=== PATIENT | male | born 1975 | race Caucasian/White ===

== ENCOUNTER → 2016-05-12 | Outpatient (CLI) | payer OTHER ==
--- NOTE | 2016-05-12 11:44 | XR ---
EXAMINATION TYPE: XR chest 2V DATE OF EXAM ORDERED: 05/12/2016 11:25 AM HISTORY: J18.9 Pneumonia. REFERENCE: None. FINDINGS: The lungs are clear. Pleural spaces are clear. Heart size is normal. IMPRESSION: NORMAL CHEST.
== END | disposition home or self-care (01) ==
LOC: RADXRMAIN 11:14
PROVIDERS: ATTEND Family Medicine
DX: J18.9 Pneumonia, unspecified organism (principal)
CPT/HCPCS: 71020

== ENCOUNTER → 2019-09-12 | Outpatient (CLI) | payer OTHER | LOC: LABWHC1 14:54 | PROVIDERS: ATTEND Family Medicine | DX: R51 Headache (principal); R53.83 Other fatigue | CPT/HCPCS: U0003; C9803 ==

== ENCOUNTER 2021-06-23 22:40 | Emergency (ER) | payer OTHER ==
[2021-06-23 22:49] VITALS: RESP 20
[2021-06-23] MEDS ORDERED: SODIUM CHLORIDE 0.9% 1,000 ML IV STA (22:57)
--- NOTE | 2021-06-23 23:02 | ED ---
Dizziness HPI - General Chief Complaint: Dizziness Stated Complaint: Dizziness Time Seen by Provider: 06/23/21 22:44 Source: patient, EMS Mode of arrival: EMS Limitations: no limitations - History of Present Illness Initial Comments: This patient's 46-year-old man who states that he started to feel dizzy and off balance approximately 1-2 hours ago while he was watching television. The patient thought he would lie down and when things did not get any better he phoned EMS. Patient denies any trauma or exertion prior to onset. He states he just watching television. No infectious symptoms earlier today. No fever or chills. No chest pain, dyspnea, diaphoresis. No vomiting or diarrhea. MD Complaint: dizziness Onset/Timin -: hour(s) Timing: sudden onset Description: sense of movement, off-balance History of Same: No History of Trauma: No Severity: moderate Improves With: remaining still Worsens With: movement Associated Symptoms: denies other symptoms - Related Data Previous Rx's Medication Instructions Recorded FLUoxetine HCL [PROzac] 40 mg PO DAILY #7 dose 02/07/15 clonazePAM [KlonoPIN] 0.5 mg PO BID@0800,1300 #14 tab 02/07/15 clonazePAM [KlonoPIN] 2 mg PO HS #7 dose 02/07/15 hydrOXYzine pamoate [Vistaril] 50 mg PO HS #7 dose 02/07/15 Allergies Allergy/AdvReac Type Severity Reaction Status Date / Time bupropion HCl Allergy Unknown Verified 02/02/15 23:10 [From Wellbutrin] Review of Systems ROS Statement: Those systems with pertinent positive or pertinent negative responses have been documented in the HPI. ROS Other: All systems not noted in ROS Statement are negative. Constitutional: Denies: fever, chills, weakness Respiratory: Denies: cough, dyspnea Cardiovascular: Denies: chest pain, palpitations, edema, syncope Gastrointestinal: Reports: abdominal pain. Denies: nausea, vomiting, diarrhea, melena, hematochezia Genitourinary: Denies: dysuria, hematuria Musculoskeletal: Denies: back pain Skin: Denies: rash Neurological: Reports: vertigo. Denies: headache, weakness, numbness, confusion Past Medical History Past Medical History: No Reported History History of Any Multi-Drug Resistant Organisms: None Reported Additional Past Surgical History / Comment(s): FINGER AMPUTATION LEFT INDEX FINGER IN 1999, HILARIO PLACED AND REMOVED FROM LEFT LEG IN 2002 hardware removal from left ORIF lower extremity, distal tip of the finger slightly amputated after injury Past Anesthesia/Blood Transfusion Reactions: No Reported Reaction Past Psychological History: Anxiety, Depression Past Alcohol Use History: Occasional Past Drug Use History: None Reported - Past Family History Father Family Medical History: No Reported History Mother Family Medical History: No Reported History Brother(s) Family Medical History: No Reported History (Depression and anxiety) General Exam Limitations: no limitations General appearance: alert, in no apparent distress Head exam: Present: atraumatic, normocephalic Eye exam: Present: normal appearance. Absent: scleral icterus, conjunctival injection ENT exam: Present: mucous membranes dry Neck exam: Present: normal inspection Respiratory exam: Present: normal lung sounds bilaterally. Absent: respiratory distress, wheezes, rales, rhonchi, stridor Cardiovascular Exam: Present: normal rhythm, tachycardia, normal heart sounds. Absent: systolic murmur, diastolic murmur, rubs, gallop GI/Abdominal exam: Present: soft. Absent: distended, tenderness, guarding, rebound, mass Extremities exam: Present: normal inspection, normal capillary refill. Absent: pedal edema, calf tenderness Back exam: Present: normal inspection. Absent: CVA tenderness (R), CVA tenderness (L) Neurological exam: Present: alert Skin exam: Present: warm, dry, intact, normal color. 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 ] Respiratory 20 Rate Blood Pressure 130/89 O2 Sat by Pulse 96 Oximetry EKG Findings - EKG Results: EKG: interpreted by TOI, sinus rhythm, normal axis EKG shows: tachycardia (Rate 116 bpm) - Blocks, Lavinia, Hypertrophy, ST Abn: QRS axis and voltage: low voltage (<0.5 MV total QRS and <1.0 MV in each precordial lead) Medical Decision Making - Lab Data Result diagrams: 06/23/21 23:06 06/23/21 23:06 Lab Results 06/23/21 06/23/21 06/23/21 Range/Units 23:06 23:06 23:06 WBC 10.3 (3.8-10.6) k/uL RBC 5.09 (4.30-5.90) m/uL Hgb 15.7 (13.0-17.5) gm/dL Hct 46.0 (39.0-53.0) % MCV 90.3 (80.0-100.0) fL MCH 30.8 (25.0-35.0) pg MCHC 34.1 (31.0-37.0) g/dL RDW 12.5 (11.5-15.5) % Plt Count 243 (150-450) k/uL MPV 7.6 Neutrophils % 81 % Lymphocytes % 13 % Monocytes % 4 % Eosinophils % 1 % Basophils % 0 % Neutrophils # 8.3 H (1.3-7.7) k/uL Lymphocytes # 1.3 (1.0-4.8) k/uL Monocytes # 0.5 (0-1.0) k/uL Eosinophils # 0.1 (0-0.7) k/uL Basophils # 0.0 (0-0.2) k/uL PT 9.9 (9.0-12.0) sec INR 0.9 (<1.2) APTT 23.3 (22.0-30.0) sec D-Dimer <0.17 (<0.60) mg/L FEU Sodium 137 (137-145) mmol/L Potassium 4.3 (3.5-5.1) mmol/L Chloride 103 (98-107) mmol/L Carbon Dioxide 24 (22-30) mmol/L Anion Gap 10 mmol/L BUN 18 (9-20) mg/dL Creatinine 1.19 (0.66-1.25) mg/dL Est GFR (CKD-EPI)AfAm 84 (>60 ml/min/1.73 sqM) Est GFR (CKD-EPI)NonAf 72 (>60 ml/min/1.73 sqM) Glucose 153 H (74-99) mg/dL Calcium 9.1 (8.4-10.2) mg/dL Magnesium 2.2 (1.6-2.3) mg/dL Total Bilirubin 0.5 (0.2-1.3) mg/dL AST 24 (17-59) U/L ALT 28 (4-49) U/L Alkaline Phosphatase 83 (38-126) U/L Troponin I (0.000-0.034) ng/mL Total Protein 7.3 (6.3-8.2) g/dL Albumin 4.4 (3.5-5.0) g/dL TSH 3.340 (0.465-4.680) mIU/L 06/23/21 Range/Units 23:06 WBC (3.8-10.6) k/uL RBC (4.30-5.90) m/uL Hgb (13.0-17.5) gm/dL Hct (39.0-53.0) % MCV (80.0-100.0) fL MCH (25.0-35.0) pg MCHC (31.0-37.0) g/dL RDW (11.5-15.5) % Plt Count (150-450) k/uL MPV Neutrophils % % Lymphocytes % % Monocytes % % Eosinophils % % Basophils % % Neutrophils # (1.3-7.7) k/uL Lymphocytes # (1.0-4.8) k/uL Monocytes # (0-1.0) k/uL Eosinophils # (0-0.7) k/uL Basophils # (0-0.2) k/uL PT (9.0-12.0) sec INR (<1.2) APTT (22.0-30.0) sec D-Dimer (<0.60) mg/L FEU Sodium (137-145) mmol/L Potassium (3.5-5.1) mmol/L Chloride (98-107) mmol/L Carbon Dioxide (22-30) mmol/L Anion Gap mmol/L BUN (9-20) mg/dL Creatinine (0.66-1.25) mg/dL Est GFR (CKD-EPI)AfAm (>60 ml/min/1.73 sqM) Est GFR (CKD-EPI)NonAf (>60 ml/min/1.73 sqM) Glucose (74-99) mg/dL Calcium (8.4-10.2) mg/dL Magnesium (1.6-2.3) mg/dL Total Bilirubin (0.2-1.3) mg/dL AST (17-59) U/L ALT (4-49) U/L Alkaline Phosphatase (38-126) U/L Troponin I <0.012 (0.000-0.034) ng/mL Total Protein (6.3-8.2) g/dL Albumin (3.5-5.0) g/dL TSH (0.465-4.680) mIU/L Disposition Clinical Impression: Dizziness Disposition: HOME SELF-CARE Condition: Good Instructions (If sedation given, give patient instructions): Dizziness (ED) Is patient prescribed a controlled substance at d/c from ED?: No Referrals: Jefry Castro DO [Primary Care Provider] - 1-2 days
--- NOTE | 2021-06-23 23:48 | XR ---
EXAMINATION TYPE: XR chest 2V DATE OF EXAM: 06/23/2021 COMPARISON: 05/12/2016 HISTORY: Dysrhythmia TECHNIQUE: 2 views FINDINGS: Heart and mediastinum are normal. Lungs are clear. Diaphragm is normal. Bony thorax appears normal. There are chest leads. IMPRESSION: Normal chest. No change.
[2021-06-23] MEDS ORDERED: HYDROcodone/APAP 5-325MG 1 EACH TAB PO STA (23:56)
[2021-06-24] LABS: Basophils % (A) 0 %; Eosinophils # (A) 0.1 k/uL (0-0.7); Eosinophils % (A) 1 %; HGB 15.7 gm/dL (13.0-17.5); Lymphocytes # (A) 1.3 k/uL (1.0-4.8); Lymphocytes % (A) 13 %; MCH 30.8 pg (25.0-35.0); MCHC 34.1 g/dL (31.0-37.0); MCV 90.3 fL (80.0-100.0); Mean Platelet Volume 7.6; Monocytes # (A) 0.5 k/uL (0-1.0); Monocytes % (A) 4 %; Neutrophils # (A) 8.3 k/uL (1.3-7.7); Neutrophils % (A) 81 %; Platelet Count 243 k/uL (150-450); RBC 5.09 m/uL (4.30-5.90); RDW 12.5 % (11.5-15.5); WBC 10.3 k/uL (3.8-10.6)
[2021-06-24 00:03] LABS: Albumin 4.4 g/dL (3.5-5.0); Calcium 9.1 mg/dL (8.4-10.2); Magnesium 2.2 mg/dL (1.6-2.3); Potassium 4.3 mmol/L (3.5-5.1); Total Bilirubin 0.5 mg/dL (0.2-1.3); Total Protein 7.3 g/dL (6.3-8.2)
[2021-06-24 00:07] LABS: INR 0.9 (<1.2); Partial Thromboplastin Time 23.3 sec (22.0-30.0); Prothrombin Time 9.9 sec (9.0-12.0)
[2021-06-24 02:26] VITALS: BP 130/89; PULSE 109; TEMP 98.6
== END 2021-06-24 02:43 | disposition home or self-care (01) ==
LOC: EC 22:40
DX: R42 Dizziness and giddiness (principal); F32.A Depression, unspecified; F41.9 Anxiety disorder, unspecified; Z79.899 Other long term (current) drug therapy
CPT/HCPCS: 36415; 71046; 80053; 83735; 84443; 84484; 85025; 85379; 85610; 85730; 93005; 96360; 99284

== ENCOUNTER → 2021-12-14 | Outpatient (CLI) | payer OTHER ==
--- NOTE | 2021-12-15 01:29 | MR ---
EXAMINATION TYPE: MR knee LT wo con DATE OF EXAM: 12/14/2021 COMPARISON: None HISTORY: Left knee pain Multiplanar multiecho imaging of the left knee performed with no contrast. There is mild knee joint effusion. The anterior and posterior cruciate ligaments are intact. Patella is intact. Patellar tendon is intact. The collateral ligaments are intact. The medial and lateral menisci have fairly normal signal pattern. No evidence of a tear. No evidence of a fracture. No evidence of bone edema. The knee joint spaces are fairly normal. IMPRESSION: No evidence of ligamentous or meniscal tear. Small knee joint effusion.
== END | disposition home or self-care (01) ==
LOC: RADMRIMAIN 09:40
PROVIDERS: ATTEND Family Medicine
DX: M25.562 Pain in left knee (principal)

== ENCOUNTER 2022-01-14 22:53 | Emergency (ER) | payer OTHER ==
[2022-01-14 23:16] VITALS: TEMP 97
[2022-01-15] MEDS ORDERED: HYDROmorphone 1 MG/ML 1 ML SYRINGE IM STA (01:39)
[2022-01-15] MEDS ORDERED: KETOROLAC 15 MG/ML 1 ML VIAL IM STA (01:39)
[2022-01-15] MEDS ORDERED: ORPHENADRINE 30 MG/ML 2 ML VIAL IM STA (01:39)
--- NOTE | 2022-01-15 01:40 | ED ---
Extremity Problem HPI - General Chief complaint: Extremity Problem,Nontraumatic Stated complaint: Restless Legs Time Seen by Provider: 01/15/22 01:29 Source: patient Mode of arrival: EMS Limitations: no limitations - History of Present Illness Initial comments: This is a pleasant 39-year-old male who arrived by ambulance for chronic left leg pain and restless leg syndrome. Patient states for the last 6 months he has had increasing nerve pain to his left leg. Patient has had several workups to include an EMG, he's been evaluated by his family physician as well as orthopedics. Patient also been evaluated by neurology. Patient currently taking Neurontin for pain control. She is getting a throbbing and shooting type pain in his left leg as well as increased problems with restless leg syndrome. No acute injury. No fever, no pain in the feet. Most of the patient's pain is around the left knee area where he had previous surgery. Patient has a tentative diagnosis of reflux sympathetic dystrophy. Surgery was 20 years ago. No headache, no fever or chills, no changes in vision or hearing, no sore throat or difficulty with speech, no neck pain, no chest pain or shortness of breath, no abdominal pain, no nausea or vomiting, no changes in urination or bowel movements, no numbness or tingling,, no skin rashes or lesions. Past medical, surgical, social, and family history reviewed. - Related Data Previous Rx's Medication Instructions Recorded FLUoxetine HCL [PROzac] 40 mg PO DAILY #7 dose 02/07/15 clonazePAM [KlonoPIN] 0.5 mg PO BID@0800,1300 #14 tab 02/07/15 clonazePAM [KlonoPIN] 2 mg PO HS #7 dose 02/07/15 hydrOXYzine pamoate [Vistaril] 50 mg PO HS #7 dose 02/07/15 Allergies Allergy/AdvReac Type Severity Reaction Status Date / Time bupropion HCl Allergy Unknown Verified 02/02/15 23:10 [From Wellbutrin] Review of Systems ROS Statement: Those systems with pertinent positive or pertinent negative responses have been documented in the HPI. ROS Other: All systems not noted in ROS Statement are negative. Past Medical History Past Medical History: Dementia, Hyperlipidemia Additional Past Medical History / Comment(s): restless leg syndrome. RSD. History of Any Multi-Drug Resistant Organisms: None Reported Additional Past Surgical History / Comment(s): FINGER AMPUTATION LEFT INDEX FINGER IN 1999, HILARIO PLACED AND REMOVED FROM LEFT LEG IN 2002 hardware removal from left ORIF lower extremity, distal tip of the finger slightly amputated after injury Past Anesthesia/Blood Transfusion Reactions: No Reported Reaction Past Psychological History: Anxiety, Depression Past Alcohol Use History: Occasional Past Drug Use History: None Reported - Past Family History Father Family Medical History: No Reported History Mother Family Medical History: No Reported History Brother(s) Family Medical History: No Reported History (Depression and anxiety) General Exam - General Exam Comments Initial Comments: Patient does not appear to be ill or toxic. Limitations: no limitations General appearance: in distress (Mild secondary to leg pain) Head exam: Present: atraumatic, normocephalic, normal inspection Eye exam: Present: normal appearance, PERRL, EOMI. Absent: scleral icterus, conjunctival injection, periorbital swelling ENT exam: Present: normal exam, normal oropharynx, mucous membranes moist, normal external ear exam. Absent: mucous membranes dry Neck exam: Present: normal inspection, full ROM. Absent: tenderness, meningismus, lymphadenopathy Respiratory exam: Present: normal lung sounds bilaterally. Absent: respiratory distress, wheezes, rales, rhonchi, stridor Cardiovascular Exam: Present: regular rate, normal rhythm, normal heart sounds. Absent: systolic murmur, diastolic murmur, rubs, gallop, clicks GI/Abdominal exam: Present: soft, normal bowel sounds. Absent: distended, tenderness, guarding, rebound, rigid Extremities exam: Present: normal inspection, full ROM, normal capillary refill, other (Postsurgical scarring noted to the left leg. No erythema. No evidence of infectious process. Pulses are intact. Distal sensation intact. Range of motion full in all major joints. Full muscle strength all major muscle groups. No effusion). Absent: tenderness, pedal edema, joint swelling, calf tenderness Back exam: Present: normal inspection, full ROM. Absent: tenderness Neurological exam: Present: alert, oriented X3, CN II-XII intact Psychiatric exam: Present: normal affect, normal mood Skin exam: Present: warm, dry, intact, normal color. Absent: rash, cyanosis, diaphoretic, erythema, urticaria, vesicles, petechiae, pallor, mottled, abrasion Course Vital Signs 01/14/22 01/15/22 23:12 01:37 Temperature 97 F L Pulse Rate 110 H 101 H Respiratory 20 16 Rate Blood Pressure 129/79 125/81 O2 Sat by Pulse 97 97 Oximetry Medical Decision Making - Medical Decision Making Patient presented with chronic pain related to restless leg syndrome and possible RSD and chronic nerve pain involving his left leg. Patient currently on Neurontin through his regular physician. There was no evidence of infectious process or vascular insult. It agreed to treat her with one dose of hydromorphone, Norflex, and ketorolac. Told the patient to call his regular physician 8 AM tomorrow morning without fail to discuss further medication management. Patient was told to return to the ER for any signs or symptoms worsen. Told to return immediately if any other problems arise. All questions answered. Treatment plan discussed. Patient in agreement Every effort has been made to ensure accuracy of this dictation. However, due to the limitations of electronic medical records and dictation devices, errors in charting still occur. The case was discussed in detail with ED attending physician. Presentation, findings, treatment plan discussed in detail. Perfusionist Dr. Allna Disposition Clinical Impression: Chronic leg pain Disposition: HOME SELF-CARE Condition: Stable Instructions (If sedation given, give patient instructions): Chronic Pain (ED) Additional Instructions: Follow-up with your regular physician as directed. Return to the ER immediately if any symptoms worsen, new symptoms arise, or any other problems develop. Call your regular physician tomorrow morning for further pain management options. Is patient prescribed a controlled substance at d/c from ED?: No Referrals: Jefry Castro DO [Primary Care Provider] - 1-2 days Time of Disposition: 02:20
[2022-01-15 01:41] VITALS: BP 125/81; PULSE 101; RESP 16
== END 2022-01-15 03:13 | disposition home or self-care (01) ==
LOC: EC 22:53
DX: G89.29 Other chronic pain (principal); F32.A Depression, unspecified; F41.9 Anxiety disorder, unspecified; Z88.8 Allergy status to other drugs, medicaments and biological substances
CPT/HCPCS: 99284; 96372 ×3; J2360; J1170; J1885

== ENCOUNTER 2022-02-23 12:17 | Emergency (ER) | payer OTHER ==
--- NOTE | 2022-02-23 12:30 | ED ---
General Adult HPI - General Source: patient, RN notes reviewed Mode of arrival: ambulatory Limitations: no limitations <Carlitos Dias - Last Filed: 02/23/22 12:29> - General Source: patient, RN notes reviewed Mode of arrival: ambulatory Limitations: no limitations <Maegan Mckoy - Last Filed: 02/24/22 00:29> - General Stated complaint: leg pain Time Seen by Provider: 02/23/22 12:29 - History of Present Illness Initial comments: 39-year-old male presents emergency Department chief complaint leg pain. Patient presented EMS for this pain. Patient states that he is having such intense pain in his anxiety was bothering him he was short of breath. Patient states that has subsided some. He states that his PCP put him on Percocet for his leg problems. Patient states that he was involved in a accident 20 years ago in which she has a hilario in his left leg. Patient denies any back pain denies any bowel bladder incontinence or retention. (Carlitos Dias) 47-year-old male presents to the emergency Department via EMS with complaints of left lower extremity pain. Patient reports history of injury more than 20 years ago which required surgery with hardware placement, which has since been remov ed. States he has been on Neurontin in the past for this pain. He is also prescribed Percocet though has not had much improvement with oral medicines. Describes pain as deep, constant, and an aching/throbbing that extends from his foot and radiates to his knee. Patient states he was at this facility approximately a month ago for the same complaint. Received IM medications with improvement. Patient denies any new trauma or injury. No loss of sensation or weakness in the affected extremity. Denies rash, headache, dizziness, chest pain, shortness of breath, abdominal pain, nausea, vomiting, diarrhea, dysuria, hematuria, or incontinence. (Maegan Mckoy) - Related Data Previous Rx's Medication Instructions Recorded FLUoxetine HCL [PROzac] 40 mg PO DAILY #7 dose 02/07/15 clonazePAM [KlonoPIN] 0.5 mg PO BID@0800,1300 #14 tab 02/07/15 clonazePAM [KlonoPIN] 2 mg PO HS #7 dose 02/07/15 hydrOXYzine pamoate [Vistaril] 50 mg PO HS #7 dose 02/07/15 Allergies Allergy/AdvReac Type Severity Reaction Status Date / Time bupropion HCl Allergy Unknown Verified 02/02/15 23:10 [From Wellbutrin] Review of Systems ROS Other: All systems not noted in ROS Statement are negative. <Carlitos Dias - Last Filed: 02/23/22 12:29> ROS Other: All systems not noted in ROS Statement are negative. <Maegan Mckoy - Last Filed: 02/24/22 00:29> ROS Statement: Those systems with pertinent positive or pertinent negative responses have been documented in the HPI. Past Medical History Past Medical History: Dementia, Hyperlipidemia Additional Past Medical History / Comment(s): restless leg syndrome. RSD. History of Any Multi-Drug Resistant Organisms: None Reported Additional Past Surgical History / Comment(s): FINGER AMPUTATION LEFT INDEX FINGER IN 1999, HILARIO PLACED AND REMOVED FROM LEFT LEG IN 2002 hardware removal from left ORIF lower extremity, distal tip of the finger slightly amputated after injury Past Anesthesia/Blood Transfusion Reactions: No Reported Reaction Past Psychological History: Anxiety, Depression Past Alcohol Use History: Occasional Past Drug Use History: None Reported - Past Family History Father Family Medical History: No Reported History Mother Family Medical History: No Reported History Brother(s) Family Medical History: No Reported History (Depression and anxiety) <Carlitos Dias - Last Filed: 02/23/22 12:29> General Exam Limitations: no limitations General appearance: alert, in no apparent distress, other (Well-developed, well- nourished male in no acute distress, though does appear uncomfortable as he is restless in the bed.) ENT exam: Present: normal exam, mucous membranes moist Respiratory exam: Present: normal lung sounds bilaterally. Absent: respiratory distress, wheezes, rales, rhonchi, stridor Cardiovascular Exam: Present: normal rhythm, tachycardia, normal heart sounds. Absent: systolic murmur, diastolic murmur, rubs, gallop, clicks GI/Abdominal exam: Present: soft, normal bowel sounds. Absent: distended, tenderness, guarding, rebound, rigid Left Hip exam: Present: normal inspection, full ROM. Absent: tenderness, swelling Upper Leg exam: Present: normal inspection, full ROM. Absent: tenderness, swelling Knee exam: Present: normal inspection, full ROM. Absent: tenderness, swelling Lower Leg exam: Present: normal inspection, full ROM. Absent: tenderness, swelling Ankle exam: Present: normal inspection, full ROM Foot/Toe exam: Present: normal inspection, full ROM. Absent: tenderness, swelling Neurovascular tendon exam: Present: no vascular compromise. Absent: pulse deficit, abnormal cap refill, motor deficit, sensory deficit Back exam: Absent: CVA tenderness (R), CVA tenderness (L) Neurological exam: Present: alert, oriented X3 Psychiatric exam: Present: anxious Skin exam: Present: warm, dry, intact, normal color. Absent: rash <Maegan Mckoy - Last Filed: 02/24/22 00:29> Course <Maegan Mckoy - Last Filed: 02/24/22 00:29> Vital Signs 02/23/22 02/23/22 02/23/22 12:44 16:06 16:31 Temperature 97.8 F 98.7 F Pulse Rate 110 H 111 H 96 Respiratory 20 20 Rate Blood Pressure 133/95 163/105 125/92 O2 Sat by Pulse 98 95 Oximetry 02/23/22 17:29 Temperature 98.3 F Pulse Rate 94 Respiratory 18 Rate Blood Pressure 123/92 O2 Sat by Pulse Oximetry - Reevaluation(s) Reevaluation #1: 02/23/22 17:00 Upon reassessment, patient reports improvement in discomfort. Verbalizes readiness for discharge home. Instructed to follow up with PCP for recheck. Work note provided. (Maegan Mckoy) Medical Decision Making <Maegan Mckoy - Last Filed: 02/24/22 00:29> - Medical Decision Making 47-year-old male with a past medical history of restless leg syndrome and chronic pain related to left leg injury presents to the emergency department via EMS for treatment of chronic pain. States he took his Percocet at home with no improvement. Upon exam, patient is well-appearing and in no acute distress, though he is restless. Physical exam findings are unremarkable otherwise. No swelling, erythema, edema, deformity, or neurovascular compromise in the left lower extremity. Patient was given Toradol, Dilaudid, and Norflex with improvement. He will be discharged home to follow up with his PCP for a recheck and discuss pain medication regimen. Provided with a note for work. Return parameters discussed in detail. Patient verbalizes understanding and agrees with this plan. Attending: Corby Was pt. sent in by a medical professional or institution? @ -No Did you speak to anyone other than the patient for history? @ -No Did you review nursing and triage notes? @ -Yes, agree Were old charts reviewed? @ -No Differential Diagnosis? @ -Exacerbation of restless leg syndrome, exacerbation of chronic pain, lumbar radiculopathy, DVT, this is not meant to be an exhaustive list EKG interpreted by me (3pts min.)? @ -Not applicable X-rays interpreted by me (1pt min.)? @ -Not applicable CT interpreted by me (1pt min.)? @ -Not applicable U/S interpreted by me (1pt. min.)? @ -Not applicable What testing was considered but not performed? (CT, X-rays, U/S, labs)? Why? @ -Considered imaging such as x-rayed, however there was no acute injury or trauma. Considered venous Doppler study, however patient is not having any swelling in the affected leg What meds were considered but not given? Why? @ -None Did you discuss the management of the patient with other professionals? @ -None Did you reconcile home meds? @ -No Was smoking cessation discussed for >3mins.? @ -No Was critical care preformed (if so, how long)? @ -No Were there social determinants of health that impacted care today? How? (Homelessness, low income, unemployed, alcoholism, drug addiction, transportation, low edu. Level, literacy, decrease access to med. care, halfway, rehab)? @ -No Was there de-escalation of care discussed even if they declined? (Discuss DNR or withdrawal of care, Hospice)? @ -No What co-morbidities impacted this encounter? (DM, HTN, Smoking, COPD, CAD, Cancer, CVA, Hep., AIDS, mental health diagnosis, sleep apnea, morbid obesity)? @ -Chronic pain, restless leg syndrome Was patient admitted / discharged? @ -Discharged Undiagnosed new problem with uncertain prognosis? @ -None Drug Therapy requiring intensive monitoring for toxicity (Heparin, Nitro, Insulin, Cardizem)? @ -None Were any procedures done? @ -None Diagnosis/symptom? @ -Exacerbation of chronic pain Acute, or Chronic, or Acute on Chronic? @ -Acute on chronic Uncomplicated (without systemic symptoms) or Complicated (systemic symptoms)? @ -Uncomplicated Side effects of treatment? @ -None Exacerbation, Progression, or Severe Exacerbation] @ -Exacerbation Poses a threat to life or bodily function? @ -No (Maegan Mckoy) Disposition <Carlitos Dias - Last Filed: 02/23/22 12:29> Is patient prescribed a controlled substance at d/c from ED?: No Time of Disposition: 17:03 <Maegan Mckoy - Last Filed: 02/24/22 00:29> Clinical Impression: Chronic pain of left lower extremity Disposition: HOME SELF-CARE Condition: Stable Instructions (If sedation given, give patient instructions): Chronic Pain (ED) Additional Instructions: Continue taking your home medications as prescribed. Follow-up with your PCP to discuss your pain medication regimen. Mobility is an important component of pain management. Make sure that you up walking frequently. Return to the emergency department with any new, worsening, or concerning symptoms. Referrals: Jefry Castro DO [Primary Care Provider] - 1-2 days
[2022-02-23] MEDS ORDERED: ORPHENADRINE 30 MG/ML 2 ML VIAL IM STA (16:13)
[2022-02-23] MEDS ORDERED: KETOROLAC 15 MG/ML 1 ML VIAL IM STA (16:13)
[2022-02-23] MEDS ORDERED: HYDROmorphone 1 MG/ML 1 ML SYRINGE IM STA (16:13)
[2022-02-23 17:31] VITALS: BP 123/92; PULSE 94; RESP 18; TEMP 98.3
== END 2022-02-23 17:29 | disposition home or self-care (01) ==
LOC: EC 12:17
DX: M79.662 Pain in left lower leg (principal); F41.9 Anxiety disorder, unspecified; F32.A Depression, unspecified; Z88.8 Allergy status to other drugs, medicaments and biological substances
CPT/HCPCS: 99284; 96372 ×3; J2360; J1170; J1885

== ENCOUNTER 2022-02-25 05:36 | Emergency (ER) | payer OTHER ==
[2022-02-25] MEDS ORDERED: KETOROLAC 15 MG/ML 1 ML VIAL IVP STA (05:48)
[2022-02-25] MEDS ORDERED: methocarbamoL 750 MG TAB PO STA (05:48)
[2022-02-25 05:50] VITALS: BP 123/81; PULSE 96; RESP 16; TEMP 97.4
[2022-02-25 06:15] LABS: Basophils % (A) 0 %; Eosinophils # (A) 0.1 k/uL (0-0.7); Eosinophils % (A) 1 %; HCT 43.9 % (39.0-53.0); HGB 15.9 gm/dL (13.0-17.5); Lymphocytes # (A) 0.8 k/uL (1.0-4.8); Lymphocytes % (A) 7 %; MCH 31.8 pg (25.0-35.0); MCHC 36.3 g/dL (31.0-37.0); MCV 87.5 fL (80.0-100.0); Mean Platelet Volume 7.8; Monocytes # (A) 0.5 k/uL (0-1.0); Monocytes % (A) 5 %; Neutrophils # (A) 9.1 k/uL (1.3-7.7); Neutrophils % (A) 87 %; Platelet Count 272 k/uL (150-450); RBC 5.02 m/uL (4.30-5.90); RDW 12.6 % (11.5-15.5); WBC 10.6 k/uL (3.8-10.6)
[2022-02-25 06:24] LABS: ALT 29 U/L (4-49); AST 36 U/L (17-59); African American GFR (CKD) >90 (>60 ml/min/1.73 sqM); Albumin 4.9 g/dL (3.5-5.0); Alkaline Phosphatase 60 U/L (38-126); Anion Gap 10 mmol/L; Blood Urea Nitrogen 35 mg/dL (9-20); Calcium 9.2 mg/dL (8.4-10.2); Carbon Dioxide 24 mmol/L (22-30); Chloride 108 mmol/L (98-107); Glucose 145 mg/dL (74-99); Magnesium 2.2 mg/dL (1.6-2.3); Non-African American GFR(CKD) >90 (>60 ml/min/1.73 sqM); Sodium 142 mmol/L (137-145); Total Bilirubin 0.8 mg/dL (0.2-1.3); Total Protein 8.1 g/dL (6.3-8.2)
--- NOTE | 2022-02-25 06:48 | ED ---
General Adult HPI - General Chief complaint: Anxiety Stated complaint: Altered Mental Time Seen by Provider: 02/25/22 05:48 Source: patient, EMS Mode of arrival: EMS - History of Present Illness Initial comments: This is a 47-year-old male with a significant past medical history including previous anxiety, depression, diabetes and chronic leg pain presents emergency department via EMS after he had a reported episode of unable to speak. Per EMS, the patient was able to answer all questions appropriately with nodding and pointing as well as writing. The patient denied of any deficits noted nor any weakness or tingling. On evaluation, the patient was able to speak and verbalizes complaints. The patient stated he felt that he had lower leg pain and cramping which caused him to have an anxiety attack and cause him to not be able to speak. The patient denied any other acute pain or complaints at this time. The patient stated he has not taken any of his medications as prescribed for last several days. The patient had been prescribed Percocet as well as multiple other pain medications. The patient was resting in bed comfortably without any further acute pain or complaints. - Related Data Previous Rx's Medication Instructions Recorded FLUoxetine HCL [PROzac] 40 mg PO DAILY #7 dose 02/07/15 clonazePAM [KlonoPIN] 0.5 mg PO BID@0800,1300 #14 tab 02/07/15 clonazePAM [KlonoPIN] 2 mg PO HS #7 dose 02/07/15 hydrOXYzine pamoate [Vistaril] 50 mg PO HS #7 dose 02/07/15 Allergies Allergy/AdvReac Type Severity Reaction Status Date / Time bupropion HCl Allergy Unknown Verified 02/02/15 23:10 [From Wellbutrin] Review of Systems ROS Statement: Those systems with pertinent positive or pertinent negative responses have been documented in the HPI. ROS Other: All systems not noted in ROS Statement are negative. Past Medical History Past Medical History: Dementia, Hyperlipidemia Additional Past Medical History / Comment(s): restless leg syndrome. RSD. History of Any Multi-Drug Resistant Organisms: None Reported Additional Past Surgical History / Comment(s): FINGER AMPUTATION LEFT INDEX FINGER IN 1999, HILARIO PLACED AND REMOVED FROM LEFT LEG IN 2002 hardware removal fr om left ORIF lower extremity, distal tip of the finger slightly amputated after injury Past Anesthesia/Blood Transfusion Reactions: No Reported Reaction Past Psychological History: Anxiety, Depression Past Alcohol Use History: Occasional Past Drug Use History: None Reported - Past Family History Father Family Medical History: No Reported History Mother Family Medical History: No Reported History Brother(s) Family Medical History: No Reported History (Depression and anxiety) General Exam Limitations: no limitations General appearance: alert, in no apparent distress Head exam: Present: atraumatic, normocephalic, normal inspection Eye exam: Present: normal appearance Pupils: Present: normal accommodation ENT exam: Present: normal exam, normal oropharynx, mucous membranes moist Neck exam: Present: normal inspection, full ROM Respiratory exam: Present: normal lung sounds bilaterally Cardiovascular Exam: Present: regular rate, normal rhythm, normal heart sounds GI/Abdominal exam: Present: soft, normal bowel sounds Extremities exam: Present: normal inspection, full ROM, normal capillary refill Back exam: Present: normal inspection, full ROM Neurological exam: Present: alert, oriented X3, CN II-XII intact Psychiatric exam: Present: normal affect, normal mood Skin exam: Present: warm, dry Course Vital Signs 02/25/22 05:45 Temperature 97.4 F L Pulse Rate 96 Respiratory 16 Rate Blood Pressure 123/81 O2 Sat by Pulse 96 Oximetry Medical Decision Making - Medical Decision Making Was pt. sent in by a medical professional or institution (, PA, ATTORNEY LAWYER, urgent care, hospital, or shelter...) When possible be specific @ -No Did you speak to anyone other than the patient for history (EMS, parent, family, police, friend...)? What history was obtained from this source @ -Yes, EMS Did you review nursing and triage notes (agree or disagree)? Why? @ -I reviewed and agree with nursing and triage notes Were old charts reviewed (outside hosp., previous admission, EMS record, old EKG, old radiological studies, urgent care reports/EKG's, shelter records)? Report findings @ -No old charts were reviewed Differential Diagnosis (chest pain, altered mental status, abdominal pain women, abdominal pain men, vaginal bleeding, weakness, fever, dyspnea, syncope, headache, dizziness, GI bleed, back pain, seizure, CVA, palpatations, mental health)? @ -Acute CVA, acute anxiety attack EKG interpreted by me (3pts min.). @ -None X-rays interpreted by me (1pt min.). @ -None done CT interpreted by me (1pt min.). @ -None done U/S interpreted by me (1pt. min.). @ -None done What testing was considered but not performed or refused? (CT, X-rays, U/S, labs)? Why? @ -CT of the head and neck was considered however the patient was able to verbalize his complaints and denied of any acute neurologic deficits noted. The patient likely had anxiety as a cause of his symptoms and did not require any further intervention at this time. What meds were considered but not given or refused? Why? @ -None Did you discuss the management of the patient with other professionals (professionals i.e. Dr., PA, ATTORNEY LAWYER, lab, RT, psych nurse, sexual assault social worker, marketing senior recruiter, teacher, dog license officer supervisor, case managers)? Give summary @ -No Was smoking cessation discussed for >3mins.? @ -No Was critical care preformed (if so, how long)? @ -No Were there social determinants of health that impacted care today? How? (Homelessness, low income, unemployed, alcoholism, drug addiction, transportation, low edu. Level, literacy, decrease access to med. care, skilled nursing, rehab)? @ -No Was there de-escalation of care discussed even if they declined (Discuss DNR or withdrawal of care, Hospice)? DNR status @ -No What co-morbidities impacted this encounter? (DM, HTN, Smoking, COPD, CAD, Cancer, CVA, ARF, Chemo, Hep., AIDS, mental health diagnosis, sleep apnea, morbid obesity)? @ -Hypertension, diabetes, anxiety, depression, chronic pain Was patient admitted / discharged? Hospital course, mention meds given and route, prescriptions, significant lab abnormalities, going to OR and other pertinent info. @ -The patient was seen and evaluated emergency department. On arrival, the patient was able to answer all questions appropriately by pointing and nodding however after only 30 seconds, the patient started to verbalize all of his complaints and stated that he had lower leg pain cramping that caused him to have anxiety attack. The patient did have bilateral lidocaine patches on his legs and stated that he has had pain for a long time. The patient denied of any acute neuro deficits and did not have any signs of a CVA at this time. The patient was likely having is nonverbal episode as an attempt to try and received anxiety medications. The patient was able to speak clearly and answer all questions appropriately on reevaluation and laboratory workup was negative. The patient was advised to use his medications as prescribed for his chronic pain and to follow-up with his primary care physician. The patient was discharged home in stable condition. Undiagnosed new problem with uncertain prognosis? @ -No Drug Therapy requiring intensive monitoring for toxicity (Heparin, Nitro, Insulin, Cardizem)? @ -No Were any procedures done? @ -No Diagnosis/symptom? @ -Transient aphasia secondary to anxiety and drug seeking behavior, resolved Acute, or Chronic, or Acute on Chronic? @ -Acute Uncomplicated (without systemic symptoms) or Complicated (systemic symptoms)? @ -Uncomplicated Side effects of treatment? @ -No Exacerbation, Progression, or Severe Exacerbation? @ -No Poses a threat to life or bodily function? How? (Chest pain, [place], CA, pneumonia, PE, COPD, DKA, ARF, appy, cholecystitis, CVA, Diverticulitis, Homicidal, Suicidal, threat to staff... and all critical care pts) @ -No - Lab Data Result diagrams: 02/25/22 06:00 02/25/22 06:00 Lab Results 02/25/22 02/25/22 Range/Units 06:00 06:00 WBC 10.6 (3.8-10.6) k/uL RBC 5.02 (4.30-5.90) m/uL Hgb 15.9 (13.0-17.5) gm/dL Hct 43.9 (39.0-53.0) % MCV 87.5 (80.0-100.0) fL MCH 31.8 (25.0-35.0) pg MCHC 36.3 (31.0-37.0) g/dL RDW 12.6 (11.5-15.5) % Plt Count 272 (150-450) k/uL MPV 7.8 Neutrophils % 87 % Lymphocytes % 7 % Monocytes % 5 % Eosinophils % 1 % Basophils % 0 % Neutrophils # 9.1 H (1.3-7.7) k/uL Lymphocytes # 0.8 L (1.0-4.8) k/uL Monocytes # 0.5 (0-1.0) k/uL Eosinophils # 0.1 (0-0.7) k/uL Basophils # 0.0 (0-0.2) k/uL Sodium 142 (137-145) mmol/L Potassium 4.0 (3.5-5.1) mmol/L Chloride 108 H (98-107) mmol/L Carbon Dioxide 24 (22-30) mmol/L Anion Gap 10 mmol/L BUN 35 H (9-20) mg/dL Creatinine 0.94 (0.66-1.25) mg/dL Est GFR (CKD-EPI)AfAm >90 (>60 ml/min/1.73 sqM) Est GFR (CKD-EPI)NonAf >90 (>60 ml/min/1.73 sqM) Glucose 145 H (74-99) mg/dL Calcium 9.2 (8.4-10.2) mg/dL Magnesium 2.2 (1.6-2.3) mg/dL Total Bilirubin 0.8 (0.2-1.3) mg/dL AST 36 (17-59) U/L ALT 29 (4-49) U/L Alkaline Phosphatase 60 (38-126) U/L Total Protein 8.1 (6.3-8.2) g/dL Albumin 4.9 (3.5-5.0) g/dL Disposition Clinical Impression: Anxiety reaction, Chronic leg pain Disposition: HOME SELF-CARE Condition: Stable Instructions (If sedation given, give patient instructions): Generalized Anxiety Disorder (ED), Leg Pain (ED) Is patient prescribed a controlled substance at d/c from ED?: No Referrals: Jefry Castro DO [Primary Care Provider] - 1-2 days Time of Disposition: 06:30
== END 2022-02-25 07:17 | disposition home or self-care (01) ==
LOC: EC 05:36
DX: F41.1 Generalized anxiety disorder (principal); G89.4 Chronic pain syndrome; M79.605 Pain in left leg; F41.9 Anxiety disorder, unspecified; F32.A Depression, unspecified; Z88.8 Allergy status to other drugs, medicaments and biological substances
CPT/HCPCS: 36415; 80053; 83735; 85025; 99285; 96374; J1885

== ENCOUNTER → 2022-03-06 | Outpatient (CLI) | payer OTHER ==
--- NOTE | 2022-03-06 14:16 | NM ---
EXAMINATION TYPE: NM bone/joint limited DATE OF EXAM: 03/06/2022 COMPARISON: X-ray from 1122, MRI 12/14/2021 HISTORY: Pain TECHNIQUE: After the intravenous administration of 20.6 mCi Tc 99m MDP. Images acquired 3.25 hours post injection. Multiple views of the bilateral lower extremity are submitted. FINDINGS: Faint abnormal asymmetric uptake proximal left tibia compatible with x-ray and concordant with prior probable trauma or surgery. Correlate with history. Additional faint abnormal uptake seen in the dis grover fibula and tibia could be on the basis of prior trauma correlate clinically or with x-ray. IMPRESSION: 1. Faint uptake seen which is asymmetric within the proximal tibia, distal tibia and distal fibula co uld be on the basis of prior trauma or surgery. Findings involving the proximal tibia are concordant with the x-ray of 05/27/2021.
== END | disposition home or self-care (01) ==
LOC: RADNMMAIN 10:00
PROVIDERS: ATTEND Family Medicine
DX: M25.562 Pain in left knee (principal); R55 Syncope and collapse
CPT/HCPCS: 78300; A9503

== ENCOUNTER 2022-05-18 02:35 | Observation (INO) | payer OTHER ==
[2022-05-18] MEDS ORDERED: SODIUM CHLORIDE 0.9% 1,000 ML IV ONE (02:57)
--- NOTE | 2022-05-18 02:58 | ED ---
Altered Mental Status HPI - General Chief Complaint: Altered Mental Status Stated Complaint: Altered Mental Time Seen by Provider: 05/18/22 02:40 Source: patient, EMS Mode of arrival: EMS Limitations: altered mental status - History of Present Illness Initial Comments: 47-year-old male with past medical history of restless leg, chronic left knee pain presents emergency Department with altered mental status. Family is at bedside and provide the history. States the patient takes Dilaudid 2 mg twice daily. The patient got confused and thought he was able to take 2 tablets of his pain medication and therefore he did take 4 mg in the morning and 4 mg last night. They felt the patient was not acting himself and was more sleepy and confused last night and therefore called EMS. Patient does complain of some shortness of breath. No chest pain. Denies taking any excess of his medications. Reports that he has chronic pain in his left knee from a previous injury and is supposed to have surgery on the joint in the next month. He denies any falls. No headache or visual changes. No neck or back pain. No fevers. Denies abdominal pain. No lateralizing symptoms. No other alleviating, precipitating or modifying factors - Related Data Home Medications Medication Instructions Recorded Confirmed Lurasidone HCl [Latuda] 120 mg PO DAILY 05/18/22 05/18/22 Venlafaxine HCl [Effexor XR] 75 mg PO DAILY 05/18/22 05/18/22 Venlafaxine HCl [Effexor XR] 150 mg PO DAILY 05/18/22 05/18/22 lisinopriL [Zestril] 10 mg PO DAILY PRN 05/18/22 05/18/22 metFORMIN HCL ER [Glucophage XR] 500 mg PO HS 05/18/22 05/18/22 rOPINIRole HCL [Requip] 0.5 mg PO BID PRN 05/18/22 05/18/22 Previous Rx's Medication Instructions Recorded Acetaminophen Tab [Tylenol] 650 mg PO Q6HR PRN tab 05/20/22 HYDROmorphone [Dilaudid] 2 mg PO DAILY PRN #0 05/20/22 Allergies Allergy/AdvReac Type Severity Reaction Status Date / Time bupropion HCl Allergy Unknown Verified 05/23/22 00:51 [From Wellbutrin] Review of Systems ROS Statement: Those systems with pertinent positive or pertinent negative responses have been documented in the HPI. ROS Other: All systems not noted in ROS Statement are negative. Past Medical History Past Medical History: Dementia, Hyperlipidemia Additional Past Medical History / Comment(s): restless leg syndrome. RSD. History of Any Multi-Drug Resistant Organisms: None Reported Additional Past Surgical History / Comment(s): FINGER AMPUTATION LEFT INDEX FINGER IN 1999, HILARIO PLACED AND REMOVED FROM LEFT LEG IN 2002 hardware removal from left ORIF lower extremity, distal tip of the finger slightly amputated after injury Past Anesthesia/Blood Transfusion Reactions: No Reported Reaction Past Psychological History: Anxiety, Depression Past Alcohol Use History: Occasional Past Drug Use History: None Reported - Past Family History Father Family Medical History: No Reported History Mother Family Medical History: No Reported History Brother(s) Family Medical History: No Reported History (Depression and anxiety) General Exam Limitations: altered mental status General appearance: alert, in no apparent distress Head exam: Present: atraumatic, normocephalic, normal inspection Eye exam: Present: normal appearance, PERRL, EOMI. Absent: scleral icterus, conjunctival injection, periorbital swelling ENT exam: Present: normal exam, mucous membranes moist Neck exam: Present: normal inspection. Absent: tenderness, meningismus, lymphadenopathy Respiratory exam: Present: normal lung sounds bilaterally. Absent: respiratory distress, wheezes, rales, rhonchi, stridor Cardiovascular Exam: Present: normal rhythm, tachycardia, normal heart sounds. Absent: systolic murmur, diastolic murmur, rubs, gallop, clicks GI/Abdominal exam: Present: soft, normal bowel sounds. Absent: distended, tenderness, guarding, rebound, rigid Extremities exam: Present: normal inspection, full ROM, normal capillary refill. Absent: tenderness, pedal edema, joint swelling, calf tenderness Back exam: Present: normal inspection Neurological exam: Present: alert, CN II-XII intact Psychiatric exam: Present: normal mood, flat affect Skin exam: Present: warm, dry, intact, normal color. Absent: rash Course Vital Signs 05/18/22 05/18/22 05/18/22 02:38 02:44 02:50 Temperature Pulse Rate 135 H 134 H 135 H Pulse Rate [ Right] Respiratory 16 14 16 Rate Blood Pressure 166/101 157/96 Blood Pressure [Right Arm] O2 Sat by Pulse 97 97 98 Oximetry 05/18/22 05/18/22 05/18/22 02:55 03:00 03:15 Temperature 98 F Pulse Rate 135 H 133 H Pulse Rate [ Right] Respiratory 14 13 Rate Blood Pressure 157/96 150/97 Blood Pressure [Right Arm] O2 Sat by Pulse 97 98 Oximetry 05/18/22 05/18/22 05/18/22 03:30 04:00 04:15 Temperature Pulse Rate 120 H 118 H 111 H Pulse Rate [ Right] Respiratory 14 13 Rate Blood Pressure 144/93 163/96 135/79 Blood Pressure [Right Arm] O2 Sat by Pulse 100 99 Oximetry 05/18/22 05/18/22 05/18/22 05:00 06:00 07:19 Temperature 98.5 F Pulse Rate 125 H 120 H 105 H Pulse Rate [ Right] Respiratory 16 17 Rate Blood Pressure 145/96 138/92 143/91 Blood Pressure [Right Arm] O2 Sat by Pulse 97 96 95 Oximetry 05/18/22 05/18/22 05/18/22 08:30 08:34 14:15 Temperature 97.8 F 98.6 F Pulse Rate 106 H 107 H Pulse Rate [ 106 H Right] Respiratory 16 Rate Blood Pressure 125/77 126/86 Blood Pressure 136/83 [Right Arm] O2 Sat by Pulse 99 97 98 Oximetry Medical Decision Making - Medical Decision Making Was pt. sent in by a medical professional or institution (RINKU Serrano, UNIX SYSTEM ADMINISTRATOR, urgent care, hospital, or skilled nursing...) When possible be specific @ -No Did you speak to anyone other than the patient for history (EMS, parent, family, police, friend...)? What history was obtained from this source @ - and Mother Did you review nursing and triage notes (agree or disagree)? Why? @ -I reviewed and agree with nursing and triage notes Were old charts reviewed (outside hosp., previous admission, EMS record, old EKG, old radiological studies, urgent care reports/EKG's, skilled nursing records)? Report findings @ - old charts were reviewed Differential Diagnosis (chest pain, altered mental status, abdominal pain women, abdominal pain men, vaginal bleeding, weakness, fever, dyspnea, syncope, headache, dizziness, GI bleed, back pain, seizure, CVA, palpatations, mental health, musculoskeletal)? @ -opiate overdose, cva, sah, sdh, sepsis EKG interpreted by me (3pts min.). @ -As above X-rays interpreted by me (1pt min.). @ -yes CT interpreted by me (1pt min.). @ -None done U/S interpreted by me (1pt. min.). @ -None done What testing was considered but not performed or refused? (CT, X-rays, U/S, labs)? Why? @ -None What meds were considered but not given or refused? Why? @ -None Did you discuss the management of the patient with other professionals (professionals i.e. , PA, UNIX SYSTEM ADMINISTRATOR, lab, RT, psych nurse, social service technician, admiralty lawyer, teacher, animal park code enforcement officer, case managers)? Give summary @ -Admitting physician Was smoking cessation discussed for >3mins.? @ -no Was critical care preformed (if so, how long)? @ -no Were there social determinants of health that impacted care today? How? (Alison elessness, low income, unemployed, alcoholism, drug addiction, transportation, low edu. Level, literacy, decrease access to med. care, [place] [facility], rehab)? @ -No Was there de-escalation of care discussed even if they declined (Discuss DNR or withdrawal of care, Hospice)? DNR status @ -No What co-morbidities impacted this encounter? (DM, HTN, Smoking, COPD, CAD, Cancer, CVA, ARF, Chemo, Hep., AIDS, mental health diagnosis, sleep apnea, morbid obesity)? @ -chronic leg pain Was patient admitted / discharged? Hospital course, mention meds given and route, prescriptions, significant lab abnormalities, going to OR and other pertinent info. @ -Upon arrival patient is placed into room 5. Thorough history and physical exam is performed. Patient is able to provide a history however is sedated. Laboratory studies are conducted and reviewed. Results are discussed the p atient. He is requesting pain medications for his left leg. Instructed him that due to his misuse of his previous medications I like to hold off on any more narcotics at this time. Family states that he is returning to his baseline however it is not there yet at this point. I did recommend admission for further observation which the patient was agreeable. I spoke with Elisa from unit she was agreeable to admit the patient Undiagnosed new problem with uncertain prognosis? @ -yes Drug Therapy requiring intensive monitoring for toxicity (Heparin, Nitro, Insulin, Cardizem)? @ -No Were any procedures done? @ -No Diagnosis/symptom? @ -acute accidental opiate overdose, chronic left leg pain Uncomplicated (without systemic symptoms) or Complicated (systemic symptoms)? @ -complicated Side effects of treatment? @ -no Exacerbation, Progression, or Severe Exacerbation? @ -no Poses a threat to life or bodily function? How? (Chest pain, [place], [place], pneumonia, PE, COPD, DKA, ARF, appy, cholecystitis, CVA, Diverticulitis, Homicidal, Suicidal, threat to staff... and all critical care pts) @ -yes - Lab Data Result diagrams: 05/18/22 03:03 05/19/22 05:57 Lab Results 05/18/22 05/18/22 05/18/22 Range/Units 02:51 03:03 03:03 WBC 7.6 (3.8-10.6) k/uL RBC 4.90 (4.30-5.90) m/uL Hgb 15.3 (13.0-17.5) gm/dL Hct 42.6 (39.0-53.0) % MCV 87.0 (80.0-100.0) fL MCH 31.2 (25.0-35.0) pg MCHC 35.9 (31.0-37.0) g/dL RDW 13.3 (11.5-15.5) % Plt Count 253 (150-450) k/uL MPV 7.9 Neutrophils % 82 % Lymphocytes % 11 % Monocytes % 4 % Eosinophils % 1 % Basophils % 1 % Neutrophils # 6.2 (1.3-7.7) k/uL Lymphocytes # 0.8 L (1.0-4.8) k/uL Monocytes # 0.3 (0-1.0) k/uL Eosinophils # 0.1 (0-0.7) k/uL Basophils # 0.0 (0-0.2) k/uL Hyperchromasia Slight PT 9.6 (9.0-12.0) sec INR 0.9 (<1.2) APTT 22.5 (22.0-30.0) sec Sodium (137-145) mmol/L Potassium (3.5-5.1) mmol/L Chloride (98-107) mmol/L Carbon Dioxide (22-30) mmol/L Anion Gap mmol/L BUN (9-20) mg/dL Creatinine (0.66-1.25) mg/dL Est GFR (CKD-EPI)AfAm (>60 ml/min/1.73 sqM) Est GFR (CKD-EPI)NonAf (>60 ml/min/1.73 sqM) Glucose (74-99) mg/dL POC Glucose (mg/dL) 250 H (70-110) mg/dL POC Glu [employer] Erector ID Liset Cotter Calcium (8.4-10.2) mg/dL Total Bilirubin (0.2-1.3) mg/dL AST (17-59) U/L ALT (4-49) U/L Alkaline Phosphatase (38-126) U/L Troponin I (0.000-0.034) ng/mL Total Protein (6.3-8.2) g/dL Albumin (3.5-5.0) g/dL Serum Alcohol mg/dL 05/18/22 05/18/22 Range/Units 03:03 03:03 WBC (3.8-10.6) k/uL RBC (4.30-5.90) m/uL Hgb (13.0-17.5) gm/dL Hct (39.0-53.0) % MCV (80.0-100.0) fL MCH (25.0-35.0) pg MCHC (31.0-37.0) g/dL RDW (11.5-15.5) % Plt Count (150-450) k/uL MPV Neutrophils % % Lymphocytes % % Monocytes % % Eosinophils % % Basophils % % Neutrophils # (1.3-7.7) k/uL Lymphocytes # (1.0-4.8) k/uL Monocytes # (0-1.0) k/uL Eosinophils # (0-0.7) k/uL Basophils # (0-0.2) k/uL Hyperchromasia PT (9.0-12.0) sec INR (<1.2) APTT (22.0-30.0) sec Sodium 141 (137-145) mmol/L Potassium 4.2 (3.5-5.1) mmol/L Chloride 105 (98-107) mmol/L Carbon Dioxide 25 (22-30) mmol/L Anion Gap 11 mmol/L BUN 28 H (9-20) mg/dL Creatinine 1.01 (0.66-1.25) mg/dL Est GFR (CKD-EPI)AfAm >90 (>60 ml/min/1.73 sqM) Est GFR (CKD-EPI)NonAf 88 (>60 ml/min/1.73 sqM) Glucose 224 H (74-99) mg/dL POC Glucose (mg/dL) (70-110) mg/dL POC Glu [employer] Erector ID Calcium 9.1 (8.4-10.2) mg/dL Total Bilirubin 0.5 (0.2-1.3) mg/dL AST 21 (17-59) U/L ALT 28 (4-49) U/L Alkaline Phosphatase 83 (38-126) U/L Troponin I <0.012 (0.000-0.034) ng/mL Total Protein 7.3 (6.3-8.2) g/dL Albumin 4.5 (3.5-5.0) g/dL Serum Alcohol <10 mg/dL - EKG Data EKG Comments: EKG demonstrates sinus tachycardia with a rate of 130. [place] interval 124. QRS 81. QTC of 410. No acute ST segment elevations or depressions Disposition Clinical Impression: Acute encephalopathy, Medication overdose Disposition: ADMITTED IP TO THIS HOSP Condition: Stable Is patient prescribed a controlled substance at d/c from ED?: No Time of Disposition: 06:12 Decision to Admit Reason: Admit from EC Decision Date: 05/18/22 Decision Time: 06:12
[2022-05-18 02:59] LABS: Glucose,Whole Blood 250 mg/dL (70-110)
[2022-05-18 03:42] LABS: Basophils % (A) 1 %; Eosinophils # (A) 0.1 k/uL (0-0.7); Eosinophils % (A) 1 %; HCT 42.6 % (39.0-53.0); HGB 15.3 gm/dL (13.0-17.5); Hyperchromasia Slight; Lymphocytes # (A) 0.8 k/uL (1.0-4.8); Lymphocytes % (A) 11 %; MCH 31.2 pg (25.0-35.0); MCHC 35.9 g/dL (31.0-37.0); Mean Platelet Volume 7.9; Monocytes # (A) 0.3 k/uL (0-1.0); Monocytes % (A) 4 %; Neutrophils # (A) 6.2 k/uL (1.3-7.7); Neutrophils % (A) 82 %; Platelet Count 253 k/uL (150-450); RDW 13.3 % (11.5-15.5); WBC 7.6 k/uL (3.8-10.6)
[2022-05-18 03:53] LABS: ALT 28 U/L (4-49); AST 21 U/L (17-59); African American GFR (CKD) >90 (>60 ml/min/1.73 sqM); Albumin 4.5 g/dL (3.5-5.0); Alcohol <10 mg/dL; Alkaline Phosphatase 83 U/L (38-126); Anion Gap 11 mmol/L; Blood Urea Nitrogen 28 mg/dL (9-20); Calcium 9.1 mg/dL (8.4-10.2); Carbon Dioxide 25 mmol/L (22-30); Chloride 105 mmol/L (98-107); Glucose 224 mg/dL (74-99); Non-African American GFR(CKD) 88 (>60 ml/min/1.73 sqM); Potassium 4.2 mmol/L (3.5-5.1); Sodium 141 mmol/L (137-145); Total Bilirubin 0.5 mg/dL (0.2-1.3); Total Protein 7.3 g/dL (6.3-8.2)
[2022-05-18 04:40] LABS: INR 0.9 (<1.2); Partial Thromboplastin Time 22.5 sec (22.0-30.0); Prothrombin Time 9.6 sec (9.0-12.0)
[2022-05-18] MEDS ORDERED: NALOXONE 0.4 MG/ML 1 ML VIAL IV PRN (06:12)
--- NOTE | 2022-05-18 06:23 | XR ---
EXAMINATION TYPE: XR chest 2V DATE OF EXAM: 05/18/2022 COMPARISON: Chest x-ray Jun 23 2021 HISTORY: Altered mental status and weakness. TECHNIQUE: Frontal and lateral views of the chest are obtained. FINDINGS: There is no focal air space opacity, pleural effusion, or pneumothorax seen. The cardiac silhouette size is within normal limits. The osseous structures are intact. Overlying EKG leads red emonstrated. IMPRESSION: No acute cardiopulmonary process. No significant change from prior.
[2022-05-18] MEDS: KETOROLAC 15 MG/ML 1 ML VIAL IVP PRN ×3 (06:42→23:37)
[2022-05-18] MEDS: ACETAMINOPHEN TAB 325 MG TAB PO PRN ×2 (06:43→20:23)
[2022-05-18] MEDS: SODIUM CHLORIDE 0.9% 1,000 ML IV SCH ×3 (07:44→21:23)
[2022-05-18 07:58] LABS: Appearance,Urine Cloudy (Clear); Bilirubin,Urine Negative (Negative); Blood,Urine Negative (Negative); Color,Urine Yellow; Glucose,Urine (UA) 2+ (Negative); Ketones,Urine Negative (Negative); Leukocyte Esterase,Urine Negative (Negative); Mucus,Urine Many /hpf; Nitrite,Urine Negative (Negative); PH, Urine 5.5 (5.0-8.0); Protein,Urine Trace (Negative); RBC,Urine 2 /hpf (0-5); Squamous Epithelial Cell,Urine 5 /hpf (0-4); WBC,Urine 5 /hpf (0-5)
[2022-05-18 07:59] LABS: Amphetamine Screen,Urine Not Detected (NotDetected); Barbiturate Screen,Urine Not Detected (NotDetected); Benzodiazepines Screen,Urine Not Detected (NotDetected); Cocaine Screen,Urine Not Detected (NotDetected); Methadone Screen, Urine Not Detected (NotDetected); Opiate Screen,Urine Detected (NotDetected); Oxycodone Screen, Urine Not Detected (NotDetected); Phencyclidine Screen,Urine Not Detected (NotDetected); Tricyclic Antidepressant,Urine Not Detected (NotDetected); Urn Cannabinoid Scrn Not Detected (NotDetected)
[2022-05-18] MEDS ORDERED: lisinopriL 10 MG TAB PO PRN (14:43)
[2022-05-18] MEDS ORDERED: DEXTROSE 50% SYRINGE 50 ML IVP PRN ×2 (14:44)
[2022-05-18] MEDS: HEPARIN SODIUM,PORCINE/PF 5,000 UNIT/0.5 ML SYRINGE SQ SCH ×2 (16:19→23:37)
[2022-05-18 16:59] LABS: Glucose,Whole Blood 123 mg/dL (70-110)
[2022-05-18] MEDS: INSULIN ASPART (NovoLOG) 100 UNIT/ML VIAL SQ SCH ×2 (17:00→21:22)
[2022-05-18] MEDS ORDERED: HYDROcodone/APAP 5-325MG 1 EACH TAB PO PRN (17:21)
[2022-05-18] MEDS: LURASIDONE 40 MG TAB PO SCH (20:23)
[2022-05-18 21:21] LABS: Glucose,Whole Blood 147 mg/dL (70-110)
--- NOTE | 2022-05-18 23:09 | P.HPIM ---
History of Present Illness H&P Date: 05/18/22 Chief Complaint: Altered mental status Patient is a 47-year-old male with a known history of chronic left lower extremity pain, history of left knee injury s/p surgery with metal screw and hilario placement and removal about 15 years ago, chronic pain syndrome, anxiety/depression was brought to the hospital due to altered mental status. Patient's mother is at bedside. Patient has been taking Dilaudid and dose was increased. Patient is supposed to take 2 mg tablets twice daily but he did 2 tablets twice daily last night and this morning. Patient was not acting himself and was more sleepy and confused and EMS was called. Patient states that he was having pain last night and became panic, took extra dose of Dilaudid. He was also having shortness of breath when EMS arrived. Currently denies any chest pain or shortness of breath. Denies any falls. No head injury. No fever no chills. No cough or sputum production. No nausea vomiting abdominal pain or diarrhea. Chest x-ray showed no acute cardiopulmonary process. No significant change from prior EKG showed sinus tachycardia Laboratory showed WBC 7.6 hemoglobin 15.3 and platelets 253 Sodium 141 potassium 4.1 chloride 105 bicarb is 25 BUN 28 and creatinine 1.01 and blood sugar is 224 Liver glyceride elevated troponin x1 negative urinalysis is negative for infection UDS is positive for opiates Serum alcohol level is less than 10 Review of Systems Constitutional: Patient denies any fever or chills . no Generalized weakness. Abdomen: Patient denied any nausea or vomiting or abd. pain Cardiovascular: Patient denies any chest pain or short of breath no palpitations. Respiratory: patient denied any cough . no sputum production. No shortness of breath Neurologic: Patient denied any numbness or tingling headache. Musculoskeletal: Patient denies any complaints of joint swelling or deformity. Complains of left knee chronic pain. Skin: Negative Psychiatric: Negative Endocrine: No heat or cold intolerance. No recent weight gain. Genitourinary: No dysuria or hematuria. All other 14 point ROS negative except the above Past Medical History Past Medical History: Dementia, Hyperlipidemia Additional Past Medical History / Comment(s): restless leg syndrome. RSD. History of Any Multi-Drug Resistant Organisms: None Reported Additional Past Surgical History / Comment(s): FINGER AMPUTATION LEFT INDEX FINGER IN 1999, HILARIO PLACED AND REMOVED FROM LEFT LEG IN 2002 hardware removal from left ORIF lower extremity, distal tip of the finger slightly amputated after injury Past Anesthesia/Blood Transfusion Reactions: No Reported Reaction Past Psychological History: Anxiety, Depression Past Alcohol Use History: Occasional Past Drug Use History: None Reported - Past Family History Father Family Medical History: No Reported History Mother Family Medical History: No Reported History Brother(s) Family Medical History: No Reported History (Depression and anxiety) Medications and Allergies Home Medications Medication Instructions Recorded Confirmed Type HYDROmorphone [Dilaudid] 2 - 4 mg PO DAILY PRN 05/18/22 05/18/22 History Lurasidone HCl [Latuda] 120 mg PO DAILY 05/18/22 05/18/22 History Venlafaxine HCl [Effexor XR] 75 mg PO DAILY 05/18/22 05/18/22 History Venlafaxine HCl [Effexor XR] 150 mg PO DAILY 05/18/22 05/18/22 History lisinopriL [Zestril] 10 mg PO DAILY PRN 05/18/22 05/18/22 History metFORMIN HCL ER [Glucophage XR] 500 mg PO HS 05/18/22 05/18/22 History rOPINIRole HCL [Requip] 0.5 mg PO BID PRN 05/18/22 05/18/22 History Allergies Allergy/AdvReac Type Severity Reaction Status Date / Time bupropion HCl Allergy Unknown Verified 05/18/22 11:38 [From Wellbutrin] Physical Exam Vitals: Vital Signs Temp Pulse Resp BP Pulse Ox 05/18/22 14:15 98.6 F 107 H 126/86 98 05/18/22 08:34 106 H 125/77 97 05/18/22 07:19 98.5 F 105 H 143/91 95 05/18/22 06:00 120 H 17 138/92 96 05/18/22 05:00 125 H 16 145/96 97 05/18/22 04:15 111 H 13 135/79 99 05/18/22 04:00 118 H 14 163/96 100 05/18/22 03:30 120 H 144/93 05/18/22 03:15 133 H 13 150/97 98 05/18/22 03:00 135 H 14 157/96 97 05/18/22 02:55 98 F 05/18/22 02:50 135 H 16 157/96 98 05/18/22 02:44 134 H 14 97 05/18/22 02:38 135 H 16 166/101 97 Intake and Output 05/17/22 05/18/22 05/18/22 22:59 06:59 14:59 Other: Weight 82.554 kg PHYSICAL EXAMINATION: Patient is lying in the bed comfortably, no acute distress, awake alert and oriented.. Lethargic and drowsy. HEENT: Normocephalic. Neck is supple. Pupils reactive. Nostrils clear. Oral cavity is moist. Neck reveals no JVD, carotid bruits, or thyromegaly. CHEST EXAMINATION: Trachea is central. Symmetrical expansion. Lung porter clear to auscultation and percussion. CARDIAC: Normal S1, S2 with no gallops. No murmurs ABDOMEN: Soft. Bowel sounds present. Nontender. No organomegaly. No abdominal bruits. Extremities: reveal no edema. No clubbing or cyanosis Neurologically awake, alert, oriented x3 with well-coordinated movements. No focal deficits noted Skin: No rash or skin lesions. Psychiatric: Coperative. Nonsuicidal, Musculoskeletal: No joint swelling or deformity. Normal range of motion. Results CBC & Chem 7: 05/18/22 03:03 05/18/22 03:03 Labs: Abnormal Lab Results - Last 24 Hours (Table) 05/18/22 05/18/22 05/18/22 Range/Units 02:51 03:03 03:03 Lymphocytes # 0.8 L (1.0-4.8) k/uL BUN 28 H (9-20) mg/dL Glucose 224 H (74-99) mg/dL POC Glucose (mg/dL) 250 H (70-110) mg/dL Urine Protein (Negative) Urine Glucose (UA) (Negative) Ur Squamous Epith Cells (0-4) /hpf Urine Mucus (None) /hpf Urine Opiates Screen (NotDetected) 05/18/22 Range/Units 07:38 Lymphocytes # (1.0-4.8) k/uL BUN (9-20) mg/dL Glucose (74-99) mg/dL POC Glucose (mg/dL) (70-110) mg/dL Urine Protein Trace H (Negative) Urine Glucose (UA) 2+ H (Negative) Ur Squamous Epith Cells 5 H (0-4) /hpf Urine Mucus Many H (None) /hpf Urine Opiates Screen Detected H (NotDetected) Thrombosis Risk Factor Assmnt - DVT/VTE Prophylaxis DVT/VTE Prophylaxis: Pharmacologic Prophylaxis ordered Assessment and Plan Assessment: Altered mental status possible toxic encephalopathy due to excessive intake of Dilaudid 2 mg tablets. Chronic left knee pain with history of injury/metal plate,hilario removal about 15 years ago Chronic pain and is on follow-up with neurology as an outpatient. Supposed to get pain pump as per his mother at bedside. Restless leg syndrome Hyperlipidemia Anxiety/depression DVT prophylaxis heparin subcu Plan: Patient will be continued on IV hydration with normal saline. Dilaudid is on hold. Continue with Tylenol and Toradol as needed for pain. Continue with home medications. Mentation is much improved and almost back to baseline. Anticipate discharge in the next 24 hours. Discussed with the patient and his mother at bedside in detail. Time with Patient: Greater than 30
[2022-05-19 06:14] LABS: Glucose,Whole Blood 144 mg/dL (70-110)
[2022-05-19] MEDS: INSULIN ASPART (NovoLOG) 100 UNIT/ML VIAL SQ SCH ×4 (06:20→21:41)
[2022-05-19] MEDS: KETOROLAC 15 MG/ML 1 ML VIAL IVP PRN (08:05)
[2022-05-19] MEDS ORDERED: LURASIDONE 40 MG TAB PO SCH (09:00)
[2022-05-19] MEDS: SODIUM CHLORIDE 0.9% 1,000 ML IV SCH ×3 (09:40→21:42)
[2022-05-19] MEDS: VENLAFAXINE HCL ER 75 MG CAP PO SCH (09:41)
[2022-05-19] MEDS: HEPARIN SODIUM,PORCINE/PF 5,000 UNIT/0.5 ML SYRINGE SQ SCH ×3 (09:41→23:53)
[2022-05-19] MEDS: VENLAFAXINE HCL ER 150 MG CAP PO SCH (09:41)
[2022-05-19 10:51] LABS: African American GFR (CKD) 116.6 (60.0-200.0); Anion Gap 10.3 mmol/L (10.00-18.00); BUN/Creat Ratio 26.33 Ratio (12.00-20.00); Blood Urea Nitrogen 23.7 mg/dL (9.0-27.0); Calcium 9.4 mg/dL (8.7-10.3); Carbon Dioxide 25.7 mmol/L (20.0-27.5); Non-African American GFR(CKD) 100.6 (60.0-200.0); Potassium 4.3 mmol/L (3.5-5.5)
[2022-05-19 11:57] LABS: Glucose,Whole Blood 126 mg/dL (70-110)
[2022-05-19 17:38] LABS: Glucose,Whole Blood 155 mg/dL (70-110)
[2022-05-19 20:36] LABS: Glucose,Whole Blood 172 mg/dL (70-110)
[2022-05-19] MEDS: LURASIDONE 40 MG TAB PO SCH (21:42)
--- NOTE | 2022-05-20 02:26 | PN ---
PROGRESS NOTE DATE OF SERVICE: 05/19/2022 SUBJECTIVE: This is a 47-year-old gentleman admitted with change in mental status, apparently was taking medications in an appropriate manner. He was taking more of Dilaudid than intended. No chest pain. No palpitations. Continues to be confused. OBJECTIVE: VITAL SIGNS: Pulse 103, blood pressure 143/95, respirations 18. CHEST: Clear to auscultation. CARDIOVASCULAR: S1, S2. ABDOMEN: Soft. NERVOUS SYSTEM: No focal deficits. EXTREMITIES: Left leg pain present. LABORATORY DATA: Reviewed. ASSESSMENT: 1. Change in mental status secondary to acute metabolic encephalopathy. 2. Medications, Dilaudid. 3. Left knee pain and left leg pain. 4. Restless legs syndrome. 5. Hyperlipidemia. 6. Multiple medical issues. RECOMMENDATIONS AND DISCUSSION: 1. Recommend to continue current medications. Continue symptomatic treatment. wafer polishing lead worker to evaluate the home situation. Otherwise, we will repeat labs. Increase ambulation. Guarded prognosis because of multiple complex medical issues. Further recommendations to follow. MMODL / IJN: [id number] /
[2022-05-20 03:04] LABS: Glucose,Whole Blood 145 mg/dL (70-110)
[2022-05-20] MEDS: INSULIN ASPART (NovoLOG) 100 UNIT/ML VIAL SQ SCH (06:24)
[2022-05-20 06:25] LABS: Glucose,Whole Blood 134 mg/dL (70-110)
[2022-05-20 08:00] VITALS: BP 127/82; PULSE 85; RESP 16; TEMP 98.8
[2022-05-20] MEDS: VENLAFAXINE HCL ER 75 MG CAP PO SCH (08:37)
[2022-05-20] MEDS: VENLAFAXINE HCL ER 150 MG CAP PO SCH (08:37)
[2022-05-20] MEDS: HEPARIN SODIUM,PORCINE/PF 5,000 UNIT/0.5 ML SYRINGE SQ SCH (08:37)
[2022-05-20] MEDS: SODIUM CHLORIDE 0.9% 1,000 ML IV SCH ×2 (11:08→12:27)
[2022-05-20 12:17] LABS: Glucose,Whole Blood 86 mg/dL (70-110)
--- NOTE | 2022-05-22 06:59 | P.DS ---
Providers Date of admission: 05/18/22 06:12 Expected date of discharge: 05/20/22 Attending physician: Jena Toure Primary care physician: Jefry Castro [facility] Course: Final diagnosis Change on mental status secondary to acute metabolic encephalopathy, medication effect Left knee pain and left leg pain History of restless leg syndrome Hyperlipidemia History of dementia Anxiety/depression Discharge disposition Patient is being discharged in a stable condition with guarded prognosis to home. Patient will follow-up with Dr. Castro in the outpatient setting upon discharge. Patient is to follow-up with pain management as scheduled. Total time taken is greater than 35 minutes. Hospital course This is a 47-year-old male who was recently admitted with acute mental status changes most likely medication induced from not taking oral Dilaudid properly. Patient had been taking more than prescribed unintentionally if he was misreading the directions. Mentation improved patient would like to go home. Patient encouraged follow-up with primary care provider this week. Currently no reports of chest pain, shortness of breath, or palpitations. Patient is afebrile. No reports of nausea or vomiting and patient is tolerating diet. Patient will be discharged home today. Guarded prognosis Physical exam: Gen: This is a 47-year-old male who is awake, alert and oriented 3, well- developed, well-nourished HEENT: Head is atraumatic, normocephalic. Pupils equal, round. Sclerae is anicteric. NECK: Supple. No JVD. No lymphadenopathy. No thyromegaly. LUNGS: Clear to auscultation. No wheezes or rhonchi. No intercostal r etractions. HEART: Regular rate and rhythm. No murmur. ABDOMEN: Soft. Bowel sounds are present. No masses. No tenderness. EXTREMITIES: No pedal edema. No calf tenderness. Restless legs on exam geoffrey ecially the right NEUROLOGICAL: Patient is awake, alert and oriented x3. Cranial nerves 2 through 12 are grossly intact. Please refer to medication reconciliation sheet for a list of medications. The impression and plan of care has been dictated by Opal Chi, Nurse Practitioner as directed. Dr. Mesfin MD I have performed a history and examination and MDM of this patient, discussed the same with the dictator, and agree with the dictator's assessment and plan as written ,documented as a scribe. Based on total visit time, I have performed more than 50% of the visit. Patient Condition at Discharge: Stable Plan - Discharge Summary Discharge Rx Participant: No New Discharge Prescriptions: New Acetaminophen Tab [Tylenol] 650 mg PO Q6HR PRN tab PRN Reason: Mild Pain Or Fever > 100.5 Continue lisinopriL [Zestril] 10 mg PO DAILY PRN PRN Reason: HIGH BLOOD PRESSURE Venlafaxine HCl [Effexor XR] 75 mg PO DAILY metFORMIN HCL ER [Glucophage XR] 500 mg PO HS Venlafaxine HCl [Effexor XR] 150 mg PO DAILY Lurasidone HCl [Latuda] 120 mg PO DAILY rOPINIRole HCL [Requip] 0.5 mg PO BID PRN PRN Reason: RESTLESS LEGS Changed HYDROmorphone [Dilaudid] 2 mg PO DAILY PRN #0 PRN Reason: Pain Discharge Medication List Lurasidone HCl [Latuda] 120 mg PO DAILY 05/18/22 [History] Venlafaxine HCl [Effexor XR] 75 mg PO DAILY 05/18/22 [History] Venlafaxine HCl [Effexor XR] 150 mg PO DAILY 05/18/22 [History] lisinopriL [Zestril] 10 mg PO DAILY PRN 05/18/22 [History] metFORMIN HCL ER [Glucophage XR] 500 mg PO HS 05/18/22 [History] rOPINIRole HCL [Requip] 0.5 mg PO BID PRN 05/18/22 [History] Acetaminophen Tab [Tylenol] 650 mg PO Q6HR PRN tab 05/20/22 [Rx] HYDROmorphone [Dilaudid] 2 mg PO DAILY PRN #0 05/20/22 [Rx] Follow up Appointment(s)/Referral(s): Jefry Castro DO [Primary Care Provider] - 1-2 days Activity/Diet/Wound Care/Special Instructions: Activity Limited until follow-up Follow-up with primary care provider on discharge Follow-up with pain management outpatient Continue taking medications as prescribed and is having to have Dilaudid only take half a tab daily as needed Discharge Disposition: HOME SELF-CARE
== END 2022-05-20 13:51 | disposition home or self-care (01) ==
LOC: EC 02:35 → 6NMEDSUR 06:12
PROVIDERS: ADMIT Hospitalist; ATTEND Hospitalist
DX: G92.8 Other toxic encephalopathy (principal); M25.562 Pain in left knee; M79.605 Pain in left leg; G25.81 Restless legs syndrome; E78.5 Hyperlipidemia, unspecified; G90.50 Complex regional pain syndrome I, unspecified; Z89.022 Acquired absence of left finger(s); F03.90 Unspecified dementia, unspecified severity, without behavioral disturbance, psychotic disturbance, mood disturbance, and anxiety; F41.9 Anxiety disorder, unspecified; F32.A Depression, unspecified; Z81.8 Family history of other mental and behavioral disorders; Z79.899 Other long term (current) drug therapy; Z91.09 Other allergy status, other than to drugs and biological substances
CPT/HCPCS: 96376 ×2; 96361 ×3; 96372 ×3; 96374; 99285; 36415; 94760; 93005; 80053; 80048; 84484; 85025; 85610; 85730; 81001; 80306; 83036; 71046; G0378 ×3; G0480; J1885 ×2; J1644 ×3; 80320

== ENCOUNTER → 2022-05-22 | Outpatient (CLI) | payer OTHER | END | disposition home or self-care (01) | LOC: LABWHC1 12:56 | PROVIDERS: ATTEND Physical Medicine & Rehabilitation Pain Medicine | DX: Z01.818 Encounter for other preprocedural examination (principal) | CPT/HCPCS: 93005 ==

== ENCOUNTER 2022-05-23 00:42 | Emergency (ER) | payer OTHER ==
[2022-05-23 00:51] VITALS: TEMP 97.6
--- NOTE | 2022-05-23 01:21 | ED ---
General Adult HPI - General Chief complaint: Anxiety Stated complaint: PANIC ATTACK Time Seen by Provider: 05/23/22 00:49 Source: patient, EMS Mode of arrival: EMS - History of Present Illness Initial comments: Dictation was produced using [email or web address] dictation software. please excuse any grammatical, word or spelling errors. Chief Complaint: 47-year-old male presents to the emergency department after anxiety reaction History of Present Illness: Patient's 39-year-old male has past medical history of alleged dementia restless leg syndrome and anxiety. Patient was weaned recently from his anxiety medications, Klonopin. States any sort of anxious keep short of breath. He did have some leftover Klonopin that he took which alleviated his symptoms. Patient punched a window with his right hand. States that there was some bleeding from an abrasion on some of his knuckles. Patient states he feels better now. Denies any shortness of breath bedside. The ROS documented in this emergency department record has been reviewed and confirmed by me. Those systems with pertinent positive or negative responses have been documented in the HPI. All other systems are other negative and/or noncontributory. PHYSICAL EXAM: General Impression: Alert and oriented x3, not in acute distress HEENT: Normocephalic atraumatic, extra-ocular movements intact, pupils equal and reactive to light bilaterally, mucous membranes moist. Cardiovascular: Heart regular rate and rhythm Chest: Able to complete full sentences, no retractions, no tachypnea Musculoskeletal: Pulses present and equal in all extremities, no peripheral edema Motor: no focal deficits noted Neurological: CN II-XII grossly intact, no focal motor or sensory deficits noted Skin: Intact with no visualized rashes Psych: Normal affect and mood Right hand: Slight swelling to the MCPs joints and PIPs. There does appear to be very superficial abrasions and some of the PIP joints. No lacerations. ED course: 47-year-old male presents emergency department for anxiety reaction and right hand injury. Vital Signs upon arrival are within acceptable limits. Nursing notes and chart review was performed Was pt. sent in by a medical professional or institution (, RINKU, RECEIVING MANAGER, urgent care, hospital, or [facility]...) When possible be specific @ -No Did you speak to anyone other than the patient for history (EMS, parent, family, police, friend...)? What history was obtained from this source @ -No Did you review nursing and triage notes (agree or disagree)? Why? @ -I reviewed and agree with nursing and triage notes Were old charts reviewed (outside hosp., previous admission, EMS record, old EKG, old radiological studies, urgent care reports/EKG's, [facility] records)? Report findings @ -No old charts were reviewed Differential Diagnosis (chest pain, altered mental status, abdominal pain women, abdominal pain men, vaginal bleeding, musculoskeletal, weakness, fever, dyspnea, syncope, headache, dizziness, GI bleed, back pain, seizure, CVA, palpatations, mental health)? @ -Differential Mental Health: Depression, anxiety, bipolar, psychosis, schizophrenia, borderline personality, situational depression, adjustment disorder, behavioral disorder, brain tumor, malingering, substance abuse, encephalopathy, medication reaction, dementia, hypothyroidism, degenerative neurologic disorder, lupus.... This is not meant to be all-inclusive list EKG interpreted by me (3pts min.). @ -None done X-rays interpreted by me (1pt min.). @ -Right Hand X-ray shows no occult fractures CT interpreted by me (1pt min.). @ -None done U/S interpreted by me (1pt. min.). @ -None done What testing was considered but not performed or refused? (CT, X-rays, U/S, labs)? Why? @ -None What meds were considered but not given or refused? Why? @ -None Did you discuss the management of the patient with other professionals (professionals i.e. , PA, RECEIVING MANAGER, lab, RT, psych nurse, community mental health social worker, shake packer, teacher, police officer, case coordinator)? Give summary @ -No Was smoking cessation discussed for >3mins.? @ -No Was critical care preformed (if so, how long)? @ -No Were there social determinants of health that impacted care today? How? (Homelessness, low income, unemployed, alcoholism, drug addiction, transportation, low edu. Level, literacy, decrease access to med. care, usp, rehab)? @ -No Was there de-escalation of care discussed even if they declined (Discuss DNR or withdrawal of care, Hospice)? DNR status @ -No What co-morbidities impacted this encounter? (DM, HTN, Smoking, COPD, CAD, Cancer, CVA, ARF, Chemo, Hep., AIDS, mental health diagnosis, sleep apnea, morbid obesity)? @ -None Was patient admitted / discharged? Hospital course, mention meds given and route, prescriptions, significant lab abnormalities, going to OR and other pertinent info. @ -47-year-old male presents to emergency room with anxiety reaction and right hand contusion. X-rays unremarkable for occult fractures. Patient took Klonopin prior to arrival. States that his anxiety is resolved. Patient discharged. Undiagnosed new problem with uncertain prognosis? @ -No Drug Therapy requiring intensive monitoring for toxicity (Heparin, Nitro, Insulin, Cardizem)? @ -No Were any procedures done? @ -No Diagnosis/symptom? Acute, or Chronic, or Acute on Chronic? Uncomplicated (without systemic symptoms) or Complicated (systemic symptoms)? @ -1. Anxiety reaction, 2. Hand contusion Side effects of treatment? @ -No Exacerbation, Progression, or Severe Exacerbation? @ -No Poses a threat to life or bodily function? How? (Chest pain, [place], [place], pneumonia, PE, COPD, DKA, ARF, appy, cholecystitis, CVA, Diverticulitis, Homicidal, Suicidal, threat to staff... and all critical care pts) @ -No - Related Data Home Medications Medication Instructions Recorded Confirmed Lurasidone HCl [Latuda] 120 mg PO DAILY 05/18/22 05/18/22 Venlafaxine HCl [Effexor XR] 75 mg PO DAILY 05/18/22 05/18/22 Venlafaxine HCl [Effexor XR] 150 mg PO DAILY 05/18/22 05/18/22 lisinopriL [Zestril] 10 mg PO DAILY PRN 05/18/22 05/18/22 metFORMIN HCL ER [Glucophage XR] 500 mg PO HS 05/18/22 05/18/22 rOPINIRole HCL [Requip] 0.5 mg PO BID PRN 05/18/22 05/18/22 Previous Rx's Medication Instructions Recorded Acetaminophen Tab [Tylenol] 650 mg PO Q6HR PRN tab 05/20/22 HYDROmorphone [Dilaudid] 2 mg PO DAILY PRN #0 05/20/22 Allergies Allergy/AdvReac Type Severity Reaction Status Date / Time bupropion HCl Allergy Unknown Verified 05/23/22 00:51 [From Wellbutrin] Review of Systems ROS Statement: Those systems with pertinent positive or pertinent negative responses have been documented in the HPI. ROS Other: All systems not noted in ROS Statement are negative. Past Medical History Past Medical History: Dementia, Hyperlipidemia Additional Past Medical History / Comment(s): restless leg syndrome. RSD. History of Any Multi-Drug Resistant Organisms: None Reported Additional Past Surgical History / Comment(s): FINGER AMPUTATION LEFT INDEX FINGER IN 1999, HILARIO PLACED AND REMOVED FROM LEFT LEG IN 2002 hardware removal from left ORIF lower extremity, distal tip of the finger slightly amputated after injury Past Anesthesia/Blood Transfusion Reactions: No Reported Reaction Past Psychological History: Anxiety, Depression Smoking Status: Former smoker Past Alcohol Use History: Occasional Past Drug Use History: None Reported - Past Family History Father Family Medical History: No Reported History Mother Family Medical History: No Reported History Brother(s) Family Medical History: No Reported History (Depression and anxiety) Course Vital Signs 05/23/22 05/23/22 05/23/22 00:46 02:33 04:00 Temperature 97.6 F 97.6 F Pulse Rate 120 H 80 101 H Respiratory 18 14 18 Rate Blood Pressure 111/82 94/69 118/84 O2 Sat by Pulse 96 95 97 Oximetry Disposition Clinical Impression: Acute anxiety Disposition: HOME SELF-CARE Condition: Good Instructions (If sedation given, give patient instructions): Generalized Anxiety Disorder (ED) Is patient prescribed a controlled substance at d/c from ED?: No Referrals: None,Stated [REFERRING] - 1-2 days Time of Disposition: 03:00
[2022-05-23 04:02] VITALS: BP 118/84; PULSE 101; RESP 18
--- NOTE | 2022-05-23 04:33 | XR ---
EXAM: XR Right Hand Complete, 3 or More Views CLINICAL HISTORY: ITS.REASON XR Reason: pain after punching something TECHNIQUE: Frontal, lateral and oblique views of the right hand. COMPARISON: No relevant prior studies available. IMPRESSION: Adjacent to the distal phalanx of the fourth finger is a 2 mm linear radiopaque object which may be a bone fragment or foreign body. Remaining bones appear to be intact.
== END 2022-05-23 04:02 | disposition home or self-care (01) ==
LOC: EC 00:42
DX: S60.511A Abrasion of right hand, initial encounter (principal); F41.9 Anxiety disorder, unspecified; F03.90 Unspecified dementia, unspecified severity, without behavioral disturbance, psychotic disturbance, mood disturbance, and anxiety; F32.A Depression, unspecified; Z87.891 Personal history of nicotine dependence; Z79.899 Other long term (current) drug therapy; Z88.8 Allergy status to other drugs, medicaments and biological substances; W22.8XXA Striking against or struck by other objects, initial encounter
CPT/HCPCS: 99284

== ENCOUNTER 2022-06-12 22:49 | Emergency (ER) | payer OTHER ==
--- NOTE | 2022-06-12 23:45 | ED ---
General Adult HPI - General Chief complaint: Extremity Problem,Nontraumatic Stated complaint: Left Leg Pain Time Seen by Provider: 06/12/22 23:03 Source: patient Mode of arrival: ambulatory Limitations: no limitations - History of Present Illness Initial comments: Patient is a 47-year-old male presenting to the emergency room via EMS for panic attack secondary to an increase in chronic left leg pain. He reports that recently his medications have been adjusted by his primary care provider and neurologist will changes to his Klonopin and oral Dilaudid which she has been on. He states that he is no longer on any oral Dilaudid but continues to take Klonopin 2 mg at bedtime. Upon exam patient has no evidence of anxiety and reports that his panic attack has seemed to have resolved. He was not given any medication by EMS to help treat his pain or anxiety and is unsure why his symptoms have improved. He denies any new trauma, new pain, changes in range of motion, changes in neuropathy, hallucinations, delusions, suicidal ideation or homicidal ideation. In addition to his anxiety, depression, chronic extremity pain he past medical history significant for complex regional pain syndrome of the left extremity, altered mental status due to metabolic encephalopathy, and restless leg syndrome. - Related Data Home Medications Medication Instructions Recorded Confirmed Lurasidone HCl [Latuda] 120 mg PO DAILY 05/18/22 05/18/22 Venlafaxine HCl [Effexor XR] 75 mg PO DAILY 05/18/22 05/18/22 Venlafaxine HCl [Effexor XR] 150 mg PO DAILY 05/18/22 05/18/22 lisinopriL [Zestril] 10 mg PO DAILY PRN 05/18/22 05/18/22 metFORMIN HCL ER [Glucophage XR] 500 mg PO HS 05/18/22 05/18/22 rOPINIRole HCL [Requip] 0.5 mg PO BID PRN 05/18/22 05/18/22 Previous Rx's Medication Instructions Recorded Acetaminophen Tab [Tylenol] 650 mg PO Q6HR PRN tab 05/20/22 HYDROmorphone [Dilaudid] 2 mg PO DAILY PRN #0 05/20/22 Allergies Allergy/AdvReac Type Severity Reaction Status Date / Time bupropion HCl Allergy Unknown Verified 06/12/22 23:05 [From Wellbutrin] Review of Systems ROS Statement: Those systems with pertinent positive or pertinent negative responses have been documented in the HPI. ROS Other: All systems not noted in ROS Statement are negative. Past Medical History Past Medical History: Hyperlipidemia Additional Past Medical History / Comment(s): restless leg syndrome. Complex regional pain syndrome to left lower extremity History of Any Multi-Drug Resistant Organisms: None Reported Additional Past Surgical History / Comment(s): FINGER AMPUTATION LEFT INDEX FINGER IN 1999, HILARIO PLACED AND REMOVED FROM LEFT LEG IN 2002 hardware removal from left ORIF lower extremity, distal tip of the finger slightly amputated after injury Past Anesthesia/Blood Transfusion Reactions: No Reported Reaction Past Psychological History: Anxiety, Depression Smoking Status: Never smoker Past Alcohol Use History: Occasional Past Drug Use History: None Reported - Past Family History Father Family Medical History: No Reported History Mother Family Medical History: No Reported History Brother(s) Family Medical History: No Reported History (Depression and anxiety) General Exam - General Exam Comments Initial Comments: GENERAL: No acute distress, well developed, well nourished. HEENT: Normocephalic, atraumatic. Pupils equal, round, reactive to light. Moist mucous membranes. LUNGS: No respiratory distress or use of accessory muscles. HEART: Regular rate. ABDOMEN: Non-distended. BACK: Normal inspection. EXTREMITIES: No edema. No tenderness. Increased right lower extremity movement. Decreased left knee range of motion. No evidence of effusion. NEUROLOGIC: Alert & oriented x 3. Slow verbal responses. CN II-XII grossly intact. PSYCHIATRIC: Flat affect and behavior. DERMATOLOGIC: Skin intact, without rashes or lesions noted. Limitations: no limitations Course Vital Signs 06/12/22 22:55 Temperature 97.1 F L Pulse Rate 112 H Respiratory 20 Rate Blood Pressure 121/82 O2 Sat by Pulse 97 Oximetry Medical Decision Making - Medical Decision Making Was pt. sent in by a medical professional or institution (, PA, FIT MODEL, urgent care, hospital, or penitentiary...) When possible be specific @ -No Did you speak to anyone other than the patient for history (EMS, parent, family, police, friend...)? What history was obtained from this source @ -No Did you review nursing and triage notes (agree or disagree)? Why? @ -I reviewed and agree with nursing and triage notes Were old charts reviewed (outside hosp., previous admission, EMS record, old EKG, old radiological studies, urgent care reports/EKG's, penitentiary records)? Report findings @ -Yes, I reviewed history and physical from most recent hospitalization 05/18/2022. Differential Diagnosis (chest pain, altered mental status, abdominal pain women, abdominal pain men, vaginal bleeding, weakness, fever, dyspnea, syncope, headache, dizziness, GI bleed, back pain, seizure, CVA, palpatations, mental health, musculoskeletal)? @ -Differential Musculoskeletal Muscular strain, contusion, ligament sprain, fracture, arthritis, septic arthritis, bursitis, cellulitis, muscle spasm, nerve compression, DVT, arterial occlusion, herpes zoster, electrolyte abnormality, tumor.... This is not meant to be in all inclusive list EKG interpreted by me (3pts min.). @ -None done X-rays interpreted by me (1pt min.). @ -None done CT interpreted by me (1pt min.). @ -None done U/S interpreted by me (1pt. min.). @ -None done What testing was considered but not performed or refused? (CT, X-rays, U/S, labs)? Why? @ -None What meds were considered but not given or refused? Why? @ -None Did you discuss the management of the patient with other professionals (professionals i.e. , PA, FIT MODEL, lab, RT, psych nurse, high school social studies teacher, electronic engineering technician, teacher, air defense artillery officer, family service caseworker)? Give summary @ -No Was smoking cessation discussed for >3mins.? @ -No Was critical care preformed (if so, how long)? @ -No Were there social determinants of health that impacted care today? How? (Ho melessness, low income, unemployed, alcoholism, drug addiction, transportation, low edu. Level, literacy, decrease access to med. care, group home, rehab)? @ -No Was there de-escalation of care discussed even if they declined (Discuss DNR or withdrawal of care, Hospice)? DNR status @ -No What co-morbidities impacted this encounter? (DM, HTN, Smoking, COPD, CAD, Cancer, CVA, ARF, Chemo, Hep., AIDS, mental health diagnosis, sleep apnea, morbid obesity)? @ -Anxiety, depression, complex regional pain syndrome and chronic left lower extremity pain. Was patient admitted / discharged? Hospital course, mention meds given and route, prescriptions, significant lab abnormalities, going to OR and other pertinent info. @ -47-year-old male presenting to the emergency room with reports of a panic attack secondary to left leg pain. Panic attack resolved upon examina tion. Left leg pain unchanged from chronic pain levels. Established with an following with primary care and pain management. No indication for diagnostic imaging or laboratory studies. No indication for medication administration as patient has chronic pain which is at baseline high level and being followed by pain management/neurology. At baseline neurological status and no evidence of anxiety. No indication for psychiatric evaluation. Encouraged follow-up with primary care provider, neurologist and pain clinic for further titration of pain medications along with anxiety medications. Questions and concerns answered. Return parameters to the emergency room discussed. Will discharge home in stable condition with follow-up with his primary care provider regarding chronic left lower extremity pain and chronic anxiety. Undiagnosed new problem with uncertain prognosis? @ -No Drug Therapy requiring intensive monitoring for toxicity (Heparin, Nitro, Insulin, Cardizem)? @ -No Were any procedures done? @ -No Diagnosis/symptom? @ -Left lower extremity pain Acute, or Chronic, or Acute on Chronic? @ -Chronic Uncomplicated (without systemic symptoms) or Complicated (systemic symptoms)? @ -Uncomplicated Side effects of treatment? @ -No Exacerbation, Progression, or Severe Exacerbation? @ -No Poses a threat to life or bodily function? How? (Chest pain, [place], [place], pneumonia, PE, COPD, DKA, ARF, appy, cholecystitis, CVA, Diverticulitis, Homicidal, Suicidal, threat to staff... and all critical care pts) @ -No Diagnosis/symptom? @ -Anxiety with panic attacks Acute, or Chronic, or Acute on Chronic? @ -Chronic Uncomplicated (without systemic symptoms) or Complicated (systemic symptoms)? @ -Uncomplicated Side effects of treatment? @ -none Exacerbation, Progression, or Severe Exacerbation] @ -no Poses a threat to life or bodily function? @ -no Case discussed with Dr. Rosado. Disposition Clinical Impression: Generalized anxiety disorder with panic attacks, Chronic pain of left lower extremity Disposition: HOME SELF-CARE Condition: Stable Instructions (If sedation given, give patient instructions): Chronic Pain (ED), Anxiety (ED) Additional Instructions: Please continue to take your anxiety medication as prescribed. It is recommend that you follow-up with your primary care provider and or neurologist/pain management provider for titration of pain medications. Please return to the Emergency Department if symptoms worsen or any other concerns. Is patient prescribed a controlled substance at d/c from ED?: No Referrals: Jefry Castro DO [Primary Care Provider] - 1-2 days Time of Disposition: 23:45
[2022-06-13 00:25] VITALS: BP 127/83; PULSE 88; RESP 18; TEMP 98.7
== END 2022-06-13 00:26 | disposition home or self-care (01) ==
LOC: EC 22:49
DX: F41.0 Panic disorder [episodic paroxysmal anxiety] (principal); G89.29 Other chronic pain; M79.662 Pain in left lower leg; F41.9 Anxiety disorder, unspecified; F32.A Depression, unspecified; Z88.8 Allergy status to other drugs, medicaments and biological substances; Z79.899 Other long term (current) drug therapy
CPT/HCPCS: 99284

== ENCOUNTER 2022-07-08 00:08 | Emergency (ER) | payer OTHER ==
[2022-07-08 00:27] VITALS: RESP 18; TEMP 97.6
[2022-07-08] MEDS ORDERED: KETOROLAC 15 MG/ML 1 ML VIAL IM STA (00:59)
[2022-07-08] MEDS ORDERED: LORazepam 2 MG/ML INJ IM STA (00:59)
--- NOTE | 2022-07-08 01:00 | ED ---
General Adult HPI - General Chief complaint: Anxiety Stated complaint: Anxiety, Left Leg Pain Time Seen by Provider: 07/08/22 00:39 Source: patient, RN notes reviewed, old records reviewed Mode of arrival: ambulatory Limitations: no limitations - History of Present Illness Initial comments: 47-year-old male presenting with anxiety. Patient also complains of left leg pain which is chronic and has been present for the past 20 years. She denies any new injury. Denies fever. Patient states he has been dealing with anxiety and panic attacks for some time. He is on Klonopin. No suicidal or homicidal ideation. - Related Data Home Medications Medication Instructions Recorded Confirmed Lurasidone HCl [Latuda] 120 mg PO DAILY 05/18/22 05/18/22 Venlafaxine HCl [Effexor XR] 75 mg PO DAILY 05/18/22 05/18/22 Venlafaxine HCl [Effexor XR] 150 mg PO DAILY 05/18/22 05/18/22 lisinopriL [Zestril] 10 mg PO DAILY PRN 05/18/22 05/18/22 metFORMIN HCL ER [Glucophage XR] 500 mg PO HS 05/18/22 05/18/22 rOPINIRole HCL [Requip] 0.5 mg PO BID PRN 05/18/22 05/18/22 Previous Rx's Medication Instructions Recorded Acetaminophen Tab [Tylenol] 650 mg PO Q6HR PRN tab 05/20/22 HYDROmorphone [Dilaudid] 2 mg PO DAILY PRN #0 05/20/22 Allergies Allergy/AdvReac Type Severity Reaction Status Date / Time bupropion HCl Allergy Unknown Verified 07/08/22 00:23 [From Wellbutrin] Review of Systems ROS Statement: Those systems with pertinent positive or pertinent negative responses have been documented in the HPI. ROS Other: All systems not noted in ROS Statement are negative. Past Medical History Past Medical History: Hyperlipidemia Additional Past Medical History / Comment(s): restless leg syndrome. Complex regional pain syndrome to left lower extremity History of Any Multi-Drug Resistant Organisms: None Reported Additional Past Surgical History / Comment(s): FINGER AMPUTATION LEFT INDEX FINGER IN 1999, HILARIO PLACED AND REMOVED FROM LEFT LEG IN 2002 hardware removal from left ORIF lower extremity, distal tip of the finger slightly amputated after injury Past Anesthesia/Blood Transfusion Reactions: No Reported Reaction Past Psychological History: Anxiety, Depression Smoking Status: Never smoker Past Alcohol Use History: Occasional Past Drug Use History: None Reported - Past Family History Father Family Medical History: No Reported History Mother Family Medical History: No Reported History Brother(s) Family Medical History: No Reported History (Depression and anxiety) General Exam Limitations: no limitations General appearance: alert, in no apparent distress Head exam: Present: atraumatic, normocephalic Eye exam: Present: normal appearance, PERRL ENT exam: Present: normal exam Neck exam: Present: normal inspection. Absent: tenderness, meningismus Respiratory exam: Present: normal lung sounds bilaterally. Absent: respiratory distress, wheezes Cardiovascular Exam: Present: regular rate, normal rhythm, other (Rate 85-90) Extremities exam: Present: normal inspection, normal capillary refill. Absent: pedal edema Neurological exam: Present: alert, oriented X3. Absent: motor sensory deficit Psychiatric exam: Present: flat affect. Absent: homicidal ideation, suicidal ideation Skin exam: Present: warm, dry, intact Course Vital Signs 07/08/22 00:23 Temperature 97.6 F Pulse Rate 123 H Respiratory 18 Rate Blood Pressure 124/86 O2 Sat by Pulse 96 Oximetry Medical Decision Making - Medical Decision Making Was pt. sent in by a medical professional or institution (, PA, GRIEVANCE AND APPEALS COORDINATOR, urgent care, hospital, or correction...) When possible be specific @ -No Did you speak to anyone other than the patient for history (EMS, parent, family, police, friend...)? What history was obtained from this source @ Patient's family member who is at bedside Did you review nursing and triage notes (agree or disagree)? Why? @ -I reviewed and agree with nursing and triage notes Were old charts reviewed (outside hosp., previous admission, EMS record, old EKG, old radiological studies, urgent care reports/EKG's, correction records)? Report findings @ -No old charts were reviewed Differential Diagnosis (chest pain, altered mental status, abdominal pain women, abdominal pain men, vaginal bleeding, weakness, fever, dyspnea, syncope, headache, dizziness, GI bleed, back pain, seizure, CVA, palpatations, mental health, musculoskeletal)? @ Differential Mental Health Depression, anxiety, bipolar, psychosis, schizophrenia, borderline personality, situational depression, adjustment disorder, behavioral disorder, brain tumor, malingering, substance abuse, encephalopathy, medication reaction, dementia, hypothyroidism, degenerative neurologic disorder, lupus.... This is not meant to be all-inclusive list EKG interpreted by me (3pts min.). @ -As above X-rays interpreted by me (1pt min.). @ -None done CT interpreted by me (1pt min.). @ -None done U/S interpreted by me (1pt. min.). @ -None done What testing was considered but not performed or refused? (CT, X-rays, U/S, labs)? Why? @ -None What meds were considered but not given or refused? Why? @ -None Did you discuss the management of the patient with other professionals (tammy hernadez i.e. , PA, GRIEVANCE AND APPEALS COORDINATOR, lab, RT, psych nurse, older adult social work specialist, certified diabetes educator, teacher, morals squad police officer, caser)? Give summary @ -No Was smoking cessation discussed for >3mins.? @ -No Was critical care preformed (if so, how long)? @ -No Were there social determinants of health that impacted care today? How? (Homelessness, low income, unemployed, alcoholism, drug addiction, transportation, low edu. Level, literacy, decrease access to med. care, snf, rehab)? @ -No Was there de-escalation of care discussed even if they declined (Discuss DNR or withdrawal of care, Hospice)? DNR status @ -No What co-morbidities impacted this encounter? (DM, HTN, Smoking, COPD, CAD, Cancer, CVA, ARF, Chemo, Hep., AIDS, mental health diagnosis, sleep apnea, morbid obesity)? @ Schizoaffective disorder, anxiety, chronic pain Was patient admitted / discharged? Hospital course, mention meds given and route, prescriptions, significant lab abnormalities, going to OR and other pertinent info. @ Patient with anxiety and chronic pain. Patient denies any suicidal or homicidal ideation. Denies any change in his chronic pain. He is given Toradol and Ativan in the emergency department. He states he has good outpatient follow-up. Stable for discharge. Undiagnosed new problem with uncertain prognosis? @ -No Drug Therapy requiring intensive monitoring for toxicity (Heparin, Nitro, Insulin, Cardizem)? @ -No Were any procedures done? @ -No Diagnosis/symptom? @ Anxiety Acute, or Chronic, or Acute on Chronic? @ Chronic Uncomplicated (without systemic symptoms) or Complicated (systemic symptoms)? @ Complicated Side effects of treatment? @ -No Exacerbation, Progression, or Severe Exacerbation? @ -No Poses a threat to life or bodily function? How? (Chest pain, [place], [place], pneumonia, PE, COPD, DKA, ARF, appy, cholecystitis, CVA, Diverticulitis, Homicidal, Suicidal, threat to staff... and all critical care pts) @ -No Disposition Clinical Impression: Chronic pain of left lower extremity, Generalized anxiety disorder with panic attacks Disposition: HOME SELF-CARE Condition: Fair Instructions (If sedation given, give patient instructions): Generalized Anxiety Disorder (ED) Is patient prescribed a controlled substance at d/c from ED?: No Referrals: Jefry Castro DO [Primary Care Provider] - 1-2 days Time of Disposition: 01:30
[2022-07-08 02:37] VITALS: BP 107/81; PULSE 85
== END 2022-07-08 02:37 | disposition home or self-care (01) ==
LOC: EC 00:08
DX: F41.0 Panic disorder [episodic paroxysmal anxiety] (principal); G89.29 Other chronic pain; M79.605 Pain in left leg; E78.5 Hyperlipidemia, unspecified; F32.A Depression, unspecified; Z79.899 Other long term (current) drug therapy; Z88.8 Allergy status to other drugs, medicaments and biological substances
CPT/HCPCS: 99283; 96372 ×2; J2060; J1885

== ENCOUNTER 2022-07-08 20:45 | Emergency (ER) | payer OTHER ==
[2022-07-08 20:49] VITALS: TEMP 98.8
[2022-07-08] MEDS ORDERED: KETOROLAC 15 MG/ML 1 ML VIAL IVP STA (21:08)
--- NOTE | 2022-07-08 21:12 | ED ---
General Adult HPI - General Chief complaint: Altered Mental Status Stated complaint: ALTERED MENTAL Time Seen by Provider: 07/08/22 20:59 Source: patient, EMS, RN notes reviewed, old records reviewed Mode of arrival: EMS Limitations: no limitations - History of Present Illness Initial comments: 47-year-old male presents for reevaluation of left leg pain and panic attack. The triage note does indicate that there was altered mental status and possible overdose. The patient is alert and oriented at the time my evaluation although he is slow to respond. He denies suicidal ideation or suicide attempt. He complains of continued left leg pain. No new injury. No fever. No vomiting. - Related Data Home Medications Medication Instructions Recorded Confirmed Lurasidone HCl [Latuda] 120 mg PO DAILY 05/18/22 05/18/22 Venlafaxine HCl [Effexor XR] 75 mg PO DAILY 05/18/22 05/18/22 Venlafaxine HCl [Effexor XR] 150 mg PO DAILY 05/18/22 05/18/22 lisinopriL [Zestril] 10 mg PO DAILY PRN 05/18/22 05/18/22 metFORMIN HCL ER [Glucophage XR] 500 mg PO HS 05/18/22 05/18/22 rOPINIRole HCL [Requip] 0.5 mg PO BID PRN 05/18/22 05/18/22 Previous Rx's Medication Instructions Recorded Acetaminophen Tab [Tylenol] 650 mg PO Q6HR PRN tab 05/20/22 HYDROmorphone [Dilaudid] 2 mg PO DAILY PRN #0 05/20/22 Allergies Allergy/AdvReac Type Severity Reaction Status Date / Time bupropion HCl Allergy Unknown Verified 07/08/22 20:50 [From Wellbutrin] Review of Systems ROS Statement: Those systems with pertinent positive or pertinent negative responses have been documented in the HPI. ROS Other: All systems not noted in ROS Statement are negative. Past Medical History Past Medical History: Hyperlipidemia Additional Past Medical History / Comment(s): restless leg syndrome. Complex regional pain syndrome to left lower extremity History of Any Multi-Drug Resistant Organisms: None Reported Additional Past Surgical History / Comment(s): FINGER AMPUTATION LEFT INDEX FINGER IN 1999, HILARIO PLACED AND REMOVED FROM LEFT LEG IN 2002 hardware removal from left ORIF lower extremity, distal tip of the finger slightly amputated after injury Past Anesthesia/Blood Transfusion Reactions: No Reported Reaction Past Psychological History: Anxiety, Depression Smoking Status: Never smoker Past Alcohol Use History: Occasional Past Drug Use History: None Reported - Past Family History Father Family Medical History: No Reported History Mother Family Medical History: No Reported History Brother(s) Family Medical History: No Reported History (Depression and anxiety) General Exam General appearance: alert, in no apparent distress Head exam: Present: atraumatic, normocephalic Eye exam: Present: normal appearance, PERRL ENT exam: Present: normal exam Neck exam: Present: normal inspection. Absent: tenderness, meningismus Respiratory exam: Present: normal lung sounds bilaterally. Absent: respiratory distress, wheezes Cardiovascular Exam: Present: regular rate, normal rhythm GI/Abdominal exam: Present: soft. Absent: distended, tenderness, guarding, rebound Extremities exam: Present: normal inspection, full ROM, normal capillary refill. Absent: pedal edema, calf tenderness Neurological exam: Present: alert, oriented X3, CN II-XII intact. Absent: motor sensory deficit Psychiatric exam: Present: flat affect. Absent: homicidal ideation, suicidal ideation Skin exam: Present: warm, dry, intact. Absent: cyanosis, diaphoretic Course Vital Signs 07/08/22 07/08/22 20:46 23:33 Temperature 98.8 F Pulse Rate 101 H 91 Respiratory 18 16 Rate Blood Pressure 120/80 117/88 O2 Sat by Pulse 98 98 Oximetry Medical Decision Making - Medical Decision Making Was pt. sent in by a medical professional or institution (, PA, HIGHWAY LANDSCAPE ARCHITECT, urgent care, hospital, or [facility]...) When possible be specific @ -No Did you speak to anyone other than the patient for history (EMS, parent, family, police, friend...)? What history was obtained from this source @ -Patient's mother Did you review nursing and triage notes (agree or disagree)? Why? @ -I reviewed and agree with nursing and triage notes Were old charts reviewed (outside hosp., previous admission, EMS record, old EKG, old radiological studies, urgent care reports/EKG's, [facility] records)? Report findings @ -No old charts were reviewed Differential Diagnosis (chest pain, altered mental status, abdominal pain women, abdominal pain men, vaginal bleeding, weakness, fever, dyspnea, syncope, headache, dizziness, GI bleed, back pain, seizure, CVA, palpatations, mental health, musculoskeletal)? @ Differential Mental Health Depression, anxiety, bipolar, psychosis, schizophrenia, borderline personality, situational depression, adjustment disorder, behavioral disorder, brain tumor, malingering, substance abuse, encephalopathy, medication reaction, dementia, hypothyroidism, degenerative neurologic disorder, lupus.... This is not meant to be all-inclusive list EKG interpreted by me (3pts min.). @ Sinus rhythm ventricular rate 95, MD interval 161, QRS duration 85, QTC [address] segment elevation X-rays interpreted by me (1pt min.). @ -None done CT interpreted by me (1pt min.). @ -None done U/S interpreted by me (1pt. min.). @ -None done What testing was considered but not performed or refused? (CT, X-rays, U/S, labs)? Why? @ -None What meds were considered but not given or refused? Why? @ -None Did you discuss the management of the patient with other professionals (professionals i.e. , PA, HIGHWAY LANDSCAPE ARCHITECT, lab, RT, psych nurse, manager social media, brake specialist, teacher, principal gifts officer, case work aide)? Give summary @ -No Was smoking cessation discussed for >3mins.? @ -No Was critical care preformed (if so, how long)? @ -No Were there social determinants of health that impacted care today? How? (Homelessness, low income, unemployed, alcoholism, drug addiction, transportation, low edu. Level, literacy, decrease access to med. care, longterm, rehab)? @ -No Was there de-escalation of care discussed even if they declined (Discuss DNR or withdrawal of care, Hospice)? DNR status @ -No What co-morbidities impacted this encounter? (DM, HTN, Smoking, COPD, CAD, Cancer, CVA, ARF, Chemo, Hep., AIDS, mental health diagnosis, sleep apnea, morbid obesity)? @ -None Was patient admitted / discharged? Hospital course, mention meds given and route, prescriptions, significant lab abnormalities, going to OR and other pertinent info. @ 47-year-old male presenting for evaluation of left leg pain and altered mental status. The patient's mother and patient were able to give a more detailed history upon arrival and states that the patient had taken Flexeril, propranolol and was less responsive than normal. He is alert and at his baseline at the time of reevaluation this is confirmed by his mother. They are currently undergoing outpatient evaluation regarding the chronic leg pain which is been present for many years. They're scheduled to have a peripheral nerve stimulator implanted. The exact date of this is pending. Patient's pain is controlled with Toradol in the emergency department. He is alert and oriented he has normal laboratory testing he is not suicidal or homicidal. Undiagnosed new problem with uncertain prognosis? @ -No Drug Therapy requiring intensive monitoring for toxicity (Heparin, Nitro, Insulin, Cardizem)? @ -No Were any procedures done? @ -No Diagnosis/symptom? @ Chronic leg pain, medication overdose Acute, or Chronic, or Acute on Chronic? @ -default Uncomplicated (without systemic symptoms) or Complicated (systemic symptoms)? @ Complicated Side effects of treatment? @ -No Exacerbation, Progression, or Severe Exacerbation? @ -No Poses a threat to life or bodily function? How? (Chest pain, [place], [place], pneumonia, PE, COPD, DKA, ARF, appy, cholecystitis, CVA, Diverticulitis, Homicidal, Suicidal, threat to staff... and all critical care pts) @ -No - Lab Data Result diagrams: 07/08/22 20:56 07/08/22 20:56 Lab Results 07/08/22 07/08/22 Range/Units 20:56 20:56 WBC 7.8 (3.8-10.6) k/uL RBC 5.15 (4.30-5.90) m/uL Hgb 15.5 (13.0-17.5) gm/dL Hct 44.7 (39.0-53.0) % MCV 86.7 (80.0-100.0) fL MCH 30.1 (25.0-35.0) pg MCHC 34.8 (31.0-37.0) g/dL RDW 13.2 (11.5-15.5) % Plt Count 257 (150-450) k/uL MPV 7.6 Neutrophils % 78 % Lymphocytes % 14 % Monocytes % 5 % Eosinophils % 1 % Basophils % 0 % Neutrophils # 6.1 (1.3-7.7) k/uL Lymphocytes # 1.1 (1.0-4.8) k/uL Monocytes # 0.4 (0-1.0) k/uL Eosinophils # 0.1 (0-0.7) k/uL Basophils # 0.0 (0-0.2) k/uL Hyperchromasia Slight Sodium 137 (137-145) mmol/L Potassium 4.0 (3.5-5.1) mmol/L Chloride 102 (98-107) mmol/L Carbon Dioxide 22 (22-30) mmol/L Anion Gap 13 mmol/L BUN 28 H (9-20) mg/dL Creatinine 0.97 (0.66-1.25) mg/dL Est GFR (CKD-EPI)AfAm >90 (>60 ml/min/1.73 sqM) Est GFR (CKD-EPI)NonAf >90 (>60 ml/min/1.73 sqM) Glucose 168 H (74-99) mg/dL Calcium 9.3 (8.4-10.2) mg/dL Magnesium 2.3 (1.6-2.3) mg/dL Total Bilirubin 0.6 (0.2-1.3) mg/dL AST 25 (17-59) U/L ALT 22 (4-49) U/L Alkaline Phosphatase 66 (38-126) U/L Total Protein 7.2 (6.3-8.2) g/dL Albumin 4.6 (3.5-5.0) g/dL Salicylates <1.0 mg/dL Acetaminophen <10.0 ug/mL Serum Alcohol <10 mg/dL Disposition Clinical Impression: Medication overdose, Chronic pain of left lower extremity Disposition: HOME SELF-CARE Condition: Fair Instructions (If sedation given, give patient instructions): Chronic Pain (ED) Is patient prescribed a controlled substance at d/c from ED?: No Referrals: Jefry Castro DO [Primary Care Provider] - 1-2 days Time of Disposition: 23:46
[2022-07-08 21:19] LABS: Basophils % (A) 0 %; Eosinophils # (A) 0.1 k/uL (0-0.7); Eosinophils % (A) 1 %; HCT 44.7 % (39.0-53.0); HGB 15.5 gm/dL (13.0-17.5); Hyperchromasia Slight; Lymphocytes # (A) 1.1 k/uL (1.0-4.8); Lymphocytes % (A) 14 %; MCH 30.1 pg (25.0-35.0); MCHC 34.8 g/dL (31.0-37.0); MCV 86.7 fL (80.0-100.0); Mean Platelet Volume 7.6; Monocytes # (A) 0.4 k/uL (0-1.0); Monocytes % (A) 5 %; Neutrophils # (A) 6.1 k/uL (1.3-7.7); Neutrophils % (A) 78 %; Platelet Count 257 k/uL (150-450); RBC 5.15 m/uL (4.30-5.90); RDW 13.2 % (11.5-15.5); WBC 7.8 k/uL (3.8-10.6)
[2022-07-08 21:42] LABS: ALT 22 U/L (4-49); AST 25 U/L (17-59); Acetaminophen <10.0 ug/mL; African American GFR (CKD) >90 (>60 ml/min/1.73 sqM); Albumin 4.6 g/dL (3.5-5.0); Alcohol <10 mg/dL; Alkaline Phosphatase 66 U/L (38-126); Anion Gap 13 mmol/L; Blood Urea Nitrogen 28 mg/dL (9-20); Calcium 9.3 mg/dL (8.4-10.2); Carbon Dioxide 22 mmol/L (22-30); Chloride 102 mmol/L (98-107); Glucose 168 mg/dL (74-99); Magnesium 2.3 mg/dL (1.6-2.3); Non-African American GFR(CKD) >90 (>60 ml/min/1.73 sqM); Salicylate <1.0 mg/dL; Sodium 137 mmol/L (137-145); Total Bilirubin 0.6 mg/dL (0.2-1.3); Total Protein 7.2 g/dL (6.3-8.2)
[2022-07-08 23:33] VITALS: BP 117/88; PULSE 91; RESP 16
== END 2022-07-09 00:02 | disposition home or self-care (01) ==
LOC: EC 20:45
DX: T65.91XA Toxic effect of unspecified substance, accidental (unintentional), initial encounter (principal); G89.29 Other chronic pain; M79.605 Pain in left leg; F41.9 Anxiety disorder, unspecified; F32.A Depression, unspecified; Z79.899 Other long term (current) drug therapy
CPT/HCPCS: 36415; 93005; 80053; 83735; 85025; 80143; 80179; 99285; 96374; G0480; J1885; 80320

== ENCOUNTER 2022-08-15 01:40 | Emergency (ER) | payer OTHER ==
[2022-08-15 01:52] VITALS: TEMP 98
[2022-08-15] MEDS ORDERED: LORazepam 2 MG/ML INJ IM STA (02:28)
[2022-08-15] MEDS ORDERED: Acetaminophen-Codeine 300-30mg TAB PO STA (02:28)
--- NOTE | 2022-08-15 02:36 | ED ---
Recheck HPI - General Chief Complaint: Extremity Problem,Nontraumatic Stated Complaint: Leg Pain Time Seen by Provider: 08/15/22 01:42 Source: EMS, RN notes reviewed, old records reviewed Mode of arrival: EMS Limitations: no limitations - History of Present Illness Initial Comments: This is a 39-year-old male to the emergency department for evaluation. Patient is unclear why he is in the ER today. The patient himself was unable to ambulate, he is having severe anxiety and leg pain left lower extremity pain which is chronic in nature. Patient has pain from prior fracture and surgery. No new trauma, unsure what is causing his anxiety is not homicidal or suicidal. MD Complaint: other (Left leg pain and anxiety) -: hour(s) Returns Today for: persistent/worsening pain related to initial visit Symptoms Since Prior Visit: worsening pain Context: planned re-check Associated Symptoms: none Treatments Prior to Arrival: other (Severe anxiety) - Related Data Home Medications Medication Instructions Recorded Confirmed Lurasidone HCl [Latuda] 120 mg PO DAILY 05/18/22 05/18/22 Venlafaxine HCl [Effexor XR] 75 mg PO DAILY 05/18/22 05/18/22 Venlafaxine HCl [Effexor XR] 150 mg PO DAILY 05/18/22 05/18/22 lisinopriL [Zestril] 10 mg PO DAILY PRN 05/18/22 05/18/22 metFORMIN HCL ER [Glucophage XR] 500 mg PO HS 05/18/22 05/18/22 rOPINIRole HCL [Requip] 0.5 mg PO BID PRN 05/18/22 05/18/22 Previous Rx's Medication Instructions Recorded Acetaminophen Tab [Tylenol] 650 mg PO Q6HR PRN tab 05/20/22 HYDROmorphone [Dilaudid] 2 mg PO DAILY PRN #0 05/20/22 Allergies Allergy/AdvReac Type Severity Reaction Status Date / Time bupropion HCl Allergy Unknown Verified 07/08/22 20:50 [From Wellbutrin] Review of Systems ROS Statement: Those systems with pertinent positive or pertinent negative responses have been documented in the HPI. ROS Other: All systems not noted in ROS Statement are negative. Past Medical History Past Medical History: Hyperlipidemia Additional Past Medical History / Comment(s): restless leg syndrome. Complex regional pain syndrome to left lower extremity History of Any Multi-Drug Resistant Organisms: None Reported Additional Past Surgical History / Comment(s): FINGER AMPUTATION LEFT INDEX FINGER IN 1999, HILARIO PLACED AND REMOVED FROM LEFT LEG IN 2002 hardware removal from left ORIF lower extremity, distal tip of the finger slightly amputated after injury Past Anesthesia/Blood Transfusion Reactions: No Reported Reaction Past Psychological History: Anxiety, Depression Smoking Status: Never smoker Past Alcohol Use History: Occasional Past Drug Use History: None Reported - Past Family History Father Family Medical History: No Reported History Mother Family Medical History: No Reported History Brother(s) Family Medical History: No Reported History (Depression and anxiety) General Exam Limitations: no limitations General appearance: alert, in no apparent distress Head exam: Present: atraumatic, normocephalic, normal inspection Eye exam: Present: normal appearance, PERRL, EOMI. Absent: scleral icterus, conjunctival injection, periorbital swelling ENT exam: Present: normal exam, mucous membranes moist Neck exam: Present: normal inspection. Absent: tenderness, meningismus, lymphadenopathy Respiratory exam: Present: normal lung sounds bilaterally. Absent: respiratory distress, wheezes, rales, rhonchi, stridor Cardiovascular Exam: Present: regular rate, normal rhythm, normal heart sounds. Absent: systolic murmur, diastolic murmur, rubs, gallop, clicks GI/Abdominal exam: Present: soft, normal bowel sounds. Absent: distended, tenderness, guarding, rebound, rigid Extremities exam: Present: normal inspection, full ROM, normal capillary refill. Absent: tenderness, pedal edema, joint swelling, calf tenderness Back exam: Present: normal inspection Neurological exam: Present: alert, oriented X3, CN II-XII intact Psychiatric exam: Present: normal affect, normal mood Skin exam: Present: warm, dry, intact, normal color. Absent: rash Course Vital Signs 08/15/22 08/15/22 01:46 04:28 Temperature 98.0 F Pulse Rate 104 H 98 Respiratory 20 18 Rate Blood Pressure 130/85 111/78 O2 Sat by Pulse 96 99 Oximetry - Reevaluation(s) Reevaluation #1: 08/15/22 02:35 Recent medical record is reviewed Reevaluation #2: Patient symptoms are improved Reevaluation #3: Patient informed results and questions answered Reevaluation #4: 08/15/22 02:36 Was pt. sent in by a medical professional or institution? @ -no Did you speak to anyone other than the patient for history? @ -no Did you review nursing and triage notes? @ -agree Were old charts reviewed? @ -yes Differential Diagnosis? @ -prior EKG interpreted by me (3pts min.)? @ -no X-rays interpreted by me (1pt min.)? @ -no CT interpreted by me (1pt min.)? @ -no U/S interpreted by me (1pt. min.)? @ -no What testing was considered but not performed? (CT, X-rays, U/S, labs)? Why? @ -no What meds were considered but not given? Why? @ -no Did you discuss the management of the patient with other professionals? @ -no Did you reconcile home meds? @ -no Was smoking cessation discussed for >3mins.? @ -no Was critical care preformed (if so, how long)? @ -no Were there social determinants of health that impacted care today? How? (Homelessness, low income, unemployed, alcoholism, drug addiction, transportation, low edu. Level, literacy, decrease access to med. care, prison, rehab)? @ -no Was there de-escalation of care discussed even if they declined? (Discuss DNR or withdrawal of care, Hospice)? @ -no What co-morbidities impacted this encounter? (DM, HTN, Smoking, COPD, CAD, Cancer, CVA, Hep., AIDS, mental health diagnosis, sleep apnea, morbid obesity)? @ -none Was patient admitted / discharged? @ -47 male to the emergency department for evaluation of pain chronic pain chronic leg pain with severe anxiety here in the ER symptoms are improved and okay for discharge home Discharge Undiagnosed new problem with uncertain prognosis? @ -no Drug Therapy requiring intensive monitoring for toxicity (Heparin, Nitro, Insulin, Cardizem)? @ -no Were any procedures done? @ -no Diagnosis/symptom? @ -Leg pain Acute, or Chronic, or Acute on Chronic? @ -acute Uncomplicated (without systemic symptoms) or Complicated (systemic symptoms)? @ -complicated Side effects of treatment? @ -no Exacerbation, Progression, or Severe Exacerbation] @ -no Poses a threat to life or bodily function? @ -yes Medical Decision Making - Medical Decision Making 47 male to the emergency department for evaluation of pain chronic pain chronic leg pain with severe anxiety here in the ER symptoms are improved and okay for discharge home Disposition Clinical Impression: Leg pain Disposition: HOME SELF-CARE Condition: Good Instructions (If sedation given, give patient instructions): Leg Pain (ED) Is patient prescribed a controlled substance at d/c from ED?: No Referrals: Jefry Castro DO [Primary Care Provider] - 1-2 days Time of Disposition: 04:15
[2022-08-15 04:29] VITALS: BP 111/78; PULSE 98; RESP 18
== END 2022-08-15 04:29 | disposition home or self-care (01) ==
LOC: EC 01:40
DX: M79.605 Pain in left leg (principal); F41.9 Anxiety disorder, unspecified; E78.5 Hyperlipidemia, unspecified; Z88.8 Allergy status to other drugs, medicaments and biological substances; Z79.899 Other long term (current) drug therapy
CPT/HCPCS: 99284; 96372; J2060

== ENCOUNTER 2022-09-10 21:07 | Emergency (ER) | payer OTHER ==
[2022-09-10 21:14] VITALS: BP 138/95; PULSE 127; RESP 20; TEMP 97.7
[2022-09-10] MEDS ORDERED: HYDROmorphone 1 MG/ML 1 ML SYRINGE IM STA (21:55)
[2022-09-10] MEDS ORDERED: IBUPROFEN 600 MG STARTER PACK 4 TAB BTL PO STA (21:55)
[2022-09-10] MEDS ORDERED: IBUPROFEN 600 MG TAB PO STA (21:55)
[2022-09-10] MEDS ORDERED: LORazepam 1 MG TAB PO STA (21:55)
--- NOTE | 2022-09-10 22:03 | ED ---
Extremity Problem HPI - General Chief complaint: Extremity Problem,Nontraumatic Stated complaint: Left Leg Pain, Shortness of Breath Time Seen by Provider: 09/10/22 21:24 Source: patient, EMS, RN notes reviewed, old records reviewed, Caregiver Mode of arrival: EMS Limitations: no limitations - History of Present Illness Initial comments: This 47-year-old male to the emergency. He presents today for evaluation regards to leg pain. Patient does suffer from like pain this chronic issue for this patient also pain does cause some deficits of anxiety does feel pretty anxious currently he is not homicidal or suicidal currently. Patient states his neuropathy pain in the leg started from surgery had a slight years ago and is just been unresolved. At times he feels well but when the pain gets bad as it is now makes him very anxious and restless. No new traumas no other new complaints patient is no headache chest pain shortness of breath or abdominal pain. Patient takes nothing on a daily basis for pain control. Patient does service from complex pain syndrome and restless leg disease MD Complaint: extremity pain, joint pain -: year(s) Location: left, lower extremity History of Same: Yes -: Yes myalgia, Yes arthralgia Radiation: proximal, distal Severity scale (1-10): 7 Quality: stabbing, sharp Consistency: intermittent Improves with: nothing Worsens with: nothing Associated Symptoms: denies other symptoms - Related Data Home Medications Medication Instructions Recorded Confirmed Lurasidone HCl [Latuda] 120 mg PO DAILY 05/18/22 05/18/22 Venlafaxine HCl [Effexor XR] 75 mg PO DAILY 05/18/22 05/18/22 Venlafaxine HCl [Effexor XR] 150 mg PO DAILY 05/18/22 05/18/22 lisinopriL [Zestril] 10 mg PO DAILY PRN 05/18/22 05/18/22 metFORMIN HCL ER [Glucophage XR] 500 mg PO HS 05/18/22 05/18/22 rOPINIRole HCL [Requip] 0.5 mg PO BID PRN 05/18/22 05/18/22 Previous Rx's Medication Instructions Recorded Acetaminophen Tab [Tylenol] 650 mg PO Q6HR PRN tab 05/20/22 HYDROmorphone [Dilaudid] 2 mg PO DAILY PRN #0 05/20/22 Allergies Allergy/AdvReac Type Severity Reaction Status Date / Time bupropion HCl Allergy Unknown Verified 09/10/22 21:14 [From Wellbutrin] Review of Systems ROS Statement: Those systems with pertinent positive or pertinent negative responses have been documented in the HPI. ROS Other: All systems not noted in ROS Statement are negative. Past Medical History Past Medical History: Hyperlipidemia Additional Past Medical History / Comment(s): restless leg syndrome. Complex regional pain syndrome to left lower extremity History of Any Multi-Drug Resistant Organisms: None Reported Additional Past Surgical History / Comment(s): FINGER AMPUTATION LEFT INDEX FINGER IN 1999, HILARIO PLACED AND REMOVED FROM LEFT LEG IN 2002 hardware removal from left ORIF lower extremity, distal tip of the finger slightly amputated after injury Past Anesthesia/Blood Transfusion Reactions: No Reported Reaction Past Psychological History: Anxiety, Depression Smoking Status: Never smoker Past Alcohol Use History: Occasional Past Drug Use History: Marijuana - Past Family History Father Family Medical History: No Reported History Mother Family Medical History: No Reported History Brother(s) Family Medical History: No Reported History (Depression and anxiety) General Exam Limitations: no limitations General appearance: alert, in no apparent distress Head exam: Present: atraumatic, normocephalic, normal inspection Eye exam: Present: normal appearance, PERRL, EOMI. Absent: scleral icterus, conjunctival injection, periorbital swelling ENT exam: Present: normal exam, mucous membranes moist Neck exam: Present: normal inspection. Absent: tenderness, meningismus, lymphadenopathy Respiratory exam: Present: normal lung sounds bilaterally. Absent: respiratory distress, wheezes, rales, rhonchi, stridor Cardiovascular Exam: Present: normal rhythm, tachycardia, normal heart sounds. Absent: systolic murmur, diastolic murmur, rubs, gallop, clicks GI/Abdominal exam: Present: soft, normal bowel sounds. Absent: distended, tenderness, guarding, rebound, rigid Extremities exam: Present: normal inspection, full ROM, normal capillary refill. Absent: tenderness, pedal edema, joint swelling, calf tenderness Back exam: Present: normal inspection Neurological exam: Present: alert, oriented X3, CN II-XII intact Psychiatric exam: Present: normal affect, normal mood Skin exam: Present: warm, dry, intact, normal color. Absent: rash Course Vital Signs 09/10/22 21:09 Temperature 97.7 F Pulse Rate 127 H Respiratory 20 Rate Blood Pressure 138/95 O2 Sat by Pulse 95 Oximetry - Reevaluation(s) Reevaluation #1: 09/10/22 22:01 Medical record is reviewed Reevaluation #2: 09/10/22 22:01 Patient symptoms improved, resolved Patient is a homicidal or suicidal Reevaluation #3: 09/10/22 22:01 Patient informed of results and questions have been answered Reevaluation #4: 09/10/22 22:06 Was pt. sent in by a medical professional or institution (, RINKU, [employer]PERVISOR, urgent care, hospital, or longterm...) When possible be specific @ -no Did you speak to anyone other than the patient for history (EMS, parent, family, police, friend...)? What history was obtained from this source @ -no Did you review nursing and triage notes (agree or disagree)? Why? @ -agree Were old charts reviewed (outside hosp., previous admission, EMS record, old EKG, old radiological studies, urgent care reports/EKG's, longterm records)? Report findings @ -yes patient does have old charts is recent ER visits of similar complaint most recent admission months ago, history of psychiatric illness Differential Diagnosis (chest pain, altered mental status, abdominal pain women, abdominal pain men, vaginal bleeding, weakness, fever, dyspnea, syncope, headache, dizziness, GI bleed, back pain, seizure, CVA, palpatations, mental health, musculoskeletal)? @ -prior EKG interpreted by me (3pts min.). @ -no X-rays interpreted by me (1pt min.). @ -no CT interpreted by me (1pt min.). @ -no U/S interpreted by me (1pt. min.). @ -no What testing was considered but not performed or refused? (CT, X-rays, U/S, labs)? Why? @ -no What meds were considered but not given or refused? Why? @ -none Did you discuss the management of the patient with other professionals (professionals i.e. RINKU Serrano, [employer]PER[employer]OR, lab, RT, psych nurse, social work therapist, agriculture inspector, teacher, learning and development officer, returned case inspector)? Give summary @ -no Was smoking cessation discussed for >3mins.? @ -no Was critical care preformed (if so, how long)? @ -no Were there social determinants of health that impacted care today? How? (Homelessness, low income, unemployed, alcoholism, drug addiction, transportation, low edu. Level, literacy, decrease access to med. care, snf, rehab)? @ -no Was there de-escalation of care discussed even if they declined (Discuss DNR or withdrawal of care, Hospice)? DNR status @ -no What co-morbidities impacted this encounter? (DM, HTN, Smoking, COPD, CAD, Cancer, CVA, ARF, Chemo, Hep., AIDS, mental health diagnosis, sleep apnea, morbid obesity)? @ -none Was patient admitted / discharged? Hospital course, mention meds given and route, prescriptions, significant lab abnormalities, going to OR and other pertinent info. @ - Was pt. sent in by a medical professional or institution (, RINKU, [employer] SUPERVISOR, urgent care, hospital, or longterm...) When possible be specific @ -no Did you speak to anyone other than the patient for history (EMS, parent, family, police, friend...)? What history was obtained from this source @ -no Did you review nursing and triage notes (agree or disagree)? Why? @ -agree Were old charts reviewed (outside hosp., previous admission, EMS record, old EKG, old radiological studies, urgent care reports/EKG's, longterm records)? Report findings @ -yes Differential Diagnosis (chest pain, altered mental status, abdominal pain women, abdominal pain men, vaginal bleeding, weakness, fever, dyspnea, syncope, headache, dizziness, GI bleed, back pain, seizure, CVA, palpatations, mental health, musculoskeletal)? @ -prior EKG interpreted by me (3pts min.). @ -yes X-rays interpreted by me (1pt min.). @ -yes CT interpreted by me (1pt min.). @ -no U/S interpreted by me (1pt. min.). @ -no What testing was considered but not performed or refused? (CT, X-rays, U/S, labs)? Why? @ -no What meds were considered but not given or refused? Why? @ -none Did you discuss the management of the patient with other professionals (professionals i.e. , PA, [employer] SUPERVISOR, lab, RT, psych nurse, social work therapist, agriculture inspector, teacher, learning and development officer, returned case inspector)? Give summary @ -no Was smoking cessation discussed for >3mins.? @ -no Was critical care preformed (if so, how long)? @ -no Were there social determinants of health that impacted care today? How? (Homelessness, low income, unemployed, alcoholism, drug addiction, transportation, low edu. Level, literacy, decrease access to med. care, snf, rehab)? @ -no Was there de-escalation of care discussed even if they declined (Discuss DNR or withdrawal of care, Hospice)? DNR status @ -no What co-morbidities impacted this encounter? (DM, HTN, Smoking, COPD, CAD, Cancer, CVA, ARF, Chemo, Hep., AIDS, mental health diagnosis, sleep apnea, morbid obesity)? @ -none Was patient admitted / discharged? Hospital course, mention meds given and route, prescriptions, significant lab abnormalities, going to OR and other pertinent info. @ - 47 male to the emergency department for evaluation. Patient resents today for evaluation regards to light pain chronically pain acute on chronic leg pain which is improved here in the ER he had severe anxiety without homicidal or suicidal thoughts. Patient feels improved currently, able to ambulate can be discharged home Discharge Undiagnosed new problem with uncertain prognosis? @ -no Drug Therapy requiring intensive monitoring for toxicity (Heparin, Nitro, Insulin, Cardizem)? @ -no Were any procedures done? @ -no Diagnosis/symptom? @ -Left leg Pain, Anxiety Acute, or Chronic, or Acute on Chronic? @ -Acute Uncomplicated (without systemic symptoms) or Complicated (systemic symptoms)? @ -complicated Side effects of treatment? @ -none Exacerbation, Progression, or Severe Exacerbation? @ -exacerbation Poses a threat to life or bodily function? How? (Chest pain, [place], [place], pneumonia, PE, COPD, DKA, ARF, appy, cholecystitis, CVA, Diverticulitis, Homicidal, Suicidal, threat to staff... and all critical care pts) @ -yes Discharge Undiagnosed new problem with uncertain prognosis? @ -no Drug Therapy requiring intensive monitoring for toxicity (Heparin, Nitro, Insulin, Cardizem)? @ -no Were any procedures done? @ -no Diagnosis/symptom? @ -Left flank pain chronic, restless leg, anxiety Acute, or Chronic, or Acute on Chronic? @ -Acute Uncomplicated (without systemic symptoms) or Complicated (systemic symptoms)? @ -complicated Side effects of treatment? @ -none Exacerbation, Progression, or Severe Exacerbation? @ -exacerbation Poses a threat to life or bodily function? How? (Chest pain, USA, DE, pneumonia, PE, COPD, DKA, ARF, appy, cholecystitis, CVA, Diverticulitis, Homicidal, Suicidal, threat to staff... and all critical care pts) @ -yes Medical Decision Making - Medical Decision Making 47 male to the emergency department for evaluation. Patient resents today for evaluation regards to light pain chronically pain acute on chronic leg pain which is improved here in the ER he had severe anxiety without homicidal or suicidal thoughts. Patient feels improved currently, able to ambulate can be discharged home Disposition Clinical Impression: Leg pain, Schizoid personality, Anxiety, Left leg pain, Complex regional pain syndrome, Restless leg syndrome Disposition: HOME SELF-CARE Condition: Good Instructions (If sedation given, give patient instructions): Anxiety (ED), Leg Pain (ED) Is patient prescribed a controlled substance at d/c from ED?: No Referrals: Jefry Castro DO [Primary Care Provider] - 1-2 days Time of Disposition: 22:10
== END 2022-09-10 22:25 | disposition home or self-care (01) ==
LOC: EC 21:07
DX: G25.81 Restless legs syndrome (principal); M79.605 Pain in left leg; F41.9 Anxiety disorder, unspecified; G90.50 Complex regional pain syndrome I, unspecified; F60.1 Schizoid personality disorder; F32.A Depression, unspecified; Z88.8 Allergy status to other drugs, medicaments and biological substances; Z79.899 Other long term (current) drug therapy
CPT/HCPCS: 99284; 96372; J1170

== ENCOUNTER 2022-09-21 00:36 | Emergency (ER) | payer OTHER ==
[2022-09-21 01:07] VITALS: RESP 18; TEMP 98.8
[2022-09-21] MEDS ORDERED: LORazepam 1 MG TAB PO STA (01:28)
[2022-09-21] MEDS ORDERED: IBUPROFEN 400 MG TAB PO STA (01:28)
[2022-09-21] MEDS ORDERED: HYDROcodone/APAP 5-325MG 1 EACH TAB PO STA (01:28)
[2022-09-21 02:14] LABS: Appearance,Urine Clear (Clear); Bilirubin,Urine Negative (Negative); Blood,Urine Negative (Negative); Color,Urine Light Yellow; Glucose,Urine (UA) Negative (Negative); Ketones,Urine Negative (Negative); Leukocyte Esterase,Urine Negative (Negative); Nitrite,Urine Negative (Negative); PH, Urine 5.5 (5.0-8.0); Protein,Urine Negative (Negative); Specific Gravity,Urine 1.016 (1.001-1.035); Urobilinogen,Urine <2.0 mg/dL (<2.0)
--- NOTE | 2022-09-21 03:06 | ED ---
General Adult HPI - General Chief complaint: Extremity Problem,Nontraumatic Stated complaint: Panic attack, SOB Time Seen by Provider: 09/21/22 01:16 Source: patient, family, RN notes reviewed, old records reviewed Mode of arrival: ambulatory Limitations: no limitations - History of Present Illness Initial comments: Patient is a 47-year-old male who presents emergency Department complaining of a possible panic attack as well as chronic right lower extremity pain with restless leg. Symptoms are all chronic. Presents with significant other. No new symptoms. Denies any red flag symptoms including low back pain, saddle anesthesia, urinary or bowel incontinence or retention. His no other acute complaints at this time. Is requesting Dilaudid as well as anxiety medications. No new injuries. Symptoms started suddenly this evening. - Related Data Home Medications Medication Instructions Recorded Confirmed Lurasidone HCl [Latuda] 120 mg PO DAILY 05/18/22 05/18/22 Venlafaxine HCl [Effexor XR] 75 mg PO DAILY 05/18/22 05/18/22 Venlafaxine HCl [Effexor XR] 150 mg PO DAILY 05/18/22 05/18/22 lisinopriL [Zestril] 10 mg PO DAILY PRN 05/18/22 05/18/22 metFORMIN HCL ER [Glucophage XR] 500 mg PO HS 05/18/22 05/18/22 rOPINIRole HCL [Requip] 0.5 mg PO BID PRN 05/18/22 05/18/22 Previous Rx's Medication Instructions Recorded Acetaminophen Tab [Tylenol] 650 mg PO Q6HR PRN tab 05/20/22 HYDROmorphone [Dilaudid] 2 mg PO DAILY PRN #0 05/20/22 Allergies Allergy/AdvReac Type Severity Reaction Status Date / Time bupropion HCl Allergy Unknown Verified 09/10/22 21:14 [From Wellbutrin] Review of Systems ROS Statement: Those systems with pertinent positive or pertinent negative responses have been documented in the HPI. Review of Systems: CONST: Denies fever EYES: Denies blurry vision ENT: Denies nasal congestion C/V: Denies Chest pain RESP: Denies shortness of breath GI: Denies abdominal pain : Denies dysuria SKIN: Denies rash. MSK: Endorses atraumatic chronic leg pain NEURO: Denies headache ROS Other: All systems not noted in ROS Statement are negative. Past Medical History Past Medical History: Hyperlipidemia Additional Past Medical History / Comment(s): restless leg syndrome. Complex regional pain syndrome to left lower extremity History of Any Multi-Drug Resistant Organisms: None Reported Additional Past Surgical History / Comment(s): FINGER AMPUTATION LEFT INDEX FINGER IN 1999, HILARIO PLACED AND REMOVED FROM LEFT LEG IN 2002 hardware removal from left ORIF lower extremity, distal tip of the finger slightly amputated after injury Past Anesthesia/Blood Transfusion Reactions: No Reported Reaction Past Psychological History: Anxiety, Depression Smoking Status: Never smoker Past Alcohol Use History: Occasional Past Drug Use History: Marijuana - Past Family History Father Family Medical History: No Reported History Mother Family Medical History: No Reported History Brother(s) Family Medical History: No Reported History (Depression and anxiety) General Exam - General Exam Comments Initial Comments: General: Appears in no acute distress. HEAD: Normal with no signs of head trauma. EYES: PERRLA, EOMI, conjunctiva normal, no discharge. ENT: Hearing grossly intact, normal oropharynx. RESPIRATORY: Clear breath sounds bilaterally. No wheezes, rales, or rhonchi. C/V: Regular rate and rhythm. S1 and S2 auscultated, no edema, peripheral pulses 2+ and intact throughout ABD: Abd is soft, nontender, nondistended EXT: Normal range of motion, no obvious deformity SKIN: No rashes or lesions observed on exposed skin. NEURO: Alert and oriented x 4. Cranial nerves II-XII intact. No focal sensory or strength deficits. Limitations: no limitations Course Vital Signs 09/21/22 09/21/22 01:00 01:30 Temperature 98.8 F Pulse Rate 115 H 96 Respiratory 18 18 Rate Blood Pressure 142/82 115/81 O2 Sat by Pulse 97 98 Oximetry Medical Decision Making - Medical Decision Making Was pt. sent in by a medical professional or institution (, PA, PLUGMAN, urgent care, hospital, or intermediate...) When possible be specific @ -No Did you speak to anyone other than the patient for history (EMS, parent, family, police, friend...)? What history was obtained from this source @ -Patient's family members at bedside and provides most of the patient's past medical history. Did you review nursing and triage notes (agree or disagree)? Why? @ -I reviewed and agree with nursing and triage notes Were old charts reviewed (outside hosp., previous admission, EMS record, old EKG, old radiological studies, urgent care reports/EKG's, intermediate records)? Report findings @ -No old charts were reviewed Differential Diagnosis (chest pain, altered mental status, abdominal pain women, abdominal pain men, vaginal bleeding, weakness, fever, dyspnea, syncope, headache, dizziness, GI bleed, back pain, seizure, CVA, palpatations, mental health, musculoskeletal)? @ -Chronic pain, restless leg, anxiety, panic attack. This list is not all inclusive. EKG interpreted by me (3pts min.). @ -None done X-rays interpreted by me (1pt min.). @ -None done CT interpreted by me (1pt min.). @ -None done U/S interpreted by me (1pt. min.). @ -None done What testing was considered but not performed or refused? (CT, X-rays, U/S, labs)? Why? @ -None What meds were considered but not given or refused? Why? @ -None Did you discuss the management of the patient with other professionals (professionals i.e. , PA, PLUGMAN, lab, RT, psych nurse, social services analyst, table worker, teacher, railroad police officer, piano case maker)? Give summary @ -No Was smoking cessation discussed for >3mins.? @ -No Was critical care preformed (if so, how long)? @ -No Were there social determinants of health that impacted care today? How? (Homelessness, low income, unemployed, alcoholism, drug addiction, transportation, low edu. Level, literacy, decrease access to med. care, skilled nursing, rehab)? @ -No Was there de-escalation of care discussed even if they declined (Discuss DNR or withdrawal of care, Hospice)? DNR status @ -No What co-morbidities impacted this encounter? (DM, HTN, Smoking, COPD, CAD, Cancer, CVA, ARF, Chemo, Hep., AIDS, mental health diagnosis, sleep apnea, morbid obesity)? @ -None Was patient admitted / discharged? Hospital course, mention meds given and route, prescriptions, significant lab abnormalities, going to OR and other pertinent info. @ -Based on the patient's presentation and physical exam, we will administer anxiolytic as well as an oral pain medication. I discussed with emesis is chronic. He will not receive IV Dilaudid and he expressed understanding. I do not believe that imaging or labs are required at this time. She feels like he can't keep. The bladder scan him and he has approximately 450-500 mL of urine in his bladder. Has no history of retention. I did offer a Merino catheter which he declined. He will monitor his symptoms. He was straight catheterized and a urine which is clean. On reevaluation, patient is feeling improved. Vital signs are within acceptable limits. He will be discharged home at this time with instructions up with PCP for medication adjustments as needed. He has no red flag symptoms concerning for cauda equina syndrome. He was in agreement with this plan. . I instructed the patient to follow up with their PCP in the next 1-3 days. I explained that the patient should return to the emergency department if they experience any worsening symptoms. Strict return precautions were discussed with the patient. The patient expressed understanding of these instructions. I answered all questions that the patient had. The patient was discharged home in good condition with their prescriptions and follow up information. Undiagnosed new problem with uncertain prognosis? @ -No Drug Therapy requiring intensive monitoring for toxicity (Heparin, Nitro, Insulin, Cardizem)? @ -No Were any procedures done? @ -No Diagnosis/symptom? @ -Chronic pain, anxiety Acute, or Chronic, or Acute on Chronic? @ -Acute on chronic Uncomplicated (without systemic symptoms) or Complicated (systemic symptoms)? @ -Uncomplicated Side effects of treatment? @ -No Exacerbation, Progression, or Severe Exacerbation? @ -No Poses a threat to life or bodily function? How? (Chest pain, [place], [place], pneumonia, PE, COPD, DKA, ARF, appy, cholecystitis, CVA, Diverticulitis, Homicidal, Suicidal, threat to staff... and all critical care pts) @ -No - Lab Data Lab Results 09/21/22 Range/Units 02:05 Urine Color Light Yellow Urine Appearance Clear (Clear) Urine pH 5.5 (5.0-8.0) Ur Specific [place] 1.016 (1.001-1.035) Urine Protein Negative (Negative) Urine Glucose (UA) Negative (Negative) Urine Ketones Negative (Negative) Urine Blood Negative (Negative) Urine Nitrite Negative (Negative) Urine Bilirubin Negative (Negative) Urine Urobilinogen <2.0 (<2.0) mg/dL Ur Leukocyte Esterase Negative (Negative) Disposition Clinical Impression: Anxiety, Chronic pain Disposition: HOME SELF-CARE Condition: Good Instructions (If sedation given, give patient instructions): Anxiety (ED) Is patient prescribed a controlled substance at d/c from ED?: No Referrals: Jefry Castro DO [Primary Care Provider] - 1-2 days Wilberto Colon MD [STAFF PHYSICIAN] - 1-2 days Time of Disposition: 02:59
[2022-09-21 03:21] VITALS: BP 100/63; PULSE 85
== END 2022-09-21 03:20 | disposition home or self-care (01) ==
LOC: EC 00:36
DX: G89.29 Other chronic pain (principal); F41.9 Anxiety disorder, unspecified; E78.5 Hyperlipidemia, unspecified; F32.A Depression, unspecified; F12.90 Cannabis use, unspecified, uncomplicated; Z79.899 Other long term (current) drug therapy; Z88.8 Allergy status to other drugs, medicaments and biological substances
CPT/HCPCS: 51798; 81003; 99284

== ENCOUNTER 2022-09-26 23:29 | Emergency (ER) | payer OTHER ==
[2022-09-26 23:47] VITALS: TEMP 98
[2022-09-27] MEDS ORDERED: MORPHINE SULFATE 4 MG/ML SYRINGE IM STA (00:50)
[2022-09-27] MEDS ORDERED: KETOROLAC 15 MG/ML 1 ML VIAL IM STA (00:51)
--- NOTE | 2022-09-27 00:52 | ED ---
General Adult HPI - General Chief complaint: Extremity Injury, Lower Stated complaint: left leg pain Time Seen by Provider: 09/27/22 00:04 Source: patient Mode of arrival: ambulatory Limitations: no limitations - History of Present Illness Initial comments: This patient is 47-year-old man who states she has been having chronic pains to his left lower leg or years since his leg was broken at work. The patient does take home medications but states that they were not helping today. He denies any new symptoms. No change in motor sensory function. No bladder or bowel symptoms. -: year(s) Location: left, lower extremity Radiation: non-radiation Severity scale (1-10): 10 Quality: aching Consistency: constant Improves with: none Worsens with: none Associated Symptoms: denies other symptoms Treatments Prior to Arrival: other (Home medications) - Related Data Home Medications Medication Instructions Recorded Confirmed Lurasidone HCl [Latuda] 120 mg PO DAILY 05/18/22 05/18/22 Venlafaxine HCl [Effexor XR] 75 mg PO DAILY 05/18/22 05/18/22 Venlafaxine HCl [Effexor XR] 150 mg PO DAILY 05/18/22 05/18/22 lisinopriL [Zestril] 10 mg PO DAILY PRN 05/18/22 05/18/22 metFORMIN HCL ER [Glucophage XR] 500 mg PO HS 05/18/22 05/18/22 rOPINIRole HCL [Requip] 0.5 mg PO BID PRN 05/18/22 05/18/22 Previous Rx's Medication Instructions Recorded Acetaminophen Tab [Tylenol] 650 mg PO Q6HR PRN tab 05/20/22 HYDROmorphone [Dilaudid] 2 mg PO DAILY PRN #0 05/20/22 Allergies Allergy/AdvReac Type Severity Reaction Status Date / Time bupropion HCl Allergy Unknown Verified 10/12/22 21:32 [From Wellbutrin] Review of Systems ROS Statement: Those systems with pertinent positive or pertinent negative responses have been documented in the HPI. ROS Other: All systems not noted in ROS Statement are negative. Constitutional: Denies: fever, chills, weakness Respiratory: Denies: dyspnea Cardiovascular: Denies: chest pain, palpitations, edema Gastrointestinal: Denies: diarrhea, constipation Genitourinary: Denies: testicular pain Musculoskeletal: Denies: back pain Skin: Denies: lesions Neurological: Denies: weakness, numbness, paresthesias Past Medical History Past Medical History: Hyperlipidemia Additional Past Medical History / Comment(s): restless leg syndrome. Complex regional pain syndrome to left lower extremity History of Any Multi-Drug Resistant Organisms: None Reported Additional Past Surgical History / Comment(s): FINGER AMPUTATION LEFT INDEX FINGER IN 1999, HILARIO PLACED AND REMOVED FROM LEFT LEG IN 2002 hardware removal from left ORIF lower extremity, distal tip of the finger slightly amputated after injury Past Anesthesia/Blood Transfusion Reactions: No Reported Reaction Past Psychological History: Anxiety, Depression Smoking Status: Never smoker Past Alcohol Use History: Occasional Past Drug Use History: Marijuana - Past Family History Father Family Medical History: No Reported History Mother Family Medical History: No Reported History Brother(s) Family Medical History: No Reported History (Depression and anxiety) General Exam Limitations: no limitations General appearance: alert, in no apparent distress Head exam: Present: atraumatic, normocephalic Eye exam: Present: normal appearance. Absent: scleral icterus, conjunctival injection Neck exam: Present: normal inspection Cardiovascular Exam: Present: other (There is normal capillary refill and strong cells pedis pulse on the left) GI/Abdominal exam: Absent: pulsatile mass Extremities exam: Present: normal inspection, full ROM, normal capillary refill. Absent: pedal edema, calf tenderness Back exam: Present: normal inspection. Absent: vertebral tenderness Neurological exam: Present: alert. Absent: motor sensory deficit Skin exam: Present: warm, dry, intact, normal color. Absent: rash Course Vital Signs 09/26/22 09/27/22 23:41 01:01 Temperature 98.0 F Pulse Rate 110 H 111 H Respiratory 20 16 Rate Blood Pressure 141/97 111/86 O2 Sat by Pulse 95 96 Oximetry Medical Decision Making - Medical Decision Making Was pt. sent in by a medical professional or institution (, PA, SHEET TURNER, urgent care, hospital, or retirement...) When possible be specific @ -[No] Did you speak to anyone other than the patient for history (EMS, parent, family, police, friend...)? What history was obtained from this source @ -[No] Did you review nursing and triage notes (agree or disagree)? Why? @ -[I reviewed and agree with nursing and triage notes] Were old charts reviewed (outside hosp., previous admission, EMS record, old EKG, old radiological studies, urgent care reports/EKG's, retirement records)? Report findings @ -[No old charts were reviewed] Differential Diagnosis (chest pain, altered mental status, abdominal pain women, abdominal pain men, vaginal bleeding, weakness, fever, dyspnea, syncope, headache, dizziness, GI bleed, back pain, seizure, CVA, palpatations, mental health, musculoskeletal)? @ -[Differential Musculoskeletal Muscular strain, contusion, ligament sprain, fracture, arthritis, septic arthritis, bursitis, cellulitis, muscle spasm, nerve compression, DVT, arterial occlusion, herpes zoster, electrolyte abnormality, tumor.... This is not meant to be in all inclusive list EKG interpreted by me (3pts min.). @ -[ X-rays interpreted by me (1pt min.). @ -[None done] CT interpreted by me (1pt min.). @ -[None done] U/S interpreted by me (1pt. min.). @ -[None done] What testing was considered but not performed or refused? (CT, X-rays, U/S, labs)? Why? @ -[None] What meds were considered but not given or refused? Why? @ -[None] Did you discuss the management of the patient with other professionals (professionals i.e. , PA, SHEET TURNER, lab, RT, psych nurse, social contact worker, logging supervisor, teacher, court security officer, strategic accounts manager)? Give summary @ -[No] Was smoking cessation discussed for >3mins.? @ -[No] Was critical care preformed (if so, how long)? @ -[No] Were there social determinants of health that impacted care today? How? (Homelessness, low income, unemployed, alcoholism, drug addiction, transportation, low edu. Level, literacy, decrease access to med. care, long term, rehab)? @ -[No] Was there de-escalation of care discussed even if they declined (Discuss DNR or withdrawal of care, Hospice)? DNR status @ -[No] What co-morbidities impacted this encounter? (DM, HTN, Smoking, COPD, CAD, Cancer, CVA, ARF, Chemo, Hep., AIDS, mental health diagnosis, sleep apnea, morbid obesity)? @ -[None] Was patient admitted / discharged? Hospital course, mention meds given and route, prescriptions, significant lab abnormalities, going to OR and other pertinent info. @ -[The patient is given analgesia and was starting to have some improvement in symptoms discharged home to follow with his physician as needed. Undiagnosed new problem with uncertain prognosis? @ -[No] Drug Therapy requiring intensive monitoring for toxicity (Heparin, Nitro, Insulin, Cardizem)? @ -[No] Were any procedures done? @ -[No] Diagnosis/symptom? @ -[Acute exacerbation of chronic leg pain Acute, or Chronic, or Acute on Chronic? @ -[Acute on chronic Uncomplicated (without systemic symptoms) or Complicated (systemic symptoms)? @ -[Uncomplicated Side effects of treatment? @ -[No] Exacerbation, Progression, or Severe Exacerbation? @ -[No] Poses a threat to life or bodily function? How? (Chest pain, [place], [place], pneumonia, PE, COPD, DKA, ARF, appy, cholecystitis, CVA, Diverticulitis, Homicidal, Suicidal, threat to staff... and all critical care pts) @ -[No] Disposition Clinical Impression: Chronic pain, Left leg pain Disposition: HOME SELF-CARE Condition: Good Instructions (If sedation given, give patient instructions): Leg Pain (ED) Is patient prescribed a controlled substance at d/c from ED?: No Referrals: Jefry Castro DO [Primary Care Provider] - 1-2 days
[2022-09-27 01:01] VITALS: BP 111/86; PULSE 111; RESP 16
== END 2022-09-27 01:33 | disposition home or self-care (01) ==
LOC: EC 23:29
DX: G89.29 Other chronic pain (principal); M79.662 Pain in left lower leg; F32.A Depression, unspecified; F41.9 Anxiety disorder, unspecified; F12.90 Cannabis use, unspecified, uncomplicated; Z79.899 Other long term (current) drug therapy; Z88.8 Allergy status to other drugs, medicaments and biological substances
CPT/HCPCS: 99283; 96372 ×2; J2270; J1885

== ENCOUNTER 2022-10-12 21:25 | Emergency (ER) | payer OTHER ==
[2022-10-12 21:32] VITALS: TEMP 97.2
[2022-10-12] MEDS ORDERED: MORPHINE SULFATE 4 MG/ML SYRINGE IM STA ×2 (21:45→23:06)
[2022-10-12] MEDS ORDERED: KETOROLAC 15 MG/ML 1 ML VIAL IM STA (21:46)
[2022-10-13] MEDS ORDERED: HYDROmorphone 0.5 MG/0.5 ML SYRINGE IM STA (00:23)
--- NOTE | 2022-10-13 00:24 | ED ---
General Adult HPI - General Chief complaint: Anxiety Stated complaint: Anxiety Time Seen by Provider: 10/12/22 21:26 Source: patient, EMS Mode of arrival: EMS Limitations: no limitations - History of Present Illness Initial comments: This patient is a 47-year-old man who presents with complaint that she has chronic left leg pain since a workplace injury years ago. He states that the home medications were not helping tonight. He states that this one is very bad sets off underlying anxiety. The patient states this is similar to previous episodes. Denies any new symptoms. There is no chest pain. He does feel some shortness of breath when the anxiety is very bad. -: hour(s) Consistency: constant Improves with: none Worsens with: none Associated Symptoms: denies other symptoms Treatments Prior to Arrival: none - Related Data Home Medications Medication Instructions Recorded Confirmed Lurasidone HCl [Latuda] 120 mg PO DAILY 05/18/22 05/18/22 Venlafaxine HCl [Effexor XR] 75 mg PO DAILY 05/18/22 05/18/22 Venlafaxine HCl [Effexor XR] 150 mg PO DAILY 05/18/22 05/18/22 lisinopriL [Zestril] 10 mg PO DAILY PRN 05/18/22 05/18/22 metFORMIN HCL ER [Glucophage XR] 500 mg PO HS 05/18/22 05/18/22 rOPINIRole HCL [Requip] 0.5 mg PO BID PRN 05/18/22 05/18/22 Previous Rx's Medication Instructions Recorded Acetaminophen Tab [Tylenol] 650 mg PO Q6HR PRN tab 05/20/22 HYDROmorphone [Dilaudid] 2 mg PO DAILY PRN #0 05/20/22 Allergies Allergy/AdvReac Type Severity Reaction Status Date / Time bupropion HCl Allergy Unknown Verified 10/12/22 21:32 [From Wellbutrin] Review of Systems ROS Statement: Those systems with pertinent positive or pertinent negative responses have been documented in the HPI. ROS Other: All systems not noted in ROS Statement are negative. Constitutional: Denies: fever, chills, weakness Respiratory: Denies: cough, dyspnea Cardiovascular: Denies: chest pain, edema, syncope Gastrointestinal: Denies: abdominal pain, vomiting, diarrhea Genitourinary: Denies: dysuria Musculoskeletal: Reports: other (Restless leg) Skin: Denies: rash Neurological: Denies: headache, weakness, numbness Psychiatric: Reports: anxiety Past Medical History Past Medical History: Hyperlipidemia Additional Past Medical History / Comment(s): restless leg syndrome. Complex regional pain syndrome to left lower extremity History of Any Multi-Drug Resistant Organisms: None Reported Additional Past Surgical History / Comment(s): FINGER AMPUTATION LEFT INDEX FINGER IN 1999, HILARIO PLACED AND REMOVED FROM LEFT LEG IN 2002 hardware removal from left ORIF lower extremity, distal tip of the finger slightly amputated after injury Past Anesthesia/Blood Transfusion Reactions: No Reported Reaction Past Psychological History: Anxiety, Depression Smoking Status: Never smoker Past Alcohol Use History: Occasional Past Drug Use History: None Reported - Past Family History Father Family Medical History: No Reported History Mother Family Medical History: No Reported History Brother(s) Family Medical History: No Reported History (Depression and anxiety) General Exam Limitations: no limitations General appearance: alert, in no apparent distress, anxious Head exam: Present: atraumatic, normocephalic Eye exam: Present: normal appearance. Absent: scleral icterus, conjunctival injection Neck exam: Present: normal inspection Respiratory exam: Present: normal lung sounds bilaterally. Absent: respiratory distress, wheezes, rales, rhonchi, stridor Cardiovascular Exam: Present: regular rate, normal rhythm, normal heart sounds GI/Abdominal exam: Present: soft. Absent: distended, tenderness, guarding, rebound, rigid Extremities exam: Present: normal inspection, normal capillary refill. Absent: pedal edema, calf tenderness Back exam: Present: normal inspection. Absent: vertebral tenderness Neurological exam: Present: alert Skin exam: Present: warm, dry, intact, normal color. Absent: rash Course Vital Signs 10/12/22 10/12/22 10/13/22 21:27 22:23 00:31 Temperature 97.2 F L Pulse Rate 89 93 84 Respiratory 18 20 16 Rate Blood Pressure 132/89 135/91 134/92 O2 Sat by Pulse 99 97 99 Oximetry Medical Decision Making - Medical Decision Making Was pt. sent in by a medical professional or institution (, PA, SENIOR BIOSTATISTICIAN, urgent care, hospital, or skilled nursing...) When possible be specific @ -[No] Did you speak to anyone other than the patient for history (EMS, parent, family, police, friend...)? What history was obtained from this source @ -[No] Did you review nursing and triage notes (agree or disagree)? Why? @ -[I reviewed and agree with nursing and triage notes] Were old charts reviewed (outside hosp., previous admission, EMS record, old EKG, old radiological studies, urgent care reports/EKG's, skilled nursing records)? Report findings @ -[No old charts were reviewed] Differential Diagnosis (chest pain, altered mental status, abdominal pain women, abdominal pain men, vaginal bleeding, weakness, fever, dyspnea, syncope, headache, dizziness, GI bleed, back pain, seizure, CVA, palpatations, mental health, musculoskeletal)? @ -[Differential Mental Health Depression, anxiety, bipolar, psychosis, schizophrenia, borderline personality, situational depression, adjustment disorder, behavioral disorder, brain tumor, malingering, substance abuse, encephalopathy, medication reaction, dementia, hypothyroidism, degenerative neurologic disorder, lupus.... This is not meant to be all-inclusive list EKG interpreted by me (3pts min.). @ -[ X-rays interpreted by me (1pt min.). @ -[None done] CT interpreted by me (1pt min.). @ -[None done] U/S interpreted by me (1pt. min.). @ -[None done] What testing was considered but not performed or refused? (CT, X-rays, U/S, labs)? Why? @ -[None] What meds were considered but not given or refused? Why? @ -[None] Did you discuss the management of the patient with other professionals (professionals i.e. , PA, SENIOR BIOSTATISTICIAN, lab, RT, psych nurse, pediatric social worker, user experience designer, teacher, chief accounting officer, corrections caseworker)? Give summary @ -[No] Was smoking cessation discussed for >3mins.? @ -[No] Was critical care preformed (if so, how long)? @ -[No] Were there social determinants of health that impacted care today? How? (Homelessness, low income, unemployed, alcoholism, drug addiction, transportation, low edu. Level, literacy, decrease access to med. care, fdc, rehab)? @ -[No] Was there de-escalation of care discussed even if they declined (Discuss DNR or withdrawal of care, Hospice)? DNR status @ -[No] What co-morbidities impacted this encounter? (DM, HTN, Smoking, COPD, CAD, Cancer, CVA, ARF, Chemo, Hep., AIDS, mental health diagnosis, sleep apnea, morbid obesity)? @ -[None] Was patient admitted / discharged? Hospital course, mention meds given and route, prescriptions, significant lab abnormalities, going to OR and other pertinent info. @ -[The patient is given symptomatic treatment for the chronic leg pain exacerbation and for the anxiety. On reevaluation he is feeling better and would like to go. We discussed the appropriate follow-up and return parameters. Undiagnosed new problem with uncertain prognosis? @ -[No] Drug Therapy requiring intensive monitoring for toxicity (Heparin, Nitro, Insulin, Cardizem)? @ -[No] Were any procedures done? @ -[No] Diagnosis/symptom? @ -[Acute anxiety Acute on chronic left leg pain Acute, or Chronic, or Acute on Chronic? @ -[Acute on chronic Uncomplicated (without systemic symptoms) or Complicated (systemic symptoms)? @ -[default] Side effects of treatment? @ -[No] Exacerbation, Progression, or Severe Exacerbation? @ -[No] Poses a threat to life or bodily function? How? (Chest pain, [place], [place], pneumonia, PE, COPD, DKA, ARF, appy, cholecystitis, CVA, Diverticulitis, Homicidal, Suicidal, threat to staff... and all critical care pts) @ -[No] Disposition Clinical Impression: Left leg pain Disposition: HOME SELF-CARE Condition: Good Instructions (If sedation given, give patient instructions): Leg Pain (ED) Is patient prescribed a controlled substance at d/c from ED?: No Referrals: Jefry Castro DO [Primary Care Provider] - 1-2 days
[2022-10-13 00:32] VITALS: BP 134/92; PULSE 84; RESP 16
== END 2022-10-13 00:34 | disposition home or self-care (01) ==
LOC: EC 21:25
DX: M79.605 Pain in left leg (principal); F41.9 Anxiety disorder, unspecified; F32.A Depression, unspecified; Z79.899 Other long term (current) drug therapy; Z88.8 Allergy status to other drugs, medicaments and biological substances
CPT/HCPCS: 99284; 96372 ×3; J2270; J1885

== ENCOUNTER → 2022-11-28 | Outpatient (CLI) | payer OTHER ==
--- NOTE | 2022-11-29 06:53 | CA ---
Transthoracic Echo Report Name: Juan R Núñez Age: 47 Gender: M : 1975 Exam Date: 11/28/2022 15:12 Exam Location: [facility] Ht (in): 69 Wt (lb): 210 Ordering Physician: Jefry Castro DO Attending/Referring Phys: Value Advisor Fauzia Alva RDCS Procedure CPT: Indications: R00.0 tachycardia Cardiac Hx: Technical Quality: Fair Contrast 1: Total Dose (mL): Contrast 2: Total Dose (mL): MEASUREMENTS (Male / Female) Normal Values 2D ECHO LV Diastolic Diameter PLAX 4.1 cm 4.2 - 5.9 / 3.9 - 5.3 cm LV Systolic Diameter PLAX 3.0 cm IVS Diastolic Thickness 1.2 cm 0.6 - 1.0 / 0.6 - 0.9 cm LVPW Diastolic Thickness 1.2 cm 0.6 - 1.0 / 0.6 - 0.9 cm LV Relative Wall Thickness 0.6 RV Internal Dim ED PLAX 3.9 cm LA Volume 23.7 cm??? 18 - 58 / 22 - 52 cm??? LA Volume Index 10.9 cm???/m??? 16 - 28 cm???/m??? M-MODE Aortic Root Diameter MM 2.9 cm LA Systolic Diameter MM 3.9 cm LA Ao Ratio MM 1.3 AV Cusp Separation MM 2.1 cm DOPPLER AV Peak Velocity 107.7 cm/s AV Peak Gradient 4.6 mmHg AV Mean Velocity 72.7 cm/s AV Mean Gradient 2.5 mmHg AV Velocity Time Integral 20.5 cm LVOT Peak Velocity 80.2 cm/s LVOT Peak Gradient 2.6 mmHg LVOT Velocity Time Integral 10.9 cm MV Area PHT 3.3 cm??? Mitral E Point Velocity 56.8 cm/s Mitral A Point Velocity 75.2 cm/s Mitral E to A Ratio 0.8 MV Deceleration Time 231.4 ms MV E' Velocity 5.4 cm/s Mitral E to MV E' Ratio 10.4 TR Peak Velocity 156.0 cm/s TR Peak Gradient 9.7 mmHg Right Ventricular Systolic Press 14.7 mmHg FINDINGS Left Ventricle Mildly increased left ventricular wall thickness. Left ventricular cavity size normal. Normal left ventricular systolic function with no obvious regional wall motion abnormalities. Left ventricular ejection fraction is estimated at 55-60 %. Right Ventricle Moderate right ventricular dilatation. Right ventricular systolic pressure within normal limits. Right Atrium Normal right atrial size. Left Atrium Normal left atrial size. Mitral Valve Structurally normal mitral valve. Trace to mild mitral regurgitation. Aortic Valve Trileaflet aortic valve. No aortic valve stenosis or regurgitation. Tricuspid Valve Structurally normal tricuspid valve. Mild tricuspid regurgitation. Pulmonic Valve Structurally normal pulmonic valve. Trace pulmonic regurgitation. Pericardium No pericardial effusion. Aorta Normal size aortic root and proximal ascending aorta. CONCLUSIONS Normal LV systolic function Right ventricular enlargement Previewed by: Dr. Ross Cochran MD (Electronically Signed) Final Date: 29 November 2022 06:52
== END | disposition home or self-care (01) ==
LOC: RADECHMAIN 14:53
PROVIDERS: ATTEND Family Medicine
DX: I51.7 Cardiomegaly (principal); R00.0 Tachycardia, unspecified
CPT/HCPCS: 93306

== ENCOUNTER 2023-02-17 18:09 | Emergency (ER) | payer OTHER ==
[2023-02-17 18:54] VITALS: TEMP 99.3
--- NOTE | 2023-02-17 18:55 | ED ---
General Adult HPI - General Source: patient, RN notes reviewed Mode of arrival: ambulatory Limitations: no limitations <Krystal León - Last Filed: 02/17/23 18:54> - General Source: patient, family, RN notes reviewed Mode of arrival: ambulatory Limitations: no limitations <Georgia Pedroza - Last Filed: 02/17/23 22:37> - General Chief complaint: Extremity Injury, Lower Stated complaint: L Leg Pain Time Seen by Provider: 02/17/23 18:54 - History of Present Illness Initial comments: 48-year-old male presents the emergency department with a chief complaint of chronic left flank pain. Patient reports initial injury was years ago. (Krystal León) Patient is a 48-year-old male presented ER with chief complaint of chronic leg pain. Patient states he had a serious injury about 20 years ago and has been dealing with pain since. Patient states it comes and flares and is currently having a flare. Patient states is extremely painful to walk but he is still able to. Patient reports that his PCP believes he is developing RDS. Patient states he was just like pain control currently as his pain as an 8 out of 10. He has been taking [id number] Tylenol arthritis with slight relief at home. Patient does follow-up with neurology who plan on inserting a pain pump in the near future. Patient denies any paresthesias or limited range of motion. (Georgia Pedroza) - Related Data Home Medications Medication Instructions Recorded Confirmed Lurasidone HCl [Latuda] 120 mg PO DAILY 05/18/22 05/18/22 Venlafaxine HCl [Effexor XR] 75 mg PO DAILY 05/18/22 05/18/22 Venlafaxine HCl [Effexor XR] 150 mg PO DAILY 05/18/22 05/18/22 lisinopriL [Zestril] 10 mg PO DAILY PRN 05/18/22 05/18/22 metFORMIN HCL ER [Glucophage XR] 500 mg PO HS 05/18/22 05/18/22 rOPINIRole HCL [Requip] 0.5 mg PO BID PRN 05/18/22 05/18/22 Previous Rx's Medication Instructions Recorded Acetaminophen Tab [Tylenol] 650 mg PO Q6HR PRN tab 05/20/22 HYDROmorphone [Dilaudid] 2 mg PO DAILY PRN #0 05/20/22 Allergies Allergy/AdvReac Type Severity Reaction Status Date / Time bupropion HCl Allergy Unknown Verified 02/17/23 18:49 [From Wellbutrin] Review of Systems ROS Other: All systems not noted in ROS Statement are negative. <Krystal León - Last Filed: 02/17/23 18:54> ROS Other: All systems not noted in ROS Statement are negative. <Georgia Pedroza - Last Filed: 02/17/23 22:37> ROS Statement: Those systems with pertinent positive or pertinent negative responses have been documented in the HPI. Past Medical History Past Medical History: Hyperlipidemia Additional Past Medical History / Comment(s): restless leg syndrome. Complex regional pain syndrome to left lower extremity History of Any Multi-Drug Resistant Organisms: None Reported Additional Past Surgical History / Comment(s): FINGER AMPUTATION LEFT INDEX FINGER IN 1999, HILARIO PLACED AND REMOVED FROM LEFT LEG IN 2002 hardware removal from left ORIF lower extremity, distal tip of the finger slightly amputated after injury Past Anesthesia/Blood Transfusion Reactions: No Reported Reaction Past Psychological History: Anxiety, Depression Smoking Status: Never smoker Past Alcohol Use History: Occasional Past Drug Use History: None Reported - Past Family History Father Family Medical History: No Reported History Mother Family Medical History: No Reported History Brother(s) Family Medical History: No Reported History (Depression and anxiety) <Krystal León - Last Filed: 02/17/23 18:54> General Exam Limitations: no limitations <Krystal León - Last Filed: 02/17/23 18:54> General appearance: alert, in no apparent distress Respiratory exam: Present: normal lung sounds bilaterally. Absent: respiratory distress, wheezes, rales, rhonchi, stridor Cardiovascular Exam: Present: regular rate, normal rhythm, normal heart sounds. Absent: systolic murmur, diastolic murmur, rubs, gallop, clicks Extremities exam: Present: other (Healed surgical scars noted on left proximal tibia. Patient is full range of motion. Sensation intact. 2+ left DP pulse) Neurological exam: Present: alert, oriented X3, CN II-XII intact Psychiatric exam: Present: normal affect, normal mood Skin exam: Present: warm, dry, intact, normal color. Absent: rash <Georgia Pedroza - Last Filed: 02/17/23 22:37> - General Exam Comments Initial Comments: Visual Physical Exam Vital signs reviewed General: Well-appearing, nontoxic, no acute distress. Head: Normocephalic, atraumatic Eyes: PERRLA, EOMI ENT: Airway patent Chest: Nonlabored breathing Skin: No visual rash, normal skin tone Neuro: Alert and oriented 3 Musculoskeletal: No gross abnormalities (Krystal León) Course Vital Signs 02/17/23 02/17/23 18:45 22:07 Temperature 99.3 F Pulse Rate 125 H 95 Respiratory 18 17 Rate Blood Pressure 101/64 124/83 O2 Sat by Pulse 97 96 Oximetry Medical Decision Making <Krystal León - Last Filed: 02/17/23 18:54> - Radiology Data Radiology results: report reviewed, image reviewed <Georgia Pedroza - Last Filed: 02/17/23 22:37> - Medical Decision Making I performed the quick note portion of this exam, verbal signature Krystal León PA-C (Krystal León) Was pt. sent in by a medical professional or institution (RINKU Serrano, JEWEL HOLE FINISH OPENER, urgent care, hospital, or detention...) When possible be specific @ -No Did you speak to anyone other than the patient for history (EMS, parent, family, police, friend...)? What history was obtained from this source @ -Family providing some HPI Did you review nursing and triage notes (agree or disagree)? Why? @ -I reviewed and agree with nursing and triage notes Were old charts reviewed (outside hosp., previous admission, EMS record, old EKG, old radiological studies, urgent care reports/EKG's, detention records)? Report findings @ -No old charts were reviewed Differential Diagnosis (chest pain, altered mental status, abdominal pain women, abdominal pain men, vaginal bleeding, weakness, fever, dyspnea, syncope, headache, dizziness, GI bleed, back pain, seizure, CVA, palpatations, mental health, musculoskeletal)? @ -Differential Musculoskeletal: Muscular strain, contusion, ligament sprain, fracture, arthritis, septic arthritis, bursitis, cellulitis, muscle spasm, nerve compression, DVT, arterial occlusion, herpes zoster, electrolyte abnormality, tumor.... This is not meant to be in all inclusive list EKG interpreted by me (3pts min.). @ -None X-rays interpreted by me (1pt min.). @ -Left knee and ankle x-ray are negative for acute fractures or dislocations. There is mild osteoporosis of the knee. There is evidence of prior tibial hilario placement with removal. CT interpreted by me (1pt min.). @ -None done U/S interpreted by me (1pt. min.). @ -None done What testing was considered but not performed or refused? (CT, X-rays, U/S, labs)? Why? @ -None What meds were considered but not given or refused? Why? @ -None Did you discuss the management of the patient with other professionals (professionals i.e. , PA, JEWEL HOLE FINISH OPENER, lab, RT, psych nurse, social security assessor, bone char kiln operator, teacher, contract officer, case mgr)? Give summary @ -No Was smoking cessation discussed for >3mins.? @ -No Was critical care preformed (if so, how long)? @ -No Were there social determinants of health that impacted care today? How? (Homelessness, low income, unemployed, alcoholism, drug addiction, transportation, low edu. Level, literacy, decrease access to med. care, snf, rehab)? @ -No Was there de-escalation of care discussed even if they declined (Discuss DNR or withdrawal of care, Hospice)? DNR status @ -No What co-morbidities impacted this encounter? (DM, HTN, Smoking, COPD, CAD, Cancer, CVA, ARF, Chemo, Hep., AIDS, mental health diagnosis, sleep apnea, morbid obesity)? @ -None Was patient admitted / discharged? Hospital course, mention meds given and route, prescriptions, significant lab abnormalities, going to OR and other pertinent info. @ -Discharge. Patient's 48-year-old male presented ER with chief complaint of chronic leg pain. On examination, patient's vital signs are stable. X-rays were negative for any acute fractures or dislocations. Patient received 1 mg IM Dilaudid for pain control in the ER. Upon reevaluation patient reported his pain was better and was ready to go home. Instructed patient to follow-up with neurology and PCP as scheduled. I advised patient to continue taking Tylenol arthritis for pain control. Return parameters were discussed. Patient will be discharged in stable condition with follow-up to PCP. Patient expressed understanding and agreement with care plan. Undiagnosed new problem with uncertain prognosis? @ -No Drug Therapy requiring intensive monitoring for toxicity (Heparin, Nitro, Insulin, Cardizem)? @ -No Were any procedures done? @ -No Diagnosis/symptom? @ -Leg pain Acute, or Chronic, or Acute on Chronic? @ -Chronic Uncomplicated (without systemic symptoms) or Complicated (systemic symptoms)? @ -Uncomplicated Side effects of treatment? @ -No Exacerbation, Progression, or Severe Exacerbation? @ -No Poses a threat to life or bodily function? How? (Chest pain, [place], [place], pneumonia, PE, COPD, DKA, ARF, appy, cholecystitis, CVA, Diverticulitis, Homicidal, Suicidal, threat to staff... and all critical care pts) @ -No (Georgia Pedroza) Disposition <Krystal León - Last Filed: 02/17/23 18:54> Is patient prescribed a controlled substance at d/c from ED?: No Time of Disposition: 22:19 <Georgia Pedroza - Last Filed: 02/17/23 22:37> Clinical Impression: Leg pain Disposition: HOME SELF-CARE Condition: Stable Additional Instructions: Please follow-up with neurology and PCP. Please return to the ER for any new or worsening symptoms. Referrals: Jefry Castro DO [Primary Care Provider] - 1-2 days
--- NOTE | 2023-02-17 20:16 | XR ---
EXAMINATION TYPE: XR ankle complete LT DATE OF EXAM: 02/17/2023 7:43 PM CLINICAL INDICATION:Male, 48 years old with history of leg pain; [facility] COMPARISON: None TECHNIQUE: XR ankle complete LT; ankle is imaged in frontal, lateral and oblique projections. FINDINGS: There is no evidence of acute osseous pathology. The joint spaces are well-preserved without evidenc e of subluxation or dislocation. Kager's fat pad is intact. There is remote fractures of the tibia an d fibula which appear completely fused. Post removal changes of fixation hardware noted. No radiopaqu e foreign bodies are identified. IMPRESSION: 1. No evidence of acute fracture. 2. Remote distal tibia and fibula fractures with good osseous fusion.
--- NOTE | 2023-02-17 20:17 | XR ---
EXAMINATION TYPE: XR knee complete LT DATE OF EXAM: 02/17/2023 7:43 PM CLINICAL INDICATION:Male, 48 years old with history of leg pain; [facility] COMPARISON: None. TECHNIQUE: XR knee complete LT; examined in Frontal, lateral and oblique projections. FINDINGS: No dislocation or significant soft tissue swelling. No joint effusion appreciated Prior s urgical removal of intramedullary [place] in the tibia. There is no evidence of acute fracture. Minimal o steophyte formation of patella and tibial plateau. IMPRESSION: 1. No acute osseous pathology. 2. Prior intramedullary [place] placement with subsequent removal. 3. Mild osteoporosis changes of the knee.
[2023-02-17] MEDS ORDERED: HYDROmorphone 1 MG/ML 1 ML SYRINGE IM STA (21:37)
[2023-02-17 22:31] VITALS: BP 124/83; PULSE 95; RESP 17
== END 2023-02-17 22:27 | disposition home or self-care (01) ==
LOC: EC 18:09
DX: M79.605 Pain in left leg (principal); F41.9 Anxiety disorder, unspecified; F32.A Depression, unspecified; Z88.8 Allergy status to other drugs, medicaments and biological substances; Z79.899 Other long term (current) drug therapy
CPT/HCPCS: 73562; 73610; 99283; 96372; J1170

== ENCOUNTER 2023-03-26 02:58 | Emergency (ER) | payer OTHER ==
[2023-03-26 03:26] VITALS: PULSE 88; RESP 16; TEMP 97.6
--- NOTE | 2023-03-26 03:30 | ED ---
Extremity Problem HPI - General Chief complaint: Extremity Problem,Nontraumatic Stated complaint: Leg Pain Time Seen by Provider: 03/26/23 03:05 Source: patient, EMS Mode of arrival: EMS Limitations: no limitations - History of Present Illness Initial comments: 48-year-old male with past medical history of complex regional pain syndrome who presents to the emergency department reporting left knee pain. Patient has been seen in the emergency department several times for the same complaint. He has had advanced imaging studies of the left knee to include an MRI without any findings. He follows with Dr. Vance. He reports he is supposed to be getting a pain pump. He reports that he is not taking any pain medications because he is also on daily benzodiazepines. Patient states that his pain was so significant tonight that he felt he needed to come into the emergency department for pain control - Related Data Home Medications Medication Instructions Recorded Confirmed Lurasidone HCl [Latuda] 120 mg PO DAILY 05/18/22 05/18/22 Venlafaxine HCl [Effexor XR] 75 mg PO DAILY 05/18/22 05/18/22 Venlafaxine HCl [Effexor XR] 150 mg PO DAILY 05/18/22 05/18/22 lisinopriL [Zestril] 10 mg PO DAILY PRN 05/18/22 05/18/22 metFORMIN HCL ER [Glucophage XR] 500 mg PO HS 05/18/22 05/18/22 rOPINIRole HCL [Requip] 0.5 mg PO BID PRN 05/18/22 05/18/22 Previous Rx's Medication Instructions Recorded Acetaminophen Tab [Tylenol] 650 mg PO Q6HR PRN tab 05/20/22 HYDROmorphone [Dilaudid] 2 mg PO DAILY PRN #0 05/20/22 Allergies Allergy/AdvReac Type Severity Reaction Status Date / Time bupropion HCl Allergy Unknown Verified 03/31/23 08:21 [From Wellbutrin] Review of Systems ROS Statement: Those systems with pertinent positive or pertinent negative responses have been documented in the HPI. ROS Other: All systems not noted in ROS Statement are negative. Past Medical History Past Medical History: Hyperlipidemia Additional Past Medical History / Comment(s): restless leg syndrome. Complex regional pain syndrome to left lower extremity History of Any Multi-Drug Resistant Organisms: None Reported Additional Past Surgical History / Comment(s): FINGER AMPUTATION LEFT INDEX FINGER IN 1999, HILARIO PLACED AND REMOVED FROM LEFT LEG IN 2002 hardware removal from left ORIF lower extremity, distal tip of the finger slightly amputated after injury Past Anesthesia/Blood Transfusion Reactions: No Reported Reaction Past Psychological History: Anxiety, Depression Smoking Status: Never smoker Past Alcohol Use History: Occasional Past Drug Use History: None Reported - Past Family History Father Family Medical History: No Reported History Mother Family Medical History: No Reported History Brother(s) Family Medical History: No Reported History (Depression and anxiety) General Exam Limitations: no limitations General appearance: alert, in no apparent distress Head exam: Present: atraumatic, normocephalic, normal inspection Eye exam: Present: normal appearance, PERRL, EOMI. Absent: scleral icterus, conjunctival injection, periorbital swelling ENT exam: Present: normal exam, mucous membranes moist Neck exam: Present: normal inspection. Absent: tenderness, meningismus, lymphadenopathy Respiratory exam: Present: normal lung sounds bilaterally. Absent: respiratory distress, wheezes, rales, rhonchi, stridor Cardiovascular Exam: Present: regular rate, normal rhythm, normal heart sounds. Absent: systolic murmur, diastolic murmur, rubs, gallop, clicks GI/Abdominal exam: Present: soft, normal bowel sounds. Absent: distended, tenderness, guarding, rebound, rigid Extremities exam: Present: normal inspection, full ROM, normal capillary refill. Absent: tenderness, pedal edema, joint swelling, calf tenderness Back exam: Present: normal inspection Neurological exam: Present: alert, oriented X3, CN II-XII intact Psychiatric exam: Present: normal affect, normal mood Skin exam: Present: warm, dry, intact, normal color. Absent: rash Course Vital Signs 03/26/23 03/26/23 02:59 04:06 Temperature 97.6 F Pulse Rate 88 88 Respiratory 16 16 Rate Blood Pressure 122/82 111/79 O2 Sat by Pulse 96 96 Oximetry Medical Decision Making - Medical Decision Making Was pt. sent in by a medical professional or institution (, PA, BUSINESS EXCELLENCE LEADER, urgent care, hospital, or usp...) When possible be specific @ -No Did you speak to anyone other than the patient for history (EMS, parent, family, police, friend...)? What history was obtained from this source @ -EMS Did you review nursing and triage notes (agree or disagree)? Why? @ -I reviewed and agree with nursing and triage notes Were old charts reviewed (outside hosp., previous admission, EMS record, old EKG, old radiological studies, urgent care reports/EKG's, usp records)? Report findings @ -No old charts were reviewed Differential Diagnosis (chest pain, altered mental status, abdominal pain women, abdominal pain men, vaginal bleeding, weakness, fever, dyspnea, syncope, headache, dizziness, GI bleed, back pain, seizure, CVA, palpatations, mental health, musculoskeletal)? @ -Differential Musculoskeletal Muscular strain, contusion, ligament sprain, fracture, arthritis, septic arthritis, bursitis, cellulitis, muscle spasm, nerve compression, DVT, arterial occlusion, herpes zoster, electrolyte abnormality, tumor.... This is not meant to be in all inclusive list EKG interpreted by me (3pts min.). @ -Not done X-rays interpreted by me (1pt min.). @ -None done CT interpreted by me (1pt min.). @ -None done U/S interpreted by me (1pt. min.). @ -None done What testing was considered but not performed or refused? (CT, X-rays, U/S, labs)? Why? @ -None What meds were considered but not given or refused? Why? @ -None Did you discuss the management of the patient with other professionals (professionals i.e. , PA, BUSINESS EXCELLENCE LEADER, lab, RT, psych nurse, social service coordinator, green building engineer, teacher, banking officer, telephonic case manager)? Give summary @ -No Was smoking cessation discussed for >3mins.? @ -No Was critical care preformed (if so, how long)? @ -No Were there social determinants of health that impacted care today? How? (Homelessness, low income, unemployed, alcoholism, drug addiction, transportation, low edu. Level, literacy, decrease access to med. care, shelter, rehab)? @ -No Was there de-escalation of care discussed even if they declined (Discuss DNR or withdrawal of care, Hospice)? DNR status @ -No What co-morbidities impacted this encounter? (DM, HTN, Smoking, COPD, CAD, Cancer, CVA, ARF, Chemo, Hep., AIDS, mental health diagnosis, sleep apnea, m orbid obesity)? @ -Complex regional pain syndrome Was patient admitted / discharged? Hospital course, mention meds given and route, prescriptions, significant lab abnormalities, going to OR and other pertinent info. @ -Discharged. Upon arrival patient placed into room 15. Thorough history and physical exam was performed. Patient well-known to the emergency department for this same complaint. Patient was given a dose of pain medications. Instructed that he needs to follow-up with his neurologist for further pain management Undiagnosed new problem with uncertain prognosis? @ -No Drug Therapy requiring intensive monitoring for toxicity (Heparin, Nitro, Insulin, Cardizem)? @ -No Were any procedures done? @ -No Diagnosis/symptom? @ -Acute exacerbation of chronic left knee pain, complex regional pain syndrome Acute, or Chronic, or Acute on Chronic? @ -Acute on chronic Uncomplicated (without systemic symptoms) or Complicated (systemic symptoms)? @ -Complicated Side effects of treatment? @ -No Exacerbation, Progression, or Severe Exacerbation? @ -Yes Poses a threat to life or bodily function? How? (Chest pain, [place], [place], pneumonia, PE, COPD, DKA, ARF, appy, cholecystitis, CVA, Diverticulitis, Homicidal, Suicidal, threat to staff... and all critical care pts) @ -No Disposition Clinical Impression: Left leg pain Disposition: HOME SELF-CARE Condition: Stable Instructions (If sedation given, give patient instructions): Leg Pain (ED) Additional Instructions: Please follow-up with your neurologist in regards to your pain stimulator. Return for any new or worsening symptoms Is patient prescribed a controlled substance at d/c from ED?: No Referrals: Jefry Castro DO [Primary Care Provider] - 1-2 days Renée Franco MD [Medical Doctor] - 1-2 days Time of Disposition: 03:30
[2023-03-26] MEDS: HYDROmorphone 1 MG/ML 1 ML SYRINGE IM STA (03:59)
[2023-03-26 04:21] VITALS: BP 111/79
== END 2023-03-26 04:12 | disposition home or self-care (01) ==
LOC: EC 02:58
DX: M79.605 Pain in left leg (principal); E78.5 Hyperlipidemia, unspecified; F41.9 Anxiety disorder, unspecified; F32.A Depression, unspecified; Z79.899 Other long term (current) drug therapy; Z88.8 Allergy status to other drugs, medicaments and biological substances
CPT/HCPCS: 99284; 96372; J1170

== ENCOUNTER 2023-03-26 20:32 | Emergency (ER) | payer OTHER ==
[2023-03-26 21:08] VITALS: BP 107/55; PULSE 104; RESP 18; TEMP 98.5
--- NOTE | 2023-03-26 22:29 | ED ---
Extremity Problem HPI - General Chief complaint: Extremity Problem,Nontraumatic Stated complaint: pain left knee Time Seen by Provider: 03/26/23 22:07 Source: patient Mode of arrival: ambulatory Limitations: no limitations - History of Present Illness Initial comments: 48-year-old male presenting with chief complaint of left knee pain. Patient has history of chronic left knee pain from a previous injury. Patient has no new injury or trauma. States that this feels consistent with his regular flareups of this chronic pain. States that he is currently trying to get in with a neurologist for pain management. No numbness tingling or weakness. - Related Data Home Medications Medication Instructions Recorded Confirmed Lurasidone HCl [Latuda] 120 mg PO DAILY 05/18/22 05/18/22 Venlafaxine HCl [Effexor XR] 75 mg PO DAILY 05/18/22 05/18/22 Venlafaxine HCl [Effexor XR] 150 mg PO DAILY 05/18/22 05/18/22 lisinopriL [Zestril] 10 mg PO DAILY PRN 05/18/22 05/18/22 metFORMIN HCL ER [Glucophage XR] 500 mg PO HS 05/18/22 05/18/22 rOPINIRole HCL [Requip] 0.5 mg PO BID PRN 05/18/22 05/18/22 Previous Rx's Medication Instructions Recorded Acetaminophen Tab [Tylenol] 650 mg PO Q6HR PRN tab 05/20/22 HYDROmorphone [Dilaudid] 2 mg PO DAILY PRN #0 05/20/22 Allergies Allergy/AdvReac Type Severity Reaction Status Date / Time bupropion HCl Allergy Unknown Verified 03/26/23 21:00 [From Wellbutrin] Review of Systems ROS Statement: Those systems with pertinent positive or pertinent negative responses have been documented in the HPI. ROS Other: All systems not noted in ROS Statement are negative. Past Medical History Past Medical History: Hyperlipidemia Additional Past Medical History / Comment(s): restless leg syndrome. Complex regional pain syndrome to left lower extremity History of Any Multi-Drug Resistant Organisms: None Reported Additional Past Surgical History / Comment(s): FINGER AMPUTATION LEFT INDEX FINGER IN 1999, HILARIO PLACED AND REMOVED FROM LEFT LEG IN 2002 hardware removal from left ORIF lower extremity, distal tip of the finger slightly amputated after injury Past Anesthesia/Blood Transfusion Reactions: No Reported Reaction Past Psychological History: Anxiety, Depression Smoking Status: Never smoker Past Alcohol Use History: Occasional Past Drug Use History: None Reported - Past Family History Father Family Medical History: No Reported History Mother Family Medical History: No Reported History Brother(s) Family Medical History: No Reported History (Depression and anxiety) General Exam Limitations: no limitations General appearance: alert, in no apparent distress Head exam: Present: atraumatic, normocephalic Eye exam: Present: normal appearance, EOMI Neck exam: Present: normal inspection Respiratory exam: Absent: respiratory distress Left Knee exam: Present: normal inspection. Absent: swelling, erythema Lower Leg exam: Present: normal inspection. Absent: swelling Neurovascular tendon exam: Present: no vascular compromise Neurological exam: Present: alert, oriented X3 Psychiatric exam: Present: normal affect, normal mood Skin exam: Present: warm, dry Course Vital Signs 03/26/23 20:58 Temperature 98.5 F Pulse Rate 104 H Respiratory 18 Rate Blood Pressure 107/55 O2 Sat by Pulse 97 Oximetry Medical Decision Making - Medical Decision Making Was pt. sent in by a medical professional or institution (, PA, DOUBLE END TENON OPERATOR, urgent care, hospital, or senior care...) When possible be specific @ -No Did you speak to anyone other than the patient for history (EMS, parent, family, police, friend...)? What history was obtained from this source @ -No Did you review nursing and triage notes (agree or disagree)? Why? @ -I reviewed and agree with nursing and triage notes Were old charts reviewed (outside hosp., previous admission, EMS record, old EKG, old radiological studies, urgent care reports/EKG's, senior care records)? Report findings @ -Previous visits are reviewed, patient has been here for the same complaint on multiple occasions Differential Diagnosis (chest pain, altered mental status, abdominal pain women, abdominal pain men, vaginal bleeding, weakness, fever, dyspnea, syncope, headache, dizziness, GI bleed, back pain, seizure, CVA, palpatations, mental health, musculoskeletal)? @ -Differential Musculoskeletal Muscular strain, contusion, ligament sprain, fracture, arthritis, septic arthritis, bursitis, cellulitis, muscle spasm, nerve compression, DVT, arterial occlusion, herpes zoster, electrolyte abnormality, tumor.... This is not meant to be in all inclusive list EKG interpreted by me (3pts min.). @ -As above X-rays interpreted by me (1pt min.). @ -None done CT interpreted by me (1pt min.). @ -None done U/S interpreted by me (1pt. min.). @ -None done What testing was considered but not performed or refused? (CT, X-rays, U/S, labs)? Why? @ -None What meds were considered but not given or refused? Why? @ -None Did you discuss the management of the patient with other professionals (pro fessionals i.e. , PA, DOUBLE END TENON OPERATOR, lab, RT, psych nurse, high school social science teacher, mechanical pencils assembler, teacher, first aid officer, shelter case manager)? Give summary @ -No Was smoking cessation discussed for >3mins.? @ -No Was critical care preformed (if so, how long)? @ -No Were there social determinants of health that impacted care today? How? (Homelessness, low income, unemployed, alcoholism, drug addiction, transportation, low edu. Level, literacy, decrease access to med. care, intermediate, rehab)? @ -No Was there de-escalation of care discussed even if they declined (Discuss DNR or withdrawal of care, Hospice)? DNR status @ -No What co-morbidities impacted this encounter? (DM, HTN, Smoking, COPD, CAD, Cancer, CVA, ARF, Chemo, Hep., AIDS, mental health diagnosis, sleep apnea, morbid obesity)? @ -None Was patient admitted / discharged? Hospital course, mention meds given and route, prescriptions, significant lab abnormalities, going to OR and other pertinent info. @ -48-year-old male presenting with chief complaint of chronic left knee pain. No new injury or trauma. He is neurovascularly intact on physical exam. He is treated with Toradol and discharged home. Follow-up with PCP and neurologist. Follow-up with PCP. Report back to ER with any new or worsening symptoms. Discussed return parameters and answered all questions. Patient conveyed verbal understanding and agreed to the plan. I discussed this case in detail with my attending Dr. nascimento Undiagnosed new problem with uncertain prognosis? @ -No Drug Therapy requiring intensive monitoring for toxicity (Heparin, Nitro, Insulin, Cardizem)? @ -No Were any procedures done? @ -No Diagnosis/symptom? @ -Chronic knee pain Acute, or Chronic, or Acute on Chronic? @ -Acute on chronic Uncomplicated (without systemic symptoms) or Complicated (systemic symptoms)? @ -Uncomplicated Side effects of treatment? @ -No Exacerbation, Progression, or Severe Exacerbation? @ -No Poses a threat to life or bodily function? How? (Chest pain, [place], [place], pneumonia, PE, COPD, DKA, ARF, appy, cholecystitis, CVA, Diverticulitis, Homicidal, Suicidal, threat to staff... and all critical care pts) @ -No Disposition Clinical Impression: Chronic knee pain Disposition: HOME SELF-CARE Condition: Good Instructions (If sedation given, give patient instructions): Pain Management (ED), Chronic Pain (ED) Additional Instructions: Follow-up with PCP. Report back to ER with any new or worsening symptoms. Is patient prescribed a controlled substance at d/c from ED?: No Referrals: Jefry Castro DO [Primary Care Provider] - 1-2 days Time of Disposition: 22:28
[2023-03-26] MEDS: KETOROLAC 15 MG/ML 1 ML VIAL IM STA (22:37)
== END 2023-03-26 22:45 | disposition home or self-care (01) ==
LOC: EC 20:32
DX: G89.29 Other chronic pain (principal); M25.562 Pain in left knee; E78.5 Hyperlipidemia, unspecified; F41.9 Anxiety disorder, unspecified; F32.A Depression, unspecified; Z79.899 Other long term (current) drug therapy; Z88.8 Allergy status to other drugs, medicaments and biological substances
CPT/HCPCS: 99283; 96372; J1885

== ENCOUNTER 2023-03-31 08:15 | Emergency (ER) | payer OTHER ==
--- NOTE | 2023-03-31 08:39 | ED ---
General Adult HPI - General Chief complaint: Extremity Problem,Nontraumatic Stated complaint: L Knee Pain Time Seen by Provider: 03/31/23 08:17 Source: patient, EMS, RN notes reviewed Mode of arrival: EMS Limitations: no limitations - History of Present Illness Initial comments: Patient is a pleasant 48-year-old male presenting to the emergency department with concern for left knee pain. Patient has chronic knee pain. Patient states he has nerve damage from an injury 20 years ago. Patient does see branch service specialist and a pain specialist for this. No new injury. No swelling. No other area of concern. - Related Data Home Medications Medication Instructions Recorded Confirmed Lurasidone HCl [Latuda] 120 mg PO DAILY 05/18/22 05/18/22 Venlafaxine HCl [Effexor XR] 75 mg PO DAILY 05/18/22 05/18/22 Venlafaxine HCl [Effexor XR] 150 mg PO DAILY 05/18/22 05/18/22 lisinopriL [Zestril] 10 mg PO DAILY PRN 05/18/22 05/18/22 metFORMIN HCL ER [Glucophage XR] 500 mg PO HS 05/18/22 05/18/22 rOPINIRole HCL [Requip] 0.5 mg PO BID PRN 05/18/22 05/18/22 Previous Rx's Medication Instructions Recorded Acetaminophen Tab [Tylenol] 650 mg PO Q6HR PRN tab 05/20/22 HYDROmorphone [Dilaudid] 2 mg PO DAILY PRN #0 05/20/22 Allergies Allergy/AdvReac Type Severity Reaction Status Date / Time bupropion HCl Allergy Unknown Verified 03/31/23 08:21 [From Wellbutrin] Review of Systems ROS Statement: Those systems with pertinent positive or pertinent negative responses have been documented in the HPI. ROS Other: All systems not noted in ROS Statement are negative. Constitutional: Denies: fever Eyes: Denies: eye pain ENT: Denies: ear pain Respiratory: Denies: cough Cardiovascular: Denies: chest pain Neurological: Denies: weakness Past Medical History Past Medical History: Hyperlipidemia Additional Past Medical History / Comment(s): restless leg syndrome. Complex regional pain syndrome to left lower extremity History of Any Multi-Drug Resistant Organisms: None Reported Additional Past Surgical History / Comment(s): FINGER AMPUTATION LEFT INDEX FINGER IN 1999, HILARIO PLACED AND REMOVED FROM LEFT LEG IN 2002 hardware removal from left ORIF lower extremity, distal tip of the finger slightly amputated after injury Past Anesthesia/Blood Transfusion Reactions: No Reported Reaction Past Psychological History: Anxiety, Depression Smoking Status: Never smoker Past Alcohol Use History: Occasional Past Drug Use History: None Reported - Past Family History Father Family Medical History: No Reported History Mother Family Medical History: No Reported History Brother(s) Family Medical History: No Reported History (Depression and anxiety) General Exam Limitations: no limitations General appearance: alert, in no apparent distress Head exam: Present: normocephalic Eye exam: Present: normal appearance ENT exam: Present: normal oropharynx Neck exam: Present: normal inspection Respiratory exam: Present: normal lung sounds bilaterally Cardiovascular Exam: Present: regular rate, normal rhythm Expanded Peripheral pulses: 2+: Posterior Tibialis (L), Dorsalis Pedis (L) GI/Abdominal exam: Present: soft. Absent: tenderness Extremities exam: Present: tenderness (Mild tenderness left hip anterior knee) Neurological exam: Present: alert. Absent: motor sensory deficit Psychiatric exam: Present: flat affect Skin exam: Present: normal color Course Vital Signs 03/31/23 08:18 Temperature 98.1 F Pulse Rate 119 H Respiratory 18 Rate Blood Pressure 131/88 O2 Sat by Pulse 97 Oximetry Medical Decision Making - Medical Decision Making Was pt. sent in by a medical professional or institution (Dr. PA, THERMAL SURFACING MACHINE OPERATOR, urgent care, hospital, or penitentiary...) When possible be specific @ -No Did you speak to anyone other than the patient for history (EMS, parent, family, police, friend...)? What history was obtained from this source @ -No Did you review nursing and triage notes (agree or disagree)? Why? @ -I reviewed and agree with nursing and triage notes Were old charts reviewed (outside hosp., previous admission, EMS record, old EKG, old radiological studies, urgent care reports/EKG's, penitentiary records)? Report findings @ -Previous x-rays reviewed Differential Diagnosis (chest pain, altered mental status, abdominal pain women, abdominal pain men, vaginal bleeding, weakness, fever, dyspnea, syncope, headache, dizziness, GI bleed, back pain, seizure, CVA, palpatations, mental health, musculoskeletal)? @ -Differential Musculoskeletal Muscular strain, contusion, ligament sprain, fracture, arthritis, septic arthritis, bursitis, cellulitis, muscle spasm, nerve compression, DVT, arterial occlusion, herpes zoster, electrolyte abnormality, tumor.... This is not meant to be in all inclusive list EKG interpreted by me (3pts min.). @ -As above X-rays interpreted by me (1pt min.). @ -None done CT interpreted by me (1pt min.). @ -None done U/S interpreted by me (1pt. min.). @ -None done What testing was considered but not performed or refused? (CT, X-rays, U/S, labs)? Why? @ -Consider x-rays however this is a chronic problem patient has had previous x-rays What meds were considered but not given or refused? Why? @ -None Did you discuss the management of the patient with other professionals (professionals i.e. , PA, THERMAL SURFACING MACHINE OPERATOR, lab, RT, psych nurse, certified social workers in health care, slope hoist operator, teacher, geographic area intelligence officer, catalytic case operator)? Give summary @ -No Was smoking cessation discussed for >3mins.? @ -No Was critical care preformed (if so, how long)? @ -No Were there social determinants of health that impacted care today? How? (Homelessness, low income, unemployed, alcoholism, drug addiction, transportation, low edu. Level, literacy, decrease access to med. care, custodial, rehab)? @ -No Was there de-escalation of care discussed even if they declined (Discuss DNR or withdrawal of care, Hospice)? DNR status @ -No What co-morbidities impacted this encounter? (DM, HTN, Smoking, COPD, CAD, Cancer, CVA, ARF, Chemo, Hep., AIDS, mental health diagnosis, sleep apnea, morbid obesity)? @ -None Was patient admitted / discharged? Hospital course, mention meds given and route, prescriptions, significant lab abnormalities, going to OR and other pertinent info. @ -Patient presents with chronic pain. Patient will receive pain medication and discharged to follow-up Undiagnosed new problem with uncertain prognosis? @ -No Drug Therapy requiring intensive monitoring for toxicity (Heparin, Nitro, Insulin, Cardizem)? @ -No Were any procedures done? @ -No Diagnosis/symptom? @ -Knee pain Acute, or Chronic, or Acute on Chronic? @ -Acute on chronic Uncomplicated (without systemic symptoms) or Complicated (systemic symptoms)? @ -Default Side effects of treatment? @ -No Exacerbation, Progression, or Severe Exacerbation? @ -No Poses a threat to life or bodily function? How? (Chest pain, [place], [place], pneumonia, PE, COPD, DKA, ARF, appy, cholecystitis, CVA, Diverticulitis, Homicidal, Suicidal, threat to staff... and all critical care pts) @ -No Disposition Clinical Impression: Chronic knee pain Disposition: HOME SELF-CARE Condition: Stable Instructions (If sedation given, give patient instructions): Chronic Pain (ED) Additional Instructions: Please follow-up with your bone doctor and pain doctor in the next 1 or 2 days for recheck. Also follow-up with primary care physician. Return for swelling, weakness, worsening or change in symptoms or other concerns. Is patient prescribed a controlled substance at d/c from ED?: No Referrals: Jefry Castro DO [Primary Care Provider] - 1-2 days Time of Disposition: 08:38
[2023-03-31 08:46] VITALS: RESP 18; TEMP 98.1
[2023-03-31 09:23] VITALS: BP 112/84; PULSE 98
[2023-03-31] MEDS: KETOROLAC 15 MG/ML 1 ML VIAL IVP STA (09:23)
== END 2023-03-31 09:45 | disposition home or self-care (01) ==
LOC: EC 08:15
DX: G89.29 Other chronic pain (principal); M25.562 Pain in left knee; E78.5 Hyperlipidemia, unspecified; F41.9 Anxiety disorder, unspecified; F32.A Depression, unspecified; Z79.899 Other long term (current) drug therapy; Z88.8 Allergy status to other drugs, medicaments and biological substances
CPT/HCPCS: 99284; 96374; J1885

== ENCOUNTER 2023-04-07 04:38 | Emergency (ER) | payer OTHER ==
--- NOTE | 2023-04-07 04:49 | ED ---
Lower Extremity Injury HPI - General Chief Complaint: Extremity Injury, Lower Stated Complaint: leg pain Time Seen by Provider: 04/07/23 04:40 Source: patient, RN notes reviewed, old records reviewed Mode of arrival: EMS Limitations: no limitations - History of Present Illness Initial Comments: This is a 48-year-old male to the ER for evaluation. Patient presents today for evaluation regards to severe leg pain MD Complaint: leg injury -: month(s) Place: home Severity: severe Severity scale (1-10): 10 Worsens With: nothing Context: fall Other Symptoms: loss of consciousness Associated Symptoms: swelling, numbness, tingling, unable to bear weight Treatments Prior to Arrival: other (0) - Related Data Home Medications Medication Instructions Recorded Confirmed Lurasidone HCl [Latuda] 120 mg PO DAILY 05/18/22 05/18/22 Venlafaxine HCl [Effexor XR] 75 mg PO DAILY 05/18/22 05/18/22 Venlafaxine HCl [Effexor XR] 150 mg PO DAILY 05/18/22 05/18/22 lisinopriL [Zestril] 10 mg PO DAILY PRN 05/18/22 05/18/22 metFORMIN HCL ER [Glucophage XR] 500 mg PO HS 05/18/22 05/18/22 rOPINIRole HCL [Requip] 0.5 mg PO BID PRN 05/18/22 05/18/22 Previous Rx's Medication Instructions Recorded Acetaminophen Tab [Tylenol] 650 mg PO Q6HR PRN tab 05/20/22 HYDROmorphone [Dilaudid] 2 mg PO DAILY PRN #0 05/20/22 Allergies Allergy/AdvReac Type Severity Reaction Status Date / Time bupropion HCl Allergy Unknown Verified 04/08/23 02:57 [From Wellbutrin] Review of Systems ROS Statement: Those systems with pertinent positive or pertinent negative responses have been documented in the HPI. ROS Other: All systems not noted in ROS Statement are negative. Past Medical History Past Medical History: Hyperlipidemia Additional Past Medical History / Comment(s): restless leg syndrome. Complex regional pain syndrome to left lower extremity History of Any Multi-Drug Resistant Organisms: None Reported Additional Past Surgical History / Comment(s): FINGER AMPUTATION LEFT INDEX FINGER IN 1999, HILARIO PLACED AND REMOVED FROM LEFT LEG IN 2002 hardware removal from left ORIF lower extremity, distal tip of the finger slightly amputated after injury Past Anesthesia/Blood Transfusion Reactions: No Reported Reaction Past Psychological History: Anxiety, Depression Smoking Status: Never smoker Past Alcohol Use History: Occasional Past Drug Use History: None Reported - Past Family History Father Family Medical History: No Reported History Mother Family Medical History: No Reported History Brother(s) Family Medical History: No Reported History (Depression and anxiety) General Exam Limitations: no limitations General appearance: alert, in no apparent distress Head exam: Present: atraumatic, normocephalic, normal inspection Eye exam: Present: normal appearance, PERRL, EOMI. Absent: scleral icterus, conjunctival injection, periorbital swelling ENT exam: Present: normal exam, mucous membranes moist Neck exam: Present: normal inspection. Absent: tenderness, meningismus, lymphadenopathy Respiratory exam: Present: normal lung sounds bilaterally. Absent: respiratory distress, wheezes, rales, rhonchi, stridor Cardiovascular Exam: Present: regular rate, normal rhythm, normal heart sounds. Absent: systolic murmur, diastolic murmur, rubs, gallop, clicks GI/Abdominal exam: Present: soft, normal bowel sounds. Absent: distended, ten derness, guarding, rebound, rigid Extremities exam: Present: normal inspection, full ROM, normal capillary refill. Absent: tenderness, pedal edema, joint swelling, calf tenderness Back exam: Present: normal inspection Neurological exam: Present: alert, oriented X3, CN II-XII intact Psychiatric exam: Present: normal affect, normal mood Skin exam: Present: warm, dry, intact, normal color. Absent: rash Course Vital Signs 04/07/23 04/07/23 04/07/23 04:41 04:48 06:13 Temperature 97.6 F 97.6 F Pulse Rate 87 87 89 Respiratory 18 18 16 Rate Blood Pressure 113/79 113/79 116/81 O2 Sat by Pulse 98 98 96 Oximetry - Reevaluation(s) Reevaluation #1: 04/07/23 04:49 Medical records reviewed Reevaluation #2: Patient symptoms are improved Reevaluation #3: Informed of results and questions answered Reevaluation #4: Was pt. sent in by a medical professional or institution (, PA, DORMITORY KEEPER, urgent care, hospital, or residential...) When possible be specific @ -no Did you speak to anyone other than the patient for history (EMS, parent, family, police, friend...)? What history was obtained from this source @ -no Did you review nursing and triage notes (agree or disagree)? Why? @ -agree Are old charts reviewed (outside hosp., previous admission, EMS record, old EKG, old radiological studies, urgent care reports/EKG's, residential records)? Report findings @ -yes Differential Diagnosis (chest pain, altered mental status, abdominal pain women, abdominal pain men, vaginal bleeding, weakness, fever, dyspnea, syncope, headache, dizziness, GI bleed, back pain, seizure, CVA, palpatations, mental health, musculoskeletal)? @ -prior EKG interpreted by me (3pts min.). @ -no X-rays interpreted by me (1pt min.). @ -no CT interpreted by me (1pt min.). @ -no U/S interpreted by me (1pt. min.). @ -no What testing was considered but not performed or refused? (CT, X-rays, U/S, l abs)? Why? @ -none What meds were considered but not given or refused? Why? @ -none Did you discuss the management of the patient with other professionals (professionals i.e. , PA, DORMITORY KEEPER, lab, RT, psych nurse, social service assistant, cashier assistant, teacher, front desk officer, casework specialist)? Give summary @ -no Was smoking cessation discussed for >3mins.? @ -no Was critical care preformed (if so, how long)? @ -no Were there social determinants of health that impacted care today? How? (Homelessness, low income, unemployed, alcoholism, drug addiction, transportation, low edu. Level, literacy, decrease access to med. care, intermediate, rehab)? @ -none Was there de-escalation of care discussed even if they declined (Discuss DNR or withdrawal of care, Hospice)? DNR status @ -no What co-morbidities impacted this encounter? (DM, HTN, Smoking, COPD, CAD, Cancer, CVA, ARF, Chemo, Hep., AIDS, mental health diagnosis, sleep apnea, morbid obesity)? @ -none Was patient admitted / discharged? Hospital course, mention meds given and route, prescriptions, significant lab abnormalities, going to OR and other pertinent info. @ - 48 male to ER for evaluation of severe chronic leg pain and knee pain, pain is well-controlled currently and can be discharged home Discharge Undiagnosed new problem with uncertain prognosis? @ -no Drug Therapy requiring intensive monitoring for toxicity (Heparin, Nitro, Insulin, Cardizem)? @ -no Were any procedures done? @ -no Diagnosis/symptom? @ -Leg pain chronic pain Acute, or Chronic, or Acute on Chronic? @ -Acute Uncomplicated (without systemic symptoms) or Complicated (systemic symptoms)? @ -Complicated Side effects of treatment? @ -no Exacerbation, Progression, or Severe Exacerbation? @ -exacerbation Poses a threat to life or bodily function? How? (Chest pain, [place], [place], pneumonia, PE, COPD, DKA, ARF, appy, cholecystitis, CVA, Diverticulitis, Homicidal, Suicidal, threat to staff... and all critical care pts) @ -no Medical Decision Making - Medical Decision Making 48 male to ER for evaluation of severe chronic leg pain and knee pain, pain is well-controlled currently and can be discharged home Disposition Clinical Impression: Left leg pain, Chronic knee pain Disposition: HOME SELF-CARE Condition: Good Instructions (If sedation given, give patient instructions): Knee Pain (ED) Is patient prescribed a controlled substance at d/c from ED?: No Referrals: Jefry Castro DO [Primary Care Provider] - 1-2 days Time of Disposition: 06:00
[2023-04-07 04:51] VITALS: TEMP 97.6
[2023-04-07] MEDS: IBUPROFEN 800 MG TAB PO STA (05:21)
[2023-04-07] MEDS: HYDROmorphone 1 MG/ML 1 ML SYRINGE IM STA (05:22)
[2023-04-07 06:19] VITALS: BP 116/81; PULSE 89; RESP 16
== END 2023-04-07 06:14 | disposition home or self-care (01) ==
LOC: EC 04:38
DX: G89.29 Other chronic pain (principal); M79.605 Pain in left leg; E78.5 Hyperlipidemia, unspecified; F41.9 Anxiety disorder, unspecified; F32.A Depression, unspecified; Z79.899 Other long term (current) drug therapy; Z88.8 Allergy status to other drugs, medicaments and biological substances
CPT/HCPCS: 96372; 99284; J1170

== ENCOUNTER 2023-04-08 02:45 | Emergency (ER) | payer OTHER ==
[2023-04-08 02:58] VITALS: BP 112/75; PULSE 90; RESP 18; TEMP 98.5
--- NOTE | 2023-04-08 03:29 | ED ---
Extremity Problem HPI - General Chief complaint: Extremity Problem,Nontraumatic Stated complaint: Left Knee Pain Time Seen by Provider: 04/08/23 02:59 Source: patient Mode of arrival: ambulatory Limitations: no limitations - History of Present Illness Initial comments: 48-year-old male presenting with chief complaint of left knee pain. Patient has history of chronic left knee pain. No new injury or trauma. No redness, swelling, deformity, warmth, fever, chills, numbness, tingling, weakness. No chest pain or difficulty breathing. - Related Data Home Medications Medication Instructions Recorded Confirmed Lurasidone HCl [Latuda] 120 mg PO DAILY 05/18/22 05/18/22 Venlafaxine HCl [Effexor XR] 75 mg PO DAILY 05/18/22 05/18/22 Venlafaxine HCl [Effexor XR] 150 mg PO DAILY 05/18/22 05/18/22 lisinopriL [Zestril] 10 mg PO DAILY PRN 05/18/22 05/18/22 metFORMIN HCL ER [Glucophage XR] 500 mg PO HS 05/18/22 05/18/22 rOPINIRole HCL [Requip] 0.5 mg PO BID PRN 05/18/22 05/18/22 Previous Rx's Medication Instructions Recorded Acetaminophen Tab [Tylenol] 650 mg PO Q6HR PRN tab 05/20/22 HYDROmorphone [Dilaudid] 2 mg PO DAILY PRN #0 05/20/22 Allergies Allergy/AdvReac Type Severity Reaction Status Date / Time bupropion HCl Allergy Unknown Verified 04/08/23 02:57 [From Wellbutrin] Review of Systems ROS Statement: Those systems with pertinent positive or pertinent negative responses have been documented in the HPI. ROS Other: All systems not noted in ROS Statement are negative. Past Medical History Past Medical History: Hyperlipidemia Additional Past Medical History / Comment(s): restless leg syndrome. Complex regional pain syndrome to left lower extremity History of Any Multi-Drug Resistant Organisms: None Reported Additional Past Surgical History / Comment(s): FINGER AMPUTATION LEFT INDEX FINGER IN 1999, HILARIO PLACED AND REMOVED FROM LEFT LEG IN 2002 hardware removal from left ORIF lower extremity, distal tip of the finger slightly amputated after injury Past Anesthesia/Blood Transfusion Reactions: No Reported Reaction Past Psychological History: Anxiety, Depression Smoking Status: Never smoker Past Alcohol Use History: Occasional Past Drug Use History: None Reported - Past Family History Father Family Medical History: No Reported History Mother Family Medical History: No Reported History Brother(s) Family Medical History: No Reported History (Depression and anxiety) General Exam Limitations: no limitations General appearance: alert, in no apparent distress Head exam: Present: atraumatic, normocephalic Eye exam: Present: normal appearance Neck exam: Present: normal inspection Respiratory exam: Absent: respiratory distress Cardiovascular Exam: Present: regular rate Left Knee exam: Present: normal inspection, full ROM, tenderness. Absent: swelling Neurovascular tendon exam: Present: no vascular compromise Neurological exam: Present: alert, oriented X3 Psychiatric exam: Present: normal affect, normal mood Skin exam: Present: warm, dry Course Vital Signs 04/08/23 02:53 Temperature 98.5 F Pulse Rate 90 Respiratory 18 Rate Blood Pressure 112/75 O2 Sat by Pulse 97 Oximetry Medical Decision Making - Medical Decision Making Was pt. sent in by a medical professional or institution (, PA, REFRACTORY MIXER, urgent care, hospital, or residential...) When possible be specific @ -No Did you speak to anyone other than the patient for history (EMS, parent, family, police, friend...)? What history was obtained from this source @ -No Did you review nursing and triage notes (agree or disagree)? Why? @ -I reviewed and agree with nursing and triage notes Were old charts reviewed (outside hosp., previous admission, EMS record, old EKG, old radiological studies, urgent care reports/EKG's, residential records)? Report findings @ -No old charts were reviewed Differential Diagnosis (chest pain, altered mental status, abdominal pain women, abdominal pain men, vaginal bleeding, weakness, fever, dyspnea, syncope, headache, dizziness, GI bleed, back pain, seizure, CVA, palpatations, mental health, musculoskeletal)? @ -Not applicable EKG interpreted by me (3pts min.). @ -As above X-rays interpreted by me (1pt min.). @ -None done CT interpreted by me (1pt min.). @ -None done U/S interpreted by me (1pt. min.). @ -None done What testing was considered but not performed or refused? (CT, X-rays, U/S, labs)? Why? @ -None What meds were considered but not given or refused? Why? @ -None Did you discuss the management of the patient with other professionals (professionals i.e. , PA, REFRACTORY MIXER, lab, RT, psych nurse, psychiatric social worker supervisor, boat officer, teacher, railway patrol officer, case resolution specialist)? Give summary @ -No Was smoking cessation discussed for >3mins.? @ -No Was critical care preformed (if so, how long)? @ -No Were there social determinants of health that impacted care today? How? (Homelessness, low income, unemployed, alcoholism, drug addiction, transportation, low edu. Level, literacy, decrease access to med. care, [facility], rehab)? @ -No Was there de-escalation of care discussed even if they declined (Discuss DNR or withdrawal of care, Hospice)? DNR status @ -No What co-morbidities impacted this encounter? (DM, HTN, Smoking, COPD, CAD, Cancer, CVA, ARF, Chemo, Hep., AIDS, mental health diagnosis, sleep apnea, morbid obesity)? @ -None Was patient admitted / discharged? Hospital course, mention meds given and route, prescriptions, significant lab abnormalities, going to OR and other pertinent info. @ -48-year-old male present with chief complaint of left knee pain. Patient has history of chronic left knee pain with no new injuries. He is neurovascularly intact. Provided with pain medication. Instructed to follow-up with his neurologist. Discharged home. Follow-up with PCP. Report back to ER with any new or worsening symptoms. Discussed return parameters and answered all questions. Patient conveyed verbal understanding and agreed to the plan. I discussed this case in detail with my attending Dr. Rosado Undiagnosed new problem with uncertain prognosis? @ -No Drug Therapy requiring intensive monitoring for toxicity (Heparin, Nitro, Insulin, Cardizem)? @ -No Were any procedures done? @ -No Diagnosis/symptom? @ -Chronic knee pain Acute, or Chronic, or Acute on Chronic? @ -Acute on chronic Uncomplicated (without systemic symptoms) or Complicated (systemic symptoms)? @ -Uncomplicated Side effects of treatment? @ -No Exacerbation, Progression, or Severe Exacerbation? @ -No Poses a threat to life or bodily function? How? (Chest pain, [place], [place], pneumonia, PE, COPD, DKA, ARF, appy, cholecystitis, CVA, Diverticulitis, Homicidal, Suicidal, threat to staff... and all critical care pts) @ -No Disposition Clinical Impression: Chronic knee pain Disposition: HOME SELF-CARE Condition: Good Additional Instructions: Follow-up with PCP. Report back to ER with any new or worsening symptoms. Is patient prescribed a controlled substance at d/c from ED?: No Referrals: Jefry Castro DO [Primary Care Provider] - 1-2 days Time of Disposition: 03:29
[2023-04-08] MEDS: KETOROLAC 15 MG/ML 1 ML VIAL IM STA (03:47)
== END 2023-04-08 03:48 | disposition home or self-care (01) ==
LOC: EC 02:45
DX: G89.29 Other chronic pain (principal); M25.562 Pain in left knee; E78.5 Hyperlipidemia, unspecified; F32.A Depression, unspecified; F41.9 Anxiety disorder, unspecified; Z79.899 Other long term (current) drug therapy; Z88.8 Allergy status to other drugs, medicaments and biological substances
CPT/HCPCS: 99283; 96372; J1885

== ENCOUNTER 2023-04-14 22:02 | Emergency (ER) | payer OTHER ==
[2023-04-14 22:27] VITALS: TEMP 98.3
--- NOTE | 2023-04-14 23:28 | ED ---
General Adult HPI - General Chief complaint: Anxiety Stated complaint: leg pain anxiety Time Seen by Provider: 04/14/23 23:18 Source: patient Mode of arrival: ambulatory Limitations: no limitations - History of Present Illness Initial comments: 48-year-old male presenting with chief complaint of pain and anxiety. Patient has history of chronic left leg pain. He has had no new injury or trauma. He states that this pain is consistent with his regular chronic pain flareups. He states that the pain is causing him to have anxiety. States that he was having some difficulty breathing due to this anxiety. No chest pain. No nausea or vomiting, no fever - Related Data Home Medications Medication Instructions Recorded Confirmed Lurasidone HCl [Latuda] 120 mg PO DAILY 05/18/22 05/18/22 Venlafaxine HCl [Effexor XR] 75 mg PO DAILY 05/18/22 05/18/22 Venlafaxine HCl [Effexor XR] 150 mg PO DAILY 05/18/22 05/18/22 lisinopriL [Zestril] 10 mg PO DAILY PRN 05/18/22 05/18/22 metFORMIN HCL ER [Glucophage XR] 500 mg PO HS 05/18/22 05/18/22 rOPINIRole HCL [Requip] 0.5 mg PO BID PRN 05/18/22 05/18/22 Previous Rx's Medication Instructions Recorded Acetaminophen Tab [Tylenol] 650 mg PO Q6HR PRN tab 05/20/22 HYDROmorphone [Dilaudid] 2 mg PO DAILY PRN #0 05/20/22 Allergies Allergy/AdvReac Type Severity Reaction Status Date / Time bupropion HCl Allergy Unknown Verified 04/14/23 22:22 [From Wellbutrin] Review of Systems ROS Statement: Those systems with pertinent positive or pertinent negative responses have been documented in the HPI. ROS Other: All systems not noted in ROS Statement are negative. Past Medical History Past Medical History: Hyperlipidemia Additional Past Medical History / Comment(s): restless leg syndrome. Complex regional pain syndrome to left lower extremity History of Any Multi-Drug Resistant Organisms: None Reported Additional Past Surgical History / Comment(s): FINGER AMPUTATION LEFT INDEX FINGER IN 1999, HILARIO PLACED AND REMOVED FROM LEFT LEG IN 2002 hardware removal from left ORIF lower extremity, distal tip of the finger slightly amputated after injury Past Anesthesia/Blood Transfusion Reactions: No Reported Reaction Past Psychological History: Anxiety, Depression Smoking Status: Never smoker Past Alcohol Use History: Occasional Past Drug Use History: None Reported - Past Family History Father Family Medical History: No Reported History Mother Family Medical History: No Reported History Brother(s) Family Medical History: No Reported History (Depression and anxiety) General Exam Limitations: no limitations General appearance: alert, in no apparent distress Head exam: Present: atraumatic, normocephalic Eye exam: Present: normal appearance Neck exam: Present: normal inspection Respiratory exam: Absent: respiratory distress Cardiovascular Exam: Present: tachycardia Left Knee exam: Present: normal inspection. Absent: swelling Lower Leg exam: Present: normal inspection. Absent: swelling Neurological exam: Present: alert, oriented X3 Psychiatric exam: Present: normal affect, normal mood Skin exam: Present: normal color Course Vital Signs 04/14/23 04/14/23 22:17 23:54 Temperature 98.3 F Pulse Rate 112 H 105 H Respiratory 16 18 Rate Blood Pressure 98/68 111/74 O2 Sat by Pulse 96 97 Oximetry Medical Decision Making - Medical Decision Making Was pt. sent in by a medical professional or institution (, PA, A[employer]P MECHANIC, urgent care, hospital, or long-term...) When possible be specific @ -No Did you speak to anyone other than the patient for history (EMS, parent, family, police, friend...)? What history was obtained from this source @ -No Did you review nursing and triage notes (agree or disagree)? Why? @ -I reviewed and agree with nursing and triage notes Were old charts reviewed (outside hosp., previous admission, EMS record, old EKG, old radiological studies, urgent care reports/EKG's, long-term records)? Report findings @ -No old charts were reviewed Differential Diagnosis (chest pain, altered mental status, abdominal pain women, abdominal pain men, vaginal bleeding, weakness, fever, dyspnea, syncope, headache, dizziness, GI bleed, back pain, seizure, CVA, palpatations, mental health, musculoskeletal)? @ -Differential Musculoskeletal Muscular strain, contusion, ligament sprain, fracture, arthritis, septic arthritis, bursitis, cellulitis, muscle spasm, nerve compression, DVT, arterial occlusion, herpes zoster, electrolyte abnormality, tumor.... This is not meant to be in all inclusive list EKG interpreted by me (3pts min.). @ -As above X-rays interpreted by me (1pt min.). @ -None done CT interpreted by me (1pt min.). @ -None done U/S interpreted by me (1pt. min.). @ -None done What testing was considered but not performed or refused? (CT, X-rays, U/S, labs)? Why? @ -None What meds were considered but not given or refused? Why? @ -None Did you discuss the management of the patient with other professionals (professionals i.e. Dr., PA, A&P MECHANIC, lab, RT, psych nurse, social media marketing specialist, software solutions architect, teacher, facilities officer, transplant case manager)? Give summary @ -No Was smoking cessation discussed for >3mins.? @ -No Was critical care preformed (if so, how long)? @ -No Were there social determinants of health that impacted care today? How? (Homelessness, low income, unemployed, alcoholism, drug addiction, transportation, low edu. Level, literacy, decrease access to med. care, assisted, rehab)? @ -No Was there de-escalation of care discussed even if they declined (Discuss DNR or withdrawal of care, Hospice)? DNR status @ -No What co-morbidities impacted this encounter? (DM, HTN, Smoking, COPD, CAD, Cancer, CVA, ARF, Chemo, Hep., AIDS, mental health diagnosis, sleep apnea, morbid obesity)? @ -None Was patient admitted / discharged? Hospital course, mention meds given and rout e, prescriptions, significant lab abnormalities, going to OR and other pertinent info. @ -48-year-old male presenting with chief complaint of leg pain. Patient has had chronic left leg pain which is causing anxiety. On evaluation patient is showing no signs of distress. Heart rate is noted to be slightly tachycardic, likely due to the pain and anxiety. Patient notes that this pain does not feel different than his usual chronic pain flareups. Patient is treated with Toradol and hydroxyzine. Discharged home. Follow-up with PCP. Report back to ER with any new or worsening symptoms. I discussed this case in detail with my attending Dr. Fierro Undiagnosed new problem with uncertain prognosis? @ -No Drug Therapy requiring intensive monitoring for toxicity (Heparin, Nitro, Insulin, Cardizem)? @ -No Were any procedures done? @ -No Diagnosis/symptom? @ -Chronic leg pain Acute, or Chronic, or Acute on Chronic? @ -Acute on chronic Uncomplicated (without systemic symptoms) or Complicated (systemic symptoms)? @ -Uncomplicated Side effects of treatment? @ -No Exacerbation, Progression, or Severe Exacerbation? @ -No Poses a threat to life or bodily function? How? (Chest pain, [place], [place], pneumonia, PE, COPD, DKA, ARF, appy, cholecystitis, CVA, Diverticulitis, Homicidal, Suicidal, threat to staff... and all critical care pts) @ -No Disposition Clinical Impression: Chronic leg pain, Anxiety Disposition: HOME SELF-CARE Condition: Good Instructions (If sedation given, give patient instructions): Chronic Pain (ED), Generalized Anxiety Disorder (ED) Additional Instructions: Follow-up with PCP. Report back to ER with any new or worsening symptoms. Is patient prescribed a controlled substance at d/c from ED?: No Referrals: Jefry Castro DO [Primary Care Provider] - 1-2 days Time of Disposition: 23:28
[2023-04-14] MEDS: KETOROLAC 15 MG/ML 1 ML VIAL IM STA (23:56)
[2023-04-14] MEDS: hydrOXYzine HCL 25 MG TAB PO STA (23:59)
[2023-04-15 00:34] VITALS: BP 111/74; PULSE 105; RESP 18
== END 2023-04-15 00:18 | disposition home or self-care (01) ==
LOC: EC 22:02
DX: G89.29 Other chronic pain (principal); M79.605 Pain in left leg; F41.9 Anxiety disorder, unspecified; F32.A Depression, unspecified; Z79.899 Other long term (current) drug therapy; Z88.8 Allergy status to other drugs, medicaments and biological substances
CPT/HCPCS: 99283; 96372; J1885

== ENCOUNTER 2023-06-11 21:03 | Emergency (ER) | payer OTHER ==
[2023-06-11 21:22] VITALS: PULSE 102; RESP 18; TEMP 97.7
--- NOTE | 2023-06-11 22:00 | ED ---
Extremity Problem HPI - General Source: EMS, RN notes reviewed Mode of arrival: EMS Limitations: no limitations <Ladan Ricketts - Last Filed: 06/11/23 21:58> <Clayton Cardenas - Last Filed: 06/12/23 00:34> - General Chief complaint: Extremity Problem,Nontraumatic Stated complaint: Leg pain Time Seen by Provider: 06/11/23 21:45 - History of Present Illness Initial comments: Quick [id number] male with history of chronic left leg pain due to previous injury presenting with worsening pain along the left knee today. Denies trauma or injury but states today the pain has been worsening and took muscle relaxers with little relief. He is requesting pain medication today. (Ladan Ricketts) 48-year-old male with history of chronic leg pain presenting with chief complaint of flareup of his chronic left leg pain. Pain is along the medial border of the left knee. He denies any new injury or trauma. No discoloration or swelling. No weakness. Took [id number] occasion and muscle laxer at home with little relief. It is that he is scheduled for implant for his chronic pain. (Clayton Cardenas) - Related Data Home Medications Medication Instructions Recorded Confirmed Lurasidone HCl [Latuda] 120 mg PO DAILY 05/18/22 05/18/22 Venlafaxine HCl [Effexor XR] 75 mg PO DAILY 05/18/22 05/18/22 Venlafaxine HCl [Effexor XR] 150 mg PO DAILY 05/18/22 05/18/22 lisinopriL [Zestril] 10 mg PO DAILY PRN 05/18/22 05/18/22 metFORMIN HCL ER [Glucophage XR] 500 mg PO HS 05/18/22 05/18/22 rOPINIRole HCL [Requip] 0.5 mg PO BID PRN 05/18/22 05/18/22 Previous Rx's Medication Instructions Recorded Acetaminophen Tab [Tylenol] 650 mg PO Q6HR PRN tab 05/20/22 HYDROmorphone [Dilaudid] 2 mg PO DAILY PRN #0 05/20/22 Allergies Allergy/AdvReac Type Severity Reaction Status Date / Time bupropion HCl Allergy Unknown Verified 06/11/23 21:14 [From Wellbutrin] Review of Systems ROS Other: All systems not noted in ROS Statement are negative. <Ladan Ricketts - Last Filed: 06/11/23 21:58> ROS Other: All systems not noted in ROS Statement are negative. <RonaldSarojclarence - Last Filed: 06/12/23 00:34> ROS Statement: Those systems with pertinent positive or pertinent negative responses have been documented in the HPI. Past Medical History Past Medical History: Hyperlipidemia Additional Past Medical History / Comment(s): restless leg syndrome. Complex regional pain syndrome to left lower extremity History of Any Multi-Drug Resistant Organisms: None Reported Additional Past Surgical History / Comment(s): FINGER AMPUTATION LEFT INDEX FINGER IN 1999, HILARIO PLACED AND REMOVED FROM LEFT LEG IN 2002 hardware removal from left ORIF lower extremity, distal tip of the finger slightly amputated after injury Past Anesthesia/Blood Transfusion Reactions: No Reported Reaction Past Psychological History: Anxiety, Depression Smoking Status: Never smoker Past Alcohol Use History: Occasional Past Drug Use History: None Reported - Past Family History Father Family Medical History: No Reported History Mother Family Medical History: No Reported History Brother(s) Family Medical History: No Reported History (Depression and anxiety) <Ladan Ricketts - Last Filed: 06/11/23 21:58> General Exam Limitations: no limitations <Ladan Ricketts - Last Filed: 06/11/23 21:58> Limitations: no limitations General appearance: alert, in no apparent distress Head exam: Present: atraumatic, normocephalic Eye exam: Present: normal appearance, EOMI Neck exam: Present: normal inspection. Absent: meningismus Respiratory exam: Absent: respiratory distress Left Knee exam: Present: normal inspection. Absent: tenderness, swelling, ecchymosis, deformity, erythema Lower Leg exam: Present: normal inspection Ankle exam: Present: normal inspection Neurovascular tendon exam: Present: no vascular compromise Neurological exam: Present: alert, oriented X3 Psychiatric exam: Present: normal affect, normal mood Skin exam: Present: warm, dry <Clayton Cardenas - Last Filed: 06/12/23 00:34> - General Exam Comments Initial Comments: Visual Physical Exam Vital signs reviewed General: Well-appearing, nontoxic, no acute distress. Head: Normocephalic, atraumatic Eyes: PERRLA, EOMI ENT: Airway patent Chest: Nonlabored breathing Skin: No visual rash, normal skin tone Neuro: Alert and oriented 3 Musculoskeletal: No gross abnormalities (JamarcusNgaLadan) Course Vital Signs 06/11/23 21:13 Temperature 97.7 F Pulse Rate 102 H Respiratory 18 Rate O2 Sat by Pulse 97 Oximetry Medical Decision Making <JamarcusLadan - Last Filed: 06/11/23 21:58> <CardenasClayton mendez - Last Filed: 06/12/23 00:34> - Medical Decision Making I completed the quick note portion of this chart signed Ladan Ricketts PA-C (Ladan Ricketts) Was pt. sent in by a medical professional or institution (, PA, BECK TENDER, urgent care, hospital, or halfway...) When possible be specific @ -No Did you speak to anyone other than the patient for history (EMS, parent, family, police, friend...)? What history was obtained from this source @ -No Did you review nursing and triage notes (agree or disagree)? Why? @ -I reviewed and agree with nursing and triage notes Were old charts reviewed (outside hosp., previous admission, EMS record, old EKG, old radiological studies, urgent care reports/EKG's, halfway records)? Report findings @ -No old charts were reviewed Differential Diagnosis (chest pain, altered mental status, abdominal pain women, abdominal pain men, vaginal bleeding, weakness, fever, dyspnea, syncope, headache, dizziness, GI bleed, back pain, seizure, CVA, palpatations, mental health, musculoskeletal)? @ -Differential Musculoskeletal Muscular strain, contusion, ligament sprain, fracture, arthritis, septic arthritis, bursitis, cellulitis, muscle spasm, nerve compression, DVT, arterial occlusion, herpes zoster, electrolyte abnormality, tumor.... This is not meant to be in all inclusive list EKG interpreted by me (3pts min.). @ -As above X-rays interpreted by me (1pt min.). @ -None done CT interpreted by me (1pt min.). @ -None done U/S interpreted by me (1pt. min.). @ -None done What testing was considered but not performed or refused? (CT, X-rays, U/S, labs)? Why? @ -None What meds were considered but not given or refused? Why? @ -None Did you discuss the management of the patient with other professionals (professionals i.e. DrJunior, PA, BECK TENDER, lab, RT, psych nurse, social work manager, automotive parts counterperson, teacher, correction officer supervisor, bilingual patient support caseworker)? Give summary @ -No Was smoking cessation discussed for >3mins.? @ -No Was critical care preformed (if so, how long)? @ -No Were there social determinants of health that impacted care today? How? (Homelessness, low income, unemployed, alcoholism, drug addiction, transportation, low edu. Level, literacy, decrease access to med. care, fpc, rehab)? @ -No Was there de-escalation of care discussed even if they declined (Discuss DNR or withdrawal of care, Hospice)? DNR status @ -No What co-morbidities impacted this encounter? (DM, HTN, Smoking, COPD, CAD, Cancer, CVA, ARF, Chemo, Hep., AIDS, mental health diagnosis, sleep apnea, morbid obesity)? @ -None Was patient admitted / discharged? Hospital course, mention meds given and route, prescriptions, significant lab abnormalities, going to OR and other pertinent info. @ -48-year-old male presenting with chief complaint of flareup for his chronic left-sided knee pain. No new injury or trauma. The patient is neurovascularly intact. He is given pain medication. Instructed to follow-up with his PCP. Follow-up with PCP. Report back to ER with any new or worsening symptoms. Discussed return parameters and answered all questions. Patient conveyed verbal understanding and agreed to the plan. I discussed this case in detail with my attending Dr. Stevens Undiagnosed new problem with uncertain prognosis? @ -No Drug Therapy requiring intensive monitoring for toxicity (Heparin, Nitro, Insulin, Cardizem)? @ -No Were any procedures done? @ -No Diagnosis/symptom? @ -Chronic leg pain Acute, or Chronic, or Acute on Chronic? @ -Acute on chronic Uncomplicated (without systemic symptoms) or Complicated (systemic symptoms)? @ -Uncomplicated Side effects of treatment? @ -No Exacerbation, Progression, or Severe Exacerbation? @ -No Poses a threat to life or bodily function? How? (Chest pain, [place], [place], pneumonia, PE, COPD, DKA, ARF, appy, cholecystitis, CVA, Diverticulitis, Homicidal, Suicidal, threat to staff... and all critical care pts) @ -Unlikely (Clayton Cardenas) Disposition <Ladan Ricketts - Last Filed: 06/11/23 21:58> Is patient prescribed a controlled substance at d/c from ED?: No Time of Disposition: 22:31 <Clayton Cardenas - Last Filed: 06/12/23 00:34> Clinical Impression: Left leg pain Disposition: HOME SELF-CARE Condition: Good Instructions (If sedation given, give patient instructions): Chronic Pain (ED) Additional Instructions: Follow-up with your PCP. Report back to ER with any new or worsening symptoms. Referrals: Jefry Castro DO [Primary Care Provider] - 1-2 days
[2023-06-11] MEDS: KETOROLAC 15 MG/ML 1 ML VIAL IM STA (22:46)
[2023-06-11] MEDS: HYDROmorphone 0.5 MG/0.5 ML SYRINGE IM STA (22:48)
== END 2023-06-11 22:51 | disposition home or self-care (01) ==
LOC: EC 21:03
DX: G89.29 Other chronic pain (principal); M79.605 Pain in left leg; Z88.8 Allergy status to other drugs, medicaments and biological substances
CPT/HCPCS: 99284; 96372 ×2; J1885; J1170

== ENCOUNTER 2023-06-15 05:16 | Emergency (ER) | payer OTHER ==
[2023-06-15 05:39] VITALS: BP 130/84; PULSE 104; RESP 18; TEMP 98.8
--- NOTE | 2023-06-15 05:52 | ED ---
Extremity Problem HPI - General Chief complaint: Extremity Problem,Nontraumatic Stated complaint: Knee pain Time Seen by Provider: 06/15/23 05:52 Source: patient, EMS Mode of arrival: EMS Limitations: no limitations - History of Present Illness Initial comments: 48-year-old male with past medical history of chronic regional pain syndrome who presents emergency department with left knee pain. Patient has been seen in the emergency department several times for the same complaint. He follows with a picture painter. He states to me that he is supposed to have a pain pump placed. He denies any new injuries. States that he was due for medications at home however instead of taking them he called an ambulance. He denies any numbness or tingling. No other alleviating, precipitating or modifying factors - Related Data Home Medications Medication Instructions Recorded Confirmed Lurasidone HCl [Latuda] 120 mg PO DAILY 05/18/22 05/18/22 Venlafaxine HCl [Effexor XR] 75 mg PO DAILY 05/18/22 05/18/22 Venlafaxine HCl [Effexor XR] 150 mg PO DAILY 05/18/22 05/18/22 lisinopriL [Zestril] 10 mg PO DAILY PRN 05/18/22 05/18/22 metFORMIN HCL ER [Glucophage XR] 500 mg PO HS 05/18/22 05/18/22 rOPINIRole HCL [Requip] 0.5 mg PO BID PRN 05/18/22 05/18/22 Previous Rx's Medication Instructions Recorded Acetaminophen Tab [Tylenol] 650 mg PO Q6HR PRN tab 05/20/22 HYDROmorphone [Dilaudid] 2 mg PO DAILY PRN #0 05/20/22 Allergies Allergy/AdvReac Type Severity Reaction Status Date / Time bupropion HCl Allergy Unknown Verified 06/20/23 21:48 [From Wellbutrin] Review of Systems ROS Statement: Those systems with pertinent positive or pertinent negative responses have been documented in the HPI. ROS Other: All systems not noted in ROS Statement are negative. Past Medical History Past Medical History: Hyperlipidemia Additional Past Medical History / Comment(s): restless leg syndrome. Complex regional pain syndrome to left lower extremity History of Any Multi-Drug Resistant Organisms: None Reported Additional Past Surgical History / Comment(s): FINGER AMPUTATION LEFT INDEX FINGER IN 1999, HILARIO PLACED AND REMOVED FROM LEFT LEG IN 2002 hardware removal from left ORIF lower extremity, distal tip of the finger slightly amputated after injury Past Anesthesia/Blood Transfusion Reactions: No Reported Reaction Past Psychological History: Anxiety, Depression Smoking Status: Never smoker Past Alcohol Use History: Occasional Past Drug Use History: None Reported - Past Family History Father Family Medical History: No Reported History Mother Family Medical History: No Reported History Brother(s) Family Medical History: No Reported History (Depression and anxiety) General Exam Limitations: no limitations General appearance: alert, in no apparent distress Head exam: Present: atraumatic, normocephalic, normal inspection Eye exam: Present: normal appearance, PERRL, EOMI. Absent: scleral icterus, conjunctival injection, periorbital swelling ENT exam: Present: normal exam, mucous membranes moist Neck exam: Present: normal inspection. Absent: tenderness, meningismus, lymphadenopathy Respiratory exam: Present: normal lung sounds bilaterally. Absent: respiratory distress, wheezes, rales, rhonchi, stridor Cardiovascular Exam: Present: regular rate, normal rhythm, normal heart sounds. Absent: systolic murmur, diastolic murmur, rubs, gallop, clicks GI/Abdominal exam: Present: soft, normal bowel sounds. Absent: distended, tenderness, guarding, rebound, rigid Extremities exam: Present: normal inspection, full ROM, normal capillary refill. Absent: tenderness, pedal edema, joint swelling, calf tenderness Back exam: Present: normal inspection Neurological exam: Present: alert, oriented X3, CN II-XII intact Psychiatric exam: Present: normal mood, flat affect Skin exam: Present: warm, dry, intact, normal color. Absent: rash Course Vital Signs 06/15/23 05:17 Temperature 98.8 F Pulse Rate 104 H Respiratory 18 Rate Blood Pressure 130/84 O2 Sat by Pulse 98 Oximetry Medical Decision Making - Medical Decision Making Was pt. sent in by a medical professional or institution (, PA, STONEMASON SUPERVISOR, urgent care, hospital, or prison...) When possible be specific @ -No Did you speak to anyone other than the patient for history (EMS, parent, family, police, friend...)? What history was obtained from this source @ -EMS Did you review nursing and triage notes (agree or disagree)? Why? @ -I reviewed and agree with nursing and triage notes Were old charts reviewed (outside hosp., previous admission, EMS record, old EKG, old radiological studies, urgent care reports/EKG's, prison records)? Report findings @ -No old charts were reviewed Differential Diagnosis (chest pain, altered mental status, abdominal pain women, abdominal pain men, vaginal bleeding, weakness, fever, dyspnea, syncope, headache, dizziness, GI bleed, back pain, seizure, CVA, palpatations, mental health, musculoskeletal)? @ -Differential Musculoskeletal Muscular strain, contusion, ligament sprain, fracture, arthritis, septic arthritis, bursitis, cellulitis, muscle spasm, nerve compression, DVT, arterial occlusion, herpes zoster, electrolyte abnormality, tumor.... This is not meant to be in all inclusive list EKG interpreted by me (3pts min.). @ -Not done X-rays interpreted by me (1pt min.). @ -None done CT interpreted by me (1pt min.). @ -None done U/S interpreted by me (1pt. min.). @ -None done What testing was considered but not performed or refused? (CT, X-rays, U/S, labs)? Why? @ -None What meds were considered but not given or refused? Why? @ -None Did you discuss the management of the patient with other professionals (professionals i.e. , PA, STONEMASON SUPERVISOR, lab, RT, psych nurse, social studies teacher, jig operator, teacher, professional security officer, porter sample case)? Give summary @ -No Was smoking cessation discussed for >3mins.? @ -No Was critical care preformed (if so, how long)? @ -No Were there social determinants of health that impacted care today? How? (Homelessness, low income, unemployed, alcoholism, drug addiction, transportation, low edu. Level, literacy, decrease access to med. care, care home, rehab)? @ -No Was there de-escalation of care discussed even if they declined (Discuss DNR or withdrawal of care, Hospice)? DNR status @ -No What co-morbidities impacted this encounter? (DM, HTN, Smoking, COPD, CAD, Cancer, CVA, ARF, Chemo, Hep., AIDS, mental health diagnosis, sleep apnea, morbid obesity)? @ -Chronic regional pain syndrome Was patient admitted / discharged? Hospital course, mention meds given and route, prescriptions, significant lab abnormalities, going to OR and other pertinent info. @ -On arrival patient was seen and evaluated in the waiting room. Thorough history and physical exam was performed. Patient presents for his chronic pain. No new imaging is performed as the patient has not had any new injuries. He is offered Toradol for pain control. Instructed that he needs to follow-up with his neurologist for further management of his pain and return for any new or worsening symptoms. Primary care and neurologist may offer further workup for the patient's symptoms Undiagnosed new problem with uncertain prognosis? @ -No Drug Therapy requiring intensive monitoring for toxicity (Heparin, Nitro, Insulin, Cardizem)? @ -No Were any procedures done? @ -No Diagnosis/symptom? @ -Chronic left knee pain Acute, or Chronic, or Acute on Chronic? @ -Chronic Uncomplicated (without systemic symptoms) or Complicated (systemic symptoms)? @ -Uncomplicated Side effects of treatment? @ -No Exacerbation, Progression, or Severe Exacerbation? @ -No Poses a threat to life or bodily function? How? (Chest pain, [place], [place], pneumonia, PE, COPD, DKA, ARF, appy, cholecystitis, CVA, Diverticulitis, Homicidal, Suicidal, threat to staff... and all critical care pts) @ -No Disposition Clinical Impression: Left leg pain Disposition: HOME SELF-CARE Condition: Stable Instructions (If sedation given, give patient instructions): Leg Pain (ED) Additional Instructions: Please see your doctor for your chronic leg pain Is patient prescribed a controlled substance at d/c from ED?: No Referrals: Jefry Castro DO [Primary Care Provider] - 1-2 days Time of Disposition: 05:52
[2023-06-15] MEDS: KETOROLAC 15 MG/ML 1 ML VIAL IM STA (05:58)
== END 2023-06-15 06:02 | disposition home or self-care (01) ==
LOC: EC 05:16
DX: G89.29 Other chronic pain (principal); M25.562 Pain in left knee; Z88.8 Allergy status to other drugs, medicaments and biological substances
CPT/HCPCS: 99283; 96372; J1885

== ENCOUNTER 2023-06-16 04:22 | Emergency (ER) | payer OTHER ==
--- NOTE | 2023-06-16 04:53 | ED ---
Lower Extremity Injury HPI - General Chief Complaint: Extremity Injury, Lower Stated Complaint: Left knee pain, DC 06/14 Time Seen by Provider: 06/16/23 04:52 Source: patient, RN notes reviewed Mode of arrival: wheelchair Limitations: no limitations - History of Present Illness Initial Comments: 48-year-old male presented to the ER with chief complaint of left knee pain. He states he is following up with a neurologist who is planning on placing a pain pump. He states his doctor is out of town and on vacation and is unable to follow-up with him. He denies any new injuries or traumas. He states this is chronic in nature from an injury 20 years ago. Denies any other complaints. - Related Data Home Medications Medication Instructions Recorded Confirmed Lurasidone HCl [Latuda] 120 mg PO DAILY 05/18/22 05/18/22 Venlafaxine HCl [Effexor XR] 75 mg PO DAILY 05/18/22 05/18/22 Venlafaxine HCl [Effexor XR] 150 mg PO DAILY 05/18/22 05/18/22 lisinopriL [Zestril] 10 mg PO DAILY PRN 05/18/22 05/18/22 metFORMIN HCL ER [Glucophage XR] 500 mg PO HS 05/18/22 05/18/22 rOPINIRole HCL [Requip] 0.5 mg PO BID PRN 05/18/22 05/18/22 Previous Rx's Medication Instructions Recorded Acetaminophen Tab [Tylenol] 650 mg PO Q6HR PRN tab 05/20/22 HYDROmorphone [Dilaudid] 2 mg PO DAILY PRN #0 05/20/22 Allergies Allergy/AdvReac Type Severity Reaction Status Date / Time bupropion HCl Allergy Unknown Verified 06/16/23 04:42 [From Wellbutrin] Review of Systems ROS Statement: Those systems with pertinent positive or pertinent negative responses have been documented in the HPI. ROS Other: All systems not noted in ROS Statement are negative. Past Medical History Past Medical History: Hyperlipidemia Additional Past Medical History / Comment(s): restless leg syndrome. Complex regional pain syndrome to left lower extremity History of Any Multi-Drug Resistant Organisms: None Reported Additional Past Surgical History / Comment(s): FINGER AMPUTATION LEFT INDEX FINGER IN 1999, HILARIO PLACED AND REMOVED FROM LEFT LEG IN 2002 hardware removal from left ORIF lower extremity, distal tip of the finger slightly amputated after injury Past Anesthesia/Blood Transfusion Reactions: No Reported Reaction Past Psychological History: Anxiety, Depression Smoking Status: Never smoker Past Alcohol Use History: Occasional Past Drug Use History: None Reported - Past Family History Father Family Medical History: No Reported History Mother Family Medical History: No Reported History Brother(s) Family Medical History: No Reported History (Depression and anxiety) General Exam Limitations: no limitations General appearance: alert, in no apparent distress Respiratory exam: Present: normal lung sounds bilaterally. Absent: respiratory distress, wheezes, rales, rhonchi, stridor Cardiovascular Exam: Present: regular rate, normal rhythm, normal heart sounds. Absent: systolic murmur, diastolic murmur, rubs, gallop, clicks Extremities exam: Present: normal inspection, full ROM, normal capillary refill. Absent: tenderness, pedal edema, joint swelling, calf tenderness Skin exam: Present: warm, dry, intact, normal color. Absent: rash Course Vital Signs 06/16/23 04:42 Temperature 98.3 F Pulse Rate 113 H Respiratory 16 Rate Blood Pressure 134/93 O2 Sat by Pulse 96 Oximetry Medical Decision Making - Medical Decision Making Was pt. sent in by a medical professional or institution (, PA, KIDNEY TRIMMER, urgent care, hospital, or half-way...) When possible be specific @ -No Did you speak to anyone other than the patient for history (EMS, parent, family, police, friend...)? What history was obtained from this source @ -Mother Did you review nursing and triage notes (agree or disagree)? Why? @ -I reviewed and agree with nursing and triage notes Were old charts reviewed (outside hosp., previous admission, EMS record, old EKG, old radiological studies, urgent care reports/EKG's, half-way records)? Report findings @ -Yes, ER visit from 06-14-2023. Patient seen for similar complaint. Differential Diagnosis (chest pain, altered mental status, abdominal pain women, abdominal pain men, vaginal bleeding, weakness, fever, dyspnea, syncope, headache, dizziness, GI bleed, back pain, seizure, CVA, palpatations, mental health, musculoskeletal)? @ -Differential Musculoskeletal Muscular strain, contusion, ligament sprain, fracture, arthritis, septic arthritis, bursitis, cellulitis, muscle spasm, nerve compression, DVT, arterial occlusion, herpes zoster, electrolyte abnormality, tumor.... This is not meant to be in all inclusive list EKG interpreted by me (3pts min.). @ -None X-rays interpreted by me (1pt min.). @ -None done CT interpreted by me (1pt min.). @ -None done U/S interpreted by me (1pt. min.). @ -None done What testing was considered but not performed or refused? (CT, X-rays, U/S, labs)? Why? @ -None What meds were considered but not given or refused? Why? @ -None Did you discuss the management of the patient with other professionals (professionals i.e. DrJunior, PA, KIDNEY TRIMMER, lab, RT, psych nurse, director social welfare, digital product manager, teacher, operations officer afloat, correctional case records supervisor)? Give summary @ -No Was smoking cessation discussed for >3mins.? @ -No Was critical care preformed (if so, how long)? @ -No Were there social determinants of health that impacted care today? How? (Homelessness, low income, unemployed, alcoholism, drug addiction, transportation, low edu. Level, literacy, decrease access to med. care, senior living, rehab)? @ -No Was there de-escalation of care discussed even if they declined (Discuss DNR or withdrawal of care, Hospice)? DNR status @ -No What co-morbidities impacted this encounter? (DM, HTN, Smoking, COPD, CAD, Cancer, CVA, ARF, Chemo, Hep., AIDS, mental health diagnosis, sleep apnea, morbid obesity)? @ -None Was patient admitted / discharged? Hospital course, mention meds given and route, prescriptions, significant lab abnormalities, going to OR and other pertinent info. @ -Discharged. 48-year-old male presenting to the ER with chief complaint of chronic left knee pain. History and physical exam completed. Vitals stable. Patient in no signs acute distress and nontoxic-appearing bilateral upper and lower extremities neurovascular intact. Symptomatic control achieved in the ER. Return parameters discussed. Advise follow-up with PCP and orthopedic/neurologist. Patient verbally expressed understanding and agreement with care plan. Case discussed with ED attending, Dr. Allan. Undiagnosed new problem with uncertain prognosis? @ -No Drug Therapy requiring intensive monitoring for toxicity (Heparin, Nitro, Insulin, Cardizem)? @ -No Were any procedures done? @ -No Diagnosis/symptom? @ -Knee pain Acute, or Chronic, or Acute on Chronic? @ -Chronic Uncomplicated (without systemic symptoms) or Complicated (systemic symptoms)? @ -Uncomplicated Side effects of treatment? @ -No Exacerbation, Progression, or Severe Exacerbation? @ -No Poses a threat to life or bodily function? How? (Chest pain, [place], [place], pneumonia, PE, COPD, DKA, ARF, appy, cholecystitis, CVA, Diverticulitis, Homicidal, Suicidal, threat to staff... and all critical care pts) @ -No Disposition Clinical Impression: Left knee pain Disposition: HOME SELF-CARE Condition: Stable Instructions (If sedation given, give patient instructions): Knee Pain (ED) Additional Instructions: Follow-up with orthopedics. Is patient prescribed a controlled substance at d/c from ED?: No Referrals: Jefry Castro DO [Primary Care Provider] - 1-2 days Time of Disposition: 04:52
[2023-06-16] MEDS: HYDROcodone/APAP 5-325MG 1 EACH TAB PO STA (05:04)
[2023-06-16] MEDS: KETOROLAC 15 MG/ML 1 ML VIAL IM STA (05:05)
[2023-06-16 05:06] VITALS: BP 134/93; PULSE 113; RESP 16; TEMP 98.3
== END 2023-06-16 05:36 | disposition home or self-care (01) ==
LOC: EC 04:22
DX: M25.562 Pain in left knee (principal); Z88.8 Allergy status to other drugs, medicaments and biological substances
CPT/HCPCS: 99284; 96372; J1885

== ENCOUNTER 2023-06-17 01:47 | Emergency (ER) | payer OTHER ==
--- NOTE | 2023-06-17 02:15 | ED ---
Anxiety HPI - General Chief Complaint: Anxiety Stated Complaint: Anxiety Time Seen by Provider: 06/17/23 02:12 Source: patient, family, RN notes reviewed Mode of arrival: EMS Limitations: no limitations - History of Present Illness Initial Comments: 48-year-old male presented to the ER via EMS with a chief complaint of panic attack. Patient has a long history of chronic left knee pain s/p injury. He is scheduled to have a pain pump placed by a neurologist. He states this evening the pain increased to the point he had an anxiety attack, which is common for him. He did take 2 cyclobenzaprine's without relief. Also took Klonopin fro anxiety around 8 PM. Denies any fevers, cough, congestion, chest pain, shortness of breath, abdominal pain or peripheral edema. - Related Data Home Medications: Home Medications Medication Instructions Recorded Confirmed Lurasidone HCl [Latuda] 120 mg PO DAILY 05/18/22 05/18/22 Venlafaxine HCl [Effexor XR] 75 mg PO DAILY 05/18/22 05/18/22 Venlafaxine HCl [Effexor XR] 150 mg PO DAILY 05/18/22 05/18/22 lisinopriL [Zestril] 10 mg PO DAILY PRN 05/18/22 05/18/22 metFORMIN HCL ER [Glucophage XR] 500 mg PO HS 05/18/22 05/18/22 rOPINIRole HCL [Requip] 0.5 mg PO BID PRN 05/18/22 05/18/22 Previous Rx's Medication Instructions Recorded Acetaminophen Tab [Tylenol] 650 mg PO Q6HR PRN tab 05/20/22 HYDROmorphone [Dilaudid] 2 mg PO DAILY PRN #0 05/20/22 Allergies/Adverse Reactions: Allergies Allergy/AdvReac Type Severity Reaction Status Date / Time bupropion HCl Allergy Unknown Verified 06/17/23 01:56 [From Wellbutrin] Review of Systems ROS Statement: Those systems with pertinent positive or pertinent negative responses have been documented in the HPI. ROS Other: All systems not noted in ROS Statement are negative. Past Medical History Past Medical History: Hyperlipidemia Additional Past Medical History / Comment(s): restless leg syndrome. Complex regional pain syndrome to left lower extremity History of Any Multi-Drug Resistant Organisms: None Reported Additional Past Surgical History / Comment(s): FINGER AMPUTATION LEFT INDEX FINGER IN 1999, HILARIO PLACED AND REMOVED FROM LEFT LEG IN 2002 hardware removal from left ORIF lower extremity, distal tip of the finger slightly amputated after injury Past Anesthesia/Blood Transfusion Reactions: No Reported Reaction Past Psychological History: Anxiety, Depression Smoking Status: Never smoker Past Alcohol Use History: Occasional Past Drug Use History: None Reported - Past Family History Father Family Medical History: No Reported History Mother Family Medical History: No Reported History Brother(s) Family Medical History: No Reported History (Depression and anxiety) General Exam General appearance: alert, in no apparent distress Respiratory exam: Present: normal lung sounds bilaterally. Absent: respiratory distress, wheezes, rales, rhonchi, stridor Cardiovascular Exam: Present: regular rate, normal rhythm, normal heart sounds. Absent: systolic murmur, diastolic murmur, rubs, gallop, clicks Extremities exam: Present: normal inspection, full ROM, normal capillary refill. Absent: tenderness, pedal edema, joint swelling, calf tenderness Skin exam: Present: warm, dry, intact, normal color. Absent: rash Course Vital Signs 06/17/23 01:50 Temperature 97.5 F L Pulse Rate 106 H Respiratory 18 Rate Blood Pressure 127/83 O2 Sat by Pulse 97 Oximetry Medical Decision Making - Medical Decision Making Was pt. sent in by a medical professional or institution (RINKU Serrano, SWEATBAND PERFORATOR, urgent care, hospital, or halfway...) When possible be specific @ -No Did you speak to anyone other than the patient for history (EMS, parent, family, police, friend...)? What history was obtained from this source @ -No Did you review nursing and triage notes (agree or disagree)? Why? @ -I reviewed and agree with nursing and triage notes Were old charts reviewed (outside hosp., previous admission, EMS record, old EKG, old radiological studies, urgent care reports/EKG's, halfway records)? Report findings @ -Yes I reviewed old chart from 06-16-2023. Patient seen here for chronic left knee pain. Differential Diagnosis (chest pain, altered mental status, abdominal pain women, abdominal pain men, vaginal bleeding, weakness, fever, dyspnea, syncope, headache, dizziness, GI bleed, back pain, seizure, CVA, palpatations, mental he alth, musculoskeletal)? @ -[Differential Musculoskeletal Muscular strain, contusion, ligament sprain, fracture, arthritis, septic arthritis, bursitis, cellulitis, muscle spasm, nerve compression, DVT, arterial occlusion, herpes zoster, electrolyte abnormality, tumor.... This is not meant to be in all inclusive list EKG interpreted by me (3pts min.). @ -None X-rays interpreted by me (1pt min.). @ -None done CT interpreted by me (1pt min.). @ -None done U/S interpreted by me (1pt. min.). @ -None done What testing was considered but not performed or refused? (CT, X-rays, U/S, labs)? Why? @ -None What meds were considered but not given or refused? Why? @ -None Did you discuss the management of the patient with other professionals (professionals i.e. , PA, SWEATBAND PERFORATOR, lab, RT, psych nurse, social media analyst, blast furnace supervisor, teacher, industrial relations officer, upper caser)? Give summary @ -No Was smoking cessation discussed for >3mins.? @ -No Was critical care preformed (if so, how long)? @ -No Were there social determinants of health that impacted care today? How? (Homelessness, low income, unemployed, alcoholism, drug addiction, transportation, low edu. Level, literacy, decrease access to med. care, longterm, rehab)? @ -No Was there de-escalation of care discussed even if they declined (Discuss DNR or withdrawal of care, Hospice)? DNR status @ -No What co-morbidities impacted this encounter? (DM, HTN, Smoking, COPD, CAD, Cancer, CVA, ARF, Chemo, Hep., AIDS, mental health diagnosis, sleep apnea, morbid obesity)? @ -None Was patient admitted / discharged? Hospital course, mention meds given and r oute, prescriptions, significant lab abnormalities, going to OR and other pertinent info. @ -[Discharge. 48-year-old male presented to the ER with chief complaint of anxiety. History and physical exam completed. Vitals stable. Patient tachycardic which is believed to be due from anxiety and pain. Patient no signs of acute distress and nontoxic-appearing. No acute neurological findings on ex am. Bilateral upper and lower extremities neurovascular intact. Symptomatic treatment in ER. Upon reevaluation, patient resting comfortably in exam room. Patient in no signs of acute distress. Advise follow-up with neurologist as scheduled. Return parameters discussed. Patient discharged in stable condition with follow-up to neurologist/PCP. Patient and mother verbally expressed understanding and agreement with care plan. Case discussed with ED attending, Dr. Stevens. Undiagnosed new problem with uncertain prognosis? @ -No Drug Therapy requiring intensive monitoring for toxicity (Heparin, Nitro, Insulin, Cardizem)? @ -No Were any procedures done? @ -No Diagnosis/symptom? @ -Anxiety/left knee pain Acute, or Chronic, or Acute on Chronic? @ -Chronic Uncomplicated (without systemic symptoms) or Complicated (systemic symptoms)? @ -Uncomplicated Side effects of treatment? @ -No Exacerbation, Progression, or Severe Exacerbation? @ -No Poses a threat to life or bodily function? How? (Chest pain, [place], [place], pneumonia, PE, COPD, DKA, ARF, appy, cholecystitis, CVA, Diverticulitis, Homicidal, Suicidal, threat to staff... and all critical care pts) @ -No Disposition Clinical Impression: Acute anxiety, Left knee pain Disposition: HOME SELF-CARE Condition: Stable Instructions (If sedation given, give patient instructions): Generalized Anxiety Disorder (ED) Additional Instructions: Follow-up with neurologist as scheduled. Is patient prescribed a controlled substance at d/c from ED?: No Referrals: Jefry Castro DO [Primary Care Provider] - 1-2 days Time of Disposition: 03:35
[2023-06-17 02:19] VITALS: RESP 18
[2023-06-17] MEDS: KETOROLAC 15 MG/ML 1 ML VIAL IM STA (03:19)
[2023-06-17] MEDS: hydrOXYzine HCL 25 MG TAB PO STA (03:20)
[2023-06-17] MEDS: HYDROcodone/APAP 5-325MG 1 EACH TAB PO STA (03:21)
[2023-06-17 04:18] VITALS: BP 126/80; PULSE 92; TEMP 98
== END 2023-06-17 04:04 | disposition home or self-care (01) ==
LOC: EC 01:47
DX: F41.9 Anxiety disorder, unspecified (principal); G89.29 Other chronic pain; M25.562 Pain in left knee; Z88.8 Allergy status to other drugs, medicaments and biological substances
CPT/HCPCS: 99284; 96372; J1885

== ENCOUNTER 2023-06-19 21:14 | Emergency (ER) | payer OTHER ==
--- NOTE | 2023-06-19 22:15 | ED ---
Extremity Problem HPI - General Chief complaint: Extremity Problem,Nontraumatic Stated complaint: Leg Pain Time Seen by Provider: 06/19/23 21:30 Source: patient, RN notes reviewed Mode of arrival: wheelchair Limitations: no limitations - History of Present Illness Initial comments: 48-year-old male with history of chronic left knee pain presenting with flareup of left leg pain. Mother is present upon examination and explains he has an upcoming procedure to manage left leg pain. He has been seen in the ER many times for pain control. - Related Data Home Medications Medication Instructions Recorded Confirmed Lurasidone HCl [Latuda] 120 mg PO DAILY 05/18/22 05/18/22 Venlafaxine HCl [Effexor XR] 75 mg PO DAILY 05/18/22 05/18/22 Venlafaxine HCl [Effexor XR] 150 mg PO DAILY 05/18/22 05/18/22 lisinopriL [Zestril] 10 mg PO DAILY PRN 05/18/22 05/18/22 metFORMIN HCL ER [Glucophage XR] 500 mg PO HS 05/18/22 05/18/22 rOPINIRole HCL [Requip] 0.5 mg PO BID PRN 05/18/22 05/18/22 Previous Rx's Medication Instructions Recorded Acetaminophen Tab [Tylenol] 650 mg PO Q6HR PRN tab 05/20/22 HYDROmorphone [Dilaudid] 2 mg PO DAILY PRN #0 05/20/22 Allergies Allergy/AdvReac Type Severity Reaction Status Date / Time bupropion HCl Allergy Unknown Verified 06/19/23 21:22 [From Wellbutrin] Review of Systems ROS Statement: Those systems with pertinent positive or pertinent negative responses have been documented in the HPI. ROS Other: All systems not noted in ROS Statement are negative. Past Medical History Past Medical History: Hyperlipidemia Additional Past Medical History / Comment(s): restless leg syndrome. Complex regional pain syndrome to left lower extremity History of Any Multi-Drug Resistant Organisms: None Reported Additional Past Surgical History / Comment(s): FINGER AMPUTATION LEFT INDEX FINGER IN 1999, HILARIO PLACED AND REMOVED FROM LEFT LEG IN 2002 hardware removal from left ORIF lower extremity, distal tip of the finger slightly amputated after injury Past Anesthesia/Blood Transfusion Reactions: No Reported Reaction Past Psychological History: Anxiety, Depression Smoking Status: Never smoker Past Alcohol Use History: Occasional Past Drug Use History: None Reported - Past Family History Father Family Medical History: No Reported History Mother Family Medical History: No Reported History Brother(s) Family Medical History: No Reported History (Depression and anxiety) General Exam Limitations: no limitations General appearance: alert, in no apparent distress Head exam: Present: atraumatic, normocephalic, normal inspection Respiratory exam: Present: normal lung sounds bilaterally. Absent: respiratory distress, wheezes, rales, rhonchi, stridor Cardiovascular Exam: Present: regular rate, normal rhythm, normal heart sounds. Absent: systolic murmur, diastolic murmur, rubs, gallop, clicks Extremities exam: Present: normal inspection, full ROM, normal capillary refill. Absent: tenderness, pedal edema, joint swelling, calf tenderness Left Upper Leg exam: Present: normal inspection, full ROM. Absent: tenderness, swelling Knee exam: Present: normal inspection, full ROM. Absent: tenderness, swelling Lower Leg exam: Present: normal inspection, full ROM. Absent: tenderness, swelling Ankle exam: Present: normal inspection, full ROM. Absent: tenderness, swelling Foot/Toe exam: Present: normal inspection, full ROM. Absent: tenderness, swelling Neurovascular tendon exam: Present: no vascular compromise (Full sensation, dorsalis pedis pulses present, and cap refill less than 2 seconds) Neurological exam: Present: alert, oriented X3 Psychiatric exam: Present: normal affect, normal mood Skin exam: Present: warm, dry, intact, normal color. Absent: rash Course Vital Signs 06/19/23 21:19 Temperature 97.9 F Pulse Rate 112 H Respiratory 20 Rate Blood Pressure 110/80 O2 Sat by Pulse 97 Oximetry Medical Decision Making - Medical Decision Making Was pt. sent in by a medical professional or institution (, PA, TAILERCPA, urgent care, hospital, or detention...) When possible be specific @ -No Did you speak to anyone other than the patient for history (EMS, parent, family, police, friend...)? What history was obtained from this source @ -Patient's mother supplemented history Did you review nursing and triage notes (agree or disagree)? Why? @ -I reviewed and agree with nursing and triage notes Were old charts reviewed (outside hosp., previous admission, EMS record, old EKG, old radiological studies, urgent care reports/EKG's, detention records)? Report findings @ -No old charts were reviewed Differential Diagnosis (chest pain, altered mental status, abdominal pain women, abdominal pain men, vaginal bleeding, weakness, fever, dyspnea, syncope, headache, dizziness, GI bleed, back pain, seizure, CVA, palpatations, mental health, musculoskeletal)? @ -Differential Musculoskeletal Muscular strain, contusion, ligament sprain, fracture, arthritis, septic arthritis, bursitis, cellulitis, muscle spasm, nerve compression, DVT, arterial occlusion, herpes zoster, electrolyte abnormality, tumor.... This is not meant to be in all inclusive list EKG interpreted by me (3pts min.). @ -None X-rays interpreted by me (1pt min.). @ -None done CT interpreted by me (1pt min.). @ -None done U/S interpreted by me (1pt. min.). @ -None done What testing was considered but not performed or refused? (CT, X-rays, U/S, labs)? Why? @ -Testing not indicated at this time as patient is having acute flareup of chronic pain What meds were considered but not given or refused? Why? @ -None Did you discuss the management of the patient with other professionals (professionals i.e. , PA, TAILERCPA, lab, RT, psych nurse, social work associate, air route traffic controller, teacher, contact officer, continuous pillowcase cutter)? Give summary @ -No Was smoking cessation discussed for >3mins.? @ -No Was critical care preformed (if so, how long)? @ -No Were there social determinants of health that impacted care today? How? (Homelessness, low income, unemployed, alcoholism, drug addiction, transportation, low edu. Level, literacy, decrease access to med. care, custodial, rehab)? @ -No Was there de-escalation of care discussed even if they declined (Discuss DNR or withdrawal of care, Hospice)? DNR status @ -No What co-morbidities impacted this encounter? (DM, HTN, Smoking, COPD, CAD, Cancer, CVA, ARF, Chemo, Hep., AIDS, mental health diagnosis, sleep apnea, morbid obesity)? @ -None Was patient admitted / discharged? Hospital course, mention meds given and route, prescriptions, significant lab abnormalities, going to OR and other pertinent info. @ -Patient was discharged. Patient was seen and evaluated for acute flareup of chronic left leg pain. Patient is neurovascularly intact. No red flag sympto ms. Patient is given IM Dilaudid and IM Toradol for pain control. Upon reexamination, patient states he is feeling very anxious, and was given p.o. Ativan. Strict return/alarm symptoms discussed with patient. Encouraged to follow-up with PCP. Patient discharged in stable condition. Case discussed with Dr. Henry Undiagnosed new problem with uncertain prognosis? @ -No Drug Therapy requiring intensive monitoring for toxicity (Heparin, Nitro, Insulin, Cardizem)? @ -No Were any procedures done? @ -No Diagnosis/symptom? @ -Acute flareup of chronic left leg pain Acute, or Chronic, or Acute on Chronic? @ -Acute on chronic Uncomplicated (without systemic symptoms) or Complicated (systemic symptoms)? @ -Uncomplicated Side effects of treatment? @ -No Exacerbation, Progression, or Severe Exacerbation? @ -No Poses a threat to life or bodily function? How? (Chest pain, [place], [place], pneumonia, PE, COPD, DKA, ARF, appy, cholecystitis, CVA, Diverticulitis, Homicidal, Suicidal, threat to staff... and all critical care pts) @ -No Disposition Clinical Impression: Chronic pain of left lower extremity Disposition: HOME SELF-CARE Condition: Stable Additional Instructions: Please return to the Emergency Department if symptoms worsen or any other concerns. Is patient prescribed a controlled substance at d/c from ED?: No Referrals: Jefry Castro DO [Primary Care Provider] - 1-2 days Time of Disposition: 23:37
[2023-06-19] MEDS: KETOROLAC 15 MG/ML 1 ML VIAL IM STA (22:26)
[2023-06-19] MEDS: HYDROmorphone 1 MG/ML 1 ML SYRINGE IM STA (22:27)
[2023-06-19 22:45] VITALS: RESP 20
[2023-06-19] MEDS: LORazepam 1 MG TAB PO STA (23:36)
[2023-06-20 00:12] VITALS: BP 112/58; PULSE 100; TEMP 97
== END 2023-06-19 23:50 | disposition home or self-care (01) ==
LOC: EC 21:14
DX: G89.29 Other chronic pain (principal); M25.562 Pain in left knee; Z88.8 Allergy status to other drugs, medicaments and biological substances
CPT/HCPCS: 99283; 96372 ×2; J1170; J1885

== ENCOUNTER 2023-06-20 21:44 | Emergency (ER) | payer OTHER ==
[2023-06-20 22:11] VITALS: BP 125/88; PULSE 102; RESP 18; TEMP 98
[2023-06-21] MEDS ORDERED: DIPH,PERTUS(ACELL)TETVAC-LF 0.5 ML VIAL IM ONE (00:41)
--- NOTE | 2023-06-21 00:49 | ED ---
Extremity Problem HPI - General Chief complaint: Extremity Problem,Nontraumatic Stated complaint: Left knee pain Time Seen by Provider: 06/21/23 00:28 Source: patient Mode of arrival: ambulatory Limitations: no limitations - History of Present Illness Initial comments: This patient is a 48-year-old man with history of complex regional pain syndrome and restless leg syndrome. The patient states he is having a flareup of his chronic intermittent pain which is usually the upper leg into the knee. The patient states he has tried home medication without much relief. He denies any new injury. He denies weakness or numbness of the extremity. MD Complaint: extremity pain -: hour(s) Location: lower extremity -: Yes myalgia Radiation: none Quality: burning, aching Consistency: constant Improves with: nothing Worsens with: nothing Associated Symptoms: denies other symptoms - Related Data Home Medications Medication Instructions Recorded Confirmed Lurasidone HCl [Latuda] 120 mg PO DAILY 05/18/22 05/18/22 Venlafaxine HCl [Effexor XR] 75 mg PO DAILY 05/18/22 05/18/22 Venlafaxine HCl [Effexor XR] 150 mg PO DAILY 05/18/22 05/18/22 lisinopriL [Zestril] 10 mg PO DAILY PRN 05/18/22 05/18/22 metFORMIN HCL ER [Glucophage XR] 500 mg PO HS 05/18/22 05/18/22 rOPINIRole HCL [Requip] 0.5 mg PO BID PRN 05/18/22 05/18/22 Previous Rx's Medication Instructions Recorded Acetaminophen Tab [Tylenol] 650 mg PO Q6HR PRN tab 05/20/22 HYDROmorphone [Dilaudid] 2 mg PO DAILY PRN #0 05/20/22 Allergies Allergy/AdvReac Type Severity Reaction Status Date / Time bupropion HCl Allergy Unknown Verified 06/20/23 21:48 [From Wellbutrin] Review of Systems ROS Statement: Those systems with pertinent positive or pertinent negative responses have been documented in the HPI. ROS Other: All systems not noted in ROS Statement are negative. Constitutional: Denies: fever, chills, weakness Respiratory: Denies: cough, dyspnea Cardiovascular: Denies: chest pain, palpitations, edema Gastrointestinal: Denies: abdominal pain, vomiting Musculoskeletal: Reports: as per HPI, arthralgia, myalgia. Denies: back pain Skin: Denies: rash Neurological: Denies: weakness, numbness, paresthesias Past Medical History Past Medical History: Hyperlipidemia Additional Past Medical History / Comment(s): restless leg syndrome. Complex regional pain syndrome to left lower extremity History of Any Multi-Drug Resistant Organisms: None Reported Additional Past Surgical History / Comment(s): FINGER AMPUTATION LEFT INDEX FINGER IN 1999, HILARIO PLACED AND REMOVED FROM LEFT LEG IN 2002 hardware removal from left ORIF lower extremity, distal tip of the finger slightly amputated after injury Past Anesthesia/Blood Transfusion Reactions: No Reported Reaction Past Psychological History: Anxiety, Depression Smoking Status: Never smoker Past Alcohol Use History: Occasional Past Drug Use History: None Reported - Past Family History Father Family Medical History: No Reported History Mother Family Medical History: No Reported History Brother(s) Family Medical History: No Reported History (Depression and anxiety) General Exam Limitations: no limitations General appearance: alert, in no apparent distress Head exam: Present: atraumatic, normocephalic Eye exam: Present: normal appearance Respiratory exam: Present: normal lung sounds bilaterally. Absent: respiratory distress, wheezes, rales, rhonchi, stridor Cardiovascular Exam: Present: regular rate, normal heart sounds. Absent: systolic murmur, diastolic murmur, rubs, gallop GI/Abdominal exam: Present: soft. Absent: tenderness, guarding, rebound Extremities exam: Present: normal inspection, full ROM, tenderness, normal capillary refill. Absent: pedal edema, calf tenderness Back exam: Present: normal inspection. Absent: CVA tenderness (R), CVA tenderness (L), vertebral tenderness Neurological exam: Present: alert. Absent: motor sensory deficit Skin exam: Present: warm, dry, intact, normal color. Absent: rash Course Vital Signs 06/20/23 21:46 Temperature 98 F Pulse Rate 102 H Respiratory 18 Rate Blood Pressure 125/88 O2 Sat by Pulse 99 Oximetry Medical Decision Making - Medical Decision Making Patient is a 48-year-old man with history of complex regional pain syndrome and less his leg here with exacerbation of his usual symptoms. The patient is given analgesic and having improvement in his symptoms. Stable for discharge. Return parameters discussed Was pt. sent in by a medical professional or institution (, PA, KEY RINGER, urgent care, hospital, or long term...) When possible be specific @ -[No] Did you speak to anyone other than the patient for history (EMS, parent, family, police, friend...)? What history was obtained from this source @ -[No] Did you review nursing and triage notes (agree or disagree)? Why? @ -[I reviewed and agree with nursing and triage notes] Were old charts reviewed (outside hosp., previous admission, EMS record, old EKG, old radiological studies, urgent care reports/EKG's, long term records)? Report findings @ -[No old charts were reviewed] Differential Diagnosis (chest pain, altered mental status, abdominal pain women, abdominal pain men, vaginal bleeding, weakness, fever, dyspnea, syncope, headache, dizziness, GI bleed, back pain, seizure, CVA, palpatations, mental health, musculoskeletal)? @ -[Differential Musculoskeletal Muscular strain, contusion, ligament sprain, fracture, arthritis, septic arthritis, bursitis, cellulitis, muscle spasm, nerve compression, DVT, arterial occlusion, herpes zoster, electrolyte abnormality, tumor.... This is not meant to be in all inclusive list EKG interpreted by me (3pts min.). @ -[As above] X-rays interpreted by me (1pt min.). @ -[None done] CT interpreted by me (1pt min.). @ -[None done] U/S interpreted by me (1pt. min.). @ -[None done] What testing was considered but not performed or refused? (CT, X-rays, U/S, labs)? Why? @ -[None] What meds were considered but not given or refused? Why? @ -[None] Did you discuss the management of the patient with other professionals (professionals i.e. , PA, KEY RINGER, lab, RT, psych nurse, director social service, automatic paint sprayer operator, teacher, staff air defense officer, case management director)? Give summary @ -[No] Was smoking cessation discussed for >3mins.? @ -[No] Was critical care preformed (if so, how long)? @ -[No] Were there social determinants of health that impacted care today? How? (Homelessness, low income, unemployed, alcoholism, drug addiction, transportation, low edu. Level, literacy, decrease access to med. care, intermediate, rehab)? @ -[No] Was there de-escalation of care discussed even if they declined (Discuss DNR or withdrawal of care, Hospice)? DNR status @ -[No] What co-morbidities impacted this encounter? (DM, HTN, Smoking, COPD, CAD, Cancer, CVA, ARF, Chemo, Hep., AIDS, mental health diagnosis, sleep apnea, morbid obesity)? @ -[None] Was patient admitted / discharged? Hospital course, mention meds given and route, prescriptions, significant lab abnormalities, going to OR and other pert inent info. @ -[The patient and with exacerbation of his chronic pain. He did have analgesic and is feeling better following medications. The patient stable for discharge. He does have procedure pending and will follow-up with his physician. Undiagnosed new problem with uncertain prognosis? @ -[No] Drug Therapy requiring intensive monitoring for toxicity (Heparin, Nitro, Insulin, Cardizem)? @ -[No] Were any procedures done? @ -[No] Diagnosis/symptom? @ -Exacerbation of chronic leg pain Acute, or Chronic, or Acute on Chronic? @ -Acute on chronic Uncomplicated (without systemic symptoms) or Complicated (systemic symptoms)? @ -[def uncomplicated Side effects of treatment? @ -[No] Exacerbation, Progression, or Severe Exacerbation? @ -[No] Poses a threat to life or bodily function? How? (Chest pain, [place], [place], pneumonia, PE, COPD, DKA, ARF, appy, cholecystitis, CVA, Diverticulitis, Homicidal, Suicidal, threat to staff... and all critical care pts) @ -[No] Disposition Clinical Impression: Chronic pain of left lower extremity Disposition: HOME SELF-CARE Condition: Good Instructions (If sedation given, give patient instructions): Leg Pain (ED) Is patient prescribed a controlled substance at d/c from ED?: No Referrals: Jefry Castro DO [Primary Care Provider] - 1-2 days
[2023-06-21] MEDS: KETOROLAC 15 MG/ML 1 ML VIAL IM STA (00:59)
== END 2023-06-21 01:06 | disposition home or self-care (01) ==
LOC: EC 21:44
DX: G89.29 Other chronic pain (principal); M25.562 Pain in left knee; Z88.8 Allergy status to other drugs, medicaments and biological substances
CPT/HCPCS: 99283; 96374; J1885

== ENCOUNTER 2023-07-06 03:40 | Emergency (ER) | payer OTHER ==
[2023-07-06 03:50] VITALS: TEMP 97.6
--- NOTE | 2023-07-06 06:22 | ED ---
General Adult HPI - General Chief complaint: Extremity Injury, Lower Stated complaint: Leg pain Time Seen by Provider: 07/06/23 05:47 Source: patient Mode of arrival: EMS Limitations: no limitations - History of Present Illness Initial comments: Dictation was produced using [employer] dictation software. please excuse any grammatical, word or spelling errors. Chief Complaint: 48-year-old male with chronic r left t knee pain presents to the emergency department with left knee pain History of Present Illness: Patient is a 48-year-old male he has chronic knee pain secondary to injury years ago after an accident. Patient has a hilario in his left tibia. Patient states over the last several hours she had significant pain. He was told that the pain is secondary to nerve injury by physicians. He scheduled to have a pain unit implanted into his r left leg soon. Patient states that while in the waiting room his symptoms had resolved. He states he is feeling better. Patient refusing x-ray. The ROS documented in this emergency department record has been reviewed and confirmed by me. Those systems with pertinent positive or negative responses back ve been documented in the HPI. All other systems are other negative and/or noncontributory. - Related Data Home Medications Medication Instructions Recorded Confirmed Lurasidone HCl [Latuda] 120 mg PO DAILY 05/18/22 05/18/22 Venlafaxine HCl [Effexor XR] 75 mg PO DAILY 05/18/22 05/18/22 Venlafaxine HCl [Effexor XR] 150 mg PO DAILY 05/18/22 05/18/22 lisinopriL [Zestril] 10 mg PO DAILY PRN 05/18/22 05/18/22 metFORMIN HCL ER [Glucophage XR] 500 mg PO HS 05/18/22 05/18/22 rOPINIRole HCL [Requip] 0.5 mg PO BID PRN 05/18/22 05/18/22 Previous Rx's Medication Instructions Recorded Acetaminophen Tab [Tylenol] 650 mg PO Q6HR PRN tab 05/20/22 HYDROmorphone [Dilaudid] 2 mg PO DAILY PRN #0 05/20/22 Allergies Allergy/AdvReac Type Severity Reaction Status Date / Time bupropion HCl Allergy Unknown Verified 07/06/23 03:41 [From Wellbutrin] Review of Systems ROS Statement: Those systems with pertinent positive or pertinent negative responses have been documented in the HPI. ROS Other: All systems not noted in ROS Statement are negative. Past Medical History Past Medical History: Hyperlipidemia Additional Past Medical History / Comment(s): restless leg syndrome. Complex regional pain syndrome to left lower extremity History of Any Multi-Drug Resistant Organisms: None Reported Additional Past Surgical History / Comment(s): FINGER AMPUTATION LEFT INDEX FINGER IN 1999, HILARIO PLACED AND REMOVED FROM LEFT LEG IN 2002 hardware removal from left ORIF lower extremity, distal tip of the finger slightly amputated after injury Past Anesthesia/Blood Transfusion Reactions: No Reported Reaction Past Psychological History: Anxiety, Depression Smoking Status: Never smoker Past Alcohol Use History: Occasional Past Drug Use History: None Reported - Past Family History Father Family Medical History: No Reported History Mother Family Medical History: No Reported History Brother(s) Family Medical History: No Reported History (Depression and anxiety) General Exam - General Exam Comments Initial Comments: General: Well-appearing, nontoxic, no acute distress. Head: Normocephalic, atraumatic Eyes: PERRLA, EOMI ENT: Airway patent Chest: Nonlabored breathing Skin: No visual rash, normal skin tone Neuro: Alert and oriented 3 Musculoskeletal: No gross abnormalities Left knee: Range of motion intact, knee flexion extension is nonantalgic Limitations: no limitations Course Vital Signs 07/06/23 03:41 Temperature 97.6 F Pulse Rate 95 Respiratory 16 Rate Blood Pressure 134/78 O2 Sat by Pulse 96 Oximetry Medical Decision Making - Medical Decision Making Was pt. sent in by a medical professional or institution (, PA, BAR HELPER, urgent care, hospital, or alf...) When possible be specific @ -No Did you speak to anyone other than the patient for history (EMS, parent, family, police, friend...)? What history was obtained from this source @ -No Did you review nursing and triage notes (agree or disagree)? Why? @ -I reviewed and agree with nursing and triage notes Were old charts reviewed (outside hosp., previous admission, EMS record, old EKG, old radiological studies, urgent care reports/EKG's, alf records)? Report findings @ -No old charts were reviewed Differential Diagnosis (chest pain, altered mental status, abdominal pain women, abdominal pain men, vaginal bleeding, musculoskeletal, weakness, fever, dyspnea, syncope, headache, dizziness, GI bleed, back pain, seizure, CVA, palpatations, mental health)? @ -Not applicable EKG interpreted by me (3pts min.). @ -None done X-rays interpreted by me (1pt min.). @ -Patient refuses left knee x-ray CT interpreted by me (1pt min.). @ -None done U/S interpreted by me (1pt. min.). @ -None done What testing was considered but not performed or refused? (CT, X-rays, U/S, labs)? Why? @ -None What meds were considered but not given or refused? Why? @ -None Did you discuss the management of the patient with other professionals (professionals i.e. , PA, BAR HELPER, lab, RT, psych nurse, case management social worker, eyeglass lens generator, teacher, development officer, machine adjuster leader case trim)? Give summary @ -No Was smoking cessation discussed for >3mins.? @ -No Was critical care preformed (if so, how long)? @ -No Were there social determinants of health that impacted care today? How? (Homelessness, low income, unemployed, alcoholism, drug addiction, transportation, low edu. Level, literacy, decrease access to med. care, [facility]ci, rehab)? @ -No Was there de-escalation of care discussed even if they declined (Discuss DNR or withdrawal of care, Hospice)? DNR status @ -No What co-morbidities impacted this encounter? (DM, HTN, Smoking, COPD, CAD, Cancer, CVA, ARF, Chemo, Hep., AIDS, mental health diagnosis, sleep apnea, morbid obesity)? @ -None Was patient admitted / discharged? Hospital course, mention meds given and route, prescriptions, significant lab abnormalities, going to OR and other pertinent info. @ -48-year-old male with acute on chronic knee pain. Patient was told by outpatient specialist that his knee pain was secondary to nerve injury. Vital signs upon arrival are within acceptable limits. Patient is pain-free upon my evaluation. Patient however requesting Toradol IM shot. IM shot given. Patient discharged he has scheduled follow-up with his knee specialist this week Undiagnosed new problem with uncertain prognosis? @ -No Drug Therapy requiring intensive monitoring for toxicity (Heparin, Nitro, Insulin, Cardizem)? @ -No Were any procedures done? @ -No Diagnosis/symptom? Acute, or Chronic, or Acute on Chronic? Uncomplicated (without systemic symptoms) or Complicated (systemic symptoms)? @ -Acute on chronic knee pain Side effects of treatment? @ -No Exacerbation, Progression, or Severe Exacerbation? @ -No Poses a threat to life or bodily function? How? (Chest pain, [place], [place], pneumonia, PE, COPD, DKA, ARF, appy, cholecystitis, CVA, Diverticulitis, Homicidal, Suicidal, threat to staff... and all critical care pts) @ -No Disposition Clinical Impression: Knee pain Disposition: HOME SELF-CARE Condition: Good Instructions (If sedation given, give patient instructions): Knee Pain (ED) Is patient prescribed a controlled substance at d/c from ED?: No Referrals: Jefry Castro DO [Primary Care Provider] - 1-2 days Time of Disposition: 06:22
[2023-07-06] MEDS: KETOROLAC 15 MG/ML 1 ML VIAL IM STA (06:46)
[2023-07-06 07:14] VITALS: BP 110/75; PULSE 99; RESP 18
== END 2023-07-06 06:49 | disposition home or self-care (01) ==
LOC: EC 03:40
DX: M79.605 Pain in left leg (principal); Z88.8 Allergy status to other drugs, medicaments and biological substances
CPT/HCPCS: 99283; 96372; J1885

== ENCOUNTER 2023-07-18 13:24 | Emergency (ER) | payer OTHER ==
--- NOTE | 2023-07-18 13:51 | ED ---
General Adult HPI - General Chief complaint: Extremity Injury, Lower Stated complaint: knee pain Time Seen by Provider: 07/18/23 13:47 Source: patient, EMS, RN notes reviewed Mode of arrival: EMS Limitations: no limitations - History of Present Illness Initial comments: 48-year-old male presented to the ER via EMS with a chief complaint of left knee pain. Patient reports this is a chronic issue and he occasionally has "flareups". Patient recently underwent a procedure for installation of a pain pump on 07-09-2023. Pain pump is not currently activated as he is still waiting on the device to be delivered. Patient denies any new injuries or traumas. Patient has been taking extra strength Tylenol and prescribed Klonopin without relief. He denies any other complaints. - Related Data Home Medications Medication Instructions Recorded Confirmed Lurasidone HCl [Latuda] 120 mg PO DAILY 05/18/22 05/18/22 Venlafaxine HCl [Effexor XR] 75 mg PO DAILY 05/18/22 05/18/22 Venlafaxine HCl [Effexor XR] 150 mg PO DAILY 05/18/22 05/18/22 lisinopriL [Zestril] 10 mg PO DAILY PRN 05/18/22 05/18/22 metFORMIN HCL ER [Glucophage XR] 500 mg PO HS 05/18/22 05/18/22 rOPINIRole HCL [Requip] 0.5 mg PO BID PRN 05/18/22 05/18/22 Previous Rx's Medication Instructions Recorded Acetaminophen Tab [Tylenol] 650 mg PO Q6HR PRN tab 05/20/22 HYDROmorphone [Dilaudid] 2 mg PO DAILY PRN #0 05/20/22 Allergies Allergy/AdvReac Type Severity Reaction Status Date / Time bupropion HCl Allergy Unknown Verified 07/06/23 03:41 [From Wellbutrin] Review of Systems ROS Statement: Those systems with pertinent positive or pertinent negative responses have been documented in the HPI. ROS Other: All systems not noted in ROS Statement are negative. Past Medical History Past Medical History: Hyperlipidemia Additional Past Medical History / Comment(s): restless leg syndrome. Complex regional pain syndrome to left lower extremity History of Any Multi-Drug Resistant Organisms: None Reported Additional Past Surgical History / Comment(s): FINGER AMPUTATION LEFT INDEX FING ER IN 1999, IHLARIO PLACED AND REMOVED FROM LEFT LEG IN 2002 hardware removal from left ORIF lower extremity, distal tip of the finger slightly amputated after injury Past Anesthesia/Blood Transfusion Reactions: No Reported Reaction Past Psychological History: Anxiety, Depression Smoking Status: Never smoker Past Alcohol Use History: Occasional Past Drug Use History: None Reported - Past Family History Father Family Medical History: No Reported History Mother Family Medical History: No Reported History Brother(s) Family Medical History: No Reported History (Depression and anxiety) General Exam Limitations: no limitations General appearance: alert, in no apparent distress Respiratory exam: Present: normal lung sounds bilaterally. Absent: respiratory distress, wheezes, rales, rhonchi, stridor Cardiovascular Exam: Present: regular rate, normal rhythm, normal heart sounds. Absent: systolic murmur, diastolic murmur, rubs, gallop, clicks Extremities exam: Present: normal inspection, full ROM, other (2+ left TP pulse. equaly bilateral LE strength. sensation intact. 3 healing surgical incision superior to left knee. No surrounding erythema, drainage or warmth.) Neurological exam: Present: alert, oriented X3, CN II-XII intact Skin exam: Present: warm, dry, intact, normal color. Absent: rash Course Vital Signs 07/18/23 07/18/23 13:27 15:48 Temperature 98.3 F Pulse Rate 98 94 Respiratory 18 18 Rate Blood Pressure 100/66 108/70 O2 Sat by Pulse 98 98 Oximetry Medical Decision Making - Medical Decision Making Was pt. sent in by a medical professional or institution (, RINKU, FREEZER PERSON, urgent care, hospital, or long-term...) When possible be specific @ -No Did you speak to anyone other than the patient for history (EMS, parent, family, police, friend...)? What history was obtained from this source @ -Mother aiding in HPI and PMHX Did you review nursing and triage notes (agree or disagree)? Why? @ -I reviewed and agree with nursing and triage notes Were old charts reviewed (outside hosp., previous admission, EMS record, old EKG, old radiological studies, urgent care reports/EKG's, long-term records)? Report findings @ -No old charts were reviewed Differential Diagnosis (chest pain, altered mental status, abdominal pain women, abdominal pain men, vaginal bleeding, weakness, fever, dyspnea, syncope, headache, dizziness, GI bleed, back pain, seizure, CVA, palpatations, mental health, musculoskeletal)? @ -Differential Musculoskeletal Muscular strain, contusion, ligament sprain, fracture, arthritis, septic arthritis, bursitis, cellulitis, muscle spasm, nerve compression, DVT, arterial occlusion, herpes zoster, electrolyte abnormality, tumor.... This is not meant to be in all inclusive list EKG interpreted by me (3pts min.). @ -None X-rays interpreted by me (1pt min.). @ -None done CT interpreted by me (1pt min.). @ -None done U/S interpreted by me (1pt. min.). @ -None done What testing was considered but not performed or refused? (CT, X-rays, U/S, labs)? Why? @ -X-rays considered but not performed as patient denies any new traumas. What meds were considered but not given or refused? Why? @ -None Did you discuss the management of the patient with other professionals (professionals i.e. , PA, FREEZER PERSON, lab, RT, psych nurse, hospice social worker, mountain services manager, teacher, founder and chief technical officer, briefcase sewer)? Give summary @ -No Was smoking cessation discussed for >3mins.? @ -No Was critical care preformed (if so, how long)? @ -No Were there social determinants of health that impacted care today? How? (Homelessness, low income, unemployed, alcoholism, drug addiction, transportation, low edu. Level, literacy, decrease access to med. care, long term, rehab)? @ -No Was there de-escalation of care discussed even if they declined (Discuss DNR or withdrawal of care, Hospice)? DNR status @ -No What co-morbidities impacted this encounter? (DM, HTN, Smoking, COPD, CAD, Cancer, CVA, ARF, Chemo, Hep., AIDS, mental health diagnosis, sleep apnea, morbid obesity)? @ -None Was patient admitted / discharged? Hospital course, mention meds given and route, prescriptions, significant lab abnormalities, going to OR and other pertinent info. @ -Discharge. 48-year-old male presented to the ER via EMS with a chief compl aint of left knee pain. This is a chronic issue as patient is following up with neurologist. History and physical exam completed. Vitals stable. Patient in no signs of acute distress and resting comfortably in exam room. Left lower extremity neurovascular intact. 3 healing surgical incisions noted superior to left knee as patient recently had pain pump placed. No evidence of infection. Patient has full active range of motion. X-rays not performed as patient denies any new traumas or injuries. Patient received IM Toradol. Upon reevaluation, patient reporting mildly improved pain. Patient stable for discharge and outpatient follow-up. Lidocaine patch placed on left knee prior to discharge. Return parameters discussed. Patient discharged in stable condition. Patient verbally expressed understanding and agreement with care plan. Case discussed with ED attending, Dr. [place]. Undiagnosed new problem with uncertain prognosis? @ -No Drug Therapy requiring intensive monitoring for toxicity (Heparin, Nitro, Insulin, Cardizem)? @ -No Were any procedures done? @ -No Diagnosis/symptom? @ -Knee pain Acute, or Chronic, or Acute on Chronic? @ -Chronic Uncomplicated (without systemic symptoms) or Complicated (systemic symptoms)? @ -Uncomplicated Side effects of treatment? @ -No Exacerbation, Progression, or Severe Exacerbation? @ -No Poses a threat to life or bodily function? How? (Chest pain, USA, [place], pneumonia, PE, COPD, DKA, ARF, appy, cholecystitis, CVA, Diverticulitis, Homicidal, Suicidal, threat to staff... and all critical care pts) @ -No Disposition Clinical Impression: Knee pain, Chronic pain of left lower extremity Disposition: HOME SELF-CARE Condition: Stable Instructions (If sedation given, give patient instructions): Knee Pain (ED) Additional Instructions: Follow-up with neurologist as scheduled. Return to the ER for new concerns. Is patient prescribed a controlled substance at d/c from ED?: No Referrals: Jefry Castro DO [Primary Care Provider] - 1-2 days Time of Disposition: 14:54
[2023-07-18] MEDS: KETOROLAC 15 MG/ML 1 ML VIAL IM STA (13:59)
[2023-07-18 14:11] VITALS: RESP 18; TEMP 98.3
[2023-07-18] MEDS ORDERED: LIDOCAINE 4% PATCH TOPICAL ONE (15:16)
[2023-07-18] MEDS ORDERED: KETOROLAC 15 MG/ML 1 ML VIAL IM STA (15:16)
[2023-07-18 16:35] VITALS: BP 108/70; PULSE 94
== END 2023-07-18 15:54 | disposition home or self-care (01) ==
LOC: EC 13:24
DX: G89.29 Other chronic pain (principal); M25.562 Pain in left knee; Z88.8 Allergy status to other drugs, medicaments and biological substances
CPT/HCPCS: 99283; 96372; J1885

== ENCOUNTER 2023-07-19 20:38 | Emergency (ER) | payer OTHER ==
[2023-07-19 21:28] VITALS: TEMP 97.8
--- NOTE | 2023-07-19 21:30 | ED ---
Lower Extremity Injury HPI - General Chief Complaint: Extremity Injury, Lower Stated Complaint: left knee pain Time Seen by Provider: 07/19/23 20:58 Source: patient, RN notes reviewed Mode of arrival: ambulatory Limitations: no limitations - History of Present Illness Initial Comments: 48-year-old male with history of chronic left knee pain presenting for left knee pain flareup. Patient denies any new trauma or pain. Patient was given Toradol injection yesterday with no relief. Patient recently had nerve stimulator placed and has an appointment to terminate on next week. Patient states frequently takes Klonopin for pain however last Klonopin was 12 hours ago. Denies any new symptoms. - Related Data Home Medications Medication Instructions Recorded Confirmed Lurasidone HCl [Latuda] 120 mg PO DAILY 05/18/22 05/18/22 Venlafaxine HCl [Effexor XR] 75 mg PO DAILY 05/18/22 05/18/22 Venlafaxine HCl [Effexor XR] 150 mg PO DAILY 05/18/22 05/18/22 lisinopriL [Zestril] 10 mg PO DAILY PRN 05/18/22 05/18/22 metFORMIN HCL ER [Glucophage XR] 500 mg PO HS 05/18/22 05/18/22 rOPINIRole HCL [Requip] 0.5 mg PO BID PRN 05/18/22 05/18/22 Previous Rx's Medication Instructions Recorded Acetaminophen Tab [Tylenol] 650 mg PO Q6HR PRN tab 05/20/22 HYDROmorphone [Dilaudid] 2 mg PO DAILY PRN #0 05/20/22 Allergies Allergy/AdvReac Type Severity Reaction Status Date / Time bupropion HCl Allergy Unknown Verified 07/19/23 20:44 [From Wellbutrin] Review of Systems ROS Statement: Those systems with pertinent positive or pertinent negative responses have been documented in the HPI. ROS Other: All systems not noted in ROS Statement are negative. Past Medical History Past Medical History: Hyperlipidemia Additional Past Medical History / Comment(s): restless leg syndrome. Complex regional pain syndrome to left lower extremity History of Any Multi-Drug Resistant Organisms: None Reported Additional Past Surgical History / Comment(s): FINGER AMPUTATION LEFT INDEX FINGER IN 1999, HILARIO PLACED AND REMOVED FROM LEFT LEG IN 2002 hardware removal from left ORIF lower extremity, distal tip of the finger slightly amputated after injury Past Anesthesia/Blood Transfusion Reactions: No Reported Reaction Past Psychological History: Anxiety, Depression Smoking Status: Never smoker Past Alcohol Use History: Occasional Past Drug Use History: None Reported - Past Family History Father Family Medical History: No Reported History Mother Family Medical History: No Reported History Brother(s) Family Medical History: No Reported History (Depression and anxiety) General Exam Limitations: no limitations General appearance: alert, in no apparent distress Eye exam: Present: normal appearance, PERRL, EOMI. Absent: scleral icterus, conjunctival injection, periorbital swelling ENT exam: Present: normal exam, mucous membranes moist Respiratory exam: Present: normal lung sounds bilaterally. Absent: respiratory distress, wheezes, rales, rhonchi, stridor Cardiovascular Exam: Present: regular rate, normal rhythm, normal heart sounds. Absent: systolic murmur, diastolic murmur, rubs, gallop, clicks GI/Abdominal exam: Present: soft, normal bowel sounds. Absent: distended, tenderness, guarding, rebound, rigid Left Upper Leg exam: Present: normal inspection, full ROM. Absent: tenderness, swelling Knee exam: Present: normal inspection, full ROM. Absent: tenderness, swelling Lower Leg exam: Present: normal inspection (Incision superior to knee from recent procedure is clean dry intact with no surrounding erythema or drainage), full ROM. Absent: tenderness, swelling Ankle exam: Present: normal inspection, full ROM. Absent: tenderness, swelling Foot/Toe exam: Present: normal inspection, full ROM. Absent: tenderness, swelling Neurovascular tendon exam: Present: no vascular compromise. Absent: pulse deficit, abnormal cap refill, sensory deficit Course Vital Signs 07/19/23 07/19/23 20:39 22:11 Temperature 97.8 F Pulse Rate 110 H 115 H Respiratory 18 20 Rate Blood Pressure 131/85 118/82 O2 Sat by Pulse 93 L 96 Oximetry Medical Decision Making - Medical Decision Making Was pt. sent in by a medical professional or institution (, PA, IMAGE EDITOR, urgent care, hospital, or penitentiary...) When possible be specific @ -No Did you speak to anyone other than the patient for history (EMS, parent, family, police, friend...)? What history was obtained from this source @ -No Did you review nursing and triage notes (agree or disagree)? Why? @ -I reviewed and agree with nursing and triage notes Were old charts reviewed (outside hosp., previous admission, EMS record, old EKG, old radiological studies, urgent care reports/EKG's, penitentiary records)? Report findings @ -No old charts were reviewed Differential Diagnosis (chest pain, altered mental status, abdominal pain women, abdominal pain men, vaginal bleeding, weakness, fever, dyspnea, syncope, headache, dizziness, GI bleed, back pain, seizure, CVA, palpatations, mental health, musculoskeletal)? @ -Differential Musculoskeletal Muscular strain, contusion, ligament sprain, fracture, arthritis, septic arthritis, bursitis, cellulitis, muscle spasm, nerve compression, DVT, arterial occlusion, herpes zoster, electrolyte abnormality, tumor.... This is not meant to be in all inclusive list EKG interpreted by me (3pts min.). @ -None X-rays interpreted by me (1pt min.). @ -None done CT interpreted by me (1pt min.). @ -None done U/S interpreted by me (1pt. min.). @ -None done What testing was considered but not performed or refused? (CT, X-rays, U/S, labs)? Why? @ -Imaging of knee not obtained due to no new traumas or injuries What meds were considered but not given or refused? Why? @ -None Did you discuss the management of the patient with other professionals (professionals i.e. , PA, IMAGE EDITOR, lab, RT, psych nurse, secondary social studies teacher, painter decorator, teacher, tax compliance officer, caser in)? Give summary @ -No Was smoking cessation discussed for >3mins.? @ -No Was critical care preformed (if so, how long)? @ -No Were there social determinants of health that impacted care today? How? (Homelessness, low income, unemployed, alcoholism, drug addiction, transportation, low edu. Level, literacy, decrease access to med. care, long-term, rehab)? @ -No Was there de-escalation of care discussed even if they declined (Discuss DNR or withdrawal of care, Hospice)? DNR status @ -No What co-morbidities impacted this encounter? (DM, HTN, Smoking, COPD, CAD, Cancer, CVA, ARF, Chemo, Hep., AIDS, mental health diagnosis, sleep apnea, morbid obesity)? @ -None Was patient admitted / discharged? Hospital course, mention meds given and route, prescriptions, significant lab abnormalities, going to OR and other pertinent info. @ -Patient was discharged. Patient was seen and evaluated for acute flareup of chronic left knee pain. Vital stable, no acute distress. Patient is neurovascularly intact. No red flag symptoms or signs of infection. Imaging not obtained due to no new trauma or injury. Patient given Dilaudid and reports symptom improvement. Strict return/alarm symptoms discussed with patient in detail and he shows understanding and agrees with plan. Advised to follow-up with PCP in 1 to 3 days. Patient discharged in stable condition. Case discussed with ER attending Dr. Robertson. Undiagnosed new problem with uncertain prognosis? @ -No Drug Therapy requiring intensive monitoring for toxicity (Heparin, Nitro, Insulin, Cardizem)? @ -No Were any procedures done? @ -No Diagnosis/symptom? @ -Acute flare of chronic left knee pain Acute, or Chronic, or Acute on Chronic? @ -Acute on chronic Uncomplicated (without systemic symptoms) or Complicated (systemic symptoms)? @ -Uncomplicated Side effects of treatment? @ -No Exacerbation, Progression, or Severe Exacerbation? @ -No Poses a threat to life or bodily function? How? (Chest pain, USA, [place], pneumonia, PE, COPD, DKA, ARF, appy, cholecystitis, CVA, Diverticulitis, Homicidal, Suicidal, threat to staff... and all critical care pts) @ -No Disposition Clinical Impression: Chronic pain of left knee Disposition: HOME SELF-CARE Condition: Stable Instructions (If sedation given, give patient instructions): Knee Pain (ED) Additional Instructions: Please follow-up with PCP. Please return to the Emergency Department if symptoms worsen or any other concerns. Is patient prescribed a controlled substance at d/c from ED?: No Referrals: Jefry Castro DO [Primary Care Provider] - 1-2 days Time of Disposition: 22:01
[2023-07-19] MEDS: HYDROmorphone 1 MG/ML 1 ML SYRINGE IM STA (21:33)
[2023-07-19 22:18] VITALS: BP 118/82; PULSE 115; RESP 20
== END 2023-07-19 22:11 | disposition home or self-care (01) ==
LOC: EC 20:38
DX: G89.29 Other chronic pain (principal); M25.562 Pain in left knee; Z88.8 Allergy status to other drugs, medicaments and biological substances
CPT/HCPCS: 99283; 96372; J1170

== ENCOUNTER 2023-07-22 22:47 | Emergency (ER) | payer OTHER ==
[2023-07-22 22:54] VITALS: RESP 18
--- NOTE | 2023-07-23 00:24 | ED ---
Extremity Problem HPI - General Chief complaint: Extremity Problem,Nontraumatic Stated complaint: Left knee pain Time Seen by Provider: 07/22/23 22:57 Source: patient, family Mode of arrival: wheelchair - History of Present Illness Initial comments: Patient is a 48-year-old male presenting to the ED with complaints of left knee pain. Patient states he recently had a nerve stimulator placed in his left knee by Dr. Franco. States he was finally activated today however despite being on still has pain on the left knee. No fever or chills. No chest pain or shortness of breath. No other complaints at this time. - Related Data Home Medications Medication Instructions Recorded Confirmed Lurasidone HCl [Latuda] 120 mg PO DAILY 05/18/22 05/18/22 Venlafaxine HCl [Effexor XR] 75 mg PO DAILY 05/18/22 05/18/22 Venlafaxine HCl [Effexor XR] 150 mg PO DAILY 05/18/22 05/18/22 lisinopriL [Zestril] 10 mg PO DAILY PRN 05/18/22 05/18/22 metFORMIN HCL ER [Glucophage XR] 500 mg PO HS 05/18/22 05/18/22 rOPINIRole HCL [Requip] 0.5 mg PO BID PRN 05/18/22 05/18/22 Previous Rx's Medication Instructions Recorded Acetaminophen Tab [Tylenol] 650 mg PO Q6HR PRN tab 05/20/22 HYDROmorphone [Dilaudid] 2 mg PO DAILY PRN #0 05/20/22 Allergies Allergy/AdvReac Type Severity Reaction Status Date / Time bupropion HCl Allergy Unknown Verified 07/19/23 20:44 [From Wellbutrin] Review of Systems ROS Statement: Those systems with pertinent positive or pertinent negative responses have been documented in the HPI. ROS Other: All systems not noted in ROS Statement are negative. Past Medical History Past Medical History: Hyperlipidemia Additional Past Medical History / Comment(s): restless leg syndrome. Complex regional pain syndrome to left lower extremity History of Any Multi-Drug Resistant Organisms: None Reported Additional Past Surgical History / Comment(s): FINGER AMPUTATION LEFT INDEX FINGER IN 1999, HILARIO PLACED AND REMOVED FROM LEFT LEG IN 2002 hardware removal from left ORIF lower extremity, distal tip of the finger slightly amputated after injury Past Anesthesia/Blood Transfusion Reactions: No Reported Reaction Past Psychological History: Anxiety, Depression Smoking Status: Never smoker Past Alcohol Use History: Occasional Past Drug Use History: None Reported - Past Family History Father Family Medical History: No Reported History Mother Family Medical History: No Reported History Brother(s) Family Medical History: No Reported History (Depression and anxiety) General Exam General appearance: alert, in no apparent distress Eye exam: Present: normal appearance Neck exam: Present: normal inspection Respiratory exam: Present: normal lung sounds bilaterally Cardiovascular Exam: Present: regular rate GI/Abdominal exam: Present: soft, normal bowel sounds. Absent: distended, tenderness, guarding, rebound, rigid Extremities exam: Present: other (Left knee shows full active range of motion. No significant pain on ranging the knee. No overlying warmth erythema or swelling.) Neurological exam: Present: alert, oriented X3 Skin exam: Present: warm, dry Course Vital Signs 07/22/23 22:51 Temperature 98 F Pulse Rate 108 H Respiratory 18 Rate Blood Pressure 118/81 O2 Sat by Pulse 98 Oximetry Medical Decision Making - Medical Decision Making Was pt. sent in by a medical professional or institution (, PA, FARM EQUIPMENT ENGINEER, urgent care, hospital, or long term...) When possible be specific @ -No Did you speak to anyone other than the patient for history (EMS, parent, family, police, friend...)? What history was obtained from this source @ -No Did you review nursing and triage notes (agree or disagree)? Why? @ -I reviewed and agree with nursing and triage notes Were old charts reviewed (outside hosp., previous admission, EMS record, old EKG, old radiological studies, urgent care reports/EKG's, long term records)? Report findings @ -No old charts were reviewed Differential Diagnosis (chest pain, altered mental status, abdominal pain women, abdominal pain men, vaginal bleeding, weakness, fever, dyspnea, syncope, headache, dizziness, GI bleed, back pain, seizure, CVA, palpatations, mental health, musculoskeletal)? @ -Differential Musculoskeletal Muscular strain, contusion, ligament sprain, fracture, arthritis, septic arthritis, bursitis, cellulitis, muscle spasm, nerve compression, DVT, arterial occlusion, herpes zoster, electrolyte abnormality, tumor.... This is not meant to be in all inclusive list EKG interpreted by me (3pts min.). @ -As above X-rays interpreted by me (1pt min.). @ -None done CT interpreted by me (1pt min.). @ -None done U/S interpreted by me (1pt. min.). @ -None done What testing was considered but not performed or refused? (CT, X-rays, U/S, labs)? Why? @ -X-ray of the left knee was considered however at this time patient notes no new trauma or injury. Additionally exam of the left knee is benign with no findings concerning for septic arthritis. What meds were considered but not given or refused? Why? @ -None Did you discuss the management of the patient with other professionals (professionals i.e. , PA, FARM EQUIPMENT ENGINEER, lab, RT, psych nurse, secondary social studies teacher, street light mechanic, teacher, combatant diver officer, oil field caser)? Give summary @ -No Was smoking cessation discussed for >3mins.? @ -No Was critical care preformed (if so, how long)? @ -No Were there social determinants of health that impacted care today? How? (Homelessness, low income, unemployed, alcoholism, drug addiction, transportation, low edu. Level, literacy, decrease access to med. care, residential, rehab)? @ -No Was there de-escalation of care discussed even if they declined (Discuss DNR or withdrawal of care, Hospice)? DNR status @ -No What co-morbidities impacted this encounter? (DM, HTN, Smoking, COPD, CAD, Cancer, CVA, ARF, Chemo, Hep., AIDS, mental health diagnosis, sleep apnea, morbid obesity)? @ -None Was patient admitted / discharged? Hospital course, mention meds given and route, prescriptions, significant lab abnormalities, going to OR and other pertinent info. @ -Discharge 48-year-old male presented to the ED with complaints of chronic left knee pain. Despite having his left knee stimulator activated is still noting pain prompting presentation to the ED for further evaluation. Patient provided analgesia here and discharged home in stable condition. Advise close follow-up with Dr. Franco. Undiagnosed new problem with uncertain prognosis? @ -No Drug Therapy requiring intensive monitoring for toxicity (Heparin, Nitro, Insulin, Cardizem)? @ -No Were any procedures done? @ -No Diagnosis/symptom? @ -Left knee pain Acute, or Chronic, or Acute on Chronic? @ -Acute on chronic Uncomplicated (without systemic symptoms) or Complicated (systemic symptoms)? @ -Uncomplicated Side effects of treatment? @ -No Exacerbation, Progression, or Severe Exacerbation? @ -No Poses a threat to life or bodily function? How? (Chest pain, [place], [place], pneumonia, PE, COPD, DKA, ARF, appy, cholecystitis, CVA, Diverticulitis, Homicidal, Suicidal, threat to staff... and all critical care pts) @ -No Disposition Clinical Impression: Left knee pain Disposition: HOME SELF-CARE Condition: Good Additional Instructions: Please return to the Emergency Department if symptoms worsen or any other concerns. Please follow-up with Dr. Franco. Is patient prescribed a controlled substance at d/c from ED?: No Referrals: Jefry Castro DO [Primary Care Provider] - 1-2 days Time of Disposition: 00:00
[2023-07-23] MEDS: KETOROLAC 15 MG/ML 1 ML VIAL IM STA (00:31)
[2023-07-23] MEDS: HYDROmorphone 1 MG/ML 1 ML SYRINGE IM STA (00:32)
[2023-07-23 01:01] VITALS: BP 121/88; PULSE 95; TEMP 98.2
== END 2023-07-23 01:01 | disposition home or self-care (01) ==
LOC: EC 22:47
DX: M25.562 Pain in left knee (principal); Z88.8 Allergy status to other drugs, medicaments and biological substances
CPT/HCPCS: 99283; 96372; J1170; J1885

== ENCOUNTER 2023-07-27 02:12 | Emergency (ER) | payer OTHER ==
[2023-07-27 02:18] VITALS: BP 145/81; PULSE 106; RESP 20; TEMP 97.5
--- NOTE | 2023-07-27 02:24 | ED ---
Extremity Problem HPI - General Chief complaint: Extremity Problem,Nontraumatic Stated complaint: Knee Pain Time Seen by Provider: 07/27/23 02:20 Source: patient Mode of arrival: EMS Limitations: no limitations - History of Present Illness Initial comments: 48-year-old male presenting with chief complaint of left knee pain. Patient has history of chronic knee pain, has been seen in our ER 4 times in the last 10 days for this complaint. Patient describes the pain as a flareup of his regular chronic pain with no new features. He has had no new injury or trauma. He currently has a nerve stimulator that was performed by his neurologist. No new numbness and tingling, he does have baseline numbness and tingling from previous injury. No redness or swelling. No discoloration. No fever. - Related Data Home Medications Medication Instructions Recorded Confirmed Lurasidone HCl [Latuda] 120 mg PO DAILY 05/18/22 05/18/22 Venlafaxine HCl [Effexor XR] 75 mg PO DAILY 05/18/22 05/18/22 Venlafaxine HCl [Effexor XR] 150 mg PO DAILY 05/18/22 05/18/22 lisinopriL [Zestril] 10 mg PO DAILY PRN 05/18/22 05/18/22 metFORMIN HCL ER [Glucophage XR] 500 mg PO HS 05/18/22 05/18/22 rOPINIRole HCL [Requip] 0.5 mg PO BID PRN 05/18/22 05/18/22 Previous Rx's Medication Instructions Recorded Acetaminophen Tab [Tylenol] 650 mg PO Q6HR PRN tab 05/20/22 HYDROmorphone [Dilaudid] 2 mg PO DAILY PRN #0 05/20/22 Allergies Allergy/AdvReac Type Severity Reaction Status Date / Time bupropion HCl Allergy Unknown Verified 07/19/23 20:44 [From Wellbutrin] Review of Systems ROS Statement: Those systems with pertinent positive or pertinent negative responses have been documented in the HPI. ROS Other: All systems not noted in ROS Statement are negative. Past Medical History Past Medical History: Hyperlipidemia Additional Past Medical History / Comment(s): restless leg syndrome. Complex regional pain syndrome to left lower extremity History of Any Multi-Drug Resistant Organisms: None Reported Additional Past Surgical History / Comment(s): FINGER AMPUTATION LEFT INDEX FINGER IN 1999, HILARIO PLACED AND REMOVED FROM LEFT LEG IN 2002 hardware removal from left ORIF lower extremity, distal tip of the finger slightly amputated after injury Past Anesthesia/Blood Transfusion Reactions: No Reported Reaction Past Psychological History: Anxiety, Depression Smoking Status: Never smoker Past Alcohol Use History: Occasional Past Drug Use History: None Reported - Past Family History Father Family Medical History: No Reported History Mother Family Medical History: No Reported History Brother(s) Family Medical History: No Reported History (Depression and anxiety) General Exam Limitations: no limitations General appearance: alert, in no apparent distress Head exam: Present: atraumatic, normocephalic Eye exam: Present: normal appearance, EOMI Neck exam: Present: normal inspection. Absent: meningismus Respiratory exam: Absent: respiratory distress Left Knee exam: Present: normal inspection, tenderness. Absent: full ROM, swelling, abrasion, ecchymosis, deformity, dislocation, erythema Neurovascular tendon exam: Present: no vascular compromise Neurological exam: Present: alert, oriented X3 Psychiatric exam: Present: normal affect, normal mood Skin exam: Present: warm, dry, normal color Course Vital Signs 07/27/23 02:15 Temperature 97.5 F L Pulse Rate 106 H Respiratory 20 Rate Blood Pressure 145/81 O2 Sat by Pulse 98 Oximetry Medical Decision Making - Medical Decision Making Was pt. sent in by a medical professional or institution (RINKU Serrano, SENIOR SCRUM MASTER, urgent care, hospital, or detention...) When possible be specific @ -No Did you speak to anyone other than the patient for history (EMS, parent, family, police, friend...)? What history was obtained from this source @ -No Did you review nursing and triage notes (agree or disagree)? Why? @ -I reviewed and agree with nursing and triage notes Were old charts reviewed (outside hosp., previous admission, EMS record, old EKG, old radiological studies, urgent care reports/EKG's, detention records)? Report findings @ -I reviewed the patient's numerous visits for his chronic knee pain Differential Diagnosis (chest pain, altered mental status, abdominal pain women, abdominal pain men, vaginal bleeding, weakness, fever, dyspnea, syncope, headache, dizziness, GI bleed, back pain, seizure, CVA, palpatations, mental health, musculoskeletal)? @ -Differential Musculoskeletal Muscular strain, contusion, ligament sprain, fracture, arthritis, septic arthritis, bursitis, cellulitis, muscle spasm, nerve compression, DVT, arterial occlusion, herpes zoster, electrolyte abnormality, tumor.... This is not meant to be in all inclusive list EKG interpreted by me (3pts min.). @ -As above X-rays interpreted by me (1pt min.). @ -None done CT interpreted by me (1pt min.). @ -None done U/S interpreted by me (1pt. min.). @ -None done What testing was considered but not performed or refused? (CT, X-rays, U/S, labs)? Why? @ -None What meds were considered but not given or refused? Why? @ -None Did you discuss the management of the patient with other professionals (professionals i.e. , PA, SENIOR SCRUM MASTER, lab, RT, psych nurse, social media content specialist, acid cutter, teacher, information security officer, correctional case records supervisor)? Give summary @ -No Was smoking cessation discussed for >3mins.? @ -No Was critical care preformed (if so, how long)? @ -No Were there social determinants of health that impacted care today? How? (Homelessness, low income, unemployed, alcoholism, drug addiction, transportation, low edu. Level, literacy, decrease access to med. care, fpc, rehab)? @ -No Was there de-escalation of care discussed even if they declined (Discuss DNR or withdrawal of care, Hospice)? DNR status @ -No What co-morbidities impacted this encounter? (DM, HTN, Smoking, COPD, CAD, Cancer, CVA, ARF, Chemo, Hep., AIDS, mental health diagnosis, sleep apnea, morbid obesity)? @ -None Was patient admitted / discharged? Hospital course, mention meds given and rout e, prescriptions, significant lab abnormalities, going to OR and other pertinent info. @ -48-year-old male presenting with chief complaint of left-sided knee pain. He has history of chronic pain and states that this does feel like a flareup of his regular chronic pain. He has had no new injury or trauma. No vascular compromise. No evidence of infectious process. No obvious deformity. Patient does have a neurostimulator. Provided with Toradol for his pain and discharged in stable condition. He should follow-up with his PCP and neurologist and report back to ER with any new or worsening symptoms. I discussed this case with my attending Dr. Allan. Undiagnosed new problem with uncertain prognosis? @ -No Drug Therapy requiring intensive monitoring for toxicity (Heparin, Nitro, Insuli n, Cardizem)? @ -No Were any procedures done? @ -No Diagnosis/symptom? @ -Complex regional pain syndrome, left knee pain Acute, or Chronic, or Acute on Chronic? @ -Acute on chronic Uncomplicated (without systemic symptoms) or Complicated (systemic symptoms)? @ -Uncomplicated Side effects of treatment? @ -No Exacerbation, Progression, or Severe Exacerbation? @ -No Poses a threat to life or bodily function? How? (Chest pain, [place], [place], pneumonia, PE, COPD, DKA, ARF, appy, cholecystitis, CVA, Diverticulitis, Homicidal, Suicidal, threat to staff... and all critical care pts) @ -No Disposition Clinical Impression: Chronic pain of left knee Disposition: HOME SELF-CARE Condition: Good Instructions (If sedation given, give patient instructions): Knee Pain (ED) Additional Instructions: Follow-up with PCP. Report back to ER with any new or worsening symptoms. Is patient prescribed a controlled substance at d/c from ED?: No Referrals: Jefry Castro DO [Primary Care Provider] - 1-2 days Time of Disposition: 02:24
[2023-07-27] MEDS: KETOROLAC 15 MG/ML 1 ML VIAL IM STA (02:33)
== END 2023-07-27 02:34 | disposition home or self-care (01) ==
LOC: EC 02:12
DX: G89.29 Other chronic pain (principal); M25.562 Pain in left knee; Z88.8 Allergy status to other drugs, medicaments and biological substances
CPT/HCPCS: 99284; 96372; J1885

== ENCOUNTER 2023-07-27 02:52 | Emergency (ER) | payer OTHER ==
[2023-07-27 02:58] VITALS: TEMP 97.9
--- NOTE | 2023-07-27 03:27 | ED ---
Extremity Problem HPI - General Stated complaint: Knee Pain, Panic Attack Time Seen by Provider: 07/27/23 03:00 Source: patient, family Mode of arrival: wheelchair Limitations: no limitations - History of Present Illness Initial comments: 48-year-old male who presents to the emergency department with leg pain. Patient has chronic knee pain. He is currently under the care of a paint spray inspector. He recently had a stimulator placed. He presents today stating that his pain is intractable. Patient has frequent visits to the emergency department in the middle of the night for pain medications. He specifically asked for Dilaudid and states that no other medication works. Patient signed in as a patient and was seen by the midlevel provider. She gave him a dose of Toradol and discharged the patient. Patient was not satisfied without receiving narcotics and therefore he checked back in. His mother is at bedside and states that he is now having a panic attack because he did not get his Dilaudid. The panic attack consists of the patient's throwing his phone in the waiting room. Patient at this time is calm and cooperative. He is laying in bed with his eyes closed. There is no report of any new injuries to that extremity. No redness, warmth or swelling. Mother at bedside is insistent that she is not taking the patient home until he receives Dilaudid - Related Data Home Medications Medication Instructions Recorded Confirmed Lurasidone HCl [Latuda] 120 mg PO DAILY 05/18/22 05/18/22 Venlafaxine HCl [Effexor XR] 75 mg PO DAILY 05/18/22 05/18/22 Venlafaxine HCl [Effexor XR] 150 mg PO DAILY 05/18/22 05/18/22 lisinopriL [Zestril] 10 mg PO DAILY PRN 05/18/22 05/18/22 metFORMIN HCL ER [Glucophage XR] 500 mg PO HS 05/18/22 05/18/22 rOPINIRole HCL [Requip] 0.5 mg PO BID PRN 05/18/22 05/18/22 Previous Rx's Medication Instructions Recorded Acetaminophen Tab [Tylenol] 650 mg PO Q6HR PRN tab 05/20/22 HYDROmorphone [Dilaudid] 2 mg PO DAILY PRN #0 05/20/22 Allergies Allergy/AdvReac Type Severity Reaction Status Date / Time bupropion HCl Allergy Unknown Verified 07/19/23 20:44 [From Wellbutrin] Review of Systems ROS Statement: Those systems with pertinent positive or pertinent negative responses have been documented in the HPI. ROS Other: All systems not noted in ROS Statement are negative. Past Medical History Past Medical History: Hyperlipidemia Additional Past Medical History / Comment(s): restless leg syndrome. Complex regional pain syndrome to left lower extremity History of Any Multi-Drug Resistant Organisms: None Reported Additional Past Surgical History / Comment(s): FINGER AMPUTATION LEFT INDEX FINGER IN 1999, HILARIO PLACED AND REMOVED FROM LEFT LEG IN 2002 hardware removal from left ORIF lower extremity, distal tip of the finger slightly amputated after injury Past Anesthesia/Blood Transfusion Reactions: No Reported Reaction Past Psychological History: Anxiety, Depression Smoking Status: Never smoker Past Alcohol Use History: Occasional Past Drug Use History: None Reported - Past Family History Father Family Medical History: No Reported History Mother Family Medical History: No Reported History Brother(s) Family Medical History: No Reported History (Depression and anxiety) General Exam Limitations: no limitations General appearance: alert, in no apparent distress Head exam: Present: atraumatic, normocephalic, normal inspection Respiratory exam: Present: normal lung sounds bilaterally. Absent: respiratory distress, wheezes, rales, rhonchi, stridor Cardiovascular Exam: Present: tachycardia Neurological exam: Present: alert Psychiatric exam: Present: flat affect Course Vital Signs 07/27/23 07/27/23 02:55 03:00 Temperature 97.9 F Pulse Rate 115 H 82 Respiratory 20 18 Rate Blood Pressure 109/73 130/84 O2 Sat by Pulse 99 96 Oximetry Medical Decision Making - Medical Decision Making Was pt. sent in by a medical professional or institution (, PA, METER TESTER, urgent care, hospital, or prison...) When possible be specific @ -No Did you speak to anyone other than the patient for history (EMS, parent, family, police, friend...)? What history was obtained from this source @ -I spoke with the patient's mother who insist that he is having a panic attack because he threw his phone after he was refused opiate pain medications Did you review nursing and triage notes (agree or disagree)? Why? @ -I reviewed and agree with nursing and triage notes Were old charts reviewed (outside hosp., previous admission, EMS record, old EKG, old radiological studies, urgent care reports/EKG's, prison records)? Report findings @ -No old charts were reviewed Differential Diagnosis (chest pain, altered mental status, abdominal pain women, abdominal pain men, vaginal bleeding, weakness, fever, dyspnea, syncope, headache, dizziness, GI bleed, back pain, seizure, CVA, palpatations, mental health, musculoskeletal)? @ -Differential Musculoskeletal Muscular strain, contusion, ligament sprain, fracture, arthritis, septic arthritis, bursitis, cellulitis, muscle spasm, nerve compression, DVT, arterial occlusion, herpes zoster, electrolyte abnormality, tumor.... This is not meant to be in all inclusive list EKG interpreted by me (3pts min.). @ -Not done X-rays interpreted by me (1pt min.). @ -None done CT interpreted by me (1pt min.). @ -None done U/S interpreted by me (1pt. min.). @ -None done What testing was considered but not performed or refused? (CT, X-rays, U/S, labs)? Why? @ -X-ray and ultrasound were considered however the patient has had chronic pain without change in the severity and consistency of his pain. No new injuries What meds were considered but not given or refused? Why? @ -None Did you discuss the management of the patient with other professionals (professionals i.e. , PA, METER TESTER, lab, RT, psych nurse, manager social responsibility, winderman, teacher, building drafting officer, case coordinator)? Give summary @ -No Was smoking cessation discussed for >3mins.? @ -No Was critical care preformed (if so, how long)? @ -No Were there social determinants of health that impacted care today? How? (Homelessness, low income, unemployed, alcoholism, drug addiction, transportation, low edu. Level, literacy, decrease access to med. care, correction, rehab)? @ -No Was there de-escalation of care discussed even if they declined (Discuss DNR or withdrawal of care, Hospice)? DNR status @ -No What co-morbidities impacted this encounter? (DM, HTN, Smoking, COPD, CAD, Cancer, CVA, ARF, Chemo, Hep., AIDS, mental health diagnosis, sleep apnea, mor bid obesity)? @ -Complex regional pain syndrome Was patient admitted / discharged? Hospital course, mention meds given and route, prescriptions, significant lab abnormalities, going to OR and other p ertinent info. @ -Upon arrival patient seen and evaluated in room 19. Thorough history and physical exam was performed. Patient has been seen in the emergency department several times for the same complaint. Patient has been seen several times by myself. He has no acute changes in the severity and consistency of his pain. He has no new injuries. There is no concern for infection. He is requesting Dilaudid as this is the only medication that works for him. I did voice my concern that the patient is presenting to the emergency department several times per week for the same complaint. Informed the patient and his mother that the emergency department does not treat chronic pain and that this must be addressed with his pain management doctor. I offered other treatment options other than narcotics however the mother states that the patient will not be satisfied until he gets Dilaudid. I informed her that I am concerned about the patient's misuse of opiates through the emergency department and I do not feel that this is a long-term resolution. I stressed that they need to follow-up with her pain management doctor for better control of his pain and that I do not feel comfortable dose and Dilaudid because it has been demanded. Patient was discharged and instructed to return to the emergency department when there are new symptoms Undiagnosed new problem with uncertain prognosis? @ -No Drug Therapy requiring intensive monitoring for toxicity (Heparin, Nitro, Insulin, Cardizem)? @ -No Were any procedures done? @ -No Diagnosis/symptom? @ -Chronic left knee pain Acute, or Chronic, or Acute on Chronic? @ -Chronic Uncomplicated (without systemic symptoms) or Complicated (systemic symptoms)? @ -Uncomplicated Side effects of treatment? @ -No Exacerbation, Progression, or Severe Exacerbation? @ -No Poses a threat to life or bodily function? How? (Chest pain, [place], [place], pneumonia, PE, COPD, DKA, ARF, appy, cholecystitis, CVA, Diverticulitis, Homicidal, Suicidal, threat to staff... and all critical care pts) @ -No Disposition Clinical Impression: Chronic pain of left knee, Drug-seeking behavior Disposition: HOME SELF-CARE Condition: Stable Additional Instructions: We do not provide narcotics for chronic pain. Please see your pain management doctor for better pain control Is patient prescribed a controlled substance at d/c from ED?: No Referrals: Jefry Castro DO [Primary Care Provider] - 1-2 days Time of Disposition: 03:27
[2023-07-27 05:18] VITALS: BP 130/84; PULSE 82; RESP 18
== END 2023-07-27 03:46 | disposition home or self-care (01) ==
LOC: EC 02:52
DX: G89.29 Other chronic pain (principal); M25.562 Pain in left knee; Z76.5 Malingerer [conscious simulation]; Z88.8 Allergy status to other drugs, medicaments and biological substances
CPT/HCPCS: 99283

== ENCOUNTER 2023-08-06 07:51 | Emergency (ER) | payer OTHER ==
[2023-08-06 07:58] VITALS: RESP 18; TEMP 98.2
[2023-08-06] MEDS: ACETAMINOPHEN TAB 500 MG TAB PO STA (08:41)
[2023-08-06] MEDS: SODIUM CHLORIDE 0.9% 1,000 ML IV STA (08:41)
[2023-08-06] MEDS: LORazepam 2 MG/ML INJ IV STA ×2 (08:41→08:44)
--- NOTE | 2023-08-06 08:58 | ED ---
General Adult HPI - General Chief complaint: Anxiety Stated complaint: panic attack Time Seen by Provider: 08/06/23 08:30 Source: patient, RN notes reviewed, old records reviewed Mode of arrival: ambulatory Limitations: no limitations - History of Present Illness Initial comments: Patient is a 48-year-old male who frequents the emergency department for chronic left lower extremity pain as well as anxiety. Has a history of panic attacks. States he is having a panic attack. Take his normal medication this morning. Has been told previously and recently at that patient will not receive IV analgesia medications for chronic pain as there is no new change. I did discuss this with him upon arrival. He denies any suicidal or homicidal thoughts. Endorses mild nausea. Has no other acute complaints at this time. Denies chest pain or shortness of breath or abdominal pain. Presents for further evaluation at this time. - Related Data Home Medications Medication Instructions Recorded Confirmed Lurasidone HCl [Latuda] 120 mg PO DAILY 05/18/22 05/18/22 Venlafaxine HCl [Effexor XR] 75 mg PO DAILY 05/18/22 05/18/22 Venlafaxine HCl [Effexor XR] 150 mg PO DAILY 05/18/22 05/18/22 lisinopriL [Zestril] 10 mg PO DAILY PRN 05/18/22 05/18/22 metFORMIN HCL ER [Glucophage XR] 500 mg PO HS 05/18/22 05/18/22 rOPINIRole HCL [Requip] 0.5 mg PO BID PRN 05/18/22 05/18/22 Previous Rx's Medication Instructions Recorded Acetaminophen Tab [Tylenol] 650 mg PO Q6HR PRN tab 05/20/22 HYDROmorphone [Dilaudid] 2 mg PO DAILY PRN #0 05/20/22 Ketorolac [Toradol] 10 mg PO Q6HR PRN 5 Days #20 tab 08/06/23 Allergies Allergy/AdvReac Type Severity Reaction Status Date / Time bupropion HCl Allergy Unknown Verified 08/06/23 07:58 [From Wellbutrin] Review of Systems ROS Statement: Those systems with pertinent positive or pertinent negative responses have been documented in the HPI. Review of Systems: CONST: Denies fever EYES: Denies blurry vision ENT: Denies nasal congestion C/V: Denies Chest pain RESP: Denies shortness of breath GI: Denies abdominal pain : Denies dysuria SKIN: Denies rash. MSK: Denies joint pain. NEURO: Denies headache ROS Other: All systems not noted in ROS Statement are negative. Past Medical History Past Medical History: Hyperlipidemia Additional Past Medical History / Comment(s): restless leg syndrome. Complex regional pain syndrome to left lower extremity History of Any Multi-Drug Resistant Organisms: None Reported Additional Past Surgical History / Comment(s): FINGER AMPUTATION LEFT INDEX FINGER IN 1999, HILARIO PLACED AND REMOVED FROM LEFT LEG IN 2002 hardware removal from left ORIF lower extremity, distal tip of the finger slightly amputated after injury Past Anesthesia/Blood Transfusion Reactions: No Reported Reaction Past Psychological History: Anxiety, Depression Smoking Status: Never smoker Past Alcohol Use History: Occasional Past Drug Use History: None Reported - Past Family History Father Family Medical History: No Reported History Mother Family Medical History: No Reported History Brother(s) Family Medical History: No Reported History (Depression and anxiety) General Exam - General Exam Comments Initial Comments: General: Appears mildly anxious. HEAD: Normal with no signs of head trauma. EYES: PERRLA, EOMI, conjunctiva normal, no discharge. ENT: Hearing grossly intact, normal oropharynx. RESPIRATORY: Clear breath sounds bilaterally. No wheezes, rales, or rhonchi. C/V: Regular rate and rhythm. S1 and S2 auscultated, peripheral pulses are 2+ intact throughout. ABD: Abd is soft, nontender, nondistended EXT: Normal range of motion, no obvious deformity SKIN: No rashes or lesions observed on exposed skin. NEURO: Alert and oriented x 4. Limitations: no limitations Course Vital Signs 08/06/23 08/06/23 07:52 09:32 Temperature 98.2 F Pulse Rate 133 H 98 Respiratory 18 18 Rate Blood Pressure 129/86 109/72 O2 Sat by Pulse 98 96 Oximetry Medical Decision Making - Medical Decision Making Was pt. sent in by a medical professional or institution (RINKU Serrano, CATALYST SUPERVISOR, urgent care, hospital, or detention...) When possible be specific @ -No Did you speak to anyone other than the patient for history (EMS, parent, family, police, friend...)? What history was obtained from this source @ -No Did you review nursing and triage notes (agree or disagree)? Why? @ -I reviewed and agree with nursing and triage notes Were old charts reviewed (outside hosp., previous admission, EMS record, old EKG, old radiological studies, urgent care reports/EKG's, detention records)? Report findings @ -Old charts reviewed from July 27, 2023 when patient was here twice. At that time he was informed he will not be given IV analgesia medications. Patient has been here a total of 20 times since the first of this year. Follows up with pain management. Patient always presents for leg pain or panic attack over this period of time. Differential Diagnosis (chest pain, altered mental status, abdominal pain women, abdominal pain men, vaginal bleeding, weakness, fever, dyspnea, syncope, headache, dizziness, GI bleed, back pain, seizure, CVA, palpatations, mental health, musculoskeletal)? @ -Chronic leg pain, anxiety, pain medication seeking behavior. This list is not all inclusive. EKG interpreted by me (3pts min.). @ -None done X-rays interpreted by me (1pt min.). @ -None done CT interpreted by me (1pt min.). @ -None done U/S interpreted by me (1pt. min.). @ -None done What testing was considered but not performed or refused? (CT, X-rays, U/S, labs)? Why? @ -None What meds were considered but not given or refused? Why? @ -Considered narcotic analgesia medications however as patient has chronic pain he will not be administered these. He is already on pain medications and follows up with a pain specialist for this. I did tell the patient this. He will be given [id number] analgesia medications such as acetaminophen while here in the department. Did you discuss the management of the patient with other professionals (professionals i.e. , PA, CATALYST SUPERVISOR, lab, RT, psych nurse, social service manager, child care counselor, teacher, budget officer, nurse case management)? Give summary @ -No Was smoking cessation discussed for >3mins.? @ -No Was critical care preformed (if so, how long)? @ -No Were there social determinants of health that impacted care today? How? (Home lessness, low income, unemployed, alcoholism, drug addiction, transportation, low edu. Level, literacy, decrease access to med. care, [facility], rehab)? @ -No Was there de-escalation of care discussed even if they declined (Discuss DNR or withdrawal of care, Hospice)? DNR status @ -No What co-morbidities impacted this encounter? (DM, HTN, Smoking, COPD, CAD, Cancer, CVA, ARF, Chemo, Hep., AIDS, mental health diagnosis, sleep apnea, morbid obesity)? @ -Chronic left lower extremity pain Was patient admitted / discharged? Hospital course, mention meds given and route, prescriptions, significant lab abnormalities, going to OR and other pertinent info. @ -Patient presents with chronic pain as well as panic attack. He was told immediately upon arrival he will not be receiving IV analgesia medications for his chronic pain, which has been relayed to him in the past. He expressed understanding. I will treat his panic attack with a dose of Ativan as well as fluids and we will check basic labs. Patient in agreement this plan. Vital signs show mild tachycardia but patient otherwise resting comfortably at this time. Labs returned unremarkable and within acceptable limits. On reevaluation, patient is feeling improved. He is requesting a dose of Toradol at this time and this will be administered. I can also provide him with a short course of outpatient ketorolac. Patient in agreement this plan. Recommended follow-up with his pain management physician for further pain control and he was in agreement this plan. Patient be discharged home at this time. I will provide the patient with a prescription for ketorolac. I instructed the patient to follow up with their PCP in the next 1-3 days.. I explained that the patient should return to the emergency department if they experience any worsening symptoms. Strict return precautions were discussed with the patient. The patient expressed understanding of these instructions. I answered all questions that the patient had. The patient was discharged home in good condition with their prescriptions and follow up information. Undiagnosed new problem with uncertain prognosis? @ -No Drug Therapy requiring intensive monitoring for toxicity (Heparin, Nitro, Insulin, Cardizem)? @ -No Were any procedures done? @ -No Diagnosis/symptom? @ -Chronic pain, panic attack Acute, or Chronic, or Acute on Chronic? @ -Acute on chronic Uncomplicated (without systemic symptoms) or Complicated (systemic symptoms)? @ -Uncomplicated Side effects of treatment? @ -None Exacerbation, Progression, or Severe Exacerbation] @ -No Poses a threat to life or bodily function? @ -Unlikely - Lab Data Result diagrams: 08/06/23 08:37 08/06/23 08:37 Lab Results 08/06/23 08/06/23 Range/Units 08:37 08:37 WBC 9.3 (3.8-10.6) k/uL RBC 5.12 (4.30-5.90) m/uL Hgb 15.7 (13.0-17.5) gm/dL Hct 46.3 (39.0-53.0) % MCV 90.4 (80.0-100.0) fL MCH 30.6 (25.0-35.0) pg MCHC 33.9 (31.0-37.0) g/dL RDW 13.3 (11.5-15.5) % Plt Count 235 (150-450) k/uL MPV 8.0 Neutrophils % 83 % Lymphocytes % 10 % Monocytes % 6 % Eosinophils % 1 % Basophils % 0 % Neutrophils # 7.7 (1.3-7.7) k/uL Lymphocytes # 0.9 L (1.0-4.8) k/uL Monocytes # 0.5 (0-1.0) k/uL Eosinophils # 0.0 (0-0.7) k/uL Basophils # 0.0 (0-0.2) k/uL Sodium 138 (137-145) mmol/L Potassium 4.6 (3.5-5.1) mmol/L Chloride 107 (98-107) mmol/L Carbon Dioxide 23 (22-30) mmol/L Anion Gap 8 mmol/L BUN 25 H (9-20) mg/dL Creatinine 1.26 H (0.66-1.25) mg/dL Est GFR (CKD-EPI)AfAm 77 (>60 ml/min/1.73 sqM) Est GFR (CKD-EPI)NonAf 67 (>60 ml/min/1.73 sqM) Glucose 150 H (74-99) mg/dL Calcium 9.1 (8.4-10.2) mg/dL Disposition Clinical Impression: Panic attack, Chronic pain Disposition: HOME SELF-CARE Condition: Good Instructions (If sedation given, give patient instructions): Generalized Anxiety Disorder (ED) Prescriptions: Ketorolac [Toradol] 10 mg PO Q6HR PRN 5 Days #20 tab PRN Reason: Pain Is patient prescribed a controlled substance at d/c from ED?: No Referrals: Jefry Castro DO [Primary Care Provider] - 1-2 days Time of Disposition: 09:45
[2023-08-06 09:02] LABS: African American GFR (CKD) 77 (>60 ml/min/1.73 sqM); Anion Gap 8 mmol/L; Blood Urea Nitrogen 25 mg/dL (9-20); Calcium 9.1 mg/dL (8.4-10.2); Carbon Dioxide 23 mmol/L (22-30); Chloride 107 mmol/L (98-107); Glucose 150 mg/dL (74-99); Non-African American GFR(CKD) 67 (>60 ml/min/1.73 sqM); Potassium 4.6 mmol/L (3.5-5.1); Sodium 138 mmol/L (137-145)
[2023-08-06 09:05] LABS: Basophils % (A) 0 %; Eosinophils % (A) 1 %; HCT 46.3 % (39.0-53.0); HGB 15.7 gm/dL (13.0-17.5); Lymphocytes # (A) 0.9 k/uL (1.0-4.8); Lymphocytes % (A) 10 %; MCH 30.6 pg (25.0-35.0); MCHC 33.9 g/dL (31.0-37.0); MCV 90.4 fL (80.0-100.0); Monocytes # (A) 0.5 k/uL (0-1.0); Monocytes % (A) 6 %; Neutrophils # (A) 7.7 k/uL (1.3-7.7); Neutrophils % (A) 83 %; Platelet Count 235 k/uL (150-450); RBC 5.12 m/uL (4.30-5.90); RDW 13.3 % (11.5-15.5); WBC 9.3 k/uL (3.8-10.6)
[2023-08-06 09:33] VITALS: BP 109/72; PULSE 98
[2023-08-06] MEDS: KETOROLAC 15 MG/ML 1 ML VIAL IVP STA (09:50)
== END 2023-08-06 11:16 | disposition home or self-care (01) ==
LOC: EC 07:51
DX: G89.29 Other chronic pain (principal); F41.0 Panic disorder [episodic paroxysmal anxiety]; Z88.8 Allergy status to other drugs, medicaments and biological substances
CPT/HCPCS: 36415; 80048; 85025; 99284; 96374; 96375; 96361; J2060; J1885

== ENCOUNTER 2023-09-17 04:44 | Emergency (ER) | payer OTHER ==
[2023-09-17 04:51] VITALS: RESP 18; TEMP 98.6
[2023-09-17] MEDS: diphenhydrAMINE 50 MG/ML 1 ML VIAL IM STA (06:21)
[2023-09-17] MEDS: KETOROLAC 15 MG/ML 1 ML VIAL IM STA (06:21)
--- NOTE | 2023-09-17 06:39 | ED ---
General Adult HPI - General Chief complaint: Extremity Injury, Lower Stated complaint: Knee Pain Time Seen by Provider: 09/17/23 05:08 Source: EMS Mode of arrival: EMS Limitations: no limitations - History of Present Illness Initial comments: This patient is a 48-year-old man who presents to have treatment for chronic knee pain. The patient relates that probably around 20 years ago he had a knee injury. He states that since that time he has had chronic pain, even having a nerve stimulator implanted. Patient states that he still occasionally gets flareups and he is having 1 tonight. No recent trauma. No fever or chills. -: hour(s) Location: lower extremity Radiation: non-radiation Quality: aching Consistency: constant Improves with: none Worsens with: none Associated Symptoms: denies other symptoms Treatments Prior to Arrival: other - Related Data Home Medications Medication Instructions Recorded Confirmed Lurasidone HCl [Latuda] 120 mg PO HS 05/18/22 10/21/23 Venlafaxine HCl [Effexor XR] 75 mg PO DAILY 05/18/22 10/21/23 Venlafaxine HCl [Effexor XR] 150 mg PO DAILY 05/18/22 10/21/23 lisinopriL [Zestril] 10 mg PO DAILY 05/18/22 10/21/23 metFORMIN HCL ER [Glucophage XR] 500 mg PO DAILY 05/18/22 10/21/23 rOPINIRole HCL [Requip] 0.5 mg PO BID PRN 05/18/22 10/21/23 Cyclobenzaprine [Flexeril] 10 mg PO TID PRN 10/21/23 10/21/23 HYDROcodone/APAP 5-325MG [Esmond 1 tab PO Q6H PRN 10/21/23 10/21/23 5-325] Simvastatin [Zocor] 20 mg PO HS 10/21/23 10/21/23 clonazePAM [KlonoPIN] 2 mg PO BID PRN 10/21/23 10/21/23 Allergies Allergy/AdvReac Type Severity Reaction Status Date / Time bupropion HCl Allergy Rash/Hives Verified 10/21/23 11:23 [From Wellbutrin] droperidol Allergy Hallucinations/Increased Verified 10/21/23 11:23 Anxiety Review of Systems ROS Statement: Those systems with pertinent positive or pertinent negative responses have been documented in the HPI. ROS Other: All systems not noted in ROS Statement are negative. Constitutional: Denies: fever, chills Respiratory: Denies: cough, dyspnea Cardiovascular: Denies: chest pain, palpitations Musculoskeletal: Reports: as per HPI, joint swelling Past Medical History Past Medical History: Hyperlipidemia Additional Past Medical History / Comment(s): restless leg syndrome. Complex regional pain syndrome to left lower extremity History of Any Multi-Drug Resistant Organisms: None Reported Additional Past Surgical History / Comment(s): FINGER AMPUTATION LEFT INDEX FINGER IN 1999, HILARIO PLACED AND REMOVED FROM LEFT LEG IN 2002 hardware removal from left ORIF lower extremity, distal tip of the finger slightly amputated after injury Past Anesthesia/Blood Transfusion Reactions: No Reported Reaction Past Psychological History: Anxiety, Depression Smoking Status: Never smoker Past Alcohol Use History: Occasional Past Drug Use History: None Reported - Past Family History Father Family Medical History: No Reported History Mother Family Medical History: No Reported History Brother(s) Family Medical History: No Reported History (Depression and anxiety) General Exam Limitations: no limitations General appearance: alert, in no apparent distress Respiratory exam: Present: normal lung sounds bilaterally. Absent: respiratory distress, wheezes, rales, rhonchi, stridor, accessory muscle use Cardiovascular Exam: Present: regular rate, normal rhythm, normal heart sounds. Absent: systolic murmur, diastolic murmur, rubs, gallop Extremities exam: Present: normal inspection, full ROM, normal capillary refill, other (The patient's knee does not display any abnormal warmth, erythema, or other findings. Range of motion not limited.). Absent: tenderness, pedal edema, calf tenderness Skin exam: Present: warm, dry, intact, normal color. Absent: rash Course Vital Signs 09/17/23 09/17/23 04:50 07:13 Temperature 98.6 F Pulse Rate 129 H 88 Respiratory 18 18 Rate Blood Pressure 129/92 100/76 O2 Sat by Pulse 97 97 Oximetry Medical Decision Making - Medical Decision Making Was pt. sent in by a medical professional or institution (, PA, SONG WRITER, urgent care, hospital, or fdc...) When possible be specific @ -[No] Did you speak to anyone other than the patient for history (EMS, parent, family, police, friend...)? What history was obtained from this source @ -[No] Did you review nursing and triage notes (agree or disagree)? Why? @ -[I reviewed and agree with nursing and triage notes] Were old charts reviewed (outside hosp., previous admission, EMS record, old EKG, old radiological studies, urgent care reports/EKG's, fdc records)? Report findings @ -[No old charts were reviewed] Differential Diagnosis (chest pain, altered mental status, abdominal pain women, abdominal pain men, vaginal bleeding, weakness, fever, dyspnea, syncope, headache, dizziness, GI bleed, back pain, seizure, CVA, palpatations, mental health, musculoskeletal)? @ -[Differential Musculoskeletal Muscular strain, contusion, ligament sprain, fracture, arthritis, septic arthritis, bursitis, cellulitis, muscle spasm, nerve compression, DVT, arterial occlusion, herpes zoster, electrolyte abnormality, tumor.... This is not meant to be in all inclusive list EKG interpreted by me (3pts min.). @ -[As above] X-rays interpreted by me (1pt min.). @ -[None done] CT interpreted by me (1pt min.). @ -[None done] U/S interpreted by me (1pt. min.). @ -[None done] What testing was considered but not performed or refused? (CT, X-rays, U/S, labs)? Why? @ -[None] What meds were considered but not given or refused? Why? @ -[None] Did you discuss the management of the patient with other professionals (professionals i.e. , PA, SONG WRITER, lab, RT, psych nurse, social science teacher, optical sales associate, teacher, parole hearing officer, case assistant)? Give summary @ -[No] Was smoking cessation discussed for >3mins.? @ -[No] Was critical care preformed (if so, how long)? @ -[No] Were there social determinants of health that impacted care today? How? (Homelessness, low income, unemployed, alcoholism, drug addiction, transportation, low edu. Level, literacy, decrease access to med. care, correction, rehab)? @ -[No] Was there de-escalation of care discussed even if they declined (Discuss DNR or withdrawal of care, Hospice)? DNR status @ -[No] What co-morbidities impacted this encounter? (DM, HTN, Smoking, COPD, CAD, Cancer, CVA, ARF, Chemo, Hep., AIDS, mental health diagnosis, sleep apnea, morbid obesity)? @ -[None] Was patient admitted / discharged? Hospital course, mention meds given and route, prescriptions, significant lab abnormalities, going to OR and other pertinent info. @ -[This patient is a 48-year-old man with chronic knee pain, here with flare of the same. No findings on the exam that are concerning for acute process. 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 Undiagnosed new problem with uncertain prognosis? @ -[No] Drug Therapy requiring intensive monitoring for toxicity (Heparin, Nitro, Insulin, Cardizem)? @ -[No] Were any procedures done? @ -[No] Diagnosis/symptom? @ -[Acute exacerbation of chronic knee pain Acute, or Chronic, or Acute on Chronic? @ -[Acute on chronic Uncomplicated (without systemic symptoms) or Complicated (systemic symptoms)? @ -[Uncomplicated Side effects of treatment? @ -[No] Exacerbation, Progression, or Severe Exacerbation? @ -[No] Poses a threat to life or bodily function? How? (Chest pain, [place], [place], pneumonia, PE, COPD, DKA, ARF, appy, cholecystitis, CVA, Diverticulitis, Homicidal, Suicidal, threat to staff... and all critical care pts) @ -[No] Disposition Clinical Impression: Left leg pain Disposition: HOME SELF-CARE Condition: Good Instructions (If sedation given, give patient instructions): Knee Pain (ED) Is patient prescribed a controlled substance at d/c from ED?: No Referrals: Jefry Castro DO [Primary Care Provider] - 1-2 days
[2023-09-17 07:14] VITALS: BP 100/76; PULSE 88
== END 2023-09-17 07:14 | disposition home or self-care (01) ==
LOC: EC 04:44
DX: M79.605 Pain in left leg (principal); Z88.8 Allergy status to other drugs, medicaments and biological substances
CPT/HCPCS: 96372 ×2; 99284; J1200; J1885

== ENCOUNTER 2023-09-20 23:34 | Emergency (ER) | payer OTHER ==
[2023-09-21 00:24] VITALS: TEMP 98.2
--- NOTE | 2023-09-21 01:02 | ED ---
General Adult HPI - General Chief complaint: Extremity Injury, Lower Stated complaint: L Leg Pain Time Seen by Provider: 09/21/23 00:52 Source: patient Mode of arrival: wheelchair - History of Present Illness Initial comments: Patient is a 48-year-old gentleman with a history of chronic pain in the left lower extremity from an accident in 2002. Patient reports over the past few years the pain has been progressively worsening he is following with neurology Dr. Amaya he had a nerve stimulator placed in the leg about 6 weeks ago and states he had improvement in the pain for about 4 weeks but over the past 2 weeks it has been worsening. Patient states he cannot sleep tonight due to the pain. Patient currently only taking Tylenol and ibuprofen at home. States that previously he was on gabapentin but it did not seem to help so his discontinued use of that. Denies any new injuries states that this is an exacerbation of his chronic pain. - Related Data Home Medications Medication Instructions Recorded Confirmed Lurasidone HCl [Latuda] 120 mg PO DAILY 05/18/22 05/18/22 Venlafaxine HCl [Effexor XR] 75 mg PO DAILY 05/18/22 05/18/22 Venlafaxine HCl [Effexor XR] 150 mg PO DAILY 05/18/22 05/18/22 lisinopriL [Zestril] 10 mg PO DAILY PRN 05/18/22 05/18/22 metFORMIN HCL ER [Glucophage XR] 500 mg PO HS 05/18/22 05/18/22 rOPINIRole HCL [Requip] 0.5 mg PO BID PRN 05/18/22 05/18/22 Previous Rx's Medication Instructions Recorded Acetaminophen Tab [Tylenol] 650 mg PO Q6HR PRN tab 05/20/22 HYDROmorphone [Dilaudid] 2 mg PO DAILY PRN #0 05/20/22 Ketorolac [Toradol] 10 mg PO Q6HR PRN 5 Days #20 tab 08/06/23 Allergies Allergy/AdvReac Type Severity Reaction Status Date / Time bupropion HCl Allergy Unknown Verified 09/17/23 04:51 [From Wellbutrin] Review of Systems ROS Statement: Those systems with pertinent positive or pertinent negative responses have been documented in the HPI. ROS Other: All systems not noted in ROS Statement are negative. Past Medical History Past Medical History: Hyperlipidemia Additional Past Medical History / Comment(s): restless leg syndrome. Complex regional pain syndrome to left lower extremity History of Any Multi-Drug Resistant Organisms: None Reported Additional Past Surgical History / Comment(s): FINGER AMPUTATION LEFT INDEX FINGER IN 1999, HILARIO PLACED AND REMOVED FROM LEFT LEG IN 2002 hardware removal from left ORIF lower extremity, distal tip of the finger slightly amputated after injury Past Anesthesia/Blood Transfusion Reactions: No Reported Reaction Past Psychological History: Anxiety, Depression Smoking Status: Never smoker Past Alcohol Use History: Occasional Past Drug Use History: None Reported - Past Family History Father Family Medical History: No Reported History Mother Family Medical History: No Reported History Brother(s) Family Medical History: No Reported History (Depression and anxiety) General Exam - General Exam Comments Initial Comments: Physical Exam GENERAL: Patient is well-developed and well-nourished Patient is nontoxic and well-hydrated and is in no distress HENT: Normocephalic, Atraumatic. EYES: PERRL, EOMI PULMONARY: Unlabored respirations. CARDIOVASCULAR: RRR Warm and well perfused extremities ABDOMEN: Non-distended SKIN: Well healed scars over left lower extremity : Deferred NEUROLOGIC: Alert and oriented Normal speech MUSCULOSKELETAL: No acute injury noted PSYCHIATRIC: No SI/HI Course Vital Signs 09/21/23 00:22 Temperature 98.2 F Pulse Rate 107 H Respiratory 18 Rate Blood Pressure 112/74 O2 Sat by Pulse 97 Oximetry Medical Decision Making - Medical Decision Making Was pt. sent in by a medical professional or institution (, PA, MILLINERY DESIGNER, urgent care, hospital, or intermediate...) When possible be specific @ -No Did you speak to anyone other than the patient for history (EMS, parent, family, police, friend...)? What history was obtained from this source @ -No Did you review nursing and triage notes (agree or disagree)? Why? @ -I reviewed and agree with nursing and triage notes Were old charts reviewed (outside hosp., previous admission, EMS record, old EKG, old radiological studies, urgent care reports/EKG's, intermediate records)? Report findings @ -Visits were reviewed patient with frequent visits with same complaint Differential Diagnosis (chest pain, altered mental status, abdominal pain women, abdominal pain men, vaginal bleeding, weakness, fever, dyspnea, syncope, headache, dizziness, GI bleed, back pain, seizure, CVA, palpatations, mental health)? @ -Not applicable EKG interpreted by me (3pts min.). @ -As above X-rays interpreted by me (1pt min.). @ -None done CT interpreted by me (1pt min.). @ -None done U/S interpreted by me (1pt. min.). @ -None done What testing was considered but not performed or refused? (CT, X-rays, U/S, labs)? Why? @ -None What meds were considered but not given or refused? Why? @ -None Did you discuss the management of the patient with other professionals (professionals i.e. Dr., PA, MILLINERY DESIGNER, lab, RT, psych nurse, social media sr strategy manager, roll grinder operator, teacher, air intelligence officer, case briefer)? Give summary @ -No Was smoking cessation discussed for >3mins.? @ -No Was critical care preformed (if so, how long)? @ -No Were there social determinants of health that impacted care today? How? (Homelessness, low income, unemployed, alcoholism, drug addiction, transportation, low edu. Level, literacy, decrease access to med. care, penitentiary, rehab)? @ -No Was there de-escalation of care discussed even if they declined (Discuss DNR or withdrawal of care, Hospice)? DNR status @ -No What co-morbidities impacted this encounter? (DM, HTN, Smoking, COPD, CAD, Cancer, CVA, ARF, Chemo, Hep., AIDS, mental health diagnosis, sleep apnea, morbid obesity)? @ -None Was patient admitted / discharged? Hospital course, mention meds given and route, prescriptions, significant lab abnormalities, going to OR and other pertinent info. @ -Discharged Patient was seen and evaluated history is obtained from the patient and his mother at bedside and review of medical record. Patient with recurrence of chronic lower extremity pain. Patient was treated with single dose of IM morphine discharged home he was advised to contact Dr. Sierra tomorrow regarding his pain stimulator. Undiagnosed new problem with uncertain prognosis? @ -No Drug Therapy requiring intensive monitoring for toxicity (Heparin, Nitro, Insulin, Cardizem)? @ -No Were any procedures done? @ -No Diagnosis/symptom? @ -Chronic pain Acute, or Chronic, or Acute on Chronic? @ -Chronic Uncomplicated (without systemic symptoms) or Complicated (systemic symptoms)? @ -Default Side effects of treatment? @ -No Exacerbation, Progression, or Severe Exacerbation? @ -No Poses a threat to life or bodily function? How? (Chest pain, [place], [place], pneumonia, PE, COPD, DKA, ARF, appy, cholecystitis, CVA, Diverticulitis, Homicidal, Suicidal, threat to staff... and all critical care pts) @ -No Disposition Clinical Impression: Left leg pain Disposition: HOME SELF-CARE Condition: Stable Is patient prescribed a controlled substance at d/c from ED?: No Referrals: Jefry Castro DO [Primary Care Provider] - 1-2 days
[2023-09-21] MEDS: MORPHINE SULFATE 4 MG/ML SYRINGE IM STA (01:41)
[2023-09-21 02:06] VITALS: BP 109/81; PULSE 88; RESP 16
== END 2023-09-21 02:08 | disposition home or self-care (01) ==
LOC: EC 23:34
DX: G89.29 Other chronic pain (principal); M79.605 Pain in left leg; Z88.8 Allergy status to other drugs, medicaments and biological substances
CPT/HCPCS: 96372; 99283

== ENCOUNTER 2023-09-28 08:17 | Emergency (ER) | payer OTHER ==
[2023-09-28] MEDS ORDERED: LORazepam 1 MG TAB ONE (08:55)
[2023-09-28] MEDS ORDERED: KETOROLAC 15 MG/ML 1 ML VIAL ONE (08:56)
[2023-09-28] MEDS ORDERED: droPERidol 5 MG/2 ML VIAL ONE (10:16)
== END 2023-09-28 13:10 | disposition home or self-care (01) ==
LOC: EC 08:17
CPT/HCPCS: 93005; 99283

== ENCOUNTER 2023-09-28 14:39 | Emergency (ER) | payer OTHER ==
[2023-09-28] MEDS ORDERED: diphenhydrAMINE 50 MG/ML 1 ML VIAL ONE (15:24)
[2023-09-28] MEDS ORDERED: HYDROcodone/APAP 5-325MG 1 EACH TAB ONE (16:40)
[2023-09-28] MEDS ORDERED: KETOROLAC 15 MG/ML 1 ML VIAL ONE (16:40)
== END 2023-09-28 17:11 | disposition home or self-care (01) ==
LOC: EC 14:39
CPT/HCPCS: 96372; 99283

== ENCOUNTER 2023-10-02 01:14 | Emergency (ER) | payer OTHER ==
[2023-10-02] MEDS ORDERED: HYDROcodone/APAP 10-325MG 1 EACH TAB ONE (03:17)
[2023-10-02] MEDS ORDERED: KETOROLAC 15 MG/ML 1 ML VIAL ONE (03:17)
== END 2023-10-02 03:30 | disposition home or self-care (01) ==
LOC: EC 01:14
DX: M79.605 Pain in left leg (principal)
CPT/HCPCS: 96372; 99283

== ENCOUNTER 2023-10-06 02:14 | Emergency (ER) | payer OTHER ==
[2023-10-06] MEDS ORDERED: KETOROLAC 15 MG/ML 1 ML VIAL ONE (06:17)
[2023-10-06] MEDS ORDERED: diphenhydrAMINE 50 MG/ML 1 ML VIAL ONE (06:18)
[2023-10-06] MEDS ORDERED: HYDROcodone/APAP 5-325MG 1 EACH TAB ONE (06:18)
== END 2023-10-06 06:30 | disposition home or self-care (01) ==
LOC: EC 02:14
CPT/HCPCS: 96372; 99283

== ENCOUNTER 2023-10-11 23:31 | Emergency (ER) | payer OTHER ==
[2023-10-11 23:35] VITALS: RESP 18; TEMP 98
--- NOTE | 2023-10-12 00:23 | ED ---
Recheck HPI - General Chief Complaint: Recheck/Abnormal Lab/Rx Stated Complaint: Difficulty Breathing, Pain in Leg Time Seen by Provider: 10/11/23 23:50 Source: patient, RN notes reviewed Mode of arrival: ambulatory Limitations: no limitations - History of Present Illness Initial Comments: 48-year-old male with a history of anxiety and left chronic leg pain presents emergency department with flank pain and shortness of breath. Patient does have a nerve stimulator placed in the left leg due to a work accident over 20 years ago with residual nerve pain. Patient states that when he becomes anxious he has difficulty urinating and this has been happening this evening. Patient is denying shortness of breath, difficulty breathing, chest pain or pressure. He denies dysuria, hematuria, increase in urinary frequency or urgency. Patient denies any recent falls or injuries to the left leg. - Related Data Home Medications Medication Instructions Recorded Confirmed Lurasidone HCl [Latuda] 120 mg PO DAILY 05/18/22 05/18/22 Venlafaxine HCl [Effexor XR] 75 mg PO DAILY 05/18/22 05/18/22 Venlafaxine HCl [Effexor XR] 150 mg PO DAILY 05/18/22 05/18/22 lisinopriL [Zestril] 10 mg PO DAILY PRN 05/18/22 05/18/22 metFORMIN HCL ER [Glucophage XR] 500 mg PO HS 05/18/22 05/18/22 rOPINIRole HCL [Requip] 0.5 mg PO BID PRN 05/18/22 05/18/22 Previous Rx's Medication Instructions Recorded Acetaminophen Tab [Tylenol] 650 mg PO Q6HR PRN tab 05/20/22 HYDROmorphone [Dilaudid] 2 mg PO DAILY PRN #0 05/20/22 Ketorolac [Toradol] 10 mg PO Q6HR PRN 5 Days #20 tab 08/06/23 Allergies Allergy/AdvReac Type Severity Reaction Status Date / Time bupropion HCl Allergy Unknown Verified 10/11/23 23:35 [From Wellbutrin] droperidol Allergy Hallucinati Verified 10/11/23 23:37 ons Review of Systems ROS Statement: Those systems with pertinent positive or pertinent negative responses have been documented in the HPI. ROS Other: All systems not noted in ROS Statement are negative. Past Medical History Past Medical History: Hyperlipidemia Additional Past Medical History / Comment(s): restless leg syndrome. Complex regional pain syndrome to left lower extremity History of Any Multi-Drug Resistant Organisms: None Reported Additional Past Surgical History / Comment(s): FINGER AMPUTATION LEFT INDEX FINGER IN 1999, HILARIO PLACED AND REMOVED FROM LEFT LEG IN 2002 hardware removal from left ORIF lower extremity, distal tip of the finger slightly amputated af ter injury Past Anesthesia/Blood Transfusion Reactions: No Reported Reaction Past Psychological History: Anxiety, Depression Smoking Status: Never smoker Past Alcohol Use History: Occasional Past Drug Use History: None Reported - Past Family History Father Family Medical History: No Reported History Mother Family Medical History: No Reported History Brother(s) Family Medical History: No Reported History (Depression and anxiety) General Exam Limitations: no limitations General appearance: alert, in no apparent distress Head exam: Present: atraumatic, normocephalic, normal inspection Eye exam: Present: normal appearance, PERRL, EOMI. Absent: scleral icterus, conjunctival injection, periorbital swelling ENT exam: Present: normal exam, mucous membranes moist Neck exam: Present: normal inspection. Absent: tenderness, meningismus, lymphadenopathy Respiratory exam: Present: normal lung sounds bilaterally. Absent: respiratory distress, wheezes, rales, rhonchi, stridor Cardiovascular Exam: Present: regular rate, normal rhythm, normal heart sounds. Absent: systolic murmur, diastolic murmur, rubs, gallop, clicks GI/Abdominal exam: Present: soft, normal bowel sounds. Absent: distended, tenderness, guarding, rebound, rigid Left Upper Leg exam: Present: tenderness (knee, nerve stimulator in place over the anterior thigh) Neurovascular tendon exam: Present: no vascular compromise. Absent: pulse deficit, abnormal cap refill, motor deficit, sensory deficit Gait: observed and normal Skin exam: Present: warm, dry, intact, normal color. Absent: rash Course Vital Signs 10/11/23 10/12/23 23:32 01:57 Temperature 98 F Pulse Rate 109 H 91 Respiratory 18 18 Rate Blood Pressure 133/84 118/81 O2 Sat by Pulse 96 93 L Oximetry Medical Decision Making - Medical Decision Making Was pt. sent in by a medical professional or institution (, PA, COMPUTER FORENSICS INVESTIGATOR, urgent care, hospital, or fci...) When possible be specific @ -No Did you speak to anyone other than the patient for history (EMS, parent, family, police, friend...)? What history was obtained from this source @ -No Did you review nursing and triage notes (agree or disagree)? Why? @ -I reviewed and agree with nursing and triage notes Were old charts reviewed (outside hosp., previous admission, EMS record, old EKG, old radiological studies, urgent care reports/EKG's, fci records)? Report findings @ -No old charts were reviewed Differential Diagnosis (chest pain, altered mental status, abdominal pain women, abdominal pain men, vaginal bleeding, weakness, fever, dyspnea, syncope, headache, dizziness, GI bleed, back pain, seizure, CVA, palpatations, mental health, musculoskeletal)? @ -Differential Mental Health Depression, anxiety, bipolar, psychosis, schizophrenia, borderline personality, situational depression, adjustment disorder, behavioral disorder, brain tumor, malingering, substance abuse, encephalopathy, medication reaction, dementia, hypothyroidism, degenerative neurologic disorder, lupus.... This is not meant to be all-inclusive list EKG interpreted by me (3pts min.). @ -none X-rays interpreted by me (1pt min.). @ -None done CT interpreted by me (1pt min.). @ -None done U/S interpreted by me (1pt. min.). @ -None done What testing was considered but not performed or refused? (CT, X-rays, U/S, labs)? Why? @ -X-ray imaging was considered but deferred at this time. Patient denies any new or recent injuries to the left leg that would have caused pain. He states that this pain is same as compared to his chronic pain that experiences of his left lower leg. Additionally, patient states that when he is experiencing Sharon he has difficulty with urination What meds were considered but not given or refused? Why? @ -None Did you discuss the management of the patient with other professionals (professionals i.e. , PA, COMPUTER FORENSICS INVESTIGATOR, lab, RT, psych nurse, social media editor, learning and development specialist, teacher, combat information center officer, supervisor case loading)? Give summary @ -No Was smoking cessation discussed for >3mins.? @ -No Was critical care preformed (if so, how long)? @ -No Were there social determinants of health that impacted care today? How? (Homelessness, low income, unemployed, alcoholism, drug addiction, transportation, low edu. Level, literacy, decrease access to med. care, senior care, rehab)? @ -No Was there de-escalation of care discussed even if they declined (Discuss DNR or withdrawal of care, Hospice)? DNR status @ -No What co-morbidities impacted this encounter? (DM, HTN, Smoking, COPD, CAD, Cancer, CVA, ARF, Chemo, Hep., AIDS, mental health diagnosis, sleep apnea, morbid obesity)? @ -None Was patient admitted / discharged? Hospital course, mention meds given and route, prescriptions, significant lab abnormalities, going to OR and other pertinent info. @ -Discharge. 48-year-old male with anxiety and left leg pain. On examination there are no neurological deficits, additionally patient's left leg pain is same as compared to his chronic pain. Patient is provided antianxiety medications and pain medication. On reevaluation patient has urinated and is feeling markedly better is requesting discharge at this time. All questions answered at bedside and strict return parameters discussed with the patient he is verbalized understanding. Discussed with Dr. Rosado Undiagnosed new problem with uncertain prognosis? @ -No Drug Therapy requiring intensive monitoring for toxicity (Heparin, Nitro, Insulin, Cardizem)? @ -No Were any procedures done? @ -No Diagnosis/symptom? @ -anxiety, Left leg pain Acute, or Chronic, or Acute on Chronic? @ -acute Uncomplicated (without systemic symptoms) or Complicated (systemic symptoms)? @ -Uncomplicated Side effects of treatment? @ -No Exacerbation, Progression, or Severe Exacerbation? @ -No Poses a threat to life or bodily function? How? (Chest pain, [place], [place], pneumonia, PE, COPD, DKA, ARF, appy, cholecystitis, CVA, Diverticulitis, Homicidal, Suicidal, threat to staff... and all critical care pts) @ -No Disposition Clinical Impression: Anxiety, Leg pain Disposition: HOME SELF-CARE Condition: Good Instructions (If sedation given, give patient instructions): Anxiety (ED) Additional Instructions: Return to the emergency department for any new or worsening symptoms. Is patient prescribed a controlled substance at d/c from ED?: No Referrals: Jefry Castro DO [Primary Care Provider] - 1-2 days Time of Disposition: 01:43
[2023-10-12] MEDS: KETOROLAC 15 MG/ML 1 ML VIAL IM STA (00:56)
[2023-10-12] MEDS: MORPHINE SULFATE 4 MG/ML SYRINGE IM STA (00:57)
[2023-10-12] MEDS: LORazepam 1 MG TAB PO STA (00:59)
[2023-10-12 01:59] VITALS: BP 118/81; PULSE 91
== END 2023-10-12 02:13 | disposition home or self-care (01) ==
LOC: EC 23:31
DX: F41.9 Anxiety disorder, unspecified (principal); G89.29 Other chronic pain; M79.652 Pain in left thigh; Z79.899 Other long term (current) drug therapy; Z88.8 Allergy status to other drugs, medicaments and biological substances
CPT/HCPCS: 96372; 99284

== ENCOUNTER 2023-10-21 08:58 | Emergency (ER) | payer OTHER ==
--- NOTE | 2023-10-21 09:27 | ED ---
Anxiety HPI - General Chief Complaint: Anxiety Stated Complaint: Anxiety Time Seen by Provider: 10/21/23 09:07 Source: patient, RN notes reviewed Mode of arrival: wheelchair Limitations: no limitations - History of Present Illness Initial Comments: 48-year-old male presents emergency department with chief complaint of anxiety and leg pain. Patient has chronic issues with this she has a neurostimulator of his left leg. He does not really see pain management he is on multiple medications. He states that he sometimes has issues and has come emergency department for. Patient has been suicidal homicidal. - Related Data Home Medications: Home Medications Medication Instructions Recorded Confirmed Lurasidone HCl [Latuda] 120 mg PO HS 05/18/22 10/21/23 Venlafaxine HCl [Effexor XR] 75 mg PO DAILY 05/18/22 10/21/23 Venlafaxine HCl [Effexor XR] 150 mg PO DAILY 05/18/22 10/21/23 lisinopriL [Zestril] 10 mg PO DAILY 05/18/22 10/21/23 metFORMIN HCL ER [Glucophage XR] 500 mg PO DAILY 05/18/22 10/21/23 rOPINIRole HCL [Requip] 0.5 mg PO BID PRN 05/18/22 10/21/23 Cyclobenzaprine [Flexeril] 10 mg PO TID PRN 10/21/23 10/21/23 HYDROcodone/APAP 5-325MG [Aldrich 1 tab PO Q6H PRN 10/21/23 10/21/23 5-325] Simvastatin [Zocor] 20 mg PO HS 10/21/23 10/21/23 clonazePAM [KlonoPIN] 2 mg PO BID PRN 10/21/23 10/21/23 Allergies/Adverse Reactions: Allergies Allergy/AdvReac Type Severity Reaction Status Date / Time bupropion HCl Allergy Rash/Hives Verified 10/21/23 11:23 [From Wellbutrin] droperidol Allergy Hallucinations/Increased Verified 10/21/23 11:23 Anxiety Review of Systems ROS Statement: Those systems with pertinent positive or pertinent negative responses have been documented in the HPI. ROS Other: All systems not noted in ROS Statement are negative. Past Medical History Past Medical History: Hyperlipidemia Additional Past Medical History / Comment(s): restless leg syndrome. Complex regional pain syndrome to left lower extremity History of Any Multi-Drug Resistant Organisms: None Reported Additional Past Surgical History / Comment(s): FINGER AMPUTATION LEFT INDEX FINGER IN 1999, HILARIO PLACED AND REMOVED FROM LEFT LEG IN 2002 hardware removal from left ORIF lower extremity, distal tip of the finger slightly amputated after injury Past Anesthesia/Blood Transfusion Reactions: No Reported Reaction Past Psychological History: Anxiety, Depression Smoking Status: Never smoker Past Alcohol Use History: Occasional Past Drug Use History: None Reported - Past Family History Father Family Medical History: No Reported History Mother Family Medical History: No Reported History Brother(s) Family Medical History: No Reported History (Depression and anxiety) General Exam Limitations: no limitations General appearance: alert, in no apparent distress Head exam: Present: atraumatic, normocephalic, normal inspection Eye exam: Present: normal appearance, PERRL, EOMI. Absent: scleral icterus, conjunctival injection, periorbital swelling ENT exam: Present: normal exam, normal oropharynx, mucous membranes moist Respiratory exam: Present: normal lung sounds bilaterally. Absent: respiratory distress, wheezes, rales, rhonchi, stridor Cardiovascular Exam: Present: regular rate, normal rhythm, normal heart sounds. Absent: systolic murmur, diastolic murmur, rubs, gallop, clicks Extremities exam: Present: other (Nerve stimulator on the left thigh, neurovascular intact no erythema pain with palpation) Course Vital Signs 10/21/23 10/21/23 09:00 10:15 Temperature 97.4 F L Pulse Rate 111 H 112 H Respiratory 18 18 Rate Blood Pressure 130/84 142/90 O2 Sat by Pulse 98 95 Oximetry Medical Decision Making - Medical Decision Making Was pt. sent in by a medical professional or institution (, PA, COUNTY TREASURER, urgent care, hospital, or shelter...) When possible be specific @ -No Did you speak to anyone other than the patient for history (EMS, parent, family, police, friend...)? What history was obtained from this source @ -No Did you review nursing and triage notes (agree or disagree)? Why? @ -I reviewed and agree with nursing and triage notes Were old charts reviewed (outside hosp., previous admission, EMS record, old EKG, old radiological studies, urgent care reports/EKG's, shelter records)? Report findings @ -No old charts were reviewed Differential Diagnosis (chest pain, altered mental status, abdominal pain women, abdominal pain men, vaginal bleeding, weakness, fever, dyspnea, syncope, headache, dizziness, GI bleed, back pain, seizure, CVA, palpatations, mental health, musculoskeletal)? @ -Chronic pain, anxiety EKG interpreted by me (3pts min.). @ -None X-rays interpreted by me (1pt min.). @ -None done CT interpreted by me (1pt min.). @ -None done U/S interpreted by me (1pt. min.). @ -None done What testing was considered but not performed or refused? (CT, X-rays, U/S, labs)? Why? @ -None What meds were considered but not given or refused? Why? @ -None Did you discuss the management of the patient with other professionals (professionals i.e. , PA, COUNTY TREASURER, lab, RT, psych nurse, social service worker, digital photographer, teacher, safety officer, case monitor)? Give summary @ -EPS who evaluated the patient and recommend patient be discharged Was smoking cessation discussed for >3mins.? @ -No Was critical care preformed (if so, how long)? @ -No Were there social determinants of health that impacted care today? How? (Homelessness, low income, unemployed, alcoholism, drug addiction, transportation, low edu. Level, literacy, decrease access to med. care, halfway, rehab)? @ -No Was there de-escalation of care discussed even if they declined (Discuss DNR or withdrawal of care, Hospice)? DNR status @ -No What co-morbidities impacted this encounter? (DM, HTN, Smoking, COPD, CAD, Cancer, CVA, ARF, Chemo, Hep., AIDS, mental health diagnosis, sleep apnea, morbid obesity)? @ -Chronic pain Was patient admitted / discharged? Hospital course, mention meds given and route, prescriptions, significant lab abnormalities, going to OR and other pertinent info. @ -Charge patient presented for chronic pain of his left leg without acute injury. Patient was cleaned anxiety patient was provided analgesics and anxiolytics patient stating that this was not enough demanding further medication. He then was eval by psychiatric services recommended patient to be discharged. There is some drug-seeking behavior. Patient advised that he is to follow-up with PCP pain management as she has had several ER visits for similar complaints multiple times a month Undiagnosed new problem with uncertain prognosis? @ -No Drug Therapy requiring intensive monitoring for toxicity (Heparin, Nitro, Insulin, Cardizem)? @ -No Were any procedures done? @ -No Diagnosis/symptom? @ -Drug-seeking behavior, anxiety, chronic pain Acute, or Chronic, or Acute on Chronic? @ -Acute Uncomplicated (without systemic symptoms) or Complicated (systemic symptoms)? @ -Uncomplicated Side effects of treatment? @ -No Exacerbation, Progression, or Severe Exacerbation? @ -No Poses a threat to life or bodily function? How? (Chest pain, [place], [place], pneumonia, PE, COPD, DKA, ARF, appy, cholecystitis, CVA, Diverticulitis, Homicidal, Suicidal, threat to staff... and all critical care pts) @ -No Disposition Clinical Impression: Acute anxiety, Left leg pain Disposition: HOME SELF-CARE Instructions (If sedation given, give patient instructions): Generalized Anxiety Disorder (ED) Additional Instructions: Please return to the Emergency Department if symptoms worsen or any other concerns. Is patient prescribed a controlled substance at d/c from ED?: No Referrals: Jefry Castro DO [Primary Care Provider] - 1-2 days Time of Disposition: 09:27
[2023-10-21] MEDS: MORPHINE SULFATE 4 MG/ML SYRINGE IM STA (09:32)
[2023-10-21] MEDS: LORazepam 2 MG/ML INJ IM STA (09:32)
[2023-10-21] MEDS: ACET/COD 300 MG/30 MG STARTER PACK 6 TAB BTL PO STA (09:32)
[2023-10-21] MEDS: KETOROLAC 15 MG/ML 1 ML VIAL IM STA (10:22)
[2023-10-21 13:20] VITALS: BP 140/84; PULSE 129; RESP 16; TEMP 98
[2023-10-21] MEDS: diphenhydrAMINE 50 MG CAP PO STA (13:28)
== END 2023-10-21 13:35 | disposition home or self-care (01) ==
LOC: EC 08:58
CPT/HCPCS: 82075; 96372; 99284

== ENCOUNTER 2023-10-21 20:39 | Emergency (ER) | payer OTHER ==
--- NOTE | 2023-10-21 22:31 | ED ---
Recheck HPI - General Chief Complaint: Anxiety Stated Complaint: Anxiety Time Seen by Provider: 10/21/23 22:08 Source: patient, family, RN notes reviewed, old records reviewed Mode of arrival: ambulatory Limitations: no limitations - History of Present Illness Initial Comments: This is a 48-year-old male to the ER for evaluation patient [facility] luation of leg pain abdominal pain back pain weakness overall not feeling well. Patient has left leg pain history of left leg pain and severe anxiety. Patient has no travel history no sick contacts no other complaints complaining of severe anxiety MD Complaint: other (Severe anxiety) -: days(s) Returns Today for: persistent/worsening pain related to initial visit (Left leg pain) Symptoms Since Prior Visit: worsening pain Associated Symptoms: none Treatments Prior to Arrival: Given Pain Meds on - Related Data Home Medications Medication Instructions Recorded Confirmed Lurasidone HCl [Latuda] 120 mg PO HS 05/18/22 10/21/23 Venlafaxine HCl [Effexor XR] 75 mg PO DAILY 05/18/22 10/21/23 Venlafaxine HCl [Effexor XR] 150 mg PO DAILY 05/18/22 10/21/23 lisinopriL [Zestril] 10 mg PO DAILY 05/18/22 10/21/23 metFORMIN HCL ER [Glucophage XR] 500 mg PO DAILY 05/18/22 10/21/23 rOPINIRole HCL [Requip] 0.5 mg PO BID PRN 05/18/22 10/21/23 Cyclobenzaprine [Flexeril] 10 mg PO TID PRN 10/21/23 10/21/23 HYDROcodone/APAP 5-325MG [[place] 1 tab PO Q6H PRN 10/21/23 10/21/23 5-325] Simvastatin [Zocor] 20 mg PO HS 10/21/23 10/21/23 clonazePAM [KlonoPIN] 2 mg PO BID PRN 10/21/23 10/21/23 Allergies Allergy/AdvReac Type Severity Reaction Status Date / Time bupropion HCl Allergy Rash/Hives Verified 10/21/23 11:23 [From Wellbutrin] droperidol Allergy Hallucinations/Increased Verified 10/21/23 11:23 Anxiety Review of Systems ROS Statement: Those systems with pertinent positive or pertinent negative responses have been documented in the HPI. ROS Other: All systems not noted in ROS Statement are negative. Past Medical History Past Medical History: Hyperlipidemia Additional Past Medical History / Comment(s): restless leg syndrome. Complex regional pain syndrome to left lower extremity History of Any Multi-Drug Resistant Organisms: None Reported Additional Past Surgical History / Comment(s): FINGER AMPUTATION LEFT INDEX FINGER IN 1999, HILARIO PLACED AND REMOVED FROM LEFT LEG IN 2002 hardware removal from left ORIF lower extremity, distal tip of the finger slightly amputated after injury Past Anesthesia/Blood Transfusion Reactions: No Reported Reaction Past Psychological History: Anxiety, Depression Smoking Status: Never smoker Past Alcohol Use History: Occasional Past Drug Use History: None Reported - Past Family History Father Family Medical History: No Reported History Mother Family Medical History: No Reported History Brother(s) Family Medical History: No Reported History (Depression and anxiety) General Exam Limitations: no limitations General appearance: alert, in no apparent distress Head exam: Present: atraumatic, normocephalic, normal inspection Eye exam: Present: normal appearance, PERRL, EOMI. Absent: scleral icterus, conjunctival injection, periorbital swelling ENT exam: Present: normal exam, mucous membranes moist Neck exam: Present: normal inspection. Absent: tenderness, meningismus, lymphadenopathy Respiratory exam: Present: normal lung sounds bilaterally. Absent: respiratory distress, wheezes, rales, rhonchi, stridor Cardiovascular Exam: Present: regular rate, normal rhythm, normal heart sounds. Absent: systolic murmur, diastolic murmur, rubs, gallop, clicks GI/Abdominal exam: Present: soft, normal bowel sounds. Absent: distended, ten derness, guarding, rebound, rigid Extremities exam: Present: normal inspection, full ROM, normal capillary refill. Absent: tenderness, pedal edema, joint swelling, calf tenderness Back exam: Present: normal inspection Neurological exam: Present: alert, oriented X3, CN II-XII intact Psychiatric exam: Present: normal affect, normal mood Skin exam: Present: warm, dry, intact, normal color. Absent: rash Course Vital Signs 10/21/23 10/21/23 20:41 23:15 Temperature 98.4 F 98.7 F Pulse Rate 79 100 Respiratory 16 18 Rate Blood Pressure 132/74 129/84 O2 Sat by Pulse 95 100 Oximetry - Reevaluation(s) Reevaluation #1: 10/21/23 21:51 Records reviewed Reevaluation #2: 10/21/23 21:51 Patient symptoms improved Reevaluation #3: 10/21/23 21:51 Monitor results and questions answered Reevaluation #4: Was pt. sent in by a medical professional or institution (RINKU Serrano, DIRECTOR PHARMACOLOGY, urgent care, hospital, or long term...) When possible be specific @ -no Did you speak to anyone other than the patient for history (EMS, parent, family, police, friend...)? What history was obtained from this source @ -no Did you review nursing and triage notes (agree or disagree)? Why? @ -agree Are old charts reviewed (outside hosp., previous admission, EMS record, old EKG, old radiological studies, urgent care reports/EKG's, long term records)? Report findings @ -yes Differential Diagnosis (chest pain, altered mental status, abdominal pain women, abdominal pain men, vaginal bleeding, weakness, fever, dyspnea, syncope, headache, dizziness, GI bleed, back pain, seizure, CVA, palpatations, mental health, musculoskeletal)? @ -prior EKG interpreted by me (3pts min.). @ -no X-rays interpreted by me (1pt min.). @ -no CT interpreted by me (1pt min.). @ -no U/S interpreted by me (1pt. min.). @ -no What testing was considered but not performed or refused? (CT, X-rays, U/S, labs)? Why? @ -none What meds were considered but not given or refused? Why? @ -none Did you discuss the management of the patient with other professionals (professionals i.e. RINKU Serrano, DIRECTOR PHARMACOLOGY, lab, RT, psych nurse, social worker assistant, second cook and baker, teacher, security officer supervisor, case investigator)? Give summary @ -no Was smoking cessation discussed for >3mins.? @ -no Was critical care preformed (if so, how long)? @ -no Were there social determinants of health that impacted care today? How? (Homelessness, low income, unemployed, alcoholism, drug addiction, transportation, low edu. Level, literacy, decrease access to med. care, care home, rehab)? @ -none Was there de-escalation of care discussed even if they declined (Discuss DNR or withdrawal of care, Hospice)? DNR status @ -no What co-morbidities impacted this encounter? (DM, HTN, Smoking, COPD, CAD, Cancer, CVA, ARF, Chemo, Hep., AIDS, mental health diagnosis, sleep apnea, morbid obesity)? @ -none Was patient admitted / discharged? Hospital course, mention meds given and rout e, prescriptions, significant lab abnormalities, going to OR and other pertinent info. @ - 48 male to ER for evaluation of left leg pain severe here in the ER, patient feels unwell pain is improved anxiety is improved not homicidal or suicidal and can be discharged home Discharge Undiagnosed new problem with uncertain prognosis? @ -no Drug Therapy requiring intensive monitoring for toxicity (Heparin, Nitro, Insulin, Cardizem)? @ -no Were any procedures done? @ -no Diagnosis/symptom? @ -Pain, pain chronic pain anxiety Acute, or Chronic, or Acute on Chronic? @ -Acute Uncomplicated (without systemic symptoms) or Complicated (systemic symptoms)? @ -Complicated Side effects of treatment? @ -no Exacerbation, Progression, or Severe Exacerbation? @ -exacerbation Poses a threat to life or bodily function? How? (Chest pain, [place], [place], pneumonia, PE, COPD, DKA, ARF, appy, cholecystitis, CVA, Diverticulitis, Homicidal, Suicidal, threat to staff... and all critical care pts) @ -no Medical Decision Making - Medical Decision Making 48 male to ER for evaluation of left leg pain severe here in the ER, patient feels unwell pain is improved anxiety is improved not homicidal or suicidal and can be discharged home Disposition Clinical Impression: Anxiety, Left leg pain, Leg pain, Acute anxiety, Avoidant personality disorder Disposition: HOME SELF-CARE Condition: Fair Instructions (If sedation given, give patient instructions): Generalized Anxiety Disorder (ED) Is patient prescribed a controlled substance at d/c from ED?: No Referrals: Jefry Castro DO [Primary Care Provider] - 1-2 days Time of Disposition: 22:30
[2023-10-21] MEDS: HYDROmorphone 1 MG/ML 1 ML SYRINGE IM STA (22:50)
[2023-10-21] MEDS: ETODOLAC 400 MG TAB PO STA (22:51)
[2023-10-21] MEDS: diazePAM 5 MG TAB PO STA (22:51)
[2023-10-21] MEDS: LIDOCAINE 4% PATCH TOPICAL ONE (22:52)
[2023-10-21 23:17] VITALS: BP 129/84; PULSE 100; RESP 18; TEMP 98.7
== END 2023-10-21 23:11 | disposition home or self-care (01) ==
LOC: EC 20:39
CPT/HCPCS: 96372; 99283

== ENCOUNTER 2023-10-27 01:11 | Emergency (ER) | payer OTHER ==
--- NOTE | 2023-10-27 01:56 | ED ---
Anxiety HPI - General Chief Complaint: Anxiety Stated Complaint: anxiety Time Seen by Provider: 10/27/23 01:54 Source: patient, EMS, RN notes reviewed Mode of arrival: EMS - History of Present Illness Initial Comments: 48-year-old male presenting with mother for left leg pain. Patient has chronic left leg pain and states he is having an acute flareup today as well as anxiety. Denies any acute symptoms. Denies suicidal or homicidal ideation. - Related Data Home Medications: Home Medications Medication Instructions Recorded Confirmed Lurasidone HCl [Latuda] 120 mg PO HS 05/18/22 10/21/23 Venlafaxine HCl [Effexor XR] 75 mg PO DAILY 05/18/22 10/21/23 Venlafaxine HCl [Effexor XR] 150 mg PO DAILY 05/18/22 10/21/23 lisinopriL [Zestril] 10 mg PO DAILY 05/18/22 10/21/23 metFORMIN HCL ER [Glucophage XR] 500 mg PO DAILY 05/18/22 10/21/23 rOPINIRole HCL [Requip] 0.5 mg PO BID PRN 05/18/22 10/21/23 Cyclobenzaprine [Flexeril] 10 mg PO TID PRN 10/21/23 10/21/23 HYDROcodone/APAP 5-325MG [[place] 1 tab PO Q6H PRN 10/21/23 10/21/23 5-325] Simvastatin [Zocor] 20 mg PO HS 10/21/23 10/21/23 clonazePAM [KlonoPIN] 2 mg PO BID PRN 10/21/23 10/21/23 Allergies/Adverse Reactions: Allergies Allergy/AdvReac Type Severity Reaction Status Date / Time bupropion HCl Allergy Rash/Hives Verified 10/27/23 01:16 [From Wellbutrin] droperidol Allergy Hallucinations/Increased Verified 10/27/23 01:16 Anxiety Review of Systems ROS Statement: Those systems with pertinent positive or pertinent negative responses have been documented in the HPI. ROS Other: All systems not noted in ROS Statement are negative. Past Medical History Past Medical History: Hyperlipidemia Additional Past Medical History / Comment(s): restless leg syndrome. Complex regional pain syndrome to left lower extremity History of Any Multi-Drug Resistant Organisms: None Reported Additional Past Surgical History / Comment(s): FINGER AMPUTATION LEFT INDEX FINGER IN 1999, HILARIO PLACED AND REMOVED FROM LEFT LEG IN 2002 hardware removal from left ORIF lower extremity, distal tip of the finger slightly amputated after injury Past Anesthesia/Blood Transfusion Reactions: No Reported Reaction Past Psychological History: Anxiety, Depression Smoking Status: Never smoker Past Alcohol Use History: Occasional Past Drug Use History: None Reported - Past Family History Father Family Medical History: No Reported History Mother Family Medical History: No Reported History Brother(s) Family Medical History: No Reported History (Depression and anxiety) General Exam - General Exam Comments Initial Comments: Visual Physical Exam Vital signs reviewed General: Well-appearing, nontoxic, no acute distress. Head: Normocephalic, atraumatic Eyes: PERRLA, EOMI ENT: Airway patent Chest: Nonlabored breathing Skin: No visual rash, normal skin tone Neuro: Alert and oriented 3 Musculoskeletal: No gross abnormalities Limitations: no limitations General appearance: alert, in no apparent distress Head exam: Present: atraumatic, normocephalic, normal inspection Eye exam: Present: normal appearance, PERRL, EOMI. Absent: scleral icterus, conjunctival injection, periorbital swelling ENT exam: Present: normal exam, mucous membranes moist Neck exam: Present: normal inspection. Absent: tenderness, meningismus, lymphadenopathy Respiratory exam: Present: normal lung sounds bilaterally. Absent: respiratory distress, wheezes, rales, rhonchi, stridor Cardiovascular Exam: Present: regular rate, normal rhythm, normal heart sounds. Absent: systolic murmur, diastolic murmur, rubs, gallop, clicks GI/Abdominal exam: Present: soft, normal bowel sounds. Absent: distended, tenderness, guarding, rebound, rigid Extremities exam: Present: normal inspection, full ROM, normal capillary refill, other (Full sensation and DP pulses bilaterally). Absent: tenderness, pedal edema, joint swelling, calf tenderness Back exam: Present: normal inspection Neurological exam: Present: oriented X3 Psychiatric exam: Present: normal affect, normal mood Skin exam: Present: warm, dry, intact, normal color. Absent: rash Course Vital Signs 10/27/23 10/27/23 10/27/23 01:16 02:27 04:13 Temperature 97.9 F 98.2 F Pulse Rate 110 H 100 110 H Respiratory 18 16 18 Rate Blood Pressure 116/72 114/79 113/83 O2 Sat by Pulse 98 96 96 Oximetry Medical Decision Making - Medical Decision Making I completed the quick note portion of this chart signed Ladan Ricketts PA-C Was pt. sent in by a medical professional or institution (RINKU Serrano, TRAINING DIRECTOR, urgent care, hospital, or skilled nursing...) When possible be specific @ -No Did you speak to anyone other than the patient for history (EMS, parent, family, police, friend...)? What history was obtained from this source @ -Patient's mother supplemented history Did you review nursing and triage notes (agree or disagree)? Why? @ -I reviewed and agree with nursing and triage notes Were old charts reviewed (outside hosp., previous admission, EMS record, old EKG, old radiological studies, urgent care reports/EKG's, skilled nursing records)? Report findings @ -No old charts were reviewed Differential Diagnosis (chest pain, altered mental status, abdominal pain women, abdominal pain men, vaginal bleeding, weakness, fever, dyspnea, syncope, headache, dizziness, GI bleed, back pain, seizure, CVA, palpatations, mental health, musculoskeletal)? @ -Differential Musculoskeletal Muscular strain, contusion, ligament sprain, fracture, arthritis, septic arthritis, bursitis, cellulitis, muscle spasm, nerve compression, DVT, arterial occlusion, herpes zoster, electrolyte abnormality, tumor.... This is not meant to be in all inclusive list EKG interpreted by me (3pts min.). @ -None X-rays interpreted by me (1pt min.). @ -None done CT interpreted by me (1pt min.). @ -None done U/S interpreted by me (1pt. min.). @ -None done What testing was considered but not performed or refused? (CT, X-rays, U/S, labs)? Why? @ -Imaging not performed due to no acute symptoms What meds were considered but not given or refused? Why? @ -None Did you discuss the management of the patient with other professionals (professionals i.e. RINKU Serrano, TRAINING DIRECTOR, lab, RT, psych nurse, protective services social worker, assistant administrator, teacher, account officer, manager of case)? Give summary @ -No Was smoking cessation discussed for >3mins.? @ -No Was critical care preformed (if so, how long)? @ -No Were there social determinants of health that impacted care today? How? (Homelessness, low income, unemployed, alcoholism, drug addiction, transportation, low edu. Level, literacy, decrease access to med. care, alf, rehab)? @ -No Was there de-escalation of care discussed even if they declined (Discuss DNR or withdrawal of care, Hospice)? DNR status @ -No What co-morbidities impacted this encounter? (DM, HTN, Smoking, COPD, CAD, Cancer, CVA, ARF, Chemo, Hep., AIDS, mental health diagnosis, sleep apnea, morbid obesity)? @ -None Was patient admitted / discharged? Hospital course, mention meds given and route, prescriptions, significant lab abnormalities, going to OR and other pertinent info. @ -Patient was discharged. This is a 48-year-old male with chronic left leg pain presenting with acute flare left leg pain. No acute symptoms at this time, would like pain control today. Neurovascularly intact. No red flag symptoms. Patient provided with analgesics during visits. Upon reevaluation, patient states symptoms have improved and feels stable for discharge. Return precautions discussed and patient is agreeable to plan. Case discussed with my ED attending Dr. Henry. Undiagnosed new problem with uncertain prognosis? @ -No Drug Therapy requiring intensive monitoring for toxicity (Heparin, Nitro, Insulin, Cardizem)? @ -No Were any procedures done? @ -No Diagnosis/symptom? @ -Acute flare of chronic left leg pain Acute, or Chronic, or Acute on Chronic? @ -Acute on chronic Uncomplicated (without systemic symptoms) or Complicated (systemic symptoms)? @ -Uncomplicated Side effects of treatment? @ -No Exacerbation, Progression, or Severe Exacerbation? @ -No Poses a threat to life or bodily function? How? (Chest pain, [place], [place], pneumonia, PE, COPD, DKA, ARF, appy, cholecystitis, CVA, Diverticulitis, Homicidal, Suicidal, threat to staff... and all critical care pts) @ -No Disposition Clinical Impression: Chronic pain of left lower extremity Disposition: HOME SELF-CARE Condition: Stable Additional Instructions: Please return to the Emergency Department if symptoms worsen or any other concerns. Is patient prescribed a controlled substance at d/c from ED?: No Referrals: Jefry Castro DO [Primary Care Provider] - 1-2 days Time of Disposition: 04:05
[2023-10-27 02:28] VITALS: TEMP 98.2
[2023-10-27] MEDS: HYDROmorphone 1 MG/ML 1 ML SYRINGE IVP STA (03:10)
[2023-10-27] MEDS: HYDROmorphone 1 MG/ML 1 ML SYRINGE IM STA (03:10)
[2023-10-27] MEDS: ETODOLAC 400 MG TAB PO STA (03:41)
[2023-10-27 04:15] VITALS: BP 113/83; PULSE 110; RESP 18
== END 2023-10-27 04:16 | disposition home or self-care (01) ==
LOC: EC 01:11
CPT/HCPCS: 96372; 99283

== ENCOUNTER 2023-10-29 20:00 | Emergency (ER) | payer OTHER ==
[2023-10-29 20:06] VITALS: BP 120/82; PULSE 128; RESP 16; TEMP 97.5
--- NOTE | 2023-10-29 20:10 | ED ---
General Adult HPI - General Chief complaint: Shortness of Breath Stated complaint: SOB, tight chest Time Seen by Provider: 10/29/23 20:09 Source: patient, family Mode of arrival: wheelchair - History of Present Illness Initial comments: 48-year-old male presenting with his mother for chief complaint of anxiety. Patient started experiencing some shortness of breath at home this evening. - Related Data Home Medications Medication Instructions Recorded Confirmed Lurasidone HCl [Latuda] 120 mg PO HS 05/18/22 10/21/23 Venlafaxine HCl [Effexor XR] 75 mg PO DAILY 05/18/22 10/21/23 Venlafaxine HCl [Effexor XR] 150 mg PO DAILY 05/18/22 10/21/23 lisinopriL [Zestril] 10 mg PO DAILY 05/18/22 10/21/23 metFORMIN HCL ER [Glucophage XR] 500 mg PO DAILY 05/18/22 10/21/23 rOPINIRole HCL [Requip] 0.5 mg PO BID PRN 05/18/22 10/21/23 Cyclobenzaprine [Flexeril] 10 mg PO TID PRN 10/21/23 10/21/23 HYDROcodone/APAP 5-325MG [[place] 1 tab PO Q6H PRN 10/21/23 10/21/23 5-325] Simvastatin [Zocor] 20 mg PO HS 10/21/23 10/21/23 clonazePAM [KlonoPIN] 2 mg PO BID PRN 10/21/23 10/21/23 Allergies Allergy/AdvReac Type Severity Reaction Status Date / Time bupropion HCl Allergy Rash/Hives Verified 10/29/23 20:06 [From Wellbutrin] droperidol Allergy Hallucinations/Increased Verified 10/29/23 20:06 Anxiety Review of Systems ROS Statement: Those systems with pertinent positive or pertinent negative responses have been documented in the HPI. ROS Other: All systems not noted in ROS Statement are negative. Past Medical History Past Medical History: Hyperlipidemia Additional Past Medical History / Comment(s): restless leg syndrome. Complex regional pain syndrome to left lower extremity History of Any Multi-Drug Resistant Organisms: None Reported Additional Past Surgical History / Comment(s): FINGER AMPUTATION LEFT INDEX FINGER IN 1999, HILARIO PLACED AND REMOVED FROM LEFT LEG IN 2002 hardware removal from left ORIF lower extremity, distal tip of the finger slightly amputated after injury Past Anesthesia/Blood Transfusion Reactions: No Reported Reaction Past Psychological History: Anxiety, Depression Smoking Status: Never smoker Past Alcohol Use History: Occasional Past Drug Use History: None Reported - Past Family History Father Family Medical History: No Reported History Mother Family Medical History: No Reported History Brother(s) Family Medical History: No Reported History (Depression and anxiety) General Exam - General Exam Comments Initial Comments: Visual Physical Exam Vital signs reviewed General: Well-appearing, nontoxic, no acute distress. Head: Normocephalic, atraumatic Eyes: PERRLA, EOMI ENT: Airway patent Chest: Nonlabored breathing Skin: No visual rash, normal skin tone Neuro: Alert and oriented 3 Musculoskeletal: No gross abnormalities Course Vital Signs 10/29/23 20:03 Temperature 97.5 F L Pulse Rate 128 H Respiratory 16 Rate Blood Pressure 120/82 O2 Sat by Pulse 97 Oximetry Medical Decision Making - Medical Decision Making I performed the quick note portion of this visit, electronically signed Clayton Cardenas PA-C Patient eloped from the waiting room Disposition Clinical Impression: Acute anxiety Disposition: LEFT AGAINST MEDICAL ADVICE Condition: Undetermined Referrals: Jefry Castro DO [Primary Care Provider] - 1-2 days
== END 2023-10-29 23:31 | disposition left against medical advice (07) ==
LOC: EC 20:00
CPT/HCPCS: 93005; 99284

== ENCOUNTER 2023-11-06 09:22 | Emergency (ER) | payer OTHER ==
--- NOTE | 2023-11-06 09:49 | ED ---
General Adult HPI - General Chief complaint: Recheck/Abnormal Lab/Rx Stated complaint: Anxiety Time Seen by Provider: 11/06/23 09:41 Source: patient, family, RN notes reviewed Mode of arrival: wheelchair Limitations: no limitations - History of Present Illness Initial comments: 48-year-old male presenting to the emergency department with concerns for ch ronic pain and anxiety. Patient has chronic left leg pain from previous injury and has anxiety associated with that. Patient has had previous visits for this. Patient does have some chills this morning. No urinary symptoms. No upper respiratory symptoms. No neck or back pain. No abdominal pain. No change from chronic leg pain. No rash. No cough - Related Data Home Medications Medication Instructions Recorded Confirmed Lurasidone HCl [Latuda] 120 mg PO HS 05/18/22 10/21/23 Venlafaxine HCl [Effexor XR] 75 mg PO DAILY 05/18/22 10/21/23 Venlafaxine HCl [Effexor XR] 150 mg PO DAILY 05/18/22 10/21/23 lisinopriL [Zestril] 10 mg PO DAILY 05/18/22 10/21/23 metFORMIN HCL ER [Glucophage XR] 500 mg PO DAILY 05/18/22 10/21/23 rOPINIRole HCL [Requip] 0.5 mg PO BID PRN 05/18/22 10/21/23 Cyclobenzaprine [Flexeril] 10 mg PO TID PRN 10/21/23 10/21/23 HYDROcodone/APAP 5-325MG [[place] 1 tab PO Q6H PRN 10/21/23 10/21/23 5-325] Simvastatin [Zocor] 20 mg PO HS 10/21/23 10/21/23 clonazePAM [KlonoPIN] 2 mg PO BID PRN 10/21/23 10/21/23 Allergies Allergy/AdvReac Type Severity Reaction Status Date / Time bupropion HCl Allergy Rash/Hives Verified 11/06/23 09:34 [From Wellbutrin] droperidol Allergy Hallucinations/Increased Verified 11/06/23 09:34 Anxiety Review of Systems ROS Statement: Those systems with pertinent positive or pertinent negative responses have been documented in the HPI. ROS Other: All systems not noted in ROS Statement are negative. Constitutional: Reports: chills. Denies: fever Eyes: Denies: eye pain ENT: Denies: ear pain Respiratory: Denies: cough, dyspnea Cardiovascular: Denies: chest pain Endocrine: Denies: fatigue Gastrointestinal: Denies: abdominal pain Genitourinary: Denies: dysuria Musculoskeletal: Reports: as per HPI. Denies: back pain Skin: Denies: rash Neurological: Denies: headache Past Medical History Past Medical History: Hyperlipidemia Additional Past Medical History / Comment(s): restless leg syndrome. Complex regional pain syndrome to left lower extremity History of Any Multi-Drug Resistant Organisms: None Reported Additional Past Surgical History / Comment(s): FINGER AMPUTATION LEFT INDEX FINGER IN 1999, HILARIO PLACED AND REMOVED FROM LEFT LEG IN 2002 hardware removal from left ORIF lower extremity, distal tip of the finger slightly amputated after injury Past Anesthesia/Blood Transfusion Reactions: No Reported Reaction Past Psychological History: Anxiety, Depression Smoking Status: Never smoker Past Alcohol Use History: Occasional Past Drug Use History: None Reported - Past Family History Father Family Medical History: No Reported History Mother Family Medical History: No Reported History Brother(s) Family Medical History: No Reported History (Depression and anxiety) General Exam Limitations: no limitations General appearance: alert, in no apparent distress Head exam: Present: normocephalic Eye exam: Present: normal appearance ENT exam: Present: normal oropharynx Neck exam: Present: normal inspection. Absent: tenderness, meningismus Respiratory exam: Present: normal lung sounds bilaterally Cardiovascular Exam: Present: tachycardia GI/Abdominal exam: Present: soft. Absent: distended, tenderness, guarding, rebound, rigid Extremities exam: Present: normal inspection (Swelling or erythema). Absent: tenderness Neurological exam: Present: alert Psychiatric exam: Present: flat affect Skin exam: Present: normal color. Absent: erythema Course Vital Signs 11/06/23 11/06/23 09:30 10:13 Temperature 99.0 F 99.2 F Pulse Rate 126 H 110 H Respiratory 18 20 Rate Blood Pressure 127/84 131/75 O2 Sat by Pulse 96 94 L Oximetry Medical Decision Making - Medical Decision Making Was pt. sent in by a medical professional or institution (, PA, SOAKER, urgent care, hospital, or shelter...) When possible be specific @ -No Did you speak to anyone other than the patient for history (EMS, parent, family, police, friend...)? What history was obtained from this source @ -Mother is present and helps provide history including history of chronic leg problems Did you review nursing and triage notes (agree or disagree)? Why? @ -I reviewed and agree with nursing and triage notes Were old charts reviewed (outside hosp., previous admission, EMS record, old EKG, old radiological studies, urgent care reports/EKG's, shelter records)? Report findings @ -Multiple previous visits reviewed Differential Diagnosis (chest pain, altered mental status, abdominal pain women, abdominal pain men, vaginal bleeding, weakness, fever, dyspnea, syncope, headache, dizziness, GI bleed, back pain, seizure, CVA, palpatations, mental health, musculoskeletal)? @ -Differential Fever: Pneumonia, viral URI, endocarditis, myocarditis, pericarditis, otitis, sinusitis, peritonsillar Abscess, retropharyngeal Abscess, epiglottitis, peritonitis, appendicitis, Lynne cystitis, diverticulitis, hepatitis, colitis, UTI, PID, TOA, pyelonephritis, prostatitis, epididymitis, meningitis, encephalitis, pulmonary embolism, CVA, thyroid storm, pancreatitis, adrenal crisis, cavernous sinus thrombosis, this is not meant to be an all-inclusive list. Differential Musculoskeletal Muscular strain, contusion, ligament sprain, fracture, arthritis, septic arthritis, bursitis, cellulitis, muscle spasm, nerve compression, DVT, arterial occlusion, herpes zoster, electrolyte abnormality, tumor.... This is not meant to be in all inclusive list EKG interpreted by me (3pts min.). @ -As above X-rays interpreted by me (1pt min.). @ -Chest x-ray shows no acute process CT interpreted by me (1pt min.). @ -None done U/S interpreted by me (1pt. min.). @ -None done What testing was considered but not performed or refused? (CT, X-rays, U/S, labs)? Why? @ -None What meds were considered but not given or refused? Why? @ -None Did you discuss the management of the patient with other professionals (professionals i.e. , PA, SOAKER, lab, RT, psych nurse, marriage and family social worker, assistant store manager, teacher, multisensor intelligence officer, residential case manager)? Give summary @ -No Was smoking cessation discussed for >3mins.? @ -No Was critical care preformed (if so, how long)? @ -No Were there social determinants of health that impacted care today? How? (Homelessness, low income, unemployed, alcoholism, drug addiction, transportation, low edu. Level, literacy, decrease access to med. care, snf, rehab)? @ -No Was there de-escalation of care discussed even if they declined (Discuss DNR or withdrawal of care, Hospice)? DNR status @ -No What co-morbidities impacted this encounter? (DM, HTN, Smoking, COPD, CAD, Cancer, CVA, ARF, Chemo, Hep., AIDS, mental health diagnosis, sleep apnea, morbid obesity)? @ -None Was patient admitted / discharged? Hospital course, mention meds given and route, prescriptions, significant lab abnormalities, going to OR and other pertinent info. @ -Patient presents with chronic leg problems with chronic pain and chronic anxiety. Patient has chills and 99 temperature. Evaluation unremarkable. Patient reevaluated and feels better and request Toradol injection. Patient will be discharged home. Undiagnosed new problem with uncertain prognosis? @ -No Drug Therapy requiring intensive monitoring for toxicity (Heparin, Nitro, Insulin, Cardizem)? @ -No Were any procedures done? @ -No Diagnosis/symptom? @ -Chills, leg pain Acute, or Chronic, or Acute on Chronic? @ -Acute, acute on chronic Uncomplicated (without systemic symptoms) or Complicated (systemic symptoms)? @ -Default Side effects of treatment? @ -No Exacerbation, Progression, or Severe Exacerbation? @ -No Poses a threat to life or bodily function? How? (Chest pain, [place], [place], pneumonia, PE, COPD, DKA, ARF, appy, cholecystitis, CVA, Diverticulitis, Homicidal, Suicidal, threat to staff... and all critical care pts) @ -No - Lab Data Lab Results 11/06/23 11/06/23 Range/Units 10:15 10:15 Urine Color Yellow Urine Appearance Clear (Clear) Urine pH 5.5 (5.0-8.0) Ur Specific [place] 1.028 (1.001-1.035) Urine Protein Trace H (Negative) Urine Glucose (UA) Negative (Negative) Urine Ketones Negative (Negative) Urine Blood Negative (Negative) Urine Nitrite Negative (Negative) Urine Bilirubin Negative (Negative) Urine Urobilinogen <2.0 (<2.0) mg/dL Ur Leukocyte Esterase Small H (Negative) Urine RBC 1 (0-5) /hpf Urine WBC 5 (0-5) /hpf Ur Squamous Epith Cells 3 (0-4) /hpf Urine Mucus Many H (None) /hpf Influenza Type A (PCR) Not Detected (Not Detectd) Influenza Type B (PCR) Not Detected (Not Detectd) RSV (PCR) Not Detected (Not Detectd) SARS-CoV-2 (PCR) Not Detected (Not Detectd) Disposition Clinical Impression: Leg pain, Chills Disposition: HOME SELF-CARE Condition: Stable Instructions (If sedation given, give patient instructions): Chronic Pain (ED) Additional Instructions: Please do follow-up with your primary care physician in the next 1 or 2 days for recheck. Return for fevers, difficulty breathing, weakness, rash, worsening or changing symptoms or other concerns. Is patient prescribed a controlled substance at d/c from ED?: No Referrals: Jefry Castro DO [Primary Care Provider] - 1-2 days Time of Disposition: 11:32
[2023-11-06 10:14] VITALS: RESP 20
[2023-11-06] MEDS: ACETAMINOPHEN TAB 500 MG TAB PO STA (10:17)
--- NOTE | 2023-11-06 10:58 | XR ---
EXAMINATION TYPE: XR chest 2V DATE OF EXAM: 11/06/2023 10:36 AM CLINICAL INDICATION: Male, 48 years old with history of chills; COMPARISON: Chest radiographs from 11/19/2022 TECHNIQUE: XR chest 2V Frontal view of the chest. FINDINGS: Lungs/Pleura: There is no evidence of pleural effusion, focal consolidation, or pneumothorax. Pulmonary vascularity: Unremarkable. Heart/mediastinum: Cardiomediastinal silhouette is unremarkable. Musculoskeletal: No acute osseous pathology. Other findings: None IMPRESSION: No acute cardiopulmonary disease/process. [facility], , 11/06/2023 10:56 AM
[2023-11-06 11:12] LABS: Appearance,Urine Clear (Clear); Bilirubin,Urine Negative (Negative); Blood,Urine Negative (Negative); Color,Urine Yellow; Glucose,Urine (UA) Negative (Negative); Ketones,Urine Negative (Negative); Leukocyte Esterase,Urine Small (Negative); Mucus,Urine Many /hpf; Nitrite,Urine Negative (Negative); PH, Urine 5.5 (5.0-8.0); Protein,Urine Trace (Negative); RBC,Urine 1 /hpf (0-5); Specific Gravity,Urine 1.028 (1.001-1.035); Squamous Epithelial Cell,Urine 3 /hpf (0-4); Urobilinogen,Urine <2.0 mg/dL (<2.0); WBC,Urine 5 /hpf (0-5)
[2023-11-06 12:50] VITALS: BP 118/56; PULSE 120; TEMP 99
[2023-11-06] MEDS: KETOROLAC 15 MG/ML 1 ML VIAL IM STA (12:51)
== END 2023-11-06 12:55 | disposition home or self-care (01) ==
LOC: EC 09:22
CPT/HCPCS: 71046; 81001; 87636; 96372; 99284

== ENCOUNTER 2023-11-06 22:43 | Emergency (ER) | payer OTHER ==
--- NOTE | 2023-11-07 00:25 | ED ---
Lower Extremity Injury HPI - General Chief Complaint: Extremity Injury, Lower Stated Complaint: L Leg Pain Time Seen by Provider: 11/06/23 23:43 Source: EMS, RN notes reviewed Mode of arrival: EMS - History of Present Illness Initial Comments: 48-year-old male presenting with anxiety x 1 day with left leg pain. States he had a "panic attack" that began earlier today. He has a history of panic attacks and states this feels similar. He has had multiple ER visits for similar complaints recently. States he also has chronic left leg pain and is having an acute flare, denies any new trauma or injury. - Related Data Home Medications Medication Instructions Recorded Confirmed Lurasidone HCl [Latuda] 120 mg PO HS 05/18/22 11/06/23 Venlafaxine HCl [Effexor XR] 75 mg PO DAILY 05/18/22 11/06/23 Venlafaxine HCl [Effexor XR] 150 mg PO DAILY 05/18/22 11/06/23 lisinopriL [Zestril] 10 mg PO DAILY 05/18/22 11/06/23 metFORMIN HCL ER [Glucophage XR] 500 mg PO DAILY 05/18/22 11/06/23 rOPINIRole HCL [Requip] 0.5 mg PO BID PRN 05/18/22 11/06/23 Cyclobenzaprine [Flexeril] 10 mg PO TID PRN 10/21/23 11/06/23 HYDROcodone/APAP 5-325MG [[place] 1 tab PO Q6H PRN 10/21/23 11/06/23 5-325] Simvastatin [Zocor] 20 mg PO HS 10/21/23 11/06/23 clonazePAM [KlonoPIN] 2 mg PO BID PRN 10/21/23 11/06/23 Allergies Allergy/AdvReac Type Severity Reaction Status Date / Time bupropion HCl Allergy Rash/Hives Verified 11/06/23 22:57 [From Wellbutrin] droperidol Allergy Hallucinations/Increased Verified 11/06/23 22:57 Anxiety Review of Systems ROS Statement: Those systems with pertinent positive or pertinent negative responses have been documented in the HPI. ROS Other: All systems not noted in ROS Statement are negative. Past Medical History Past Medical History: Hyperlipidemia Additional Past Medical History / Comment(s): restless leg syndrome. Complex regional pain syndrome to left lower extremity History of Any Multi-Drug Resistant Organisms: None Reported Additional Past Surgical History / Comment(s): FINGER AMPUTATION LEFT INDEX FINGER IN 1999, HILARIO PLACED AND REMOVED FROM LEFT LEG IN 2002 hardware removal from left ORIF lower extremity, distal tip of the finger slightly amputated after injury Past Anesthesia/Blood Transfusion Reactions: No Reported Reaction Past Psychological History: Anxiety, Depression Smoking Status: Never smoker Past Alcohol Use History: Occasional Past Drug Use History: None Reported - Past Family History Father Family Medical History: No Reported History Mother Family Medical History: No Reported History Brother(s) Family Medical History: No Reported History (Depression and anxiety) General Exam General appearance: alert, in no apparent distress Head exam: Present: atraumatic, normocephalic, normal inspection Respiratory exam: Present: normal lung sounds bilaterally. Absent: respiratory distress, wheezes, rales, rhonchi, stridor Cardiovascular Exam: Present: normal rhythm, tachycardia, normal heart sounds. Absent: systolic murmur, diastolic murmur, rubs, gallop, clicks Extremities exam: Present: normal inspection, full ROM, normal capillary refill, other (Full DP pulses and sensation bilaterally). Absent: tenderness, pedal edema, joint swelling, calf tenderness Neurological exam: Present: alert, oriented X3 Psychiatric exam: Present: normal affect, normal mood Skin exam: Present: warm, dry, intact, normal color. Absent: rash Course Vital Signs 11/06/23 11/07/23 22:52 02:17 Temperature 98.1 F 98.2 F Pulse Rate 114 H 88 Respiratory 18 16 Rate Blood Pressure 120/76 105/72 O2 Sat by Pulse 93 L 95 Oximetry Medical Decision Making - Medical Decision Making Was pt. sent in by a medical professional or institution (, PA, STONE POLISHER, urgent care, hospital, or [facility]...) When possible be specific @ -No Did you speak to anyone other than the patient for history (EMS, parent, family, police, friend...)? What history was obtained from this source @ -Mother supplemented history Did you review nursing and triage notes (agree or disagree)? Why? @ -I reviewed and agree with nursing and triage notes Were old charts reviewed (outside hosp., previous admission, EMS record, old EKG, old radiological studies, urgent care reports/EKG's, [facility] records)? Report findings @ -No old charts were reviewed Differential Diagnosis (chest pain, altered mental status, abdominal pain women, abdominal pain men, vaginal bleeding, weakness, fever, dyspnea, syncope, headache, dizziness, GI bleed, back pain, seizure, CVA, palpatations, mental health, musculoskeletal)? @ -Differential Musculoskeletal Muscular strain, contusion, ligament sprain, fracture, arthritis, septic arthritis, bursitis, cellulitis, muscle spasm, nerve compression, DVT, arterial occlusion, herpes zoster, electrolyte abnormality, tumor.... This is not meant to be in all inclusive list EKG interpreted by me (3pts min.). @ -None X-rays interpreted by me (1pt min.). @ -None done CT interpreted by me (1pt min.). @ -None done U/S interpreted by me (1pt. min.). @ -None done What testing was considered but not performed or refused? (CT, X-rays, U/S, labs)? Why? @ -Imaging not performed due to symptoms chronic in nature What meds were considered but not given or refused? Why? @ -None Did you discuss the management of the patient with other professionals (professionals i.e. , PA, STONE POLISHER, lab, RT, psych nurse, pediatric social worker, child nurse, teacher, business enterprise officer, home health care case manager)? Give summary @ -No Was smoking cessation discussed for >3mins.? @ -No Was critical care preformed (if so, how long)? @ -No Were there social determinants of health that impacted care today? How? (Homelessness, low income, unemployed, alcoholism, drug addiction, transportation, low edu. Level, literacy, decrease access to med. care, shelter, rehab)? @ -No Was there de-escalation of care discussed even if they declined (Discuss DNR or withdrawal of care, Hospice)? DNR status @ -No What co-morbidities impacted this encounter? (DM, HTN, Smoking, COPD, CAD, Cancer, CVA, ARF, Chemo, Hep., AIDS, mental health diagnosis, sleep apnea, morbid obesity)? @ -None Was patient admitted / discharged? Hospital course, mention meds given and route, prescriptions, significant lab abnormalities, going to OR and other pertinent info. @ -Patient was discharged. This is a 48-year-old male presenting with anxiety x 1 day with acute flare of chronic left leg pain. No acute trauma or injury. No acute distress upon examination. Patient was given IM Ativan and Toradol. Upon reevaluation, patient reports improvement of symptoms and is discharged in stable condition. Case was discussed with my ED attending Dr. Winslow. Undiagnosed new problem with uncertain prognosis? @ -No Drug Therapy requiring intensive monitoring for toxicity (Heparin, Nitro, Insulin, Cardizem)? @ -No Were any procedures done? @ -No Diagnosis/symptom? @ -Anxiety, acute flare of chronic left leg pain Acute, or Chronic, or Acute on Chronic? @ -Acute on chronic Uncomplicated (without systemic symptoms) or Complicated (systemic symptoms)? @ -Uncomplicated Side effects of treatment? @ -No Exacerbation, Progression, or Severe Exacerbation? @ -No Poses a threat to life or bodily function? How? (Chest pain, [place], [place], pneumonia, PE, COPD, DKA, ARF, appy, cholecystitis, CVA, Diverticulitis, Homicidal, Suicidal, threat to staff... and all critical care pts) @ -No Disposition Clinical Impression: Anxiety, Chronic pain of left lower extremity Disposition: HOME SELF-CARE Condition: Stable Is patient prescribed a controlled substance at d/c from ED?: No Referrals: Jefry Castro DO [Primary Care Provider] - 1-2 days Time of Disposition: 02:05
[2023-11-07] MEDS: LORazepam 2 MG/ML INJ IM STA (01:13)
[2023-11-07] MEDS: KETOROLAC 15 MG/ML 1 ML VIAL IM STA (01:19)
[2023-11-07 02:34] VITALS: BP 105/72; PULSE 88; RESP 16; TEMP 98.2
== END 2023-11-07 02:17 | disposition home or self-care (01) ==
LOC: EC 22:43
CPT/HCPCS: 96372; 99283

== ENCOUNTER 2023-11-24 00:37 | Emergency (ER) | payer OTHER ==
--- NOTE | 2023-11-24 01:05 | ED ---
General Adult HPI - General Chief complaint: Extremity Problem,Nontraumatic Stated complaint: L Leg Pain, Anxiety Time Seen by Provider: 11/24/23 00:47 Source: patient Mode of arrival: wheelchair Limitations: no limitations - History of Present Illness Initial comments: Dictation was produced using Pic[employer] dictation software. please excuse any grammatical, word or spelling errors. Chief Complaint: 48-year-old male presents to the ER for acute on chronic leg pain History of Present Illness: Patient is a 48-year-old male he has history of chronic pain to his left leg due to nerve injury secondary to work-related injury several years ago. He presents with his mother his mother presents entirety of history of present illness. She is massaging his leg saying that patient has acute on chronic nerve pain in his knee. States its like a burning gnawing pain to his left anterior thigh consistent with his chronic neuropathy pain from his left lower extremity. He does take medications at home. Denies any trauma. Mother states that patient just needs some pain medicine patient also states that he is anxious. The ROS documented in this emergency department record has been reviewed and confirmed by me. Those systems with pertinent positive or negative responses have been documented in the HPI. All other systems are other negative and/or noncontributory. - Related Data Home Medications Medication Instructions Recorded Confirmed Lurasidone HCl [Latuda] 120 mg PO HS 05/18/22 11/06/23 Venlafaxine HCl [Effexor XR] 75 mg PO DAILY 05/18/22 11/06/23 Venlafaxine HCl [Effexor XR] 150 mg PO DAILY 05/18/22 11/06/23 lisinopriL [Zestril] 10 mg PO DAILY 05/18/22 11/06/23 metFORMIN HCL ER [Glucophage XR] 500 mg PO DAILY 05/18/22 11/06/23 rOPINIRole HCL [Requip] 0.5 mg PO BID PRN 05/18/22 11/06/23 Cyclobenzaprine [Flexeril] 10 mg PO TID PRN 10/21/23 11/06/23 HYDROcodone/APAP 5-325MG [[place] 1 tab PO Q6H PRN 10/21/23 11/06/23 5-325] Simvastatin [Zocor] 20 mg PO HS 10/21/23 11/06/23 clonazePAM [KlonoPIN] 2 mg PO BID PRN 10/21/23 11/06/23 Allergies Allergy/AdvReac Type Severity Reaction Status Date / Time bupropion HCl Allergy Rash/Hives Verified 11/06/23 22:57 [From Wellbutrin] droperidol Allergy Hallucinations/Increased Verified 11/06/23 22:57 Anxiety Review of Systems ROS Statement: Those systems with pertinent positive or pertinent negative responses have been documented in the HPI. ROS Other: All systems not noted in ROS Statement are negative. Past Medical History Past Medical History: Hyperlipidemia Additional Past Medical History / Comment(s): restless leg syndrome. Complex regional pain syndrome to left lower extremity History of Any Multi-Drug Resistant Organisms: None Reported Additional Past Surgical History / Comment(s): FINGER AMPUTATION LEFT INDEX FINGER IN 1999, HILARIO PLACED AND REMOVED FROM LEFT LEG IN 2002 hardware removal from left ORIF lower extremity, distal tip of the finger slightly amputated after injury Past Anesthesia/Blood Transfusion Reactions: No Reported Reaction Past Psychological History: Anxiety, Depression Smoking Status: Never smoker Past Alcohol Use History: Occasional Past Drug Use History: None Reported - Past Family History Father Family Medical History: No Reported History Mother Family Medical History: No Reported History Brother(s) Family Medical History: No Reported History (Depression and anxiety) General Exam - General Exam Comments Initial Comments: General: Well-appearing, nontoxic, no acute distress. Head: Normocephalic, atraumatic Eyes: PERRLA, EOMI ENT: Airway patent Chest: Nonlabored breathing Skin: No visual rash, normal skin tone Neuro: Alert and oriented 3 Musculoskeletal: No gross abnormalities Left knee: No abnormalities Limitations: no limitations Course Vital Signs 11/24/23 00:38 Temperature 97.5 F L Pulse Rate 130 H Respiratory 20 Rate Blood Pressure 137/88 O2 Sat by Pulse 96 Oximetry Medical Decision Making - Medical Decision Making Was pt. sent in by a medical professional or institution (, PA, INTRAMURAL DIRECTOR, urgent care, hospital, or long term...) When possible be specific @ -No Did you speak to anyone other than the patient for history (EMS, parent, family, police, friend...)? What history was obtained from this source @ -Mother as described above Did you review nursing and triage notes (agree or disagree)? Why? @ -I reviewed and agree with nursing and triage notes Were old charts reviewed (outside hosp., previous admission, EMS record, old EKG, old radiological studies, urgent care reports/EKG's, long term records)? Report findings @ -No old charts were reviewed Differential Diagnosis (chest pain, altered mental status, abdominal pain women, abdominal pain men, vaginal bleeding, musculoskeletal, weakness, fever, dyspnea, syncope, headache, dizziness, GI bleed, back pain, seizure, CVA, palpatations, mental health)? @ -Septic joint, knee strain, soft tissue injury EKG interpreted by me (3pts min.). @ -None done X-rays interpreted by me (1pt min.). @ -None done CT interpreted by me (1pt min.). @ -None done U/S interpreted by me (1pt. min.). @ -None done What testing was considered but not performed or refused? (CT, X-rays, U/S, labs)? Why? @ -None What meds were considered but not given or refused? Why? @ -None Was smoking cessation discussed for >3mins.? @ -No Were there social determinants of health that impacted care today? How? (Homele ssness, low income, unemployed, alcoholism, drug addiction, transportation, low edu. Level, literacy, decrease access to med. care, retirement, rehab)? @ -No Was there de-escalation of care discussed even if they declined (Discuss DNR or withdrawal of care, Hospice)? DNR status @ -No What co-morbidities impacted this encounter? (DM, HTN, Smoking, COPD, CAD, Cancer, CVA, ARF, Chemo, Hep., AIDS, mental health diagnosis, sleep apnea, morbid obesity)? @ -Chronic pain, chronic neuropathy, anxiety Was patient admitted / discharged? Hospital course, mention meds given and route, prescriptions, significant lab abnormalities, going to OR and other pertinent info. @ -48-year-old male presents to the emergency department for acute on chronic knee pain and anxiety. Vital signs stable. Physical examination is benign. No concern for life-threatening cause of knee pain. Patient given analgesics and anxiolytics and discharge. Did you discuss the management of the patient with other professionals (pr ofessionals i.e. , PA, INTRAMURAL DIRECTOR, lab, RT, psych nurse, social services, licensed social worker, teacher, public relations officer, family service caseworker)? Give summary @ -No Was critical care preformed (if so, how long)? @ -No Undiagnosed new problem with uncertain prognosis? @ -No Drug Therapy requiring intensive monitoring for toxicity (Heparin, Nitro, Insulin, Cardizem)? @ -No Were any procedures done? @ -No Diagnosis/symptom? Acute, or Chronic, or Acute on Chronic? Uncomplicated (without systemic symptoms) or Complicated (systemic symptoms)? @ -Chronic knee pain Side effects of treatment? @ -No Exacerbation, Progression, or Severe Exacerbation? @ -No Poses a threat to life or bodily function? How? (Chest pain, [place], [place], pneumonia, PE, COPD, DKA, ARF, appy, cholecystitis, CVA, Diverticulitis, Homicidal, Suicidal, threat to staff... and all critical care pts) @ -No Disposition Clinical Impression: Knee pain Disposition: HOME SELF-CARE Condition: Fair Instructions (If sedation given, give patient instructions): Opioid Use Disorder (ED) Is patient prescribed a controlled substance at d/c from ED?: No Referrals: Jefry Castro DO [Primary Care Provider] - 1-2 days Time of Disposition: 01:33
[2023-11-24] MEDS: HYDROmorphone 1 MG/ML 1 ML SYRINGE IM STA (01:18)
[2023-11-24] MEDS: ALPRAZolam 0.5 MG TAB PO STA (01:47)
[2023-11-24 01:51] VITALS: BP 111/75; PULSE 106; RESP 16; TEMP 99.1
== END 2023-11-24 01:51 | disposition home or self-care (01) ==
LOC: EC 00:37
CPT/HCPCS: 96372; 99283

== ENCOUNTER 2023-12-03 23:37 | Emergency (ER) | payer BC, OTHER ==
[2023-12-03 23:40] VITALS: RESP 18
--- NOTE | 2023-12-04 00:03 | ED ---
General Adult HPI - General Chief complaint: Anxiety Stated complaint: Anxiety, Leg Pain Time Seen by Provider: 12/03/23 23:44 Source: patient, RN notes reviewed, old records reviewed Mode of arrival: wheelchair - History of Present Illness Initial comments: 48-year-old male with history of anxiety chronic leg pain presenting with request for anxiety medication and pain medication. This is a well-known chronic issue for this patient. He follows with neurology for chronic pain. He has a nerve stimulator. - Related Data Home Medications Medication Instructions Recorded Confirmed Lurasidone HCl [Latuda] 120 mg PO HS 05/18/22 11/06/23 Venlafaxine HCl [Effexor XR] 75 mg PO DAILY 05/18/22 11/06/23 Venlafaxine HCl [Effexor XR] 150 mg PO DAILY 05/18/22 11/06/23 lisinopriL [Zestril] 10 mg PO DAILY 05/18/22 11/06/23 metFORMIN HCL ER [Glucophage XR] 500 mg PO DAILY 05/18/22 11/06/23 rOPINIRole HCL [Requip] 0.5 mg PO BID PRN 05/18/22 11/06/23 Cyclobenzaprine [Flexeril] 10 mg PO TID PRN 10/21/23 11/06/23 HYDROcodone/APAP 5-325MG [[place] 1 tab PO Q6H PRN 10/21/23 11/06/23 5-325] Simvastatin [Zocor] 20 mg PO HS 10/21/23 11/06/23 clonazePAM [KlonoPIN] 2 mg PO BID PRN 10/21/23 11/06/23 Allergies Allergy/AdvReac Type Severity Reaction Status Date / Time bupropion HCl Allergy Rash/Hives Verified 12/03/23 23:41 [From Wellbutrin] droperidol Allergy Hallucinations/Increased Verified 12/03/23 23:41 Anxiety Review of Systems ROS Statement: Those systems with pertinent positive or pertinent negative responses have been documented in the HPI. ROS Other: All systems not noted in ROS Statement are negative. Past Medical History Past Medical History: Hyperlipidemia Additional Past Medical History / Comment(s): restless leg syndrome. Complex regional pain syndrome to left lower extremity History of Any Multi-Drug Resistant Organisms: None Reported Additional Past Surgical History / Comment(s): FINGER AMPUTATION LEFT INDEX FINGER IN 1999, HILARIO PLACED AND REMOVED FROM LEFT LEG IN 2002 hardware removal from left ORIF lower extremity, distal tip of the finger slightly amputated after injury Past Anesthesia/Blood Transfusion Reactions: No Reported Reaction Past Psychological History: Anxiety, Depression Smoking Status: Never smoker Past Alcohol Use History: Occasional Past Drug Use History: None Reported - Past Family History Father Family Medical History: No Reported History Mother Family Medical History: No Reported History Brother(s) Family Medical History: No Reported History (Depression and anxiety) General Exam General appearance: alert, anxious Head exam: Present: atraumatic, normocephalic Eye exam: Present: normal appearance, PERRL ENT exam: Present: normal exam Neck exam: Present: normal inspection Respiratory exam: Present: normal lung sounds bilaterally. Absent: respiratory distress, wheezes Cardiovascular Exam: Present: normal rhythm, tachycardia GI/Abdominal exam: Present: soft. Absent: distended Extremities exam: Present: normal inspection, normal capillary refill. Absent: calf tenderness Neurological exam: Present: alert. Absent: motor sensory deficit Psychiatric exam: Present: anxious, flat affect Skin exam: Present: warm, dry, intact Course Vital Signs 12/03/23 23:38 Temperature 98.7 F Pulse Rate 138 H Respiratory 18 Rate Blood Pressure 137/95 O2 Sat by Pulse 98 Oximetry Medical Decision Making - Medical Decision Making Was pt. sent in by a medical professional or institution (RINKU Serrano, HANDYMAN, urgent care, hospital, or fpc...) When possible be specific @ -No Did you speak to anyone other than the patient for history (EMS, parent, family, police, friend...)? What history was obtained from this source @ -No Did you review nursing and triage notes (agree or disagree)? Why? @ -I reviewed and agree with nursing and triage notes Were old charts reviewed (outside hosp., previous admission, EMS record, old EKG, old radiological studies, urgent care reports/EKG's, fpc records)? Report findings @ -No old charts were reviewed Differential Diagnosis: Chronic pain, anxiety, panic attack EKG interpreted by me (3pts min.). @ -As above X-rays interpreted by me (1pt min.). @ -None done CT interpreted by me (1pt min.). @ -None done U/S interpreted by me (1pt. min.). @ -None done What testing was considered but not performed or refused? (CT, X-rays, U/S, labs)? Why? @ -None What meds were considered but not given or refused? Why? @ -None Did you discuss the management of the patient with other professionals (professionals i.e. , PA, HANDYMAN, lab, RT, psych nurse, social sciences instructor, assistant spa manager, teacher, resident medical officer, binder caser)? Give summary @ -No Was smoking cessation discussed for >3mins.? @ -No Was critical care preformed (if so, how long)? @ -No Were there social determinants of health that impacted care today? How? (Homel essness, low income, unemployed, alcoholism, drug addiction, transportation, low edu. Level, literacy, decrease access to med. care, residential, rehab)? @ -No Was there de-escalation of care discussed even if they declined (Discuss DNR or withdrawal of care, Hospice)? DNR status @ -No What co-morbidities impacted this encounter? (DM, HTN, Smoking, COPD, CAD, Cancer, CVA, ARF, Chemo, Hep., AIDS, mental health diagnosis, sleep apnea, morbid obesity)? @ -Chronic left leg pain, anxiety Was patient admitted / discharged? Hospital course, mention meds given and route, prescriptions, significant lab abnormalities, going to OR and other pertinent info. @ -48-year-old male with chronic pain, no new injury, no fever. Patient given anxiolytic and pain medication in the emergency department, stable for discharge. Undiagnosed new problem with uncertain prognosis? @ -No Drug Therapy requiring intensive monitoring for toxicity (Heparin, Nitro, Insulin, Cardizem)? @ -No Were any procedures done? @ -No Diagnosis/symptom? @ -Anxiety and chronic pain Acute, or Chronic, or Acute on Chronic? @Chronic Uncomplicated (without systemic symptoms) or Complicated (systemic symptoms)? @ -Default Side effects of treatment? @ -No Exacerbation, Progression, or Severe Exacerbation? @ -No Poses a threat to life or bodily function? How? (Chest pain, [place], [place], pneumonia, PE, COPD, DKA, ARF, appy, cholecystitis, CVA, Diverticulitis, Homicidal, Suicidal, threat to staff... and all critical care pts) @ -No Disposition Clinical Impression: Left leg pain, Panic attack Disposition: HOME SELF-CARE Condition: Fair Instructions (If sedation given, give patient instructions): Generalized Anx iety Disorder (ED) Is patient prescribed a controlled substance at d/c from ED?: No Referrals: Jefry Castro DO [Primary Care Provider] - 1-2 days Time of Disposition: 00:02
[2023-12-04] MEDS: LORazepam 2 MG/ML INJ IM STA (00:09)
[2023-12-04] MEDS: HYDROmorphone 1 MG/ML 1 ML SYRINGE IM STA (00:09)
[2023-12-04 01:03] VITALS: BP 128/93; PULSE 111; TEMP 98.5
== END 2023-12-04 01:00 | disposition home or self-care (01) ==
LOC: EC 23:37
CPT/HCPCS: 96372; 99283

== ENCOUNTER 2023-12-15 04:47 | Emergency (ER) | payer BC, MEDICARE ==
[2023-12-15 04:52] VITALS: TEMP 98.1
[2023-12-15] MEDS: KETOROLAC 15 MG/ML 1 ML VIAL IM STA (05:11)
[2023-12-15] MEDS: ORPHENADRINE 30 MG/ML 2 ML VIAL IM STA (05:11)
--- NOTE | 2023-12-15 06:40 | ED ---
General Adult HPI - General Chief complaint: Anxiety Stated complaint: Leg and knee pain, anxiety Source: patient Mode of arrival: wheelchair Limitations: no limitations - History of Present Illness Initial comments: This patient is a 48-year-old man with history of chronic left leg pain and accompanying anxiety when the pain flares. The patient states he has been having pains in the left leg ever since he had tib-fib fracture approximately 20 years ago at work. The patient states tonight's flare has been going on for a number of hours. When the pain was at its maximum he also started having anxiety symptoms. Patient denies any change from his usual symptomatology. He is not having weakness or numbness of the leg. Patient's mother states she has tried massaging the leg. They have not taken all of his [id number]'s or prescription medications. -: hour(s) Location: left, lower extremity Quality: aching, other (Spasming) Consistency: constant Improves with: none Worsens with: none Associated Symptoms: other (Anxiety) Treatments Prior to Arrival: none - Related Data Home Medications Medication Instructions Recorded Confirmed Lurasidone HCl [Latuda] 120 mg PO HS 05/18/22 11/06/23 Venlafaxine HCl [Effexor XR] 75 mg PO DAILY 05/18/22 11/06/23 Venlafaxine HCl [Effexor XR] 150 mg PO DAILY 05/18/22 11/06/23 lisinopriL [Zestril] 10 mg PO DAILY 05/18/22 11/06/23 metFORMIN HCL ER [Glucophage XR] 500 mg PO DAILY 05/18/22 11/06/23 rOPINIRole HCL [Requip] 0.5 mg PO BID PRN 05/18/22 11/06/23 Cyclobenzaprine [Flexeril] 10 mg PO TID PRN 10/21/23 11/06/23 HYDROcodone/APAP 5-325MG [[place] 1 tab PO Q6H PRN 10/21/23 11/06/23 5-325] Simvastatin [Zocor] 20 mg PO HS 10/21/23 11/06/23 clonazePAM [KlonoPIN] 2 mg PO BID PRN 10/21/23 11/06/23 Allergies Allergy/AdvReac Type Severity Reaction Status Date / Time bupropion HCl Allergy Rash/Hives Verified 12/16/23 22:38 [From Wellbutrin] droperidol Allergy Hallucinations/Increased Verified 12/16/23 22:38 Anxiety Review of Systems ROS Statement: Those systems with pertinent positive or pertinent negative responses have been documented in the HPI. ROS Other: All systems not noted in ROS Statement are negative. Constitutional: Denies: fever, weakness Respiratory: Denies: cough, dyspnea Cardiovascular: Denies: chest pain, palpitations, edema, syncope Gastrointestinal: Denies: abdominal pain, vomiting, diarrhea Musculoskeletal: Reports: as per HPI, myalgia. Denies: back pain Skin: Denies: rash Neurological: Denies: headache, weakness, numbness, paresthesias Psychiatric: Reports: anxiety. Denies: depression, suicidal thoughts Past Medical History Past Medical History: Hyperlipidemia Additional Past Medical History / Comment(s): restless leg syndrome. Complex regional pain syndrome to left lower extremity History of Any Multi-Drug Resistant Organisms: None Reported Additional Past Surgical History / Comment(s): FINGER AMPUTATION LEFT INDEX FINGER IN 1999, HILARIO PLACED AND REMOVED FROM LEFT LEG IN 2002 hardware removal from left ORIF lower extremity, distal tip of the finger slightly amputated after injury Past Anesthesia/Blood Transfusion Reactions: No Reported Reaction Past Psychological History: Anxiety, Depression Smoking Status: Never smoker Past Alcohol Use History: Occasional Past Drug Use History: None Reported - Past Family History Father Family Medical History: No Reported History Mother Family Medical History: No Reported History Brother(s) Family Medical History: No Reported History (Depression and anxiety) General Exam Limitations: no limitations General appearance: alert, anxious Head exam: Present: atraumatic, normocephalic Eye exam: Present: normal appearance Respiratory exam: Present: normal lung sounds bilaterally. Absent: respiratory distress, wheezes, rales, rhonchi, stridor, accessory muscle use Cardiovascular Exam: Present: regular rate, normal rhythm, normal heart sounds. Absent: systolic murmur, diastolic murmur, rubs, gallop GI/Abdominal exam: Present: soft. Absent: distended, tenderness, guarding Extremities exam: Present: normal inspection, full ROM, tenderness (Left quadriceps), normal capillary refill. Absent: pedal edema, joint swelling, calf tenderness Back exam: Present: normal inspection. Absent: vertebral tenderness Neurological exam: Present: alert, oriented X3. Absent: motor sensory deficit Psychiatric exam: Present: anxious. Absent: depressed, suicidal ideation Skin exam: Present: warm, dry, intact, normal color. Absent: rash Course Vital Signs 12/15/23 12/15/23 04:49 06:50 Temperature 98.1 F Pulse Rate 107 H 97 Respiratory 18 16 Rate Blood Pressure 118/80 104/76 O2 Sat by Pulse 98 95 Oximetry Medical Decision Making - Medical Decision Making Was pt. sent in by a medical professional or institution (, RINKU, WOOL GROWER, urgent care, hospital, or group home...) When possible be specific @ -[No] Did you speak to anyone other than the patient for history (EMS, parent, family, police, friend...)? What history was obtained from this source @ -[No] Did you review nursing and triage notes (agree or disagree)? Why? @ -[I reviewed and agree with nursing and triage notes] Were old charts reviewed (outside hosp., previous admission, EMS record, old EKG, old radiological studies, urgent care reports/EKG's, group home records)? Report findings @ -[No old charts were reviewed] Differential Diagnosis (chest pain, altered mental status, abdominal pain women, abdominal pain men, vaginal bleeding, weakness, fever, dyspnea, syncope, headache, dizziness, GI bleed, back pain, seizure, CVA, palpatations, mental health, musculoskeletal)? @ -[Differential Musculoskeletal Muscular strain, contusion, ligament sprain, fracture, arthritis, septic arthritis, bursitis, cellulitis, muscle spasm, nerve compression, DVT, arterial occlusion, herpes zoster, electrolyte abnormality, tumor.... This is not meant to be in all inclusive list EKG interpreted by me (3pts min.). @ -[As above] X-rays interpreted by me (1pt min.). @ -[None done] CT interpreted by me (1pt min.). @ -[None done] U/S interpreted by me (1pt. min.). @ -[None done] What testing was considered but not performed or refused? (CT, X-rays, U/S, labs)? Why? @ -[None] What meds were considered but not given or refused? Why? @ -[None] Did you discuss the management of the patient with other professionals (professionals i.e. , RINKU, WOOL GROWER, lab, RT, psych nurse, bilingual social worker, automotive refinish technician, teacher, veterans service officer, rehabilitation case coordinator)? Give summary @ -[No] Was smoking cessation discussed for >3mins.? @ -[No] Was critical care preformed (if so, how long)? @ -[No] Were there social determinants of health that impacted care today? How? (Homelessness, low income, unemployed, alcoholism, drug addiction, transportation, low edu. Level, literacy, decrease access to med. care, residential, rehab)? @ -[No] Was there de-escalation of care discussed even if they declined (Discuss DNR or withdrawal of care, Hospice)? DNR status @ -[No] What co-morbidities impacted this encounter? (DM, HTN, Smoking, COPD, CAD, Cancer, CVA, ARF, Chemo, Hep., AIDS, mental health diagnosis, sleep apnea, morbid obesity)? @ -[Chronic left leg pain Was patient admitted / discharged? Hospital course, mention meds given and route, prescriptions, significant lab abnormalities, going to OR and other pertinent info. @ -[This patient is 48-year-old man presenting to have evaluation and treatment of left leg pain which is chronic since time of having a fracture many years ago. Patient did receive analgesia and was feeling better and stable to have further treatment as outpatient. Undiagnosed new problem with uncertain prognosis? @ -[No] Drug Therapy requiring intensive monitoring for toxicity (Heparin, Nitro, Insulin, Cardizem)? @ -[No] Were any procedures done? @ -[No] Diagnosis/symptom? @ -[Acute on chronic left leg pain Acute, or Chronic, or Acute on Chronic? @ -[Acute on chronic Uncomplicated (without systemic symptoms) or Complicated (systemic symptoms)? @ -[Duplicated Side effects of treatment? @ -[No] Exacerbation, Progression, or Severe Exacerbation? @ -[No] Poses a threat to life or bodily function? How? (Chest pain, [place], [place], pneumonia, PE, COPD, DKA, ARF, appy, cholecystitis, CVA, Diverticulitis, Homicidal, Suicidal, threat to staff... and all critical care pts) @ -[No] Disposition Clinical Impression: Left leg pain, Acute anxiety Disposition: HOME SELF-CARE Condition: Good Instructions (If sedation given, give patient instructions): Generalized Anxiety Disorder (ED), Leg Pain (ED) Is patient prescribed a controlled substance at d/c from ED?: No Referrals: Jefry Castro DO [Primary Care Provider] - 1-2 days
[2023-12-15 06:51] VITALS: BP 104/76; PULSE 97; RESP 16
== END 2023-12-15 06:50 | disposition home or self-care (01) ==
LOC: EC 04:47
DX: M79.605 Pain in left leg (principal); F41.9 Anxiety disorder, unspecified; Z88.8 Allergy status to other drugs, medicaments and biological substances
CPT/HCPCS: 99283; 96372 ×2; J2360; J1885

== ENCOUNTER 2023-12-16 22:07 | Emergency (ER) | payer BC, MEDICARE ==
[2023-12-17] MEDS: KETOROLAC 15 MG/ML 1 ML VIAL IM STA (01:06)
[2023-12-17] MEDS: ORPHENADRINE 30 MG/ML 2 ML VIAL IM STA (01:06)
--- NOTE | 2023-12-17 02:17 | ED ---
Extremity Problem HPI - General Chief complaint: Extremity Problem,Nontraumatic Stated complaint: leg pain anxiety Time Seen by Provider: 12/16/23 23:04 Source: family Mode of arrival: wheelchair Limitations: no limitations - History of Present Illness Initial comments: This patient is a 48-year-old man with chronic left leg pain. He has had pain for years since he had lower leg fracture. Patient has tried his home medications and still continues to have pain. He has not had any new symptoms. No fever or chills. No change in the appearance of the leg. No swelling. No palpitations, chest pain, dyspnea. MD Complaint: extremity pain -: hour(s) Location: left, lower extremity History of Same: Yes -: Yes myalgia Quality: burning, aching Consistency: constant Improves with: nothing Worsens with: nothing Associated Symptoms: denies other symptoms - Related Data Home Medications Medication Instructions Recorded Confirmed Lurasidone HCl [Latuda] 120 mg PO HS 05/18/22 11/06/23 Venlafaxine HCl [Effexor XR] 75 mg PO DAILY 05/18/22 11/06/23 Venlafaxine HCl [Effexor XR] 150 mg PO DAILY 05/18/22 11/06/23 lisinopriL [Zestril] 10 mg PO DAILY 05/18/22 11/06/23 metFORMIN HCL ER [Glucophage XR] 500 mg PO DAILY 05/18/22 11/06/23 rOPINIRole HCL [Requip] 0.5 mg PO BID PRN 05/18/22 11/06/23 Cyclobenzaprine [Flexeril] 10 mg PO TID PRN 10/21/23 11/06/23 HYDROcodone/APAP 5-325MG [[place] 1 tab PO Q6H PRN 10/21/23 11/06/23 5-325] Simvastatin [Zocor] 20 mg PO HS 10/21/23 11/06/23 clonazePAM [KlonoPIN] 2 mg PO BID PRN 10/21/23 11/06/23 Allergies Allergy/AdvReac Type Severity Reaction Status Date / Time bupropion HCl Allergy Rash/Hives Verified 12/16/23 22:38 [From Wellbutrin] droperidol Allergy Hallucinations/Increased Verified 12/16/23 22:38 Anxiety Review of Systems ROS Statement: Those systems with pertinent positive or pertinent negative responses have been documented in the HPI. ROS Other: All systems not noted in ROS Statement are negative. Constitutional: Denies: fever, chills, weakness Respiratory: Denies: cough, dyspnea, hemoptysis Cardiovascular: Denies: chest pain, palpitations, edema, syncope Musculoskeletal: Reports: as per HPI, myalgia Skin: Denies: rash Neurological: Denies: headache, weakness, numbness Past Medical History Past Medical History: Hyperlipidemia Additional Past Medical History / Comment(s): restless leg syndrome. Complex regional pain syndrome to left lower extremity History of Any Multi-Drug Resistant Organisms: None Reported Additional Past Surgical History / Comment(s): FINGER AMPUTATION LEFT INDEX FINGER IN 1999, HILARIO PLACED AND REMOVED FROM LEFT LEG IN 2002 hardware removal from left ORIF lower extremity, distal tip of the finger slightly amputated after injury Past Anesthesia/Blood Transfusion Reactions: No Reported Reaction Past Psychological History: Anxiety, Depression Smoking Status: Never smoker Past Alcohol Use History: Occasional Past Drug Use History: None Reported - Past Family History Father Family Medical History: No Reported History Mother Family Medical History: No Reported History Brother(s) Family Medical History: No Reported History (Depression and anxiety) General Exam Limitations: no limitations General appearance: alert, in no apparent distress Head exam: Present: atraumatic, normocephalic Eye exam: Present: normal appearance Respiratory exam: Present: normal lung sounds bilaterally. Absent: respiratory distress, wheezes, rales, rhonchi, stridor, accessory muscle use Cardiovascular Exam: Present: regular rate, normal rhythm, normal heart sounds. Absent: systolic murmur, diastolic murmur, rubs, gallop GI/Abdominal exam: Present: soft. Absent: tenderness Extremities exam: Present: normal inspection, full ROM, normal capillary refill. Absent: tenderness, pedal edema, calf tenderness Back exam: Present: normal inspection. Absent: vertebral tenderness Neurological exam: Present: alert. Absent: motor sensory deficit Skin exam: Present: warm, dry, intact, normal color. Absent: rash Course Vital Signs 12/16/23 12/17/23 22:36 02:25 Temperature 97.9 F 97.8 F Pulse Rate 119 H 102 H Respiratory 20 19 Rate Blood Pressure 147/86 107/78 O2 Sat by Pulse 96 96 Oximetry Medical Decision Making - Medical Decision Making Was pt. sent in by a medical professional or institution (RINKU Serrano, [employer] SALES REPRESENTATIVE, urgent care, hospital, or assisted...) When possible be specific @ -[No] Did you speak to anyone other than the patient for history (EMS, parent, family, police, friend...)? What history was obtained from this source @ -[Patient's mother contributed to history Did you review nursing and triage notes (agree or disagree)? Why? @ -[I reviewed and agree with nursing and triage notes] Were old charts reviewed (outside hosp., previous admission, EMS record, old EKG, old radiological studies, urgent care reports/EKG's, assisted records)? Report findings @ -[No old charts were reviewed] Differential Diagnosis (chest pain, altered mental status, abdominal pain women, abdominal pain men, vaginal bleeding, weakness, fever, dyspnea, syncope, headache, dizziness, GI bleed, back pain, seizure, CVA, palpatations, mental health, musculoskeletal)? @ -[Differential Musculoskeletal Muscular strain, contusion, ligament sprain, fracture, arthritis, septic arthritis, bursitis, cellulitis, muscle spasm, nerve compression, DVT, arterial occlusion, herpes zoster, electrolyte abnormality, tumor.... This is not meant to be in all inclusive list EKG interpreted by me (3pts min.). @ -[As above] X-rays interpreted by me (1pt min.). @ -[None done] CT interpreted by me (1pt min.). @ -[None done] U/S interpreted by me (1pt. min.). @ -[None done] What testing was considered but not performed or refused? (CT, X-rays, U/S, labs)? Why? @ -[None] What meds were considered but not given or refused? Why? @ -[None] Did you discuss the management of the patient with other professionals (professionals i.e. RINKU Serrano, [employer] SALES REPRESENTATIVE, lab, RT, psych nurse, social work faculty member, intel recruiter, teacher, radio division officer, cyanide case hardener)? Give summary @ -[No] Was smoking cessation discussed for >3mins.? @ -[No] Was critical care preformed (if so, how long)? @ -[No] Were there social determinants of health that impacted care today? How? (H omelessness, low income, unemployed, alcoholism, drug addiction, transportation, low edu. Level, literacy, decrease access to med. care, fpc, rehab)? @ -[No] Was there de-escalation of care discussed even if they declined (Discuss DNR or withdrawal of care, Hospice)? DNR status @ -[No] What co-morbidities impacted this encounter? (DM, HTN, Smoking, COPD, CAD, Cancer, CVA, ARF, Chemo, Hep., AIDS, mental health diagnosis, sleep apnea, morbid obesity)? @ -[None] Was patient admitted / discharged? Hospital course, mention meds given and route, prescriptions, significant lab abnormalities, going to OR and other pertinent info. @ -[Patient is 48-year-old man with chronic left leg pain. He did have improvement here with medication. We discussed appropriate further care and follow-up Undiagnosed new problem with uncertain prognosis? @ -[No] Drug Therapy requiring intensive monitoring for toxicity (Heparin, Nitro, Insulin, Cardizem)? @ -[No] Were any procedures done? @ -[No] Diagnosis/symptom? @ -[Acute on chronic left leg pain Acute, or Chronic, or Acute on Chronic? @ -[ Uncomplicated (without systemic symptoms) or Complicated (systemic symptoms)? @ -[Uncomplicated Side effects of treatment? @ -[No] Exacerbation, Progression, or Severe Exacerbation? @ -[No] Poses a threat to life or bodily function? How? (Chest pain, [place], [place], pneumonia, PE, COPD, DKA, ARF, appy, cholecystitis, CVA, Diverticulitis, Homicidal, Suicidal, threat to staff... and all critical care pts) @ -[No] Disposition Clinical Impression: Left leg pain Disposition: HOME SELF-CARE Condition: Good Instructions (If sedation given, give patient instructions): Leg Pain (ED) Is patient prescribed a controlled substance at d/c from ED?: No Referrals: Jefry Castro DO [Primary Care Provider] - 1-2 days
[2023-12-17 02:26] VITALS: BP 107/78; PULSE 102; RESP 19; TEMP 97.8
== END 2023-12-17 02:26 | disposition home or self-care (01) ==
LOC: EC 22:07
DX: G89.29 Other chronic pain (principal); M79.605 Pain in left leg; F41.9 Anxiety disorder, unspecified; Z88.8 Allergy status to other drugs, medicaments and biological substances
CPT/HCPCS: 99283; 96372 ×2; J2360; J1885

== ENCOUNTER 2023-12-22 00:03 | Emergency (ER) | payer BC ==
--- NOTE | 2023-12-22 00:26 | ED ---
Extremity Problem HPI - General Chief complaint: Extremity Problem,Nontraumatic Stated complaint: Knee Pain/Anxiety Time Seen by Provider: 12/22/23 00:15 Source: patient, family Mode of arrival: wheelchair Limitations: no limitations - History of Present Illness Initial comments: 48-year-old male presenting with his mother for chief complaint of knee pain and anxiety. Patient has history of chronic knee pain secondary to complex regional pain syndrome. He has a stimulator in place. Patient also has history of anxiety and states that he feels like he is about to have a panic attack. He took 2 muscle relaxers at home which did not help. No new injury or trauma. No swelling or discoloration. No other complaints. Feels consistent with his chr onic pain flareups - Related Data Home Medications Medication Instructions Recorded Confirmed Lurasidone HCl [Latuda] 120 mg PO HS 05/18/22 11/06/23 Venlafaxine HCl [Effexor XR] 75 mg PO DAILY 05/18/22 11/06/23 Venlafaxine HCl [Effexor XR] 150 mg PO DAILY 05/18/22 11/06/23 lisinopriL [Zestril] 10 mg PO DAILY 05/18/22 11/06/23 metFORMIN HCL ER [Glucophage XR] 500 mg PO DAILY 05/18/22 11/06/23 rOPINIRole HCL [Requip] 0.5 mg PO BID PRN 05/18/22 11/06/23 Cyclobenzaprine [Flexeril] 10 mg PO TID PRN 10/21/23 11/06/23 HYDROcodone/APAP 5-325MG [[place] 1 tab PO Q6H PRN 10/21/23 11/06/23 5-325] Simvastatin [Zocor] 20 mg PO HS 10/21/23 11/06/23 clonazePAM [KlonoPIN] 2 mg PO BID PRN 10/21/23 11/06/23 Allergies Allergy/AdvReac Type Severity Reaction Status Date / Time bupropion HCl Allergy Rash/Hives Verified 12/16/23 22:38 [From Wellbutrin] droperidol Allergy Hallucinations/Increased Verified 12/16/23 22:38 Anxiety Review of Systems ROS Statement: Those systems with pertinent positive or pertinent negative responses have been documented in the HPI. ROS Other: All systems not noted in ROS Statement are negative. Past Medical History Past Medical History: Hyperlipidemia Additional Past Medical History / Comment(s): restless leg syndrome. Complex regional pain syndrome to left lower extremity History of Any Multi-Drug Resistant Organisms: None Reported Additional Past Surgical History / Comment(s): FINGER AMPUTATION LEFT INDEX FINGER IN 1999, HILARIO PLACED AND REMOVED FROM LEFT LEG IN 2002 hardware removal from left ORIF lower extremity, distal tip of the finger slightly amputated after injury Past Anesthesia/Blood Transfusion Reactions: No Reported Reaction Past Psychological History: Anxiety, Depression Smoking Status: Never smoker Past Alcohol Use History: Occasional Past Drug Use History: None Reported - Past Family History Father Family Medical History: No Reported History Mother Family Medical History: No Reported History Brother(s) Family Medical History: No Reported History (Depression and anxiety) General Exam Limitations: no limitations General appearance: alert, in no apparent distress Head exam: Present: atraumatic, normocephalic, normal inspection Eye exam: Present: normal appearance, EOMI Neck exam: Present: normal inspection. Absent: meningismus Respiratory exam: Absent: respiratory distress Cardiovascular Exam: Present: tachycardia Left Knee exam: Present: normal inspection, full ROM, tenderness. Absent: swelling, ecchymosis, erythema Neurovascular tendon exam: Present: no vascular compromise Neurological exam: Present: alert, oriented X3 Psychiatric exam: Present: normal affect, normal mood Skin exam: Present: warm, dry, normal color Course Vital Signs 12/22/23 12/22/23 00:10 00:45 Temperature 98.3 F 98.1 F Pulse Rate 127 H 110 H Respiratory 20 16 Rate Blood Pressure 126/80 122/76 O2 Sat by Pulse 97 95 Oximetry Medical Decision Making - Medical Decision Making Was pt. sent in by a medical professional or institution (, PA, COATING TECHNICIAN, urgent care, hospital, or long-term...) When possible be specific @ -No Did you speak to anyone other than the patient for history (EMS, parent, family, police, friend...)? What history was obtained from this source @ -No Did you review nursing and triage notes (agree or disagree)? Why? @ -I reviewed and agree with nursing and triage notes Were old charts reviewed (outside hosp., previous admission, EMS record, old EKG, old radiological studies, urgent care reports/EKG's, long-term records)? Report findings @ -No old charts were reviewed Differential Diagnosis (chest pain, altered mental status, abdominal pain women, abdominal pain men, vaginal bleeding, weakness, fever, dyspnea, syncope, headache, dizziness, GI bleed, back pain, seizure, CVA, palpatations, mental health, musculoskeletal)? @ -Differential Musculoskeletal Muscular strain, contusion, ligament sprain, fracture, arthritis, septic arthritis, bursitis, cellulitis, muscle spasm, nerve compression, DVT, arterial occlusion, herpes zoster, electrolyte abnormality, tumor.... This is not meant to be in all inclusive list EKG interpreted by me (3pts min.). @ -As above X-rays interpreted by me (1pt min.). @ -None done CT interpreted by me (1pt min.). @ -None done U/S interpreted by me (1pt. min.). @ -None done What testing was considered but not performed or refused? (CT, X-rays, U/S, labs)? Why? @ -None What meds were considered but not given or refused? Why? @ -None Did you discuss the management of the patient with other professionals (professionals i.e. , PA, COATING TECHNICIAN, lab, RT, psych nurse, hospital social worker, hose coupling joiner, teacher, chief marketing officer, shoe parts caser)? Give summary @ -No Was smoking cessation discussed for >3mins.? @ -No Was critical care preformed (if so, how long)? @ -No Were there social determinants of health that impacted care today? How? (Homelessness, low income, unemployed, alcoholism, drug addiction, transportation, low edu. Level, literacy, decrease access to med. care, prison, rehab)? @ -No Was there de-escalation of care discussed even if they declined (Discuss DNR or withdrawal of care, Hospice)? DNR status @ -No What co-morbidities impacted this encounter? (DM, HTN, Smoking, COPD, CAD, Cancer, CVA, ARF, Chemo, Hep., AIDS, mental health diagnosis, sleep apnea, morbid obesity)? @ -None Was patient admitted / discharged? Hospital course, mention meds given and route, prescriptions, significant lab abnormalities, going to OR and other pertinent info. @ --year-old male presenting with chief complaint of chronic leg pain. Neurovascularly intact. Patient is given pain medication. Discharged. Follow-up with PCP. Report back to ER with any new or worsening symptoms. Discussed return parameters and answered all questions. Patient conveyed verbal understanding and agreed to the plan. I discussed this case in detail with my attending Dr. Allan Undiagnosed new problem with uncertain prognosis? @ -No Drug Therapy requiring intensive monitoring for toxicity (Heparin, Nitro, Insulin, Cardizem)? @ -No Were any procedures done? @ -No Diagnosis/symptom? @ -Chronic pain Acute, or Chronic, or Acute on Chronic? @ -Acute on chronic Uncomplicated (without systemic symptoms) or Complicated (systemic symptoms)? @ -Uncomplicated Side effects of treatment? @ -No Exacerbation, Progression, or Severe Exacerbation? @ -No Poses a threat to life or bodily function? How? (Chest pain, [place], [place], pneumonia, PE, COPD, DKA, ARF, appy, cholecystitis, CVA, Diverticulitis, Homicidal, Suicidal, threat to staff... and all critical care pts) @ -No Disposition Clinical Impression: Chronic pain, Acute anxiety Disposition: HOME SELF-CARE Condition: Good Instructions (If sedation given, give patient instructions): Pain Management (ED), Anxiety (ED) Additional Instructions: Follow-up with PCP. Report back to ER with any new or worsening symptoms. Is patient prescribed a controlled substance at d/c from ED?: No Referrals: Jefry Castro DO [Primary Care Provider] - 1-2 days Time of Disposition: 00:26
[2023-12-22] MEDS: KETOROLAC 15 MG/ML 1 ML VIAL IM STA (00:33)
[2023-12-22] MEDS: HYDROmorphone 1 MG/ML 1 ML SYRINGE IM STA (00:37)
[2023-12-22 00:47] VITALS: BP 122/76; PULSE 110; RESP 16; TEMP 98.1
== END 2023-12-22 01:03 | disposition home or self-care (01) ==
LOC: EC 00:03
DX: G89.29 Other chronic pain (principal); M25.569 Pain in unspecified knee; F41.9 Anxiety disorder, unspecified; Z88.8 Allergy status to other drugs, medicaments and biological substances
CPT/HCPCS: 99283; 96372 ×2; J1171; J1885

== ENCOUNTER 2024-01-17 04:27 | Emergency (ER) | payer MEDICARE ==
--- NOTE | 2024-01-17 05:28 | ED ---
General Adult HPI - General Chief complaint: Extremity Problem,Nontraumatic Stated complaint: L Leg Pain Time Seen by Provider: 01/17/24 05:02 Source: family Mode of arrival: wheelchair Limitations: no limitations - History of Present Illness Initial comments: Patient is a 49-year-old male past medical history of chronic knee pain, chronic complex regional pain syndrome presenting today for acute on chronic left knee pain. Patient declines recent injury, stating pain is similar to prior exacerbations of his chronic pain. He tried 2 Flexeril, 1 g of Tylenol at home at 2 AM without relief of pain. States Toradol and IM morphine or Dilaudid typically help his pain. He denies any recent fevers or chills, redness or swelling of the knee, recent injury, new numbness or weakness.States his mother has been rubbing his knee which takes his pain from 10/10 to 8/10. - Related Data Home Medications Medication Instructions Recorded Confirmed Lurasidone HCl [Latuda] 120 mg PO HS 05/18/22 11/06/23 Venlafaxine HCl [Effexor XR] 75 mg PO DAILY 05/18/22 11/06/23 Venlafaxine HCl [Effexor XR] 150 mg PO DAILY 05/18/22 11/06/23 lisinopriL [Zestril] 10 mg PO DAILY 05/18/22 11/06/23 metFORMIN HCL ER [Glucophage XR] 500 mg PO DAILY 05/18/22 11/06/23 rOPINIRole HCL [Requip] 0.5 mg PO BID PRN 05/18/22 11/06/23 Cyclobenzaprine [Flexeril] 10 mg PO TID PRN 10/21/23 11/06/23 HYDROcodone/APAP 5-325MG [[place] 1 tab PO Q6H PRN 10/21/23 11/06/23 5-325] Simvastatin [Zocor] 20 mg PO HS 10/21/23 11/06/23 clonazePAM [KlonoPIN] 2 mg PO BID PRN 10/21/23 11/06/23 Allergies Allergy/AdvReac Type Severity Reaction Status Date / Time bupropion HCl Allergy Rash/Hives Verified 01/17/24 04:51 [From Wellbutrin] droperidol Allergy Hallucinations/Increased Verified 01/17/24 04:51 Anxiety Review of Systems ROS Statement: Those systems with pertinent positive or pertinent negative responses have been documented in the HPI. ROS Other: All systems not noted in ROS Statement are negative. Past Medical History Past Medical History: Hyperlipidemia Additional Past Medical History / Comment(s): restless leg syndrome. Complex regional pain syndrome to left lower extremity History of Any Multi-Drug Resistant Organisms: None Reported Additional Past Surgical History / Comment(s): FINGER AMPUTATION LEFT INDEX FINGER IN 1999, HILARIO PLACED AND REMOVED FROM LEFT LEG IN 2002 hardware removal from left ORIF lower extremity, distal tip of the finger slightly amputated after injury Past Anesthesia/Blood Transfusion Reactions: No Reported Reaction Past Psychological History: Anxiety, Depression Smoking Status: Never smoker Past Alcohol Use History: Occasional Past Drug Use History: None Reported - Past Family History Father Family Medical History: No Reported History Mother Family Medical History: No Reported History Brother(s) Family Medical History: No Reported History (Depression and anxiety) General Exam - General Exam Comments Initial Comments: PE: CONSTITUTIONAL: No apparent distress, well appearing SKIN: Warm, dry, no jaundice, hives or petechiae EYES: Pupils are equally round, extraocular movements intact without nystagmus, clear conjunctiva, non-icteric sclera HENT: Normocephalic, atraumatic, moist mucus membranes, oropharynx clear without exudates NECK: , Full range of motion, normal appearance PULMONARY: Clear to auscultation without wheezes, rhonchi, or rales, normal excursion, no accessory muscle use and no stridor CARDIOVASCULAR: Regular rate, rhythm, normal S1 and S2. No appreciated murmurs, rubs or gallops. Strong radial pulses with intact distal perfusion. No lower extremity edema MUSCULOSKELETAL: Extremities have no gross deformity, no edema, redness, or swelling. No calf swelling. Knee is nontender palpation he is able to range the full range of motion without difficulty, no warmth or redness around left knee, 2+ dorsalis pedis pulse palpated in the distal left lower extremity, and sensation intact throughout NEUROLOGIC:_a/o x 3, GCS 15, normal mentation and speech. Moves all extremities x 4 without motor or sensory deficit PSYCHIATRIC:_normal mood and affect, thought process is clear and linear Limitations: no limitations Course Vital Signs 01/17/24 01/17/24 04:49 06:29 Temperature 98.8 F 97.5 F L Pulse Rate 125 H 114 H Respiratory 20 17 Rate Blood Pressure 112/77 105/75 O2 Sat by Pulse 98 96 Oximetry Medical Decision Making - Medical Decision Making Was pt. sent in by a medical professional or institution (RINKU Serrano, R[employer] APPLICATOR, urgent care, hospital, or [facility]...) When possible be specific @ -[No] Did you speak to anyone other than the patient for history (EMS, parent, family, police, friend...)? What history was obtained from this source @With patient's mother who assisted in providing history Did you review nursing and triage notes (agree or disagree)? Why? @ -[I reviewed and agree with nursing and triage notes] Were old charts reviewed (outside hosp., previous admission, EMS record, old EKG, old radiological studies, urgent care reports/EKG's, [facility] records)? Report findings @'s reviewed, patient has multiple prior visits to the ED for similar complaint Differential Diagnosis (chest pain, altered mental status, abdominal pain women, abdominal pain men, vaginal bleeding, weakness, fever, dyspnea, syncope, headache, dizziness, GI bleed, back pain, seizure, CVA, palpatations, mental health, musculoskeletal)? @Differential Musculoskeletal Muscular strain, contusion, ligament sprain, fracture, arthritis, septic arthritis, bursitis, cellulitis, muscle spasm, nerve compression.. This is not meant to be in all inclusive list EKG interpreted by me (3pts min.). @ -As above X-rays interpreted by me (1pt min.). @ -None done CT interpreted by me (1pt min.). @ -None done U/S interpreted by me (1pt. min.). @ -None done What testing was considered but not performed or refused? (CT, X-rays, U/S, labs)? Why? @ -Did consider an x-ray of patient's left knee however knee is atraumatic, no erythema or swelling, no recent injuries, pain is similar to prior chronic pain exacerbations What meds were considered but not given or refused? Why? @ -None Did you discuss the management of the patient with other professionals (professionals i.e. RINKU Serrano, R[employer] APPLICATOR, lab, RT, psych nurse, social services coordinator, tungsten refiner, teacher, promotions officer, correctional casework specialist)? Give summary @ -No Was smoking cessation discussed for >3mins.? @ -No Was critical care preformed (if so, how long)? @ -No Were there social determinants of health that impacted care today? How? (Homelessness, low income, unemployed, alcoholism, drug addiction, transportation, low edu. Level, literacy, decrease access to med. care, assisted, rehab)? @ -No Was there de-escalation of care discussed even if they declined (Discuss DNR or withdrawal of care, Hospice)? @ -No What co-morbidities impacted this encounter? (DM, HTN, Smoking, COPD, CAD, Cancer, CVA, ARF, Chemo, Hep., AIDS, mental health diagnosis, sleep apnea, morbid obesity)? @Complex regional pain syndrome Was patient admitted / discharged? Hospital course, mention meds given and route, prescriptions, significant lab abnormalities, going to OR and other pertinent info. @Discharge-pleasant 49-year-old gentleman past medical history complex regional pain syndrome, chronic left knee pain presenting for acute on chronic left knee pain. On my assessment patient is well-appearing and in no acute distress, mother is at bedside rubbing his knee. Left lower extremity is atraumatic, is able to range his legs for full range of motion without pain or difficulty, no swelling of the joint, redness or warmth of the knee, left lower extremities neurovascularly intact without signs of injury. I discussed with patient dose IM morphine, Toradol and reassessment. Patient is agreeable plan of care. Endorses improvement of pain and appears much more comfortable on reassessment. He is ready for discharge home. In my medical judgment there is currently no evidence of an immediate life-threatening or surgical condition. Discharge is therefore indicated at this time. Discharge treatment instructions, follow up instructions, and appropriate emergency department return precautions were discussed with the patient and/or medical decision maker. Patient and/or medical decision maker expressed understanding of and agreed with the treatment plan, follow up instructions, and emergency department return precaution. All patient's and/or medical decision maker's questions were answered. Undiagnosed new problem with uncertain prognosis? @ -No Drug Therapy requiring intensive monitoring for toxicity (Heparin, Nitro, Insulin, Cardizem)? @ -No Were any procedures done? @ -No Diagnosis/symptom? @ -Acute on chronic knee pain Acute, or Chronic, or Acute on Chronic? @ -Acute on chronic Uncomplicated (without systemic symptoms) or Complicated (systemic symptoms)? @ -Uncomplicated Side effects of treatment? @ -No Exacerbation, Progression, or Severe Exacerbation? @ -No Poses a threat to life or bodily function? How? (Chest pain, [place], [place], pneumonia, PE, COPD, DKA, ARF, appy, cholecystitis, CVA, Diverticulitis, Homicidal, Suicidal, threat to staff... and all critical care pts) @ -No Disposition Clinical Impression: Chronic knee pain Disposition: HOME SELF-CARE Condition: Good Instructions (If sedation given, give patient instructions): Pain Management (ED) Additional Instructions: Every disease is a spectrum and a small chance still exists that a serious condition could develop, for this reason, please monitor yourself closely for new, changing or worsening symptoms, symptoms that persist beyond 48 hours, fever, redness or swelling in your knee, new injury to your knee inability to tolerate/keep down fluids or your medications, inability to follow up with outpatient providers as instructed and should you experience these symptoms or should you have any further concerns for your wellbeing please return to the ED or call 911 immediately. Your pain can be treated with ibuprofen and acetaminophen. You can take up to 400-600 mg of ibuprofen (Advil, Motrin) 3 times daily (every 8 hours) but can also use lower doses if this relieves your pain. Some people prefer naproxen (Aleve, Naprosyn) which can be taken in doses of 500 mg up to twice a day. Do not take both of these medicines together, and do not combine either with ketorolac (Toradol), meloxicam (Mobic), or indomethacin (Tivorbex). Some people can develop stomach discomfort with higher doses of either ibuprofen or naproxe n, if this develops decrease your dose or stop taking it. If you need to take this dose daily for more than a week, please schedule an appointment for re- evaluation with your PCP. Please take these medications with food. You can take up to 1000 mg of acetaminophen (Tylenol) every 6 hours. Be careful as this is included in some medicines like Nyquil, [place], Percocet, Vicodin, STANBACK, Goody's Powders, and Excedrin. You can also use lidocaine patches for topical pain. You can purchase 4% patches over the counter at most drug stores. These can be helpful for pain from your muscles or bones. PLEASE call your primary care physician as soon as possible to arrange / discuss plan for followup appointment. Appointment in the next 1-3 days is strongly encouraged if possible. PLEASE let us know here before you leave if there is anything further we can do to be of any assistance. Take care and feel Better! Is patient prescribed a controlled substance at d/c from ED?: No Referrals: Jefry Castro, [Primary Care Provider] - 1-2 days
[2024-01-17] MEDS: KETOROLAC 15 MG/ML 1 ML VIAL IM STA (05:32)
[2024-01-17] MEDS: MORPHINE SULFATE 4 MG/ML SYRINGE IM STA (05:34)
[2024-01-17 06:32] VITALS: BP 105/75; PULSE 114; RESP 17; TEMP 97.5
== END 2024-01-17 06:32 | disposition home or self-care (01) ==
LOC: EC 04:27
DX: M25.562 Pain in left knee (principal); Z88.8 Allergy status to other drugs, medicaments and biological substances
CPT/HCPCS: 99283; 96372 ×2; J2270; J1885

== ENCOUNTER 2024-01-21 00:46 | Emergency (ER) | payer MEDICARE ==
[2024-01-21] MEDS: KETOROLAC 15 MG/ML 1 ML VIAL IM STA (01:05)
[2024-01-21] MEDS: LORazepam 2 MG/ML INJ IM STA ×2 (01:06→01:51)
[2024-01-21] MEDS: HYDROmorphone 1 MG/ML 1 ML SYRINGE IM STA ×2 (01:06→01:52)
--- NOTE | 2024-01-21 01:06 | ED ---
Extremity Problem HPI - General Chief complaint: Extremity Problem,Nontraumatic Stated complaint: Anxiety, Leg Pain Time Seen by Provider: 01/21/24 00:52 Source: patient, family, RN notes reviewed Mode of arrival: wheelchair Limitations: no limitations - History of Present Illness Initial comments: This is a 49-year-old male who presents to the emergency department for left leg pain and anxiety. Patient is well-known to this emergency department for frequent visits related to complex regional pain syndrome. States that this evening he started to develop increasing pain to the left leg specifically, which then triggered an anxiety attack. He took 2 of his Flexeril and 1g of Tylenol without any relief in symptoms. He then called his mother to bring him to the emergency department for evaluation. She is rubbing his leg as she often does with some improvement in symptoms. - Related Data Home Medications Medication Instructions Recorded Confirmed Lurasidone HCl [Latuda] 120 mg PO HS 05/18/22 11/06/23 Venlafaxine HCl [Effexor XR] 75 mg PO DAILY 05/18/22 11/06/23 Venlafaxine HCl [Effexor XR] 150 mg PO DAILY 05/18/22 11/06/23 lisinopriL [Zestril] 10 mg PO DAILY 05/18/22 11/06/23 metFORMIN HCL ER [Glucophage XR] 500 mg PO DAILY 05/18/22 11/06/23 rOPINIRole HCL [Requip] 0.5 mg PO BID PRN 05/18/22 11/06/23 Cyclobenzaprine [Flexeril] 10 mg PO TID PRN 10/21/23 11/06/23 HYDROcodone/APAP 5-325MG [[place] 1 tab PO Q6H PRN 10/21/23 11/06/23 5-325] Simvastatin [Zocor] 20 mg PO HS 10/21/23 11/06/23 clonazePAM [KlonoPIN] 2 mg PO BID PRN 10/21/23 11/06/23 Allergies Allergy/AdvReac Type Severity Reaction Status Date / Time bupropion HCl Allergy Rash/Hives Verified 01/21/24 00:49 [From Wellbutrin] droperidol Allergy Hallucinations/Increased Verified 01/21/24 00:49 Anxiety Review of Systems ROS Statement: Those systems with pertinent positive or pertinent negative responses have been documented in the HPI. ROS Other: All systems not noted in ROS Statement are negative. Past Medical History Past Medical History: Hyperlipidemia Additional Past Medical History / Comment(s): restless leg syndrome. Complex regional pain syndrome to left lower extremity History of Any Multi-Drug Resistant Organisms: None Reported Additional Past Surgical History / Comment(s): FINGER AMPUTATION LEFT INDEX FINGER IN 1999, HILARIO PLACED AND REMOVED FROM LEFT LEG IN 2002 hardware removal from left ORIF lower extremity, distal tip of the finger slightly amputated after injury Past Anesthesia/Blood Transfusion Reactions: No Reported Reaction Past Psychological History: Anxiety, Depression Smoking Status: Never smoker Past Alcohol Use History: Occasional Past Drug Use History: None Reported - Past Family History Father Family Medical History: No Reported History Mother Family Medical History: No Reported History Brother(s) Family Medical History: No Reported History (Depression and anxiety) General Exam Limitations: no limitations General appearance: alert, in no apparent distress Head exam: Present: atraumatic, normocephalic, normal inspection Respiratory exam: Present: normal lung sounds bilaterally. Absent: respiratory distress, wheezes, rales, rhonchi, stridor Cardiovascular Exam: Present: regular rate, normal rhythm, normal heart sounds. Absent: systolic murmur, diastolic murmur, rubs, gallop, clicks Neurological exam: Present: alert, oriented X3, CN II-XII intact Psychiatric exam: Present: normal affect, normal mood Skin exam: Present: warm, dry, intact, normal color. Absent: rash Course Vital Signs 01/21/24 01/21/24 00:47 01:59 Temperature 98.2 F 98.1 F Pulse Rate 120 H 89 Respiratory 18 19 Rate Blood Pressure 146/88 132/80 O2 Sat by Pulse 98 98 Oximetry Medical Decision Making - Medical Decision Making This is a 49-year-old male who presents to the emergency department for left leg pain and anxiety. Was pt. sent in by a medical professional or institution? @ -No Did you speak to anyone other than the patient for history? @ -No Did you review nursing and triage notes? @ -Yes, and I agree, it is accurate with regards to the patient's symptoms. Were old charts reviewed? @ -No Differential Diagnosis? @ -Differential Musculoskeletal Muscular strain, contusion, ligament sprain, fracture, arthritis, septic arthritis, bursitis, cellulitis, muscle spasm, nerve compression, DVT, arterial occlusion, herpes zoster, electrolyte abnormality, tumor.... This is not meant to be in all inclusive list EKG interpreted by me (3pts min.)? @ -Not obtained X-rays interpreted by me (1pt min.)? @ -Not obtained CT interpreted by me (1pt min.)? @ -Not obtained U/S interpreted by me (1pt. min.)? @ -Not obtained What testing was considered but not performed? (CT, X-rays, U/S, labs)? Why? @ -None What meds were considered but not given? Why? @ -None Did you discuss the management of the patient with other professionals? @ -No Did you reconcile home meds? @ -No Was smoking cessation discussed for >3mins.? @ -No Was critical care preformed (if so, how long)? @ -No Were there social determinants of health that impacted care today? How? (Homelessness, low income, unemployed, alcoholism, drug addiction, transportation, low edu. Level, literacy, decrease access to med. care, custodial, rehab)? @ -No Was there de-escalation of care discussed even if they declined? (Discuss DNR or withdrawal of care, Hospice)? @ -No What co-morbidities impacted this encounter? (DM, HTN, Smoking, COPD, CAD, Cancer, CVA, Hep., AIDS, mental health diagnosis, sleep apnea, morbid obesity)? @ -Complex regional pain syndrome, anxiety disorder Was patient admitted / discharged? @ -Discharged. Patient was reporting a flareup of chronic symptoms without any new injuries. His symptoms were managed in the emergency department. He reported improvement in symptoms and was then discharged home in stable condition. Advised to follow-up with his PCP. Case discussed with ED attending Dr. Allan Return precautions reviewed in depth, the patient is instructed to return to the emergency department with any new, worsening, or concerning symptoms. Patient verbalized understanding. Undiagnosed new problem with uncertain prognosis? @ -None Drug Therapy requiring intensive monitoring for toxicity (Heparin, Nitro, Insulin, Cardizem)? @ -None Were any procedures done? @ -None Diagnosis/symptom? @ -Left leg pain, anxiety Acute, or Chronic, or Acute on Chronic? @ -Acute on chronic Uncomplicated (without systemic symptoms) or Complicated (systemic symptoms)? @ -Uncomplicated Side effects of treatment? @ -None Exacerbation, Progression, or Severe Exacerbation] @ -Exacerbation Poses a threat to life or bodily function? @ -No Disposition Clinical Impression: Panic attack, Left leg pain Disposition: HOME SELF-CARE Instructions (If sedation given, give patient instructions): Panic Attack (ED) Additional Instructions: Return to the emergency department with any new, worsening, or concerning symptoms. Follow up with your primary care provider in 1-2 days. Is patient prescribed a controlled substance at d/c from ED?: No Referrals: Jefry Castro DO [Primary Care Provider] - 1-2 days Time of Disposition: 01:39
[2024-01-21 02:00] VITALS: BP 132/80; PULSE 89; RESP 19; TEMP 98.1
== END 2024-01-21 01:59 | disposition home or self-care (01) ==
LOC: EC 00:46
DX: M79.605 Pain in left leg (principal); F41.0 Panic disorder [episodic paroxysmal anxiety]; Z88.8 Allergy status to other drugs, medicaments and biological substances
CPT/HCPCS: 99283; 96372; J2060; J1171; J1885

== ENCOUNTER 2024-01-31 22:43 | Emergency (ER) | payer OTHER ==
[2024-01-31 22:52] VITALS: RESP 16; TEMP 98.4
--- NOTE | 2024-01-31 23:03 | ED ---
Extremity Problem HPI - General Chief complaint: Extremity Problem,Nontraumatic Stated complaint: L Leg Pain Time Seen by Provider: 01/31/24 23:02 Source: patient, family, RN notes reviewed Mode of arrival: wheelchair Limitations: no limitations - History of Present Illness Initial comments: 49-year-old male with history of complex regional pain syndrome presenting for left knee pain. Patient states this feels similar to a typical flareup of his chronic pain. Patient tried taking 2 muscle relaxers and Tylenol 2 hours ago with no relief. Denies new symptoms or injury or trauma. - Related Data Home Medications Medication Instructions Recorded Confirmed Lurasidone HCl [Latuda] 120 mg PO HS 05/18/22 11/06/23 Venlafaxine HCl [Effexor XR] 75 mg PO DAILY 05/18/22 11/06/23 Venlafaxine HCl [Effexor XR] 150 mg PO DAILY 05/18/22 11/06/23 lisinopriL [Zestril] 10 mg PO DAILY 05/18/22 11/06/23 metFORMIN HCL ER [Glucophage XR] 500 mg PO DAILY 05/18/22 11/06/23 rOPINIRole HCL [Requip] 0.5 mg PO BID PRN 05/18/22 11/06/23 Cyclobenzaprine [Flexeril] 10 mg PO TID PRN 10/21/23 11/06/23 HYDROcodone/APAP 5-325MG [[place] 1 tab PO Q6H PRN 10/21/23 11/06/23 5-325] Simvastatin [Zocor] 20 mg PO HS 10/21/23 11/06/23 clonazePAM [KlonoPIN] 2 mg PO BID PRN 10/21/23 11/06/23 Allergies Allergy/AdvReac Type Severity Reaction Status Date / Time bupropion HCl Allergy Rash/Hives Verified 01/31/24 22:53 [From Wellbutrin] droperidol Allergy Hallucinations/Increased Verified 01/31/24 22:53 Anxiety Review of Systems ROS Statement: Those systems with pertinent positive or pertinent negative responses have been documented in the HPI. ROS Other: All systems not noted in ROS Statement are negative. Past Medical History Past Medical History: Hyperlipidemia Additional Past Medical History / Comment(s): restless leg syndrome. Complex regional pain syndrome to left lower extremity History of Any Multi-Drug Resistant Organisms: None Reported Additional Past Surgical History / Comment(s): FINGER AMPUTATION LEFT INDEX FINGER IN 1999, HILARIO PLACED AND REMOVED FROM LEFT LEG IN 2002 hardware removal from left ORIF lower extremity, distal tip of the finger slightly amputated after injury Past Anesthesia/Blood Transfusion Reactions: No Reported Reaction Past Psychological History: Anxiety, Depression Smoking Status: Never smoker Past Alcohol Use History: Occasional Past Drug Use History: None Reported - Past Family History Father Family Medical History: No Reported History Mother Family Medical History: No Reported History Brother(s) Family Medical History: No Reported History (Depression and anxiety) General Exam Limitations: no limitations General appearance: alert, in no apparent distress Head exam: Present: atraumatic, normocephalic, normal inspection Left Upper Leg exam: Present: normal inspection, full ROM. Absent: tenderness, swelling Knee exam: Present: normal inspection, full ROM. Absent: tenderness, swelling Lower Leg exam: Present: normal inspection, full ROM. Absent: tenderness, swelling Ankle exam: Present: normal inspection, full ROM. Absent: tenderness, swelling Foot/Toe exam: Present: normal inspection, full ROM. Absent: tenderness, swelling Neurovascular tendon exam: Present: no vascular compromise. Absent: pulse deficit, abnormal cap refill, sensory deficit Neurological exam: Present: alert, oriented X3 Psychiatric exam: Present: normal affect, normal mood Skin exam: Present: warm, dry, intact, normal color. Absent: rash Course Vital Signs 01/31/24 22:51 Temperature 98.4 F Pulse Rate 80 Respiratory 16 Rate Blood Pressure 132/78 O2 Sat by Pulse 97 Oximetry Medical Decision Making - Medical Decision Making Was pt. sent in by a medical professional or institution (, PA, TURFGRASS MANAGEMENT PROFESSOR, urgent care, hospital, or assisted...) When possible be specific @ -No Did you speak to anyone other than the patient for history (EMS, parent, family, police, friend...)? What history was obtained from this source @ -Mother supplemented history Did you review nursing and triage notes (agree or disagree)? Why? @ -I reviewed and agree with nursing and triage notes Were old charts reviewed (outside hosp., previous admission, EMS record, old EKG, old radiological studies, urgent care reports/EKG's, assisted records)? Report findings @ -No old charts were reviewed Differential Diagnosis (chest pain, altered mental status, abdominal pain women, abdominal pain men, vaginal bleeding, weakness, fever, dyspnea, syncope, headache, dizziness, GI bleed, back pain, seizure, CVA, palpatations, mental health, musculoskeletal)? @ -Differential Musculoskeletal Muscular strain, contusion, ligament sprain, fracture, arthritis, septic arthritis, bursitis, cellulitis, muscle spasm, nerve compression, DVT, arterial occlusion, herpes zoster, electrolyte abnormality, tumor.... This is not meant to be in all inclusive list EKG interpreted by me (3pts min.). @ -None X-rays interpreted by me (1pt min.). @ -None done CT interpreted by me (1pt min.). @ -None done U/S interpreted by me (1pt. min.). @ -None done What testing was considered but not performed or refused? (CT, X-rays, U/S, labs)? Why? @ -Imaging considered however this feels similar to previous flareups of chronic pain, no new symptoms or trauma or injury What meds were considered but not given or refused? Why? @ -None Did you discuss the management of the patient with other professionals (tammy hernadez i.e. , PA, TURFGRASS MANAGEMENT PROFESSOR, lab, RT, psych nurse, social media marketer, blackener, teacher, chief clinical officer, pillowcase folder)? Give summary @ -No Was smoking cessation discussed for >3mins.? @ -No Was critical care preformed (if so, how long)? @ -No Were there social determinants of health that impacted care today? How? (Homelessness, low income, unemployed, alcoholism, drug addiction, transportation, low edu. Level, literacy, decrease access to med. care, [facility], rehab)? @ -No Was there de-escalation of care discussed even if they declined (Discuss DNR or withdrawal of care, Hospice)? DNR status @ -No What co-morbidities impacted this encounter? (DM, HTN, Smoking, COPD, CAD, Cancer, CVA, ARF, Chemo, Hep., AIDS, mental health diagnosis, sleep apnea, morbid obesity)? @ -None Was patient admitted / discharged? Hospital course, mention meds given and route, prescriptions, significant lab abnormalities, going to OR and other pertinent info. @ -Discharged. 49-year-old male with complex regional pain syndrome presenting for acute flareup of chronic left knee pain. No acute symptoms or recent injury or trauma. No sign of bacterial infection. Neurovascularly intact. Analgesics provided with reports of symptom improvement. Appropriate return precautions and follow-up care discussed. Case was discussed with my ED attending Dr. Allan Undiagnosed new problem with uncertain prognosis? @ -No Drug Therapy requiring intensive monitoring for toxicity (Heparin, Nitro, Insulin, Cardizem)? @ -No Were any procedures done? @ -No Diagnosis/symptom? @ -Acute on chronic left knee pain Acute, or Chronic, or Acute on Chronic? @ -Acute on chronic Uncomplicated (without systemic symptoms) or Complicated (systemic symptoms)? @ -Uncomplicated Side effects of treatment? @ -No Exacerbation, Progression, or Severe Exacerbation? @ -No Poses a threat to life or bodily function? How? (Chest pain, [place], [place], pneumonia, PE, COPD, DKA, ARF, appy, cholecystitis, CVA, Diverticulitis, Homicidal, Suicidal, threat to staff... and all critical care pts) @ -No Disposition Clinical Impression: Chronic pain of left knee Disposition: HOME SELF-CARE Condition: Stable Additional Instructions: Please return to the Emergency Department if symptoms worsen or any other concerns. Is patient prescribed a controlled substance at d/c from ED?: No Referrals: Jefry Castro DO [Primary Care Provider] - 1-2 days Time of Disposition: 23:26
[2024-01-31] MEDS: KETOROLAC 15 MG/ML 1 ML VIAL IM STA (23:34)
[2024-01-31] MEDS: HYDROmorphone 1 MG/ML 1 ML SYRINGE IM STA (23:35)
[2024-01-31 23:54] VITALS: BP 94/65; PULSE 94
== END 2024-01-31 23:50 | disposition home or self-care (01) ==
LOC: EC 22:43
DX: G89.29 Other chronic pain (principal); M25.562 Pain in left knee; Z88.8 Allergy status to other drugs, medicaments and biological substances
CPT/HCPCS: 99283; 96372 ×2; J1171; J1885

== ENCOUNTER 2024-02-01 23:46 | Emergency (ER) | payer MEDICARE, OTHER ==
[2024-02-02 00:07] VITALS: RESP 18
--- NOTE | 2024-02-02 00:26 | ED ---
Extremity Problem HPI - General Chief complaint: Extremity Problem,Nontraumatic Stated complaint: leg pain Time Seen by Provider: 02/02/24 00:08 Source: patient Mode of arrival: wheelchair - History of Present Illness Initial comments: 49-year-old male well-known to our facility presenting with chief complaint of left knee pain. Patient has chronic pain. He has no new injury or trauma. Feels consistent with previous flareups of his chronic pain. He was here last night for the same pain. His mother states that they need to call the territory service representative for his stimulator to adjust the settings. - Related Data Home Medications Medication Instructions Recorded Confirmed Lurasidone HCl [Latuda] 120 mg PO HS 05/18/22 11/06/23 Venlafaxine HCl [Effexor XR] 75 mg PO DAILY 05/18/22 11/06/23 Venlafaxine HCl [Effexor XR] 150 mg PO DAILY 05/18/22 11/06/23 lisinopriL [Zestril] 10 mg PO DAILY 05/18/22 11/06/23 metFORMIN HCL ER [Glucophage XR] 500 mg PO DAILY 05/18/22 11/06/23 rOPINIRole HCL [Requip] 0.5 mg PO BID PRN 05/18/22 11/06/23 Cyclobenzaprine [Flexeril] 10 mg PO TID PRN 10/21/23 11/06/23 HYDROcodone/APAP 5-325MG [[place] 1 tab PO Q6H PRN 10/21/23 11/06/23 5-325] Simvastatin [Zocor] 20 mg PO HS 10/21/23 11/06/23 clonazePAM [KlonoPIN] 2 mg PO BID PRN 10/21/23 11/06/23 Allergies Allergy/AdvReac Type Severity Reaction Status Date / Time bupropion HCl Allergy Rash/Hives Verified 02/02/24 00:07 [From Wellbutrin] droperidol Allergy Hallucinations/Increased Verified 02/02/24 00:07 Anxiety Review of Systems ROS Statement: Those systems with pertinent positive or pertinent negative responses have been documented in the HPI. ROS Other: All systems not noted in ROS Statement are negative. Past Medical History Past Medical History: Hyperlipidemia Additional Past Medical History / Comment(s): restless leg syndrome. Complex regional pain syndrome to left lower extremity History of Any Multi-Drug Resistant Organisms: None Reported Additional Past Surgical History / Comment(s): FINGER AMPUTATION LEFT INDEX FINGER IN 1999, HILARIO PLACED AND REMOVED FROM LEFT LEG IN 2002 hardware removal from left ORIF lower extremity, distal tip of the finger slightly amputated after injury Past Anesthesia/Blood Transfusion Reactions: No Reported Reaction Past Psychological History: Anxiety, Depression Smoking Status: Never smoker Past Alcohol Use History: Occasional Past Drug Use History: None Reported - Past Family History Father Family Medical History: No Reported History Mother Family Medical History: No Reported History Brother(s) Family Medical History: No Reported History (Depression and anxiety) General Exam General appearance: alert, in no apparent distress Head exam: Present: atraumatic, normocephalic, normal inspection Eye exam: Present: normal appearance, EOMI Respiratory exam: Absent: respiratory distress Left Knee exam: Present: normal inspection, full ROM, tenderness. Absent: swelling, deformity, erythema Neurovascular tendon exam: Present: no vascular compromise Neurological exam: Present: alert, oriented X3 Psychiatric exam: Present: normal affect, normal mood Skin exam: Present: warm, dry, normal color Course Vital Signs 02/02/24 00:03 Temperature 98.4 F Pulse Rate 107 H Respiratory 18 Rate Blood Pressure 109/77 O2 Sat by Pulse 97 Oximetry Medical Decision Making - Medical Decision Making Was pt. sent in by a medical professional or institution (RINKU Serrano, DIRECTOR FOOD AND BEVERAGE, urgent care, hospital, or halfway...) When possible be specific @ -No Did you speak to anyone other than the patient for history (EMS, parent, family, police, friend...)? What history was obtained from this source @ -Mother Did you review nursing and triage notes (agree or disagree)? Why? @ -I reviewed and agree with nursing and triage notes Were old charts reviewed (outside hosp., previous admission, EMS record, old EKG, old radiological studies, urgent care reports/EKG's, halfway records)? Report findings @ -Reviewed last night's visit Differential Diagnosis (chest pain, altered mental status, abdominal pain women, abdominal pain men, vaginal bleeding, weakness, fever, dyspnea, syncope, headache, dizziness, GI bleed, back pain, seizure, CVA, palpatations, mental health, musculoskeletal)? @ -Differential Musculoskeletal Muscular strain, contusion, ligament sprain, fracture, arthritis, septic arthritis, bursitis, cellulitis, muscle spasm, nerve compression, DVT, arterial occlusion, herpes zoster, electrolyte abnormality, tumor.... This is not meant to be in all inclusive list EKG interpreted by me (3pts min.). @ -As above X-rays interpreted by me (1pt min.). @ -None done CT interpreted by me (1pt min.). @ -None done U/S interpreted by me (1pt. min.). @ -None done What testing was considered but not performed or refused? (CT, X-rays, U/S, labs)? Why? @ -None What meds were considered but not given or refused? Why? @ -None Did you discuss the management of the patient with other professionals (professionals i.e. , PA, DIRECTOR FOOD AND BEVERAGE, lab, RT, psych nurse, public health social worker, department specialist, teacher, event security officer, director of casework department)? Give summary @ -No Was smoking cessation discussed for >3mins.? @ -No Was critical care preformed (if so, how long)? @ -No Were there social determinants of health that impacted care today? How? (Homelessness, low income, unemployed, alcoholism, drug addiction, transportation, low edu. Level, literacy, decrease access to med. care, assisted, rehab)? @ -No Was there de-escalation of care discussed even if they declined (Discuss DNR or withdrawal of care, Hospice)? DNR status @ -No What co-morbidities impacted this encounter? (DM, HTN, Smoking, COPD, CAD, Cancer, CVA, ARF, Chemo, Hep., AIDS, mental health diagnosis, sleep apnea, morbid obesity)? @ -None Was patient admitted / discharged? Hospital course, mention meds given and route, prescriptions, significant lab abnormalities, going to OR and other pertinent info. @ -49-year-old male presenting with chief complaint of chronic left knee pain. No new injury or trauma, pain feels consistent with previous episodes of his chronic pain. Patient is treated with pain medication and instructed to follow- up with his neurologist regarding his stimulator. Discharged. Follow-up with PCP. Report back to ER with any new or worsening symptoms. Discussed return parameters and answered all questions. Patient conveyed verbal understanding and agreed to the plan. My attending is Dr. Winslow Undiagnosed new problem with uncertain prognosis? @ -No Drug Therapy requiring intensive monitoring for toxicity (Heparin, Nitro, Insulin, Cardizem)? @ -No Were any procedures done? @ -No Diagnosis/symptom? @ -Chronic knee pain Acute, or Chronic, or Acute on Chronic? @ -Acute on chronic Uncomplicated (without systemic symptoms) or Complicated (systemic symptoms)? @ -Uncomplicated Side effects of treatment? @ -No Exacerbation, Progression, or Severe Exacerbation? @ -No Poses a threat to life or bodily function? How? (Chest pain, [place], [place], pneumonia, PE, COPD, DKA, ARF, appy, cholecystitis, CVA, Diverticulitis, Homicidal, Suicidal, threat to staff... and all critical care pts) @ -No Disposition Clinical Impression: Chronic knee pain Disposition: HOME SELF-CARE Condition: Good Additional Instructions: Follow-up with your neurologist. Report back to ER with any new or worsening symptoms. Is patient prescribed a controlled substance at d/c from ED?: No Referrals: Jefry Castro DO [Primary Care Provider] - 1-2 days Time of Disposition: 00:25
[2024-02-02] MEDS: HYDROmorphone 1 MG/ML 1 ML SYRINGE IM STA (00:33)
[2024-02-02] MEDS: KETOROLAC 15 MG/ML 1 ML VIAL IM STA (00:33)
[2024-02-02 01:06] VITALS: BP 101/70; PULSE 99; TEMP 98.5
== END 2024-02-02 00:51 | disposition home or self-care (01) ==
LOC: EC 23:46
DX: G89.29 Other chronic pain (principal); M25.562 Pain in left knee; Z88.8 Allergy status to other drugs, medicaments and biological substances
CPT/HCPCS: 99283; 96372; J1171; J1885

== ENCOUNTER 2024-02-10 10:51 | Emergency (ER) | payer MEDICARE ==
[2024-02-10] MEDS: HYDROmorphone 1 MG/ML 1 ML SYRINGE IM STA (11:28)
--- NOTE | 2024-02-10 11:28 | ED ---
Extremity Problem HPI - General Chief complaint: Extremity Problem,Nontraumatic Stated complaint: Left leg pain Time Seen by Provider: 02/10/24 11:05 Source: patient, family, RN notes reviewed Mode of arrival: ambulatory Limitations: no limitations - History of Present Illness Initial comments: This is a 49-year-old male with history of complex regional pain syndrome of LLE presenting with mother for left knee pain (11/25) x 1 day. Mother states patient's left knee pain is worsened today following a open LLE fracture 20 years ago with chronic pain since that time. Patient endorses use of a stimulator for pain control which requires adjustment according to mother. Patient states he has a neurology appointment on March 11 with [facility] or an adj ustment. Endorses use of benztropine and Tylenol with minimal relief. Patient also endorses increased anxiety. Denies recent trauma to knee or other symptoms. MD Complaint: extremity pain Onset/Timin Location: left, knee History of Same: Yes -: Yes arthralgia Radiation: none Severity scale (1-10): 10 Consistency: constant Worsens with: weight bearing, walking, palpation Associated Symptoms: denies other symptoms - Related Data Home Medications Medication Instructions Recorded Confirmed Lurasidone HCl [Latuda] 120 mg PO HS 05/18/22 11/06/23 Venlafaxine HCl [Effexor XR] 75 mg PO DAILY 05/18/22 11/06/23 Venlafaxine HCl [Effexor XR] 150 mg PO DAILY 05/18/22 11/06/23 lisinopriL [Zestril] 10 mg PO DAILY 05/18/22 11/06/23 metFORMIN HCL ER [Glucophage XR] 500 mg PO DAILY 05/18/22 11/06/23 rOPINIRole HCL [Requip] 0.5 mg PO BID PRN 05/18/22 11/06/23 Cyclobenzaprine [Flexeril] 10 mg PO TID PRN 10/21/23 11/06/23 HYDROcodone/APAP 5-325MG [[place] 1 tab PO Q6H PRN 10/21/23 11/06/23 5-325] Simvastatin [Zocor] 20 mg PO HS 10/21/23 11/06/23 clonazePAM [KlonoPIN] 2 mg PO BID PRN 10/21/23 11/06/23 Allergies Allergy/AdvReac Type Severity Reaction Status Date / Time bupropion HCl Allergy Rash/Hives Verified 02/10/24 10:56 [From Wellbutrin] droperidol Allergy Hallucinations/Increased Verified 02/10/24 10:56 Anxiety Review of Systems ROS Statement: Those systems with pertinent positive or pertinent negative responses have been documented in the HPI. ROS Other: All systems not noted in ROS Statement are negative. Past Medical History Past Medical History: Hyperlipidemia Additional Past Medical History / Comment(s): restless leg syndrome. Complex regional pain syndrome to left lower extremity History of Any Multi-Drug Resistant Organisms: None Reported Additional Past Surgical History / Comment(s): FINGER AMPUTATION LEFT INDEX FINGER IN 1999, HILARIO PLACED AND REMOVED FROM LEFT LEG IN 2002 hardware removal from left ORIF lower extremity, distal tip of the finger slightly amputated after injury Past Anesthesia/Blood Transfusion Reactions: No Reported Reaction Past Psychological History: Anxiety, Depression Smoking Status: Never smoker Past Alcohol Use History: Occasional Past Drug Use History: None Reported - Past Family History Father Family Medical History: No Reported History Mother Family Medical History: No Reported History Brother(s) Family Medical History: No Reported History (Depression and anxiety) General Exam Limitations: no limitations General appearance: alert, anxious, in distress Head exam: Present: atraumatic, normocephalic, normal inspection Eye exam: Present: normal appearance, PERRL, EOMI. Absent: scleral icterus, conjunctival injection, periorbital swelling ENT exam: Present: normal exam, mucous membranes moist Neck exam: Present: normal inspection. Absent: tenderness, meningismus, lymphadenopathy Respiratory exam: Present: normal lung sounds bilaterally. Absent: respiratory distress, wheezes, rales, rhonchi, stridor Cardiovascular Exam: Present: regular rate, normal rhythm, normal heart sounds. Absent: systolic murmur, diastolic murmur, rubs, gallop, clicks GI/Abdominal exam: Present: soft, normal bowel sounds. Absent: distended, tenderness, guarding, rebound, rigid Extremities exam: Present: full ROM, tenderness (Left medial knee tenderness without crepitus or deformity), normal capillary refill, other (LLE neurovascular and motor function intact. Posterior tibialis pulse +2). Absent: pedal edema, joint swelling, calf tenderness Back exam: Present: normal inspection Neurological exam: Present: alert, oriented X3, CN II-XII intact Psychiatric exam: Present: normal affect, normal mood Skin exam: Present: warm, dry, intact, normal color. Absent: rash Course Vital Signs 02/10/24 02/10/24 10:56 11:30 Temperature 98 F 99.2 F Pulse Rate 122 H 116 H Respiratory 20 19 Rate Blood Pressure 130/90 120/85 O2 Sat by Pulse 97 96 Oximetry Medical Decision Making - Medical Decision Making Was pt. sent in by a medical professional or institution (RINKU Srerano, APPLICATION SYSTEMS ARCHITECT, urgent care, hospital, or assisted...) When possible be specific @ -[No] Did you speak to anyone other than the patient for history (EMS, parent, family, police, friend...)? What history was obtained from this source @ -[No] Did you review nursing and triage notes (agree or disagree)? Why? @ -[I reviewed and agree with nursing and triage notes] Were old charts reviewed (outside hosp., previous admission, EMS record, old EKG, old radiological studies, urgent care reports/EKG's, assisted records)? Report findings @ -[No old charts were reviewed] Differential Diagnosis (chest pain, altered mental status, abdominal pain women, abdominal pain men, vaginal bleeding, weakness, fever, dyspnea, syncope, headache, dizziness, GI bleed, back pain, seizure, CVA, palpatations, mental health, musculoskeletal)? @ -Knee strain, knee fracture, complex regional pain syndrome, knee contusion, ligament tear, this is not that exhaustive list. EKG interpreted by me (3pts min.). @ -Not done X-rays interpreted by me (1pt min.). @ -[None done] CT interpreted by me (1pt min.). @ -[None done] U/S interpreted by me (1pt. min.). @ -[None done] What testing was considered but not performed or refused? (CT, X-rays, U/S, labs)? Why? @ -[None] What meds were considered but not given or refused? Why? @ -[None] Did you discuss the management of the patient with other professionals (professionals i.e. RINKU Serrano, APPLICATION SYSTEMS ARCHITECT, lab, RT, psych nurse, health and social care teacher, rocket scientist, teacher, aboriginal home school liaison officer, vocational case manager)? Give summary @ -[No] Was smoking cessation discussed for >3mins.? @ -[No] Was critical care preformed (if so, how long)? @ -[No] Were there social determinants of health that impacted care today? How? (Homel essness, low income, unemployed, alcoholism, drug addiction, transportation, low edu. Level, literacy, decrease access to med. care, detention, rehab)? @ -[No] Was there de-escalation of care discussed even if they declined (Discuss DNR or withdrawal of care, Hospice)? DNR status @ -[No] What co-morbidities impacted this encounter? (DM, HTN, Smoking, COPD, CAD, Cancer, CVA, ARF, Chemo, Hep., AIDS, mental health diagnosis, sleep apnea, morbid obesity)? @ -Complex regional pain syndrome, anxiety Was patient admitted / discharged? Hospital course, mention meds given and route, prescriptions, significant lab abnormalities, going to OR and other pertinent info. @ -[hospital course] Undiagnosed new problem with uncertain prognosis? @ -[No] Drug Therapy requiring intensive monitoring for toxicity (Heparin, Nitro, Insulin, Cardizem)? @ -[No] Were any procedures done? @ -[No] Diagnosis/symptom? @ -Chronic left knee pain Acute, or Chronic, or Acute on Chronic? @ -Acute on chronic Uncomplicated (without systemic symptoms) or Complicated (systemic symptoms)? @ -Uncomplicated Side effects of treatment? @ -[No] Exacerbation, Progression, or Severe Exacerbation? @ -Exacerbation Poses a threat to life or bodily function? How? (Chest pain, [place], [place], pneumonia, PE, COPD, DKA, ARF, appy, cholecystitis, CVA, Diverticulitis, Homicidal, Suicidal, threat to staff... and all critical care pts) @ -[No] Disposition Clinical Impression: Chronic knee pain Disposition: HOME SELF-CARE Condition: Good Is patient prescribed a controlled substance at d/c from ED?: No Referrals: Jefry Castro DO [Primary Care Provider] - 1-2 days Time of Disposition: 12:51
[2024-02-10] MEDS: KETOROLAC 15 MG/ML 1 ML VIAL IM STA (11:30)
[2024-02-10 13:03] VITALS: BP 121/86; PULSE 111; RESP 20; TEMP 99
== END 2024-02-10 13:02 | disposition home or self-care (01) ==
LOC: EC 10:51
DX: G89.29 Other chronic pain (principal); M25.562 Pain in left knee; Z88.8 Allergy status to other drugs, medicaments and biological substances
CPT/HCPCS: 99283; 96372 ×3; J3360; J1171; J1885

== ENCOUNTER 2024-02-10 19:20 | Emergency (ER) | payer MEDICARE ==
--- NOTE | 2024-02-10 19:55 | ED ---
Extremity Problem HPI - General Chief complaint: Extremity Problem,Nontraumatic Stated complaint: L knee pain Time Seen by Provider: 02/10/24 19:42 Source: patient, RN notes reviewed Mode of arrival: ambulatory Limitations: no limitations - History of Present Illness Initial comments: This is a 49-year-old male who presents to the emergency department for left knee pain. Patient has a history of complex regional pain syndrome leading to recurrent visits for left leg pain. Patient also reports a history of anxiety. He is very well-known to this emergency department for these complaints and he was evaluated here earlier today for the same symptoms. Pain was controlled and he was discharged home. States that shortly afterwards symptoms returned, prompting him to return here for evaluation. Denies any new injuries. - Related Data Home Medications Medication Instructions Recorded Confirmed RX: Lurasidone HCl [Latuda] 120 mg PO HS 05/18/22 11/06/23 RX: Venlafaxine HCl [Effexor XR] 75 mg PO DAILY 05/18/22 11/06/23 RX: Venlafaxine HCl [Effexor XR] 150 mg PO DAILY 05/18/22 11/06/23 RX: lisinopriL [Zestril] 10 mg PO DAILY 05/18/22 11/06/23 RX: metFORMIN HCL ER [Glucophage 500 mg PO DAILY 05/18/22 11/06/23 XR] RX: rOPINIRole HCL [Requip] 0.5 mg PO BID PRN 05/18/22 11/06/23 Cyclobenzaprine [Flexeril] 10 mg PO TID PRN 10/21/23 11/06/23 HYDROcodone/APAP 5-325MG [[place] 1 tab PO Q6H PRN 10/21/23 11/06/23 5-325] Simvastatin [Zocor] 20 mg PO HS 10/21/23 11/06/23 clonazePAM [KlonoPIN] 2 mg PO BID PRN 10/21/23 11/06/23 Allergies Allergy/AdvReac Type Severity Reaction Status Date / Time bupropion HCl Allergy Rash/Hives Verified 02/10/24 19:40 [From Wellbutrin] droperidol Allergy Hallucinations/Increased Verified 02/10/24 19:40 Anxiety Review of Systems ROS Statement: Those systems with pertinent positive or pertinent negative responses have been documented in the HPI. ROS Other: All systems not noted in ROS Statement are negative. Past Medical History Past Medical History: Hyperlipidemia Additional Past Medical History / Comment(s): restless leg syndrome. Complex regional pain syndrome to left lower extremity History of Any Multi-Drug Resistant Organisms: None Reported Additional Past Surgical History / Comment(s): FINGER AMPUTATION LEFT INDEX FINGER IN 1999, HILARIO PLACED AND REMOVED FROM LEFT LEG IN 2002 hardware removal from left ORIF lower extremity, distal tip of the finger slightly amputated after injury Past Anesthesia/Blood Transfusion Reactions: No Reported Reaction Past Psychological History: Anxiety, Depression Smoking Status: Never smoker Past Alcohol Use History: Occasional Past Drug Use History: None Reported - Past Family History Father Family Medical History: No Reported History Mother Family Medical History: No Reported History Brother(s) Family Medical History: No Reported History (Depression and anxiety) General Exam Limitations: no limitations General appearance: alert, in no apparent distress Head exam: Present: atraumatic, normocephalic, normal inspection Respiratory exam: Present: normal lung sounds bilaterally. Absent: respiratory distress, wheezes, rales, rhonchi, stridor Cardiovascular Exam: Present: regular rate, normal rhythm, normal heart sounds. Absent: systolic murmur, diastolic murmur, rubs, gallop, clicks Neurological exam: Present: alert, oriented X3, CN II-XII intact Psychiatric exam: Present: normal affect, normal mood Skin exam: Present: warm, dry, intact, normal color. Absent: rash Course Vital Signs 02/10/24 02/10/24 19:38 21:30 Temperature 98.2 F 97.9 F Pulse Rate 120 H 97 Respiratory 20 18 Rate Blood Pressure 109/67 130/79 O2 Sat by Pulse 96 98 Oximetry Medical Decision Making - Medical Decision Making This is a 49 year old male who presents to the emergency department for left leg pain. Was pt. sent in by a medical professional or institution? @ -No Did you speak to anyone other than the patient for history? @ -No Did you review nursing and triage notes? @ -Yes, and I agree, it is accurate with regards to the patient's symptoms. Were old charts reviewed? @ -No Differential Diagnosis? @ -Differential Musculoskeletal Muscular strain, contusion, ligament sprain, fracture, arthritis, septic arthritis, bursitis, cellulitis, muscle spasm, nerve compression, DVT, arterial occlusion, herpes zoster, electrolyte abnormality, tumor.... This is not meant to be in all inclusive list EKG interpreted by me (3pts min.)? @ -Not obtained X-rays interpreted by me (1pt min.)? @ -Not obtained CT interpreted by me (1pt min.)? @ -Not obtained U/S interpreted by me (1pt. min.)? @ -Not obtained What testing was considered but not performed? (CT, X-rays, U/S, labs)? Why? @ -None What meds were considered but not given? Why? @ -None Did you discuss the management of the patient with other professionals? @ -No Did you reconcile home meds? @ -No Was smoking cessation discussed for >3mins.? @ -No Was critical care preformed (if so, how long)? @ -No Were there social determinants of health that impacted care today? How? (Homelessness, low income, unemployed, alcoholism, drug addiction, transportation, low edu. Level, literacy, decrease access to med. care, long term, rehab)? @ -No Was there de-escalation of care discussed even if they declined? (Discuss DNR or withdrawal of care, Hospice)? @ -No What co-morbidities impacted this encounter? (DM, HTN, Smoking, COPD, CAD, Cancer, CVA, Hep., AIDS, mental health diagnosis, sleep apnea, morbid obesity)? @ -Complex regional pain syndrome Was patient admitted / discharged? @ -Discharged. Patient's pain and anxiety were managed in the emergency department and he was discharged home. Advised that he needs to follow-up with his PCP for reevaluation. Patient discharged home in stable condition. Case discussed with ED attending Dr. Allan. Return precautions reviewed in depth, the patient is instructed to return to the emergency department with any new, worsening, or concerning symptoms. Patient verbalized understanding. Undiagnosed new problem with uncertain prognosis? @ -None Drug Therapy requiring intensive monitoring for toxicity (Heparin, Nitro, Insulin, Cardizem)? @ -None Were any procedures done? @ -None Diagnosis/symptom? @ -Left knee pain, anxiety Acute, or Chronic, or Acute on Chronic? @ -Chronic Uncomplicated (without systemic symptoms) or Complicated (systemic symptoms)? @ -Uncomplicated Side effects of treatment? @ -None Exacerbation, Progression, or Severe Exacerbation] @ -Exacerbation Poses a threat to life or bodily function? @ -No Disposition Clinical Impression: Left leg pain, Complex regional pain syndrome, Anxiety Disposition: HOME SELF-CARE Instructions (If sedation given, give patient instructions): Complex Regional Pain Syndrome (DC), Anxiety (ED) Additional Instructions: Return to the emergency department with any new, worsening, or concerning symptoms. Follow up with your primary care provider in 1-2 days. Is patient prescribed a controlled substance at d/c from ED?: No Referrals: Jefry Castro DO [Primary Care Provider] - 1-2 days Time of Disposition: 19:54
[2024-02-10] MEDS: LORazepam 2 MG/ML INJ IM STA (19:58)
[2024-02-10] MEDS: KETOROLAC 15 MG/ML 1 ML VIAL IM STA (19:58)
[2024-02-10] MEDS: HYDROmorphone 1 MG/ML 1 ML SYRINGE IM STA (19:59)
[2024-02-10 21:38] VITALS: BP 130/79; PULSE 97; RESP 18; TEMP 97.9
== END 2024-02-10 21:30 | disposition home or self-care (01) ==
LOC: EC 19:20
DX: M79.605 Pain in left leg (principal); F41.9 Anxiety disorder, unspecified; G90.59 Complex regional pain syndrome I of other specified site; Z88.8 Allergy status to other drugs, medicaments and biological substances
CPT/HCPCS: 99283; 96372; J2060; J1171; J1885

== ENCOUNTER 2024-02-20 01:19 | Emergency (ER) | payer MEDICARE ==
[2024-02-20 01:30] VITALS: TEMP 98.1
--- NOTE | 2024-02-20 01:44 | ED ---
General Adult HPI - General Chief complaint: Extremity Problem,Nontraumatic Stated complaint: leg pain Time Seen by Provider: 02/20/24 01:32 Source: patient, RN notes reviewed Mode of arrival: wheelchair Limitations: no limitations - History of Present Illness Initial comments: This is a 49-year-old male who is well known to emergency department returning for chronic left knee pain. Patient presents frequently to the emergency department and is requesting Dilaudid pain medication. He states that pain in his left knee is same and that has been in the past and denies no new injuries or falls. States he has taken high-dose Tylenol and Flexeril with minimal relief. Patient does not appointment scheduled with neurologist in upcoming weeks - Related Data Home Medications Medication Instructions Recorded Confirmed Lurasidone HCl [Latuda] 120 mg PO HS 05/18/22 11/06/23 Venlafaxine HCl [Effexor XR] 75 mg PO DAILY 05/18/22 11/06/23 Venlafaxine HCl [Effexor XR] 150 mg PO DAILY 05/18/22 11/06/23 lisinopriL [Zestril] 10 mg PO DAILY 05/18/22 11/06/23 metFORMIN HCL ER [Glucophage XR] 500 mg PO DAILY 05/18/22 11/06/23 rOPINIRole HCL [Requip] 0.5 mg PO BID PRN 05/18/22 11/06/23 Cyclobenzaprine [Flexeril] 10 mg PO TID PRN 10/21/23 11/06/23 HYDROcodone/APAP 5-325MG [[place] 1 tab PO Q6H PRN 10/21/23 11/06/23 5-325] Simvastatin [Zocor] 20 mg PO HS 10/21/23 11/06/23 clonazePAM [KlonoPIN] 2 mg PO BID PRN 10/21/23 11/06/23 Allergies Allergy/AdvReac Type Severity Reaction Status Date / Time bupropion HCl Allergy Rash/Hives Verified 02/20/24 01:30 [From Wellbutrin] droperidol Allergy Hallucinations/Increased Verified 02/20/24 01:30 Anxiety Review of Systems ROS Statement: Those systems with pertinent positive or pertinent negative responses have been documented in the HPI. ROS Other: All systems not noted in ROS Statement are negative. Past Medical History Past Medical History: Hyperlipidemia Additional Past Medical History / Comment(s): restless leg syndrome. Complex regional pain syndrome to left lower extremity History of Any Multi-Drug Resistant Organisms: None Reported Additional Past Surgical History / Comment(s): FINGER AMPUTATION LEFT INDEX FINGER IN 1999, HILARIO PLACED AND REMOVED FROM LEFT LEG IN 2002 hardware removal from left ORIF lower extremity, distal tip of the finger slightly amputated after injury Past Anesthesia/Blood Transfusion Reactions: No Reported Reaction Past Psychological History: Anxiety, Depression Smoking Status: Never smoker Past Alcohol Use History: Occasional Past Drug Use History: None Reported - Past Family History Father Family Medical History: No Reported History Mother Family Medical History: No Reported History Brother(s) Family Medical History: No Reported History (Depression and anxiety) General Exam Limitations: no limitations General appearance: alert, in no apparent distress ENT exam: Present: normal exam, mucous membranes moist Neck exam: Present: normal inspection. Absent: tenderness, meningismus, lymphadenopathy Respiratory exam: Present: normal lung sounds bilaterally. Absent: respiratory distress, wheezes, rales, rhonchi, stridor Cardiovascular Exam: Present: regular rate, normal rhythm, normal heart sounds. Absent: systolic murmur, diastolic murmur, rubs, gallop, clicks GI/Abdominal exam: Present: soft, normal bowel sounds. Absent: distended, tenderness, guarding, rebound, rigid Left Knee exam: Present: normal inspection, full ROM, tenderness. Absent: ecchymosis, deformity, crepitus, dislocation, erythema Neurovascular tendon exam: Present: no vascular compromise. Absent: pulse d eficit Gait: observed and normal Back exam: Present: normal inspection Course Vital Signs 02/20/24 02/20/24 01:28 02:20 Temperature 98.1 F Pulse Rate 119 H 83 Respiratory 22 16 Rate Blood Pressure 110/73 101/70 O2 Sat by Pulse 98 96 Oximetry Medical Decision Making - Medical Decision Making Was pt. sent in by a medical professional or institution (, PA, CRM ANALYST, urgent care, hospital, or [facility]...) When possible be specific @ -No Did you speak to anyone other than the patient for history (EMS, parent, family, police, friend...)? What history was obtained from this source @ -No Did you review nursing and triage notes (agree or disagree)? Why? @ -I reviewed and agree with nursing and triage notes Were old charts reviewed (outside hosp., previous admission, EMS record, old EKG, old radiological studies, urgent care reports/EKG's, [facility] records)? Report findings @ -No old charts were reviewed Differential Diagnosis (chest pain, altered mental status, abdominal pain women, abdominal pain men, vaginal bleeding, weakness, fever, dyspnea, syncope, headache, dizziness, GI bleed, back pain, seizure, CVA, palpatations, mental health, musculoskeletal)? @ -Differential Musculoskeletal Muscular strain, contusion, ligament sprain, fracture, arthritis, septic arthritis, bursitis, cellulitis, muscle spasm, nerve compression, DVT, arterial occlusion, herpes zoster, electrolyte abnormality, tumor.... This is not meant to be in all inclusive list EKG interpreted by me (3pts min.). @ -None X-rays interpreted by me (1pt min.). @ -None done CT interpreted by me (1pt min.). @ -None done U/S interpreted by me (1pt. min.). @ -None done What testing was considered but not performed or refused? (CT, X-rays, U/S, labs)? Why? @ -None What meds were considered but not given or refused? Why? @ -None Did you discuss the management of the patient with other professionals (professionals i.e. , PA, CRM ANALYST, lab, RT, psych nurse, social scientist, water quality specialist, teacher, compliance officer, family caseworker)? Give summary @ -No Was smoking cessation discussed for >3mins.? @ -No Was critical care preformed (if so, how long)? @ -No Were there social determinants of health that impacted care today? How? (Homelessness, low income, unemployed, alcoholism, drug addiction, transportation, low edu. Level, literacy, decrease access to med. care, assisted, rehab)? @ -No Was there de-escalation of care discussed even if they declined (Discuss DNR or withdrawal of care, Hospice)? DNR status @ -No What co-morbidities impacted this encounter? (DM, HTN, Smoking, COPD, CAD, Cancer, CVA, ARF, Chemo, Hep., AIDS, mental health diagnosis, sleep apnea, morbid obesity)? @ -None Was patient admitted / discharged? Hospital course, mention meds given and route, prescriptions, significant lab abnormalities, going to OR and other pertinent info. @ -Discharge. 49-year-old male presenting with chronic left knee pain. Patient is well-known and frequently emergency department for similar complaints. Patient is requesting narcotic pain medication. Patient is deemed is drug- seeking and is provided with Benadryl, Toradol, Flexeril instructed to follow-up as scheduled with neurology outpatient for continued evaluation of chronic left knee pain. Discussed with Dr. Winslow Undiagnosed new problem with uncertain prognosis? @ -No Drug Therapy requiring intensive monitoring for toxicity (Heparin, Nitro, Insulin, Cardizem)? @ -No Were any procedures done? @ -No Diagnosis/symptom? @ -Chronic knee pain Acute, or Chronic, or Acute on Chronic? @ -Chronic Uncomplicated (without systemic symptoms) or Complicated (systemic symptoms)? @ -uncomplicated Side effects of treatment? @ -No Exacerbation, Progression, or Severe Exacerbation? @ -No Poses a threat to life or bodily function? How? (Chest pain, [place], [place], pneumonia, PE, COPD, DKA, ARF, appy, cholecystitis, CVA, Diverticulitis, Homicidal, Suicidal, threat to staff... and all critical care pts) @ -No Disposition Clinical Impression: Chronic knee pain Disposition: HOME SELF-CARE Condition: Good Instructions (If sedation given, give patient instructions): Knee Pain (ED) Additional Instructions: Please return to the Emergency Department if symptoms worsen or any other concerns. Is patient prescribed a controlled substance at d/c from ED?: No Referrals: Jefry Castro DO [Primary Care Provider] - 1-2 days Time of Disposition: 02:13
[2024-02-20] MEDS: KETOROLAC 15 MG/ML 1 ML VIAL IM STA (01:50)
[2024-02-20] MEDS: ORPHENADRINE 30 MG/ML 2 ML VIAL IM STA (01:50)
[2024-02-20] MEDS: diphenhydrAMINE 50 MG/ML 1 ML VIAL IM STA (01:50)
[2024-02-20 02:25] VITALS: BP 101/70; PULSE 83; RESP 16
== END 2024-02-20 02:20 | disposition home or self-care (01) ==
LOC: EC 01:19
DX: G89.29 Other chronic pain (principal); M25.562 Pain in left knee; Z88.8 Allergy status to other drugs, medicaments and biological substances
CPT/HCPCS: 99283; 96372 ×3; J1200; J2360; J1885

== ENCOUNTER 2024-02-28 01:51 | Emergency (ER) | payer MEDICARE ==
[2024-02-28 01:55] VITALS: BP 126/82; PULSE 116; RESP 18; TEMP 98.3
--- NOTE | 2024-02-28 02:09 | ED ---
Lower Extremity Injury HPI - General Chief Complaint: Extremity Injury, Lower Stated Complaint: Leg pain, anxiety Time Seen by Provider: 02/28/24 01:57 Source: patient Mode of arrival: wheelchair Limitations: no limitations - History of Present Illness Initial Comments: 49-year-old male presenting with chief complaint of leg pain. Patient has chronic left leg pain due to complex regional pain syndrome. He has a stimulator in place which was recently adjusted. This pain is consistent with pain he has had in the past with no new features. Patient has had no new injury or trauma. - Related Data Home Medications Medication Instructions Recorded Confirmed Lurasidone HCl [Latuda] 120 mg PO HS 05/18/22 11/06/23 Venlafaxine HCl [Effexor XR] 75 mg PO DAILY 05/18/22 11/06/23 Venlafaxine HCl [Effexor XR] 150 mg PO DAILY 05/18/22 11/06/23 lisinopriL [Zestril] 10 mg PO DAILY 05/18/22 11/06/23 metFORMIN HCL ER [Glucophage XR] 500 mg PO DAILY 05/18/22 11/06/23 rOPINIRole HCL [Requip] 0.5 mg PO BID PRN 05/18/22 11/06/23 Cyclobenzaprine [Flexeril] 10 mg PO TID PRN 10/21/23 11/06/23 HYDROcodone/APAP 5-325MG [[place] 1 tab PO Q6H PRN 10/21/23 11/06/23 5-325] Simvastatin [Zocor] 20 mg PO HS 10/21/23 11/06/23 clonazePAM [KlonoPIN] 2 mg PO BID PRN 10/21/23 11/06/23 Allergies Allergy/AdvReac Type Severity Reaction Status Date / Time bupropion HCl Allergy Rash/Hives Verified 02/28/24 01:55 [From Wellbutrin] droperidol Allergy Hallucinations/Increased Verified 02/28/24 01:55 Anxiety Review of Systems ROS Statement: Those systems with pertinent positive or pertinent negative responses have been documented in the HPI. ROS Other: All systems not noted in ROS Statement are negative. Past Medical History Past Medical History: Hyperlipidemia Additional Past Medical History / Comment(s): restless leg syndrome. Complex regional pain syndrome to left lower extremity History of Any Multi-Drug Resistant Organisms: None Reported Additional Past Surgical History / Comment(s): FINGER AMPUTATION LEFT INDEX FINGER IN 1999, HILARIO PLACED AND REMOVED FROM LEFT LEG IN 2002 hardware removal from left ORIF lower extremity, distal tip of the finger slightly amputated after injury Past Anesthesia/Blood Transfusion Reactions: No Reported Reaction Past Psychological History: Anxiety, Depression Smoking Status: Never smoker Past Alcohol Use History: Occasional Past Drug Use History: None Reported - Past Family History Father Family Medical History: No Reported History Mother Family Medical History: No Reported History Brother(s) Family Medical History: No Reported History (Depression and anxiety) General Exam Limitations: no limitations General appearance: alert, in no apparent distress Head exam: Present: atraumatic, normocephalic, normal inspection Eye exam: Present: normal appearance, EOMI Neck exam: Present: normal inspection. Absent: meningismus Respiratory exam: Absent: respiratory distress Left Knee exam: Present: normal inspection, full ROM, tenderness. Absent: swelling Neurological exam: Present: alert, oriented X3 Psychiatric exam: Present: normal affect, normal mood Skin exam: Present: warm, dry Course Vital Signs 02/28/24 01:52 Temperature 98.3 F Pulse Rate 116 H Respiratory 18 Rate Blood Pressure 126/82 O2 Sat by Pulse 97 Oximetry Medical Decision Making - Medical Decision Making Was pt. sent in by a medical professional or institution (RINKU Serrano, SUPPRESSION CREW LEADER, urgent care, hospital, or halfway...) When possible be specific @ -No Did you speak to anyone other than the patient for history (EMS, parent, family, police, friend...)? What history was obtained from this source @ -No Did you review nursing and triage notes (agree or disagree)? Why? @ -I reviewed and agree with nursing and triage notes Were old charts reviewed (outside hosp., previous admission, EMS record, old EKG, old radiological studies, urgent care reports/EKG's, halfway records)? Report findings @ -No old charts were reviewed Differential Diagnosis (chest pain, altered mental status, abdominal pain women, abdominal pain men, vaginal bleeding, weakness, fever, dyspnea, syncope, headache, dizziness, GI bleed, back pain, seizure, CVA, palpatations, mental health, musculoskeletal)? @ -Differential Musculoskeletal Muscular strain, contusion, ligament sprain, fracture, arthritis, septic arthritis, bursitis, cellulitis, muscle spasm, nerve compression, DVT, arterial occlusion, herpes zoster, electrolyte abnormality, tumor.... This is not meant to be in all inclusive list EKG interpreted by me (3pts min.). @ -As above X-rays interpreted by me (1pt min.). @ -None done CT interpreted by me (1pt min.). @ -None done U/S interpreted by me (1pt. min.). @ -None done What testing was considered but not performed or refused? (CT, X-rays, U/S, labs)? Why? @ -None What meds were considered but not given or refused? Why? @ -None Did you discuss the management of the patient with other professionals (professionals i.e. , PA, SUPPRESSION CREW LEADER, lab, RT, psych nurse, social science teacher, pourer off, teacher, radio division officer, residential case manager)? Give summary @ -No Was smoking cessation discussed for >3mins.? @ -No Was critical care preformed (if so, how long)? @ -No Were there social determinants of health that impacted care today? How? ( Homelessness, low income, unemployed, alcoholism, drug addiction, transportation, low edu. Level, literacy, decrease access to med. care, long-term, rehab)? @ -No Was there de-escalation of care discussed even if they declined (Discuss DNR or withdrawal of care, Hospice)? DNR status @ -No What co-morbidities impacted this encounter? (DM, HTN, Smoking, COPD, CAD, Cancer, CVA, ARF, Chemo, Hep., AIDS, mental health diagnosis, sleep apnea, morbid obesity)? @ -None Was patient admitted / discharged? Hospital course, mention meds given and route, prescriptions, significant lab abnormalities, going to OR and other pertinent info. @ -49-year-old male presenting with chief complaint chronic left leg pain. No new injury or trauma. Feels consistent with previous flareups of his chronic pain with no new features. Patient is treated with pain medication. He will follow-up with his neurologist. Follow-up with PCP. Report back to ER with any new or worsening symptoms. Discussed return parameters and answered all questions. Patient conveyed verbal understanding and agreed to the plan. I discussed this case in detail with my attending Dr. Rosado Undiagnosed new problem with uncertain prognosis? @ -No Drug Therapy requiring intensive monitoring for toxicity (Heparin, Nitro, Insulin, Cardizem)? @ -No Were any procedures done? @ -No Diagnosis/symptom? @ -Leg pain Acute, or Chronic, or Acute on Chronic? @ -Acute on chronic Uncomplicated (without systemic symptoms) or Complicated (systemic symptoms)? @ -uncomplicated Side effects of treatment? @ -No Exacerbation, Progression, or Severe Exacerbation? @ -No Poses a threat to life or bodily function? How? (Chest pain, [place], [place], pneumonia, PE, COPD, DKA, ARF, appy, cholecystitis, CVA, Diverticulitis, Homicidal, Suicidal, threat to staff... and all critical care pts) @ -No Disposition Clinical Impression: Chronic pain of left knee Disposition: HOME SELF-CARE Condition: Good Additional Instructions: Follow-up with your PCP and neurologist. Report back to ER with any new or worsening symptoms. Is patient prescribed a controlled substance at d/c from ED?: No Referrals: Jefry Castro DO [Primary Care Provider] - 1-2 days Time of Disposition: 02:09
[2024-02-28] MEDS: HYDROmorphone 1 MG/ML 1 ML SYRINGE IM STA (02:21)
[2024-02-28] MEDS: KETOROLAC 15 MG/ML 1 ML VIAL IM STA (02:21)
== END 2024-02-28 02:26 | disposition home or self-care (01) ==
LOC: EC 01:51
DX: G89.29 Other chronic pain (principal); M25.562 Pain in left knee; F41.9 Anxiety disorder, unspecified; Z88.8 Allergy status to other drugs, medicaments and biological substances; Z79.899 Other long term (current) drug therapy
CPT/HCPCS: 99283; 96372; J1171; J1885

== ENCOUNTER 2024-03-05 22:45 | Emergency (ER) | payer MEDICARE ==
[2024-03-05] MEDS: HYDROmorphone 1 MG/ML 1 ML SYRINGE IM STA (23:38)
[2024-03-05] MEDS: KETOROLAC 15 MG/ML 1 ML VIAL IM STA (23:39)
--- NOTE | 2024-03-06 00:05 | ED ---
Extremity Problem HPI - General Chief complaint: Extremity Problem,Nontraumatic Stated complaint: L Knee Pain Time Seen by Provider: 03/05/24 23:00 Source: patient, family, RN notes reviewed Mode of arrival: wheelchair Limitations: no limitations - History of Present Illness Initial comments: 49-year-old male presenting with mother for acute on chronic left leg pain. No new injuries or symptoms. Mother reports he tried muscle relaxers with no relief. Has appointment on Thursday with pain doctor. - Related Data Home Medications Medication Instructions Recorded Confirmed Lurasidone HCl [Latuda] 120 mg PO HS 05/18/22 11/06/23 Venlafaxine HCl [Effexor XR] 75 mg PO DAILY 05/18/22 11/06/23 Venlafaxine HCl [Effexor XR] 150 mg PO DAILY 05/18/22 11/06/23 lisinopriL [Zestril] 10 mg PO DAILY 05/18/22 11/06/23 metFORMIN HCL ER [Glucophage XR] 500 mg PO DAILY 05/18/22 11/06/23 rOPINIRole HCL [Requip] 0.5 mg PO BID PRN 05/18/22 11/06/23 Cyclobenzaprine [Flexeril] 10 mg PO TID PRN 10/21/23 11/06/23 HYDROcodone/APAP 5-325MG [[place] 1 tab PO Q6H PRN 10/21/23 11/06/23 5-325] Simvastatin [Zocor] 20 mg PO HS 10/21/23 11/06/23 clonazePAM [KlonoPIN] 2 mg PO BID PRN 10/21/23 11/06/23 Allergies Allergy/AdvReac Type Severity Reaction Status Date / Time bupropion HCl Allergy Rash/Hives Verified 03/05/24 22:59 [From Wellbutrin] droperidol Allergy Hallucinations/Increased Verified 03/05/24 22:59 Anxiety Review of Systems ROS Statement: Those systems with pertinent positive or pertinent negative responses have been documented in the HPI. ROS Other: All systems not noted in ROS Statement are negative. Past Medical History Past Medical History: Hyperlipidemia Additional Past Medical History / Comment(s): restless leg syndrome. Complex regional pain syndrome to left lower extremity History of Any Multi-Drug Resistant Organisms: None Reported Additional Past Surgical History / Comment(s): FINGER AMPUTATION LEFT INDEX FINGER IN 1999, HILARIO PLACED AND REMOVED FROM LEFT LEG IN 2002 hardware removal from left ORIF lower extremity, distal tip of the finger slightly amputated after injury Past Anesthesia/Blood Transfusion Reactions: No Reported Reaction Past Psychological History: Anxiety, Depression Smoking Status: Never smoker Past Alcohol Use History: Occasional Past Drug Use History: None Reported - Past Family History Father Family Medical History: No Reported History Mother Family Medical History: No Reported History Brother(s) Family Medical History: No Reported History (Depression and anxiety) General Exam Limitations: no limitations General appearance: alert, in no apparent distress Head exam: Present: atraumatic, normocephalic, normal inspection Extremities exam: Present: normal inspection, full ROM, normal capillary refill, other (Neurovascularly intact bilateral lower extremities, no overlying skin changes). Absent: tenderness, pedal edema, joint swelling, calf tenderness Neurological exam: Present: alert, oriented X3 Psychiatric exam: Present: normal affect, normal mood Skin exam: Present: warm, dry, intact, normal color. Absent: rash Course Vital Signs 03/05/24 03/06/24 23:00 00:07 Temperature 98.4 F 98.6 F Pulse Rate 124 H 128 H Respiratory 18 17 Rate Blood Pressure 114/75 107/76 O2 Sat by Pulse 97 96 Oximetry Medical Decision Making - Medical Decision Making Was pt. sent in by a medical professional or institution (, PA, ACCOUNTANT MANAGER, urgent care, hospital, or [facility]...) When possible be specific @ -No Did you speak to anyone other than the patient for history (EMS, parent, family, police, friend...)? What history was obtained from this source @ -Mother supplemented history Did you review nursing and triage notes (agree or disagree)? Why? @ -I reviewed and agree with nursing and triage notes Were old charts reviewed (outside hosp., previous admission, EMS record, old EKG, old radiological studies, urgent care reports/EKG's, [facility] records)? Report findings @ -No old charts were reviewed Differential Diagnosis (chest pain, altered mental status, abdominal pain women, abdominal pain men, vaginal bleeding, weakness, fever, dyspnea, syncope, headache, dizziness, GI bleed, back pain, seizure, CVA, palpatations, mental health, musculoskeletal)? @ -Differential Musculoskeletal Muscular strain, contusion, ligament sprain, fracture, arthritis, septic arthritis, bursitis, cellulitis, muscle spasm, nerve compression, DVT, arterial occlusion, herpes zoster, electrolyte abnormality, tumor.... This is not meant to be in all inclusive list EKG interpreted by me (3pts min.). @ -None X-rays interpreted by me (1pt min.). @ -None done CT interpreted by me (1pt min.). @ -None done U/S interpreted by me (1pt. min.). @ -None done What testing was considered but not performed or refused? (CT, X-rays, U/S, labs)? Why? @ -Imaging deferred due to no new symptoms, no injury What meds were considered but not given or refused? Why? @ -None Did you discuss the management of the patient with other professionals (professionals i.e. , PA, ACCOUNTANT MANAGER, lab, RT, psych nurse, social service technician, specialty therapist, teacher, bomb squad officer, renal case manager)? Give summary @ -No Was smoking cessation discussed for >3mins.? @ -No Was critical care preformed (if so, how long)? @ -No Were there social determinants of health that impacted care today? How? (Homelessness, low income, unemployed, alcoholism, drug addiction, transportation, low edu. Level, literacy, decrease access to med. care, [facility], rehab)? @ -No Was there de-escalation of care discussed even if they declined (Discuss DNR or withdrawal of care, Hospice)? DNR status @ -No What co-morbidities impacted this encounter? (DM, HTN, Smoking, COPD, CAD, Cancer, CVA, ARF, Chemo, Hep., AIDS, mental health diagnosis, sleep apnea, morbid obesity)? @ -None Was patient admitted / discharged? Hospital course, mention meds given and route, prescriptions, significant lab abnormalities, going to OR and other pertinent info. @ -Discharge. 49-year-old male well-known to ER presenting for acute on chronic left leg pain. No new injury or trauma. Neurovascularly intact. Provided with one-time dose of Dilaudid and Toradol and reports significant improvement of symptoms. Discussed patient must follow-up pain management. Appropriate return precautions and supportive care discussed. Case was discussed with the ED attending Dr. Henry Undiagnosed new problem with uncertain prognosis? @ -No Drug Therapy requiring intensive monitoring for toxicity (Heparin, Nitro, Insulin, Cardizem)? @ -No Were any procedures done? @ -No Diagnosis/symptom? @ -Acute on chronic left leg pain Acute, or Chronic, or Acute on Chronic? @ -Acute on chronic Uncomplicated (without systemic symptoms) or Complicated (systemic symptoms)? @ -Uncomplicated Side effects of treatment? @ -No Exacerbation, Progression, or Severe Exacerbation? @ -No Poses a threat to life or bodily function? How? (Chest pain, [place], [place], pneumonia, PE, COPD, DKA, ARF, appy, cholecystitis, CVA, Diverticulitis, Homicidal, Suicidal, threat to staff... and all critical care pts) @ -No Disposition Clinical Impression: Chronic pain of left lower extremity Disposition: HOME SELF-CARE Condition: Stable Additional Instructions: Please return to the Emergency Department if symptoms worsen or any other concerns. Is patient prescribed a controlled substance at d/c from ED?: No Referrals: Jefry Castro DO [Primary Care Provider] - 1-2 days Time of Disposition: 00:05
[2024-03-06 00:12] VITALS: BP 107/76; PULSE 128; RESP 17; TEMP 98.6
== END 2024-03-06 00:12 | disposition home or self-care (01) ==
LOC: EC 22:45
DX: G89.29 Other chronic pain (principal); M25.562 Pain in left knee; Z88.8 Allergy status to other drugs, medicaments and biological substances
CPT/HCPCS: 99283; 96372 ×2; J1171; J1885

== ENCOUNTER 2024-03-15 00:28 | Emergency (ER) | payer BC, MEDICARE ==
[2024-03-15 00:40] VITALS: RESP 18; TEMP 98.3
--- NOTE | 2024-03-15 01:30 | ED ---
General Adult HPI - General Chief complaint: Extremity Injury, Lower Stated complaint: Leg Pain Time Seen by Provider: 03/15/24 01:04 Source: patient Mode of arrival: wheelchair Limitations: no limitations - History of Present Illness Initial comments: 49-year-old male presenting with chief complaint of left knee pain. Patient is well-known to our department. Patient has chronic knee pain. This is consistent with his chronic symptoms, there are no new features to his pain. He has had no injury or trauma. Seen in his neurologist today and his gabapentin dosing was changed. Patient is also complaining of anxiety related to his chronic pain. No redness, swelling, fever, chills. - Related Data Home Medications Medication Instructions Recorded Confirmed Lurasidone HCl [Latuda] 120 mg PO HS 05/18/22 11/06/23 Venlafaxine HCl [Effexor XR] 75 mg PO DAILY 05/18/22 11/06/23 Venlafaxine HCl [Effexor XR] 150 mg PO DAILY 05/18/22 11/06/23 lisinopriL [Zestril] 10 mg PO DAILY 05/18/22 11/06/23 metFORMIN HCL ER [Glucophage XR] 500 mg PO DAILY 05/18/22 11/06/23 rOPINIRole HCL [Requip] 0.5 mg PO BID PRN 05/18/22 11/06/23 Cyclobenzaprine [Flexeril] 10 mg PO TID PRN 10/21/23 11/06/23 HYDROcodone/APAP 5-325MG [[place] 1 tab PO Q6H PRN 10/21/23 11/06/23 5-325] Simvastatin [Zocor] 20 mg PO HS 10/21/23 11/06/23 clonazePAM [KlonoPIN] 2 mg PO BID PRN 10/21/23 11/06/23 Allergies Allergy/AdvReac Type Severity Reaction Status Date / Time bupropion HCl Allergy Rash/Hives Verified 03/15/24 00:40 [From Wellbutrin] droperidol Allergy Hallucinations/Increased Verified 03/15/24 00:40 Anxiety Review of Systems ROS Statement: Those systems with pertinent positive or pertinent negative responses have been documented in the HPI. ROS Other: All systems not noted in ROS Statement are negative. Past Medical History Past Medical History: Hyperlipidemia Additional Past Medical History / Comment(s): restless leg syndrome. Complex regional pain syndrome to left lower extremity History of Any Multi-Drug Resistant Organisms: None Reported Additional Past Surgical History / Comment(s): FINGER AMPUTATION LEFT INDEX FINGER IN 1999, HILARIO PLACED AND REMOVED FROM LEFT LEG IN 2002 hardware removal from left ORIF lower extremity, distal tip of the finger slightly amputated a fter injury Past Anesthesia/Blood Transfusion Reactions: No Reported Reaction Past Psychological History: Anxiety, Depression Smoking Status: Never smoker Past Alcohol Use History: Occasional Past Drug Use History: None Reported - Past Family History Father Family Medical History: No Reported History Mother Family Medical History: No Reported History Brother(s) Family Medical History: No Reported History (Depression and anxiety) General Exam Limitations: no limitations General appearance: alert, in no apparent distress Head exam: Present: atraumatic, normocephalic, normal inspection Eye exam: Present: normal appearance, EOMI Neck exam: Present: normal inspection. Absent: meningismus Respiratory exam: Absent: respiratory distress Left Knee exam: Present: normal inspection, full ROM. Absent: tenderness, swelling Neurovascular tendon exam: Present: no vascular compromise Neurological exam: Present: alert, oriented X3 Psychiatric exam: Present: normal affect, normal mood Skin exam: Present: warm, dry, intact, normal color. Absent: rash Course Vital Signs 03/15/24 00:36 Temperature 98.3 F Pulse Rate 114 H Respiratory 18 Rate Blood Pressure 141/89 O2 Sat by Pulse 97 Oximetry Medical Decision Making - Medical Decision Making Was pt. sent in by a medical professional or institution (, PA, ADMINISTRATIVE SERVICES COORDINATOR, urgent care, hospital, or [facility]...) When possible be specific @ -No Did you speak to anyone other than the patient for history (EMS, parent, family, police, friend...)? What history was obtained from this source @ -Mother Did you review nursing and triage notes (agree or disagree)? Why? @ -I reviewed and agree with nursing and triage notes Were old charts reviewed (outside hosp., previous admission, EMS record, old EKG, old radiological studies, urgent care reports/EKG's, [facility] records)? Report findings @ -No old charts were reviewed Differential Diagnosis (chest pain, altered mental status, abdominal pain women, abdominal pain men, vaginal bleeding, weakness, fever, dyspnea, syncope, headache, dizziness, GI bleed, back pain, seizure, CVA, palpatations, mental health, musculoskeletal)? @ -Differential Musculoskeletal Muscular strain, contusion, ligament sprain, fracture, arthritis, septic arthritis, bursitis, cellulitis, muscle spasm, nerve compression, DVT, arterial occlusion, herpes zoster, electrolyte abnormality, tumor.... This is not meant to be in all inclusive list EKG interpreted by me (3pts min.). @ -As above X-rays interpreted by me (1pt min.). @ -None done CT interpreted by me (1pt min.). @ -None done U/S interpreted by me (1pt. min.). @ -None done What testing was considered but not performed or refused? (CT, X-rays, U/S, labs)? Why? @ -None What meds were considered but not given or refused? Why? @ -None Did you discuss the management of the patient with other professionals (professionals i.e. , PA, ADMINISTRATIVE SERVICES COORDINATOR, lab, RT, psych nurse, social media marketing specialist, chute feeder, teacher, chief scientific officer, case managers)? Give summary @ -No Was smoking cessation discussed for >3mins.? @ -No Was critical care preformed (if so, how long)? @ -No Were there social determinants of health that impacted care today? How? (Homelessness, low income, unemployed, alcoholism, drug addiction, transportation, low edu. Level, literacy, decrease access to med. care, [facility], rehab)? @ -No Was there de-escalation of care discussed even if they declined (Discuss DNR or withdrawal of care, Hospice)? DNR status @ -No What co-morbidities impacted this encounter? (DM, HTN, Smoking, COPD, CAD, Cancer, CVA, ARF, Chemo, Hep., AIDS, mental health diagnosis, sleep apnea, morbid obesity)? @ -None Was patient admitted / discharged? Hospital course, mention meds given and route, prescriptions, significant lab abnormalities, going to OR and other pertinent info. @ -49-year-old male presenting with chief complaint of chronic left knee pain. He is also complaining of anxiety. No injury or trauma. No new features to his pain. History and physical examination are conducted. Patient treated with Toradol and hydroxyzine. Follow-up with PCP. Report back to ER with any new or worsening symptoms. Discussed return parameters and answered all questions. Patient conveyed verbal understanding and agreed to the plan. My attending is Dr. Fierro Undiagnosed new problem with uncertain prognosis? @ -No Drug Therapy requiring intensive monitoring for toxicity (Heparin, Nitro, Insulin, Cardizem)? @ -No Were any procedures done? @ -No Diagnosis/symptom? @ -Knee pain Acute, or Chronic, or Acute on Chronic? @ -Acute on chronic Uncomplicated (without systemic symptoms) or Complicated (systemic symptoms)? @ -Uncomplicated Side effects of treatment? @ -No Exacerbation, Progression, or Severe Exacerbation? @ -No Poses a threat to life or bodily function? How? (Chest pain, [place], [place], pneumonia, PE, COPD, DKA, ARF, appy, cholecystitis, CVA, Diverticulitis, Homicidal, Suicidal, threat to staff... and all critical care pts) @ -No Disposition Clinical Impression: Chronic knee pain Disposition: HOME SELF-CARE Condition: Good Additional Instructions: Follow-up with your PCP and neurologist. Report back to ER with any new or worsening symptoms. Is patient prescribed a controlled substance at d/c from ED?: No Referrals: Jefry Castro DO [Primary Care Provider] - 1-2 days
[2024-03-15] MEDS: KETOROLAC 15 MG/ML 1 ML VIAL IM STA (02:09)
[2024-03-15 02:24] VITALS: BP 123/88; PULSE 117
[2024-03-15] MEDS: hydrOXYzine HCL 25 MG TAB PO STA (02:27)
== END 2024-03-15 02:27 | disposition home or self-care (01) ==
LOC: EC 00:28
DX: G89.29 Other chronic pain (principal); M25.562 Pain in left knee; Z88.8 Allergy status to other drugs, medicaments and biological substances
CPT/HCPCS: 99283; 96372; J1885

== ENCOUNTER 2024-04-08 04:01 | Emergency (ER) | payer OTHER ==
--- NOTE | 2024-04-08 04:15 | ED ---
General Adult HPI - General Chief complaint: Extremity Injury, Lower Stated complaint: Leg pain Time Seen by Provider: 04/08/24 04:05 Source: patient Mode of arrival: EMS Limitations: no limitations - History of Present Illness Initial comments: Patient is a 49-year-old gentleman well-known to this emergency department presenting today for chronic left lower extremity pain. Patient endorses exacerbation of chronic pain. States this is similar to prior exacerbations of his chronic kneee pain. Took 2 aspirin and Flexeril this evening without relief of pain. Denies new numbness weakness, trauma or falls. No new back pain. No chest pain or abdominal pain. No fevers or chills the patient states he does feel hot here. No overlying skin changes. - Related Data Home Medications Medication Instructions Recorded Confirmed Lurasidone HCl [Latuda] 120 mg PO HS 05/18/22 11/06/23 Venlafaxine HCl [Effexor XR] 75 mg PO DAILY 05/18/22 11/06/23 Venlafaxine HCl [Effexor XR] 150 mg PO DAILY 05/18/22 11/06/23 lisinopriL [Zestril] 10 mg PO DAILY 05/18/22 11/06/23 metFORMIN HCL ER [Glucophage XR] 500 mg PO DAILY 05/18/22 11/06/23 rOPINIRole HCL [Requip] 0.5 mg PO BID PRN 05/18/22 11/06/23 Cyclobenzaprine [Flexeril] 10 mg PO TID PRN 10/21/23 11/06/23 HYDROcodone/APAP 5-325MG [[place] 1 tab PO Q6H PRN 10/21/23 11/06/23 5-325] Simvastatin [Zocor] 20 mg PO HS 10/21/23 11/06/23 clonazePAM [KlonoPIN] 2 mg PO BID PRN 10/21/23 11/06/23 Allergies Allergy/AdvReac Type Severity Reaction Status Date / Time bupropion HCl Allergy Rash/Hives Verified 03/15/24 00:40 [From Wellbutrin] droperidol Allergy Hallucinations/Increased Verified 03/15/24 00:40 Anxiety Review of Systems ROS Statement: Those systems with pertinent positive or pertinent negative responses have been documented in the HPI. ROS Other: All systems not noted in ROS Statement are negative. Past Medical History Past Medical History: Hyperlipidemia Additional Past Medical History / Comment(s): restless leg syndrome. Complex regional pain syndrome to left lower extremity History of Any Multi-Drug Resistant Organisms: None Reported Additional Past Surgical History / Comment(s): FINGER AMPUTATION LEFT INDEX FINGER IN 1999, HILARIO PLACED AND REMOVED FROM LEFT LEG IN 2002 hardware removal from left ORIF lower extremity, distal tip of the finger slightly amputated after injury Past Anesthesia/Blood Transfusion Reactions: No Reported Reaction Past Psychological History: Anxiety, Depression Smoking Status: Never smoker Past Alcohol Use History: Occasional Past Drug Use History: None Reported - Past Family History Father Family Medical History: No Reported History Mother Family Medical History: No Reported History Brother(s) Family Medical History: No Reported History (Depression and anxiety) General Exam - General Exam Comments Initial Comments: PE: CONSTITUTIONAL: No apparent distress, well appearing SKIN: Warm, dry, no jaundice, hives or petechiaeno erythema, bruising or disc oloration overlying knee or LLE EYES: Pupils are equally round, extraocular movements intact without nystagmus, clear conjunctiva, non-icteric sclera HENT: Normocephalic, atraumatic, moist mucus membranes, oropharynx clear without exudates NECK: , Full range of motion, normal appearance PULMONARY: Clear to auscultation without wheezes, rhonchi, or rales, normal excursion, no accessory muscle use and no stridor CARDIOVASCULAR: Regular rate, rhythm, normal S1 and S2. No appreciated murmurs, rubs or gallops. Extremities well perfused, 2+ DP pulse in LLE. No lower extremity edema GASTROINTESTINAL: Soft, active bowel sounds throughout, non-tender, non- distended, no palpable masses, no rebound or guarding. No hepatosplenomegaly MUSCULOSKELETAL: Extremities have no gross deformity, no edema, redness, or swelling. No calf swelling. Left knee has no warmth, overlying erythema, entirety of the left lower extremity is nontender to palpation, no swelling compared to right lower extremity NEUROLOGIC:_a/o x 3, GCS 15, normal mentation and speech. Moves all extremities x 4 without motor or sensory deficit PSYCHIATRIC:_normal mood and affect, thought process is clear and linear Limitations: no limitations Course Vital Signs 04/08/24 04/08/24 04/08/24 04:08 04:53 05:14 Temperature 97.5 F L Pulse Rate 137 H 125 H 125 H Respiratory 18 19 20 Rate Blood Pressure 143/101 138/85 O2 Sat by Pulse 98 98 Oximetry 04/08/24 05:38 Temperature 97.6 F Pulse Rate 125 H Respiratory 20 Rate Blood Pressure 137/80 O2 Sat by Pulse 98 Oximetry Medical Decision Making - Medical Decision Making Was pt. sent in by a medical professional or institution (, PA, CLIENT CONSULTANT, urgent care, hospital, or residential...) When possible be specific @ -[No] Did you speak to anyone other than the patient for history (EMS, parent, family, police, friend...)? What history was obtained from this source @ -[No] Did you review nursing and triage notes (agree or disagree)? Why? @ -[I reviewed nursing and triage notes] Were old charts reviewed (outside hosp., previous admission, EMS record, old EKG, old radiological studies, urgent care reports/EKG's, residential records)? Report findings @ -[Medical records reviewed] patient is been to the emergency department multiple times in February as well as in the last year for similar complaint Differential Diagnosis (chest pain, altered mental status, abdominal pain women, abdominal pain men, vaginal bleeding, weakness, fever, dyspnea, syncope, headache, dizziness, GI bleed, back pain, seizure, CVA, palpatations, mental health, musculoskeletal)? Differential Musculoskeletal Muscular strain, contusion, ligament sprain, fracture, arthritis, septic arthritis, bursitis, cellulitis, muscle spasm, nerve compression, DVT, arterial occlusion, herpes zoster, electrolyte abnormality, tumor.... This is not meant to be in all inclusive list EKG interpreted by me (3pts min.). @ -[As above] X-rays interpreted by me (1pt min.). @ -[None done] CT interpreted by me (1pt min.). @ -[None done] U/S interpreted by me (1pt. min.). @ -[None done] What testing was considered but not performed or refused? (CT, X-rays, U/S, labs)? Why? @ -[None] What meds were considered but not given or refused? Why? @Hydroxizine was considered as pt did not anxiety to RN, however I was then informed that pt took multiple doses of benadryl just sloop captain, additionally, pt prescribed home klonipin for anxiety, for both of these reasons, I do not feel additional anxiolytics indicated at this point Did you discuss the management of the patient with other professionals (professionals i.e. , PA, CLIENT CONSULTANT, lab, RT, psych nurse, social work manager, doctor's assistant, teacher, identification officer, case aide)? Give summary @ -[No] Was smoking cessation discussed for >3mins.? @ -[No] Was critical care preformed (if so, how long)? @ -[No] Were there social determinants of health that impacted care today? How? (Homelessness, low income, unemployed, alcoholism, drug addiction, transportation, low edu. Level, literacy, decrease access to med. care, assisted, rehab)? @ -[No] Was there de-escalation of care discussed even if they declined (Discuss DNR or withdrawal of care, Hospice)? @ -[No] What co-morbidities impacted this encounter? (DM, HTN, Smoking, COPD, CAD, Cancer, CVA, ARF, Chemo, Hep., AIDS, mental health diagnosis, sleep apnea, morbid obesity)? @Chronic pain Was patient admitted / discharged? Hospital course, mention meds given and route, prescriptions, significant lab abnormalities, going to OR and other pertinent info. @ -Discharged-patient is a 49-year-old gentleman presenting today for chronic left knee pain. States similar to prior pain. Is tachycardic on arrival, I suspect this is secondary to pain. He is notably tachycardic each time he presents to the ED for this issue- on chart review. Exam of the left lower ext remity is entirely benign without tenderness palpation, signs of trauma or deformity, warmth or redness. Neurovascularly intact. Discussed with patient plan for [place], Zanaflex, Toradol and discharge given this is a chronic issue for him and he will need to follow-up with his pain doctor. Patient agreeable plan of care. Of note, at time for discharge, pt's mother requesting diluadid for the pt and pt refused to ambulate, despite entirely benign exam, able to move LLE through full ROM with 5/5 strength. It is not appropriate to administer diluadid for chronic pain with benign exam, therefor will not be administering dilaudid during today's visit. Pt was instructed to continue following with his pain management doctor regarding chronic pain. At time of discharge, pt was taken to waiting room in wheelchair however was able to get out of wheelchair and ambulate with a steady gait upon leaving ED. Undiagnosed new problem with uncertain prognosis? @ -[No] Drug Therapy requiring intensive monitoring for toxicity (Heparin, Nitro, Insulin, Cardizem)? @ -[No] Were any procedures done? @ -[No] Diagnosis/symptom? Chronic knee pain Acute, or Chronic, or Acute on Chronic? Chronic Uncomplicated (without systemic symptoms) or Complicated (systemic symptoms)? @Uncomplicated Side effects of treatment? @ -[No] Exacerbation, Progression, or Severe Exacerbation? @ -[No] Poses a threat to life or bodily function? How? (Chest pain, [place], [place], pneumonia, PE, COPD, DKA, ARF, appy, cholecystitis, CVA, Diverticulitis, Homicidal, Suicidal, threat to staff... and all critical care pts) @ -[No] NoNoNoNoNoNoNoNoNoNoNoNoneNone doneNone doneNone doneAs aboveMedical records reviewed I reviewed nursing and triage notesNoNo Disposition Clinical Impression: Chronic pain of left knee, Drug-seeking behavior Disposition: HOME SELF-CARE Condition: Stable Instructions (If sedation given, give patient instructions): Pain Management (ED) Additional Instructions: Every disease is a spectrum and a small chance still exists that a serious condition could develop, for this reason, please monitor yourself closely for new, changing or worsening symptoms, symptoms different from your usual chronic pain, redness, warmth or swelling over your left knee, [fever], inability to tolerate/keep down fluids or your medications, inability to follow up with outpatient providers as instructed and should you experience these symptoms or should you have any further concerns for your wellbeing please return to the ED or call 911 immediately. Your pain can be treated with ibuprofen and acetaminophen. You can take up to 400-600 mg of ibuprofen (Advil, Motrin) 3 times daily (every 8 hours) but can also use lower doses if this relieves your pain. Some people prefer naproxen (Aleve, Naprosyn) which can be taken in doses of 500 mg up to twice a day. Do not take both of these medicines together, and do not combine either with ketorolac (Toradol), meloxicam (Mobic), or indomethacin (Tivorbex). Some people can develop stomach discomfort with higher doses of either ibuprofen or naproxen, if this develops decrease your dose or stop taking it. If you need to take this dose daily for more than a week, please schedule an appointment for re-evaluation with your PCP. Please take these medications with food. You can take up to 1000 mg of acetaminophen (Tylenol) every 6 hours. Be careful as this is included in some medicines like Nyquil, [place], Percocet, Vicodin, STANBACK, Goody's Powders, and Excedrin. You can also use lidocaine patches for topical pain. You can purchase 4% patches over the counter at most drug stores. These can be helpful for pain from your muscles or bones. PLEASE call your primary care physician as soon as possible to arrange / discuss plan for followup appointment. Appointment in the next 1-3 days is strongly encouraged if possible. PLEASE let us know here before you leave if there is anything further we can do to be of any assistance. Take care and feel Better! Is patient prescribed a controlled substance at d/c from ED?: No Referrals: Jefry Castro, DO [Primary Care Provider] - 1-2 days
[2024-04-08] MEDS: KETOROLAC 15 MG/ML 1 ML VIAL IM STA (04:24)
[2024-04-08] MEDS: tiZANidine 4 MG TAB PO STA (04:25)
[2024-04-08] MEDS: HYDROcodone/APAP 5-325MG 1 EACH TAB PO STA (04:25)
[2024-04-08] MEDS: LIDOCAINE 4% PATCH TOPICAL ONE (04:26)
[2024-04-08 04:54] VITALS: PULSE 125
[2024-04-08] MEDS: hydrOXYzine pamoate 25 MG CAP PO STA (05:09)
[2024-04-08 05:14] VITALS: RESP 20
[2024-04-08 05:40] VITALS: BP 137/80; TEMP 97.6
== END 2024-04-08 05:40 | disposition home or self-care (01) ==
LOC: EC 04:01
DX: G89.29 Other chronic pain (principal); M79.605 Pain in left leg; Z76.5 Malingerer [conscious simulation]; Z88.8 Allergy status to other drugs, medicaments and biological substances
CPT/HCPCS: 99283; 96372; J1885

== ENCOUNTER 2024-05-10 04:30 | Emergency (ER) | payer MEDICARE ==
[2024-05-10 04:43] VITALS: BP 123/90; PULSE 118; RESP 18; TEMP 97.8
[2024-05-10] MEDS: KETOROLAC 15 MG/ML 1 ML VIAL IM STA (05:24)
--- NOTE | 2024-05-10 05:27 | ED ---
Extremity Problem HPI - General Chief complaint: Extremity Problem,Nontraumatic Stated complaint: leg pain,anxiety,chest pain Time Seen by Provider: 05/10/24 05:16 Source: patient Mode of arrival: EMS - History of Present Illness Initial comments: This patient is a 49-year-old man with history of chronic left leg pain due to complex regional pain syndrome who complaints of a flare of his pain tonight. Patient denies acute injury. No fever or chills. No pain distal to the area. No loss of motor or sensory function MD Complaint: extremity pain -: hour(s) Location: left, lower extremity History of Same: Yes -: Yes myalgia Radiation: none Quality: aching Consistency: constant Improves with: nothing Worsens with: nothing - Related Data Home Medications Medication Instructions Recorded Confirmed Lurasidone HCl [Latuda] 120 mg PO HS 05/18/22 11/06/23 Venlafaxine HCl [Effexor XR] 75 mg PO DAILY 05/18/22 11/06/23 Venlafaxine HCl [Effexor XR] 150 mg PO DAILY 05/18/22 11/06/23 lisinopriL [Zestril] 10 mg PO DAILY 05/18/22 11/06/23 metFORMIN HCL ER [Glucophage XR] 500 mg PO DAILY 05/18/22 11/06/23 rOPINIRole HCL [Requip] 0.5 mg PO BID PRN 05/18/22 11/06/23 Cyclobenzaprine [Flexeril] 10 mg PO TID PRN 10/21/23 11/06/23 HYDROcodone/APAP 5-325MG [[place] 1 tab PO Q6H PRN 10/21/23 11/06/23 5-325] Simvastatin [Zocor] 20 mg PO HS 10/21/23 11/06/23 clonazePAM [KlonoPIN] 2 mg PO BID PRN 10/21/23 11/06/23 Allergies Allergy/AdvReac Type Severity Reaction Status Date / Time bupropion HCl Allergy Rash/Hives Verified 05/10/24 23:17 [From Wellbutrin] droperidol Allergy Hallucinations/Increased Verified 05/10/24 23:17 Anxiety Review of Systems ROS Statement: Those systems with pertinent positive or pertinent negative responses have been documented in the HPI. ROS Other: All systems not noted in ROS Statement are negative. Constitutional: Denies: fever, chills Respiratory: Denies: cough, dyspnea Cardiovascular: Denies: chest pain, palpitations Gastrointestinal: Denies: abdominal pain, nausea, vomiting Genitourinary: Denies: dysuria, hematuria Musculoskeletal: Reports: as per HPI, myalgia. Denies: back pain Skin: Denies: rash Neurological: Denies: headache, weakness Past Medical History Past Medical History: Hyperlipidemia Additional Past Medical History / Comment(s): restless leg syndrome. Complex regional pain syndrome to left lower extremity History of Any Multi-Drug Resistant Organisms: None Reported Additional Past Surgical History / Comment(s): FINGER AMPUTATION LEFT INDEX FINGER IN 1999, HILARIO PLACED AND REMOVED FROM LEFT LEG IN 2002 hardware removal from left ORIF lower extremity, distal tip of the finger slightly amputated after injury Past Anesthesia/Blood Transfusion Reactions: No Reported Reaction Past Psychological History: Anxiety, Depression Smoking Status: Never smoker Past Alcohol Use History: Occasional Past Drug Use History: None Reported - Past Family History Father Family Medical History: No Reported History Mother Family Medical History: No Reported History Brother(s) Family Medical History: No Reported History (Depression and anxiety) General Exam General appearance: alert, in no apparent distress Head exam: Present: atraumatic, normocephalic Respiratory exam: Present: normal lung sounds bilaterally. Absent: respiratory distress, wheezes, rales, rhonchi, stridor, accessory muscle use Cardiovascular Exam: Present: regular rate, normal rhythm, normal heart sounds. Absent: systolic murmur, diastolic murmur, rubs, gallop Extremities exam: Present: normal inspection, full ROM, normal capillary refill. Absent: tenderness, pedal edema, calf tenderness Neurological exam: Present: alert. Absent: motor sensory deficit Skin exam: Present: warm, dry, intact, normal color. Absent: rash Course Vital Signs 05/10/24 04:38 Temperature 97.8 F Pulse Rate 118 H Respiratory 18 Rate Blood Pressure 123/90 O2 Sat by Pulse 100 Oximetry Medical Decision Making - Medical Decision Making Was pt. sent in by a medical professional or institution (, PA, PSYCHOLOGY FELLOW, urgent care, hospital, or fdc...) When possible be specific @ -[No] Did you speak to anyone other than the patient for history (EMS, parent, family, police, friend...)? What history was obtained from this source @ -[Patient's mother does contribute to history Did you review nursing and triage notes (agree or disagree)? Why? @ -[I reviewed and agree with nursing and triage notes] Were old charts reviewed (outside hosp., previous admission, EMS record, old EKG, old radiological studies, urgent care reports/EKG's, fdc records)? Report findings @ -[No old charts were reviewed] Differential Diagnosis (chest pain, altered mental status, abdominal pain women, abdominal pain men, vaginal bleeding, weakness, fever, dyspnea, syncope, headache, dizziness, GI bleed, back pain, seizure, CVA, palpatations, mental health, musculoskeletal)? @ -[Acute exacerbation of chronic leg pain EKG interpreted by me (3pts min.). @ -[As above] X-rays interpreted by me (1pt min.). @ -[None done] CT interpreted by me (1pt min.). @ -[None done] U/S interpreted by me (1pt. min.). @ -[None done] What testing was considered but not performed or refused? (CT, X-rays, U/S, labs)? Why? @ -[None] What meds were considered but not given or refused? Why? @ -[None] Did you discuss the management of the patient with other professionals (professionals i.e. , PA, PSYCHOLOGY FELLOW, lab, RT, psych nurse, social worker aide, ore mixer, teacher, intelligence officer basic, window caser)? Give summary @ -[No] Was smoking cessation discussed for >3mins.? @ -[No] Was critical care preformed (if so, how long)? @ -[No] Were there social determinants of health that impacted care today? How? (Homelessness, low income, unemployed, alcoholism, drug addiction, transportation, low edu. Level, literacy, decrease access to med. care, fpc, rehab)? @ -[No] Was there de-escalation of care discussed even if they declined (Discuss DNR or withdrawal of care, Hospice)? DNR status @ -[No] What co-morbidities impacted this encounter? (DM, HTN, Smoking, COPD, CAD, Cancer, CVA, ARF, Chemo, Hep., AIDS, mental health diagnosis, sleep apnea, morbid obesity)? @ -[None] Was patient admitted / discharged? Hospital course, mention meds given and route, prescriptions, significant lab abnormalities, going to OR and other pertinent info. @ -[Patient is a 49-year-old man with chronic leg pain well-known to this department. He did have improvement with medication here and is stable to continue as outpatient Undiagnosed new problem with uncertain prognosis? @ -[No] Drug Therapy requiring intensive monitoring for toxicity (Heparin, Nitro, Insulin, Cardizem)? @ -[No] Were any procedures done? @ -[No] Diagnosis/symptom? @ -[Acute exacerbation of chronic leg pain Acute, or Chronic, or Acute on Chronic? @ -[Acute on chronic Uncomplicated (without systemic symptoms) or Complicated (systemic symptoms)? @ -[Uncomplicated Side effects of treatment? @ -[No] Exacerbation, Progression, or Severe Exacerbation? @ -[No] Poses a threat to life or bodily function? How? (Chest pain, [place], [place], pneumonia, PE, COPD, DKA, ARF, appy, cholecystitis, CVA, Diverticulitis, Homicidal, Suicidal, threat to staff... and all critical care pts) @ -[No] All treatments are based on ideal body weight as in ED triage Disposition Clinical Impression: Left leg pain, Anxiety Disposition: HOME SELF-CARE Condition: Good Instructions (If sedation given, give patient instructions): Leg Pain (ED) Is patient prescribed a controlled substance at d/c from ED?: No Referrals: Jefry Castro DO [Primary Care Provider] - 1-2 days
[2024-05-10] MEDS: clonazePAM 0.5 MG TAB PO STA (05:52)
[2024-05-10] MEDS: ORPHENADRINE 30 MG/ML 2 ML VIAL IM STA (05:58)
== END 2024-05-10 07:22 | disposition home or self-care (01) ==
LOC: EC 04:30
DX: F41.9 Anxiety disorder, unspecified (principal); M79.605 Pain in left leg; Z88.8 Allergy status to other drugs, medicaments and biological substances
CPT/HCPCS: 99284; 96372 ×2; J2360; J1885

== ENCOUNTER 2024-05-10 23:11 | Emergency (ER) | payer MEDICARE ==
[2024-05-10 23:19] VITALS: RESP 18
--- NOTE | 2024-05-11 00:08 | ED ---
Extremity Problem HPI - General Chief complaint: Extremity Problem,Nontraumatic Stated complaint: leg pain Time Seen by Provider: 05/10/24 23:21 Source: patient Mode of arrival: ambulatory Limitations: no limitations - History of Present Illness Initial comments: 49-year-old male well-known to our ER presenting chief complaint of leg pain. Patient has a history of chronic leg pain. This feels like a flareup of his chronic pain with no new features. No injury or trauma. No swelling. No fevers. He was seen here earlier this morning for the pain as well. - Related Data Home Medications Medication Instructions Recorded Confirmed Lurasidone HCl [Latuda] 120 mg PO HS 05/18/22 11/06/23 Venlafaxine HCl [Effexor XR] 75 mg PO DAILY 05/18/22 11/06/23 Venlafaxine HCl [Effexor XR] 150 mg PO DAILY 05/18/22 11/06/23 lisinopriL [Zestril] 10 mg PO DAILY 05/18/22 11/06/23 metFORMIN HCL ER [Glucophage XR] 500 mg PO DAILY 05/18/22 11/06/23 rOPINIRole HCL [Requip] 0.5 mg PO BID PRN 05/18/22 11/06/23 Cyclobenzaprine [Flexeril] 10 mg PO TID PRN 10/21/23 11/06/23 HYDROcodone/APAP 5-325MG [Jay 1 tab PO Q6H PRN 10/21/23 11/06/23 5-325] Simvastatin [Zocor] 20 mg PO HS 10/21/23 11/06/23 clonazePAM [KlonoPIN] 2 mg PO BID PRN 10/21/23 11/06/23 Allergies Allergy/AdvReac Type Severity Reaction Status Date / Time bupropion HCl Allergy Rash/Hives Verified 05/10/24 23:17 [From Wellbutrin] droperidol Allergy Hallucinations/Increased Verified 05/10/24 23:17 Anxiety Review of Systems ROS Statement: Those systems with pertinent positive or pertinent negative responses have been documented in the HPI. ROS Other: All systems not noted in ROS Statement are negative. Past Medical History Past Medical History: Hyperlipidemia Additional Past Medical History / Comment(s): restless leg syndrome. Complex regional pain syndrome to left lower extremity History of Any Multi-Drug Resistant Organisms: None Reported Additional Past Surgical History / Comment(s): FINGER AMPUTATION LEFT INDEX FINGER IN 1999, HILARIO PLACED AND REMOVED FROM LEFT LEG IN 2002 hardware removal from left ORIF lower extremity, distal tip of the finger slightly amputated after injury Past Anesthesia/Blood Transfusion Reactions: No Reported Reaction Past Psychological History: Anxiety, Depression Smoking Status: Never smoker Past Alcohol Use History: Occasional Past Drug Use History: None Reported - Past Family History Father Family Medical History: No Reported History Mother Family Medical History: No Reported History Brother(s) Family Medical History: No Reported History (Depression and anxiety) General Exam Limitations: no limitations General appearance: alert, in no apparent distress Head exam: Present: atraumatic, normocephalic, normal inspection Eye exam: Present: normal appearance, EOMI Neck exam: Present: normal inspection. Absent: meningismus Respiratory exam: Absent: respiratory distress Extremities exam: Present: normal inspection Neurological exam: Present: alert, oriented X3 Psychiatric exam: Present: normal affect, normal mood Skin exam: Present: warm, dry, normal color Course Vital Signs 05/10/24 23:17 Temperature 97.5 F L Pulse Rate 117 H Respiratory 18 Rate Blood Pressure 132/80 O2 Sat by Pulse 98 Oximetry Medical Decision Making - Medical Decision Making Was pt. sent in by a medical professional or institution (RINKU Serrano, CRAB CATCHER, urgent care, hospital, or intermediate...) When possible be specific @ -No Did you speak to anyone other than the patient for history (EMS, parent, family, police, friend...)? What history was obtained from this source @ -Other Did you review nursing and triage notes (agree or disagree)? Why? @ -I reviewed and agree with nursing and triage notes Were old charts reviewed (outside hosp., previous admission, EMS record, old EKG, old radiological studies, urgent care reports/EKG's, intermediate records)? Report findings @ -No old charts were reviewed Differential Diagnosis (chest pain, altered mental status, abdominal pain women, abdominal pain men, vaginal bleeding, weakness, fever, dyspnea, syncope, headache, dizziness, GI bleed, back pain, seizure, CVA, palpatations, mental health, musculoskeletal)? @ -Differential Musculoskeletal Muscular strain, contusion, ligament sprain, fracture, arthritis, septic arthritis, bursitis, cellulitis, muscle spasm, nerve compression, DVT, arterial occlusion, herpes zoster, electrolyte abnormality, tumor.... This is not meant to be in all inclusive list EKG interpreted by me (3pts min.). @ -As above X-rays interpreted by me (1pt min.). @ -None done CT interpreted by me (1pt min.). @ -None done U/S interpreted by me (1pt. min.). @ -None done What testing was considered but not performed or refused? (CT, X-rays, U/S, labs)? Why? @ -None What meds were considered but not given or refused? Why? @ -None Did you discuss the management of the patient with other professionals (professionals i.e. , PA, CRAB CATCHER, lab, RT, psych nurse, social service worker, gum machine filler, teacher, chief accounting officer, rn case mgr)? Give summary @ -No Was smoking cessation discussed for >3mins.? @ -No Was critical care preformed (if so, how long)? @ -No Were there social determinants of health that impacted care today? How? (Homelessness, low income, unemployed, alcoholism, drug addiction, transportation, low edu. Level, literacy, decrease access to med. care, [facility], rehab)? @ -No Was there de-escalation of care discussed even if they declined (Discuss DNR or withdrawal of care, Hospice)? DNR status @ -No What co-morbidities impacted this encounter? (DM, HTN, Smoking, COPD, CAD, Cancer, CVA, ARF, Chemo, Hep., AIDS, mental health diagnosis, sleep apnea, morbid obesity)? @ -None Was patient admitted / discharged? Hospital course, mention meds given and route, prescriptions, significant lab abnormalities, going to OR and other pertinent info. @ -49-year-old male presenting with chief complaint of acute on chronic leg pain. No injury or trauma. No new features to this pain. History and physical examination are conducted. Patient will be treated with Toradol and Norflex. Follow-up with PCP. Report back to ER with any new or worsening symptoms. Discussed return parameters and answered all questions. Patient conveyed verbal understanding and agreed to the plan. I discussed this case in detail with my attending Dr. Henry Undiagnosed new problem with uncertain prognosis? @ -No Drug Therapy requiring intensive monitoring for toxicity (Heparin, Nitro, Insulin, Cardizem)? @ -No Were any procedures done? @ -No Diagnosis/symptom? @ -Leg pain Acute, or Chronic, or Acute on Chronic? @ -Acute on chronic Uncomplicated (without systemic symptoms) or Complicated (systemic symptoms)? @ -Uncomplicated Side effects of treatment? @ -No Exacerbation, Progression, or Severe Exacerbation? @ -No Poses a threat to life or bodily function? How? (Chest pain, [place], [place], pneumonia, PE, COPD, DKA, ARF, appy, cholecystitis, CVA, Diverticulitis, Homicidal, Suicidal, threat to staff... and all critical care pts) @ -Unlikely Disposition Clinical Impression: Left leg pain Disposition: HOME SELF-CARE Condition: Good Additional Instructions: Follow-up with PCP and neurologist. Report back to ER with any new or worsening symptoms. Is patient prescribed a controlled substance at d/c from ED?: No Referrals: Jefry Castro DO [Primary Care Provider] - 1-2 days Time of Disposition: 00:07
[2024-05-11] MEDS: ORPHENADRINE 30 MG/ML 2 ML VIAL IM STA (00:32)
[2024-05-11] MEDS: KETOROLAC 15 MG/ML 1 ML VIAL IM STA (00:33)
[2024-05-11 00:41] VITALS: BP 133/79; PULSE 111; TEMP 97.6
== END 2024-05-11 01:05 | disposition home or self-care (01) ==
LOC: EC 23:11
DX: M79.662 Pain in left lower leg (principal); Z88.8 Allergy status to other drugs, medicaments and biological substances
CPT/HCPCS: 99283; 96372 ×2; J2360; J1885

== ENCOUNTER 2024-06-04 00:54 | Emergency (ER) | payer MEDICARE ==
[2024-06-04 00:58] VITALS: BP 126/86; RESP 18; TEMP 97.7
--- NOTE | 2024-06-04 01:23 | ED ---
General Adult HPI - General Chief complaint: Extremity Problem,Nontraumatic Stated complaint: Leg pain Time Seen by Provider: 06/04/24 01:02 Source: patient Mode of arrival: wheelchair Limitations: no limitations - History of Present Illness Initial comments: Patient is a 49-year-old male past medical history of chronic left knee pain presenting today for acute on chronic left knee pain. Started this evening. Patient states he is unable to lie still due to pain. He denies any redness, swelling, discharge, fevers, new numbness. He denies any changes in pain from his usual chronic pain. Endorses as aching and focused in the left knee. Denies any recent falls, trauma, surgeries or hospitalizations. states he tried Tylenol and 2 doses of Flexeril about an hour prior to arrival without relief of his pain - Related Data Home Medications Medication Instructions Recorded Confirmed Lurasidone HCl [Latuda] 120 mg PO HS 05/18/22 11/06/23 Venlafaxine HCl [Effexor XR] 75 mg PO DAILY 05/18/22 11/06/23 Venlafaxine HCl [Effexor XR] 150 mg PO DAILY 05/18/22 11/06/23 lisinopriL [Zestril] 10 mg PO DAILY 05/18/22 11/06/23 metFORMIN HCL ER [Glucophage XR] 500 mg PO DAILY 05/18/22 11/06/23 rOPINIRole HCL [Requip] 0.5 mg PO BID PRN 05/18/22 11/06/23 Cyclobenzaprine [Flexeril] 10 mg PO TID PRN 10/21/23 11/06/23 HYDROcodone/APAP 5-325MG [[place] 1 tab PO Q6H PRN 10/21/23 11/06/23 5-325] Simvastatin [Zocor] 20 mg PO HS 10/21/23 11/06/23 clonazePAM [KlonoPIN] 2 mg PO BID PRN 10/21/23 11/06/23 Allergies Allergy/AdvReac Type Severity Reaction Status Date / Time bupropion HCl Allergy Rash/Hives Verified 06/04/24 00:58 [From Wellbutrin] droperidol Allergy Hallucinations/Increased Verified 06/04/24 00:58 Anxiety Review of Systems ROS Statement: Those systems with pertinent positive or pertinent negative responses have been documented in the HPI. ROS Other: All systems not noted in ROS Statement are negative. Past Medical History Past Medical History: Hyperlipidemia Additional Past Medical History / Comment(s): restless leg syndrome. Complex regional pain syndrome to left lower extremity History of Any Multi-Drug Resistant Organisms: None Reported Past Surgical History: Orthopedic Surgery Additional Past Surgical History / Comment(s): FINGER AMPUTATION LEFT INDEX FINGER IN 1999, HILARIO PLACED AND REMOVED FROM LEFT LEG IN 2002 hardware removal from left ORIF lower extremity, distal tip of the finger slightly amputated after injury Past Anesthesia/Blood Transfusion Reactions: No Reported Reaction Past Psychological History: Anxiety, Depression Smoking Status: Never smoker Past Alcohol Use History: Occasional Past Drug Use History: None Reported - Past Family History Father Family Medical History: No Reported History Mother Family Medical History: No Reported History Brother(s) Family Medical History: No Reported History (Depression and anxiety) General Exam - General Exam Comments Initial Comments: Vital signs reviewed General: Well-appearing, nontoxic, no acute distress. Head: Normocephalic, atraumatic Eyes: PERRLA, EOMI ENT: Airway patent Chest: Nonlabored breathing Skin: No visual rash, normal skin tone Neuro: Alert and oriented 3 Musculoskeletal: No gross abnormalities, left knee is nonerythematous, nontender to palpation, no gross deformity no swelling or joint effusion, able to range the left knee through full range of motion without sensory or motor deficit, no tenderness to palpation of the hip or ankle, 2+ dorsalis pedis pulse palpated Limitations: no limitations Course Vital Signs 06/04/24 06/04/24 00:55 01:28 Temperature 97.7 F Pulse Rate 137 H 122 H Respiratory 18 Rate Blood Pressure 126/86 O2 Sat by Pulse 97 100 Oximetry Medical Decision Making - Medical Decision Making Was pt. sent in by a medical professional or institution (, PA, FUNERAL HOME DIRECTOR, urgent care, hospital, or senior living...) When possible be specific @ -No Did you speak to anyone other than the patient for history (EMS, parent, family, police, friend...)? What history was obtained from this source @ -No Did you review nursing and triage notes (agree or disagree)? Why? @ -I reviewed and agree with nursing and triage notes Were old charts reviewed (outside hosp., previous admission, EMS record, old EKG, old radiological studies, urgent care reports/EKG's, senior living records)? Report findings @ -Medical records reviewed-patient has multiple prior visits to the ER for similar complaint, last visit 05/11/2024 for similar complaint, Toradol Norflex and was discharged home Differential Diagnosis (chest pain, altered mental status, abdominal pain women, abdominal pain men, vaginal bleeding, weakness, fever, dyspnea, syncope, headache, dizziness, GI bleed, back pain, seizure, CVA, palpatations, mental health, musculoskeletal)? @ -Differential Musculoskeletal Muscular strain, contusion, ligament sprain, fracture, arthritis, septic arthritis, bursitis, cellulitis, muscle spasm, nerve compression, DVT, arterial occlusion, herpes zoster, electrolyte abnormality, tumor.... This is not meant to be in all inclusive list EKG interpreted by me (3pts min.). @ -As above X-rays interpreted by me (1pt min.). @ -None done CT interpreted by me (1pt min.). @ -None done U/S interpreted by me (1pt. min.). @ -None done What testing was considered but not performed or refused? (CT, X-rays, U/S, labs)? Why? Plain films were considered however knee pain is chronic, exam is benign What meds were considered but not given or refused? Why? @ -None Did you discuss the management of the patient with other professionals (professionals i.e. , PA, FUNERAL HOME DIRECTOR, lab, RT, psych nurse, social insurance specialist, migration specialist, teacher, access control officer, case management associate)? Give summary @ -No Was smoking cessation discussed for >3mins.? @ -No Was critical care preformed (if so, how long)? @ -No Were there social determinants of health that impacted care today? How? (Homelessness, low income, unemployed, alcoholism, drug addiction, transportation, low edu. Level, literacy, decrease access to med. care, [facility], rehab)? @ -No Was there de-escalation of care discussed even if they declined (Discuss DNR or withdrawal of care, Hospice)? @ -No What co-morbidities impacted this encounter? (DM, HTN, Smoking, COPD, CAD, Cancer, CVA, ARF, Chemo, Hep., AIDS, mental health diagnosis, sleep apnea, morbid obesity)? @ -None Was patient admitted / discharged? Hospital course, mention meds given and ro yusef, prescriptions, significant lab abnormalities, going to OR and other pertinent info. @ -[[id number]-old male presenting for chronic left knee pain. No recent injuries. Exam is benign. Patient will be treated with Toradol and Norflex and ultimately be discharged. Patient's mother is with him and states that he is very anxious due to his pain however he does appear calm at this time. She request medication for his anxiety. I suspect pain and anxiety may be because of his tachycardia. Patient will be given a dose of Vistaril prior to discharge. Discussed with patient plan for discharge, importance of icing and elevating his affected knee as needed for pain control, using home pain meds, and following up with his neurologist who manages his pain, this coming Thursday with whom he has an appointment. In my medical judgment there is currently no evidence of an immediate life-threatening or surgical condition. Discharge is therefore indicated at this time. Discharge treatment instructions, follow up instructions, and appropriate emergency department return precautions were discussed with the patient and/or medical decision maker. Patient and/or medical decision maker expressed understanding of and agreed with the treatment plan, follow up instructions, and emergency department return precaution. All patient's and/or medical decision maker's questions were answered. Undiagnosed new problem with uncertain prognosis? @ -No Drug Therapy requiring intensive monitoring for toxicity (Heparin, Nitro, Insulin, Cardizem)? @ -No Were any procedures done? @ -No Diagnosis/symptom? @Left knee pain Acute, or Chronic, or Acute on Chronic? Chronic Uncomplicated (without systemic symptoms) or Complicated (systemic symptoms)? Uncomplicated Side effects of treatment? @ -No Exacerbation, Progression, or Severe Exacerbation? @ -No Poses a threat to life or bodily function? How? (Chest pain, [place], [place], pneumonia, PE, COPD, DKA, ARF, appy, cholecystitis, CVA, Diverticulitis, Homicidal, Suicidal, threat to staff... and all critical care pts) @ -No Disposition Clinical Impression: Chronic pain of left knee Disposition: HOME SELF-CARE Condition: Good Additional Instructions: Every disease is a spectrum and a small chance still exists that a serious co ndition could develop, for this reason, please monitor yourself closely for new, changing or worsening symptoms, symptoms that do not begin to remove the next 48 hours, redness, swelling of your knee, new injury to your knee, fevers fever, inability to tolerate/keep down fluids or your medications, inability to follow up with outpatient providers as instructed and should you experience these symptoms or should you have any further concerns for your wellbeing please return to the ED or call 911 immediately. Your pain can be treated with ibuprofen and acetaminophen. You can take up to 400-600 mg of ibuprofen (Advil, Motrin) 3 times daily (every 8 hours) but can also use lower doses if this relieves your pain. Some people prefer naproxen (Aleve, Naprosyn) which can be taken in doses of 500 mg up to twice a day. Do not take both of these medicines together, and do not combine either with ketorolac (Toradol), meloxicam (Mobic), or indomethacin (Tivorbex). Some people can develop stomach discomfort with higher doses of either ibuprofen or naproxen, if this develops decrease your dose or stop taking it. If you need to take this dose daily for more than a week, please schedule an appointment for re-evaluation with your PCP. Please take these medications with food. You can take up to 1000 mg of acetaminophen (Tylenol) every 6 hours. Be careful as this is included in some medicines like Nyquil, [place], Percocet, Vicodin, STANBACK, Goody's Powders, and Excedrin. You can also use lidocaine patches for topical pain. You can purchase 4% patches over the counter at most drug stores. These can be helpful for pain from your muscles or bones. PLEASE call your primary care physician as soon as possible to arrange / discuss plan for followup appointment. Appointment in the next 1-3 days is strongly encouraged if possible. PLEASE let us know here before you leave if there is anything further we can do to be of any assistance. Take care and feel Better! Is patient prescribed a controlled substance at d/c from ED?: No Referrals: Jefry Castro, DO [Primary Care Provider] - 1-2 days
[2024-06-04 01:29] VITALS: PULSE 122
[2024-06-04] MEDS: KETOROLAC 15 MG/ML 1 ML VIAL IM STA (01:29)
[2024-06-04] MEDS: ORPHENADRINE 30 MG/ML 2 ML VIAL IM STA (01:30)
[2024-06-04] MEDS: hydrOXYzine HCL 25 MG TAB PO STA (01:30)
== END 2024-06-04 01:37 | disposition home or self-care (01) ==
LOC: EC 00:54
DX: G89.29 Other chronic pain (principal); M25.562 Pain in left knee; Z88.8 Allergy status to other drugs, medicaments and biological substances
CPT/HCPCS: 99283; 96372 ×2; J2360; J1885

== ENCOUNTER 2024-06-11 05:23 | Emergency (ER) | payer MEDICARE ==
[2024-06-11 05:34] VITALS: BP 151/64; PULSE 126; RESP 18; TEMP 97.9
[2024-06-11] MEDS: ORPHENADRINE 30 MG/ML 2 ML VIAL IM STA (05:44)
[2024-06-11] MEDS: KETOROLAC 15 MG/ML 1 ML VIAL IM STA (05:44)
[2024-06-11] MEDS: LORazepam 1 MG TAB PO STA (05:44)
--- NOTE | 2024-06-11 05:54 | ED ---
General Adult HPI - General Chief complaint: Extremity Problem,Nontraumatic Stated complaint: Anxiety, leg pain Time Seen by Provider: 06/11/24 05:29 Source: patient, EMS, RN notes reviewed, old records reviewed Mode of arrival: EMS - History of Present Illness Initial comments: Is a 49-year-old male well-known to our emergency department complaining of left leg pain as well as panic attack. Has a history of this. Frequents her emergency department for pain medications. Presents for further evaluation at this time. No new injuries. - Related Data Home Medications Medication Instructions Recorded Confirmed Lurasidone HCl [Latuda] 120 mg PO HS 05/18/22 11/06/23 Venlafaxine HCl [Effexor XR] 75 mg PO DAILY 05/18/22 11/06/23 Venlafaxine HCl [Effexor XR] 150 mg PO DAILY 05/18/22 11/06/23 lisinopriL [Zestril] 10 mg PO DAILY 05/18/22 11/06/23 metFORMIN HCL ER [Glucophage XR] 500 mg PO DAILY 05/18/22 11/06/23 rOPINIRole HCL [Requip] 0.5 mg PO BID PRN 05/18/22 11/06/23 Cyclobenzaprine [Flexeril] 10 mg PO TID PRN 10/21/23 11/06/23 HYDROcodone/APAP 5-325MG [[place] 1 tab PO Q6H PRN 10/21/23 11/06/23 5-325] Simvastatin [Zocor] 20 mg PO HS 10/21/23 11/06/23 clonazePAM [KlonoPIN] 2 mg PO BID PRN 10/21/23 11/06/23 Allergies Allergy/AdvReac Type Severity Reaction Status Date / Time bupropion HCl Allergy Rash/Hives Verified 06/11/24 05:34 [From Wellbutrin] droperidol Allergy Hallucinations/Increased Verified 06/11/24 05:34 Anxiety Review of Systems ROS Statement: Those systems with pertinent positive or pertinent negative responses have been documented in the HPI. Review of Systems: CONST: Denies fever EYES: Denies blurry vision ENT: Denies nasal congestion C/V: Denies Chest pain RESP: Denies shortness of breath GI: Denies abdominal pain : Denies dysuria SKIN: Denies rash. MSK: Endorses chronic left leg pain. NEURO: Denies headache ROS Other: All systems not noted in ROS Statement are negative. Past Medical History Past Medical History: Hyperlipidemia Additional Past Medical History / Comment(s): restless leg syndrome. Complex regional pain syndrome to left lower extremity History of Any Multi-Drug Resistant Organisms: None Reported Past Surgical History: Orthopedic Surgery Additional Past Surgical History / Comment(s): FINGER AMPUTATION LEFT INDEX FINGER IN 1999, HILARIO PLACED AND REMOVED FROM LEFT LEG IN 2002 hardware removal from left ORIF lower extremity, distal tip of the finger slightly amputated after injury Past Anesthesia/Blood Transfusion Reactions: No Reported Reaction Past Psychological History: Anxiety, Depression Smoking Status: Never smoker Past Alcohol Use History: Occasional Past Drug Use History: None Reported - Past Family History Father Family Medical History: No Reported History Mother Family Medical History: No Reported History Brother(s) Family Medical History: No Reported History (Depression and anxiety) General Exam - General Exam Comments Initial Comments: General: Appears mildly anxious. HEAD: Normal with no signs of head trauma. EYES: EOMI. ENT: Hearing grossly intact. RESPIRATORY: No respiratory distress. C/V: Regular rate and rhythm. Patient is tachycardic with regular rhythm. ABD: Abdomen is nondistended. EXT: Moving all 4 extremities. SKIN: No rashes or lesions observed on exposed skin. NEURO: Alert and oriented. Course Vital Signs 06/11/24 05:29 Temperature 97.9 F Pulse Rate 126 H Respiratory 18 Rate Blood Pressure 151/64 O2 Sat by Pulse 98 Oximetry Medical Decision Making - Medical Decision Making Was pt. sent in by a medical professional or institution (, PA, DRYWALL SPRAYER, urgent care, hospital, or group home...) When possible be specific @ -No Did you speak to anyone other than the patient for history (EMS, parent, family, police, friend...)? What history was obtained from this source @ -No Did you review nursing and triage notes (agree or disagree)? Why? @ -I reviewed and agree with nursing and triage notes Were old charts reviewed (outside hosp., previous admission, EMS record, old EKG, old radiological studies, urgent care reports/EKG's, group home records)? Report findings @ -Chart reviewed which revealed numerous visits for identical complaints on a monthly basis for the last 2 to 3 years. Differential Diagnosis (chest pain, altered mental status, abdominal pain women, abdominal pain men, vaginal bleeding, weakness, fever, dyspnea, syncope, hea dache, dizziness, GI bleed, back pain, seizure, CVA, palpatations, mental health, musculoskeletal)? @ -Chronic pain, panic attack, anxiety. This list is not all inclusive. EKG interpreted by me (3pts min.). @ -None done X-rays interpreted by me (1pt min.). @ -None done CT interpreted by me (1pt min.). @ -None done U/S interpreted by me (1pt. min.). @ -None done What testing was considered but not performed or refused? (CT, X-rays, U/S, labs)? Why? @ -None What meds were considered but not given or refused? Why? @ -None Did you discuss the management of the patient with other professionals (professionals i.e. , PA, DRYWALL SPRAYER, lab, RT, psych nurse, social media community manager, pharmacy consultant, teacher, child support officer, continuous pillowcase cutter)? Give summary @ -No Was smoking cessation discussed for >3mins.? @ -No Was critical care preformed (if so, how long)? @ -No Were there social determinants of health that impacted care today? How? (Homelessness, low income, unemployed, alcoholism, drug addiction, transportati on, low edu. Level, literacy, decrease access to med. care, fdc, rehab)? @ -No Was there de-escalation of care discussed even if they declined (Discuss DNR or withdrawal of care, Hospice)? DNR status @ -No What co-morbidities impacted this encounter? (DM, HTN, Smoking, COPD, CAD, Cancer, CVA, ARF, Chemo, Hep., AIDS, mental health diagnosis, sleep apnea, morbid obesity)? @ -None Was patient admitted / discharged? Hospital course, mention meds given and route, prescriptions, significant lab abnormalities, going to OR and other pertinent info. @ -Patient presents with his typical symptoms of chronic pain with anxiety. I did inform him he will not be receiving any form of narcotic medication. He can have a dose of IM Toradol and Norflex in addition to a single dose of oral Ativan. Vitals are within acceptable limits. We will reevaluate. Patient is doing better following medications. States they are weaning him off of his Klonopin. I informed him I cannot write him for any illicit substances. He will be discharged home at this time with instructions to follow-up with his PCP who manages all of his medications. He was in agreement this plan. I instructed the patient to follow up with their PCP in the next 1-3 days. I explained that the patient should return to the emergency department if they experience any worsening symptoms. Strict return precautions were discussed with the patient. The patient expressed understanding of these instructions. I answered all questions that the patient had. The patient was discharged home in good condition with their prescriptions and follow up information. Undiagnosed new problem with uncertain prognosis? @ -No Drug Therapy requiring intensive monitoring for toxicity (Heparin, Nitro, Insulin, Cardizem)? @ -No Were any procedures done? @ -No Diagnosis/symptom? @ -Chronic pain, chronic anxiety Acute, or Chronic, or Acute on Chronic? @ -Chronic Uncomplicated (without systemic symptoms) or Complicated (systemic symptoms)? @ -Uncomplicated Side effects of treatment? @ -None Exacerbation, Progression, or Severe Exacerbation] @ -No Poses a threat to life or bodily function? @ -No Disposition Clinical Impression: Chronic pain, Chronic anxiety Disposition: HOME SELF-CARE Condition: Good Additional Instructions: Follow-up with your PCP regarding your issues with your Klonopin. Follow-up in the next 1 to 3 days. Is patient prescribed a controlled substance at d/c from ED?: No Referrals: Jefry Castro DO [Primary Care Provider] - 1-2 days Time of Disposition: 06:30
[2024-06-11] MEDS: LORazepam 0.5 MG TAB PO STA (06:23)
== END 2024-06-11 06:52 | disposition home or self-care (01) ==
LOC: EC 05:23
DX: F41.9 Anxiety disorder, unspecified (principal); G89.29 Other chronic pain; F41.0 Panic disorder [episodic paroxysmal anxiety]; Z88.8 Allergy status to other drugs, medicaments and biological substances
CPT/HCPCS: 99284; 96372; J2360; J1885

== ENCOUNTER 2024-06-14 20:28 | Emergency (ER) | payer MEDICARE, OTHER ==
[2024-06-14 20:34] VITALS: TEMP 98.4
[2024-06-14] MEDS: LORazepam 2 MG/ML INJ IM STA (21:12)
[2024-06-14] MEDS: KETOROLAC 15 MG/ML 1 ML VIAL IM STA ×2 (21:15→22:08)
--- NOTE | 2024-06-14 21:34 | ED ---
Anxiety HPI - General Chief Complaint: Anxiety Stated Complaint: L Leg pain,Anxiety Time Seen by Provider: 06/14/24 20:48 Source: patient, RN notes reviewed Mode of arrival: ambulatory - History of Present Illness Initial Comments: 49-year-old male with history of chronic left leg pain and anxiety presenting for anxiety and left leg pain. Patient has chronic anxiety and states he had a panic attack 1 hour ago and is also experiencing some left leg cramping. Patient has had numerous ER visits for this. Patient's mother states patient had 2 muscle relaxers 1 hour prior to arrival. Denies chest pain or shortness of breath. - Related Data Home Medications: Home Medications Medication Instructions Recorded Confirmed Lurasidone HCl [Latuda] 120 mg PO HS 05/18/22 11/06/23 Venlafaxine HCl [Effexor XR] 75 mg PO DAILY 05/18/22 11/06/23 Venlafaxine HCl [Effexor XR] 150 mg PO DAILY 05/18/22 11/06/23 lisinopriL [Zestril] 10 mg PO DAILY 05/18/22 11/06/23 metFORMIN HCL ER [Glucophage XR] 500 mg PO DAILY 05/18/22 11/06/23 rOPINIRole HCL [Requip] 0.5 mg PO BID PRN 05/18/22 11/06/23 Cyclobenzaprine [Flexeril] 10 mg PO TID PRN 10/21/23 11/06/23 HYDROcodone/APAP 5-325MG [[place] 1 tab PO Q6H PRN 10/21/23 11/06/23 5-325] Simvastatin [Zocor] 20 mg PO HS 10/21/23 11/06/23 clonazePAM [KlonoPIN] 2 mg PO BID PRN 10/21/23 11/06/23 Allergies/Adverse Reactions: Allergies Allergy/AdvReac Type Severity Reaction Status Date / Time bupropion HCl Allergy Rash/Hives Verified 06/11/24 05:34 [From Wellbutrin] droperidol Allergy Hallucinations/Increased Verified 06/11/24 05:34 Anxiety Review of Systems ROS Statement: Those systems with pertinent positive or pertinent negative responses have been documented in the HPI. ROS Other: All systems not noted in ROS Statement are negative. Past Medical History Past Medical History: Hyperlipidemia Additional Past Medical History / Comment(s): restless leg syndrome. Complex regional pain syndrome to left lower extremity History of Any Multi-Drug Resistant Organisms: None Reported Past Surgical History: Orthopedic Surgery Additional Past Surgical History / Comment(s): FINGER AMPUTATION LEFT INDEX FINGER IN 1999, HILARIO PLACED AND REMOVED FROM LEFT LEG IN 2002 hardware removal from left ORIF lower extremity, distal tip of the finger slightly amputated after injury Past Anesthesia/Blood Transfusion Reactions: No Reported Reaction Past Psychological History: Anxiety, Depression Smoking Status: Never smoker Past Alcohol Use History: Occasional Past Drug Use History: None Reported - Past Family History Father Family Medical History: No Reported History Mother Family Medical History: No Reported History Brother(s) Family Medical History: No Reported History (Depression and anxiety) General Exam Limitations: no limitations General appearance: alert, in no apparent distress Head exam: Present: atraumatic, normocephalic, normal inspection Eye exam: Present: normal appearance, PERRL, EOMI. Absent: scleral icterus, conjunctival injection, periorbital swelling Respiratory exam: Present: normal lung sounds bilaterally. Absent: respiratory distress, wheezes, rales, rhonchi, stridor Cardiovascular Exam: Present: regular rate, normal rhythm, normal heart sounds. Absent: systolic murmur, diastolic murmur, rubs, gallop, clicks Extremities exam: Present: normal inspection, full ROM, normal capillary refill. Absent: tenderness, pedal edema, joint swelling, calf tenderness Neurological exam: Present: alert, oriented X3 Psychiatric exam: Present: normal affect, normal mood Skin exam: Present: warm, dry, intact, normal color. Absent: rash Course Vital Signs 06/14/24 20:31 Temperature 98.4 F Pulse Rate 130 H Respiratory 20 Rate Blood Pressure 114/89 O2 Sat by Pulse 96 Oximetry Medical Decision Making - Medical Decision Making Was pt. sent in by a medical professional or institution (, PA, SOC ANALYST, urgent care, hospital, or snf...) When possible be specific @ -No Did you speak to anyone other than the patient for history (EMS, parent, family, police, friend...)? What history was obtained from this source @ -Mother supplemented history Did you review nursing and triage notes (agree or disagree)? Why? @ -I reviewed and agree with nursing and triage notes Were old charts reviewed (outside hosp., previous admission, EMS record, old EKG, old radiological studies, urgent care reports/EKG's, snf records)? Report findings @ -No old charts were reviewed Differential Diagnosis (chest pain, altered mental status, abdominal pain women, abdominal pain men, vaginal bleeding, weakness, fever, dyspnea, syncope, headache, dizziness, GI bleed, back pain, seizure, CVA, palpatations, mental health, musculoskeletal)? @ -Differential Musculoskeletal Muscular strain, contusion, ligament sprain, fracture, arthritis, septic arthritis, bursitis, cellulitis, muscle spasm, nerve compression, DVT, arterial occlusion, herpes zoster, electrolyte abnormality, tumor.... This is not meant to be in all inclusive list EKG interpreted by me (3pts min.). @ -None X-rays interpreted by me (1pt min.). @ -None done CT interpreted by me (1pt min.). @ -None done U/S interpreted by me (1pt. min.). @ -None done What testing was considered but not performed or refused? (CT, X-rays, U/S, labs)? Why? @ -None What meds were considered but not given or refused? Why? @ -None Did you discuss the management of the patient with other professionals (professionals i.e. , PA, SOC ANALYST, lab, RT, psych nurse, social work faculty member, manager combination, teacher, ship's officer, correctional case records supervisor)? Give summary @ -No Was smoking cessation discussed for >3mins.? @ -No Was critical care preformed (if so, how long)? @ -No Were there social determinants of health that impacted care today? How? (Homelessness, low income, unemployed, alcoholism, drug addiction, transportation, low edu. Level, literacy, decrease access to med. care, halfway, rehab)? @ -No Was there de-escalation of care discussed even if they declined (Discuss DNR or withdrawal of care, Hospice)? DNR status @ -No What co-morbidities impacted this encounter? (DM, HTN, Smoking, COPD, CAD, Cancer, CVA, ARF, Chemo, Hep., AIDS, mental health diagnosis, sleep apnea, morbid obesity)? @ -None Was patient admitted / discharged? Hospital course, mention meds given and route, prescriptions, significant lab abnormalities, going to OR and other pertinent info. @ -Discharge. 49-year-old male with history of anxiety and chronic left leg pain presenting for panic attack and left leg pain. Patient is well-known to ER for the symptoms. Neurovascularly intact. Patient was provided with IM Toradol and Ativan. Advised patient that he must follow-up with PCP. Appropriate return precautions discussed. Case was discussed with my ED attending Dr. Winslow Undiagnosed new problem with uncertain prognosis? @ -No Drug Therapy requiring intensive monitoring for toxicity (Heparin, Nitro, Insulin, Cardizem)? @ -No Were any procedures done? @ -No Diagnosis/symptom? @ -Anxiety, left leg pain Acute, or Chronic, or Acute on Chronic? @ -Acute Uncomplicated (without systemic symptoms) or Complicated (systemic symptoms)? @ -Uncomplicated Side effects of treatment? @ -No Exacerbation, Progression, or Severe Exacerbation? @ -No Poses a threat to life or bodily function? How? (Chest pain, [place], [place], pneumonia, PE, COPD, DKA, ARF, appy, cholecystitis, CVA, Diverticulitis, Homicidal, Suicidal, threat to staff... and all critical care pts) @ -No Disposition Clinical Impression: Anxiety, Leg pain Disposition: HOME SELF-CARE Instructions (If sedation given, give patient instructions): Generalized Anxiety Disorder (ED) Additional Instructions: Please return to the Emergency Department if symptoms worsen or any other concerns. Is patient prescribed a controlled substance at d/c from ED?: No Referrals: Jefry aCstro DO [Primary Care Provider] - 1-2 days Time of Disposition: 22:00
[2024-06-14] MEDS ORDERED: LORazepam 1 MG TAB PO STA (21:58)
[2024-06-14] MEDS: LORazepam 0.5 MG TAB PO STA (22:07)
[2024-06-14 22:20] VITALS: BP 129/85; PULSE 124; RESP 16
== END 2024-06-14 22:34 | disposition home or self-care (01) ==
LOC: EC 20:28
DX: F41.9 Anxiety disorder, unspecified (principal); M79.662 Pain in left lower leg; Z88.8 Allergy status to other drugs, medicaments and biological substances
CPT/HCPCS: 99283; 96372 ×3; J2060; J1885

== ENCOUNTER 2024-06-18 02:46 | Emergency (ER) | payer MEDICARE ==
[2024-06-18 02:52] VITALS: RESP 18
[2024-06-18] MEDS: KETOROLAC 15 MG/ML 1 ML VIAL IM STA (03:59)
[2024-06-18] MEDS: ORPHENADRINE 30 MG/ML 2 ML VIAL IM STA (04:01)
--- NOTE | 2024-06-18 04:18 | ED ---
Lower Extremity Injury HPI - General Chief Complaint: Extremity Injury, Lower Stated Complaint: left leg pain Time Seen by Provider: 06/18/24 03:24 Source: patient Mode of arrival: wheelchair Limitations: no limitations - History of Present Illness Initial Comments: This patient is 49-year-old man with history of regional pain syndrome who does have nerve stimulator implanted for this condition. The patient having flareup of his chronic left leg pain. Patient denies any new injury. Patient's mother also gives history. They have not noticed any changes suggestive of infection, no fevers, erythema, swelling. No weakness or numbness. MD Complaint: leg injury -: hour(s) Injury: Thigh: Left Place: home Severity: severe Improves With: nothing - Related Data Home Medications Medication Instructions Recorded Confirmed Lurasidone HCl [Latuda] 120 mg PO HS 05/18/22 11/06/23 Venlafaxine HCl [Effexor XR] 75 mg PO DAILY 05/18/22 11/06/23 Venlafaxine HCl [Effexor XR] 150 mg PO DAILY 05/18/22 11/06/23 lisinopriL [Zestril] 10 mg PO DAILY 05/18/22 11/06/23 metFORMIN HCL ER [Glucophage XR] 500 mg PO DAILY 05/18/22 11/06/23 rOPINIRole HCL [Requip] 0.5 mg PO BID PRN 05/18/22 11/06/23 Cyclobenzaprine [Flexeril] 10 mg PO TID PRN 10/21/23 11/06/23 HYDROcodone/APAP 5-325MG [[place] 1 tab PO Q6H PRN 10/21/23 11/06/23 5-325] Simvastatin [Zocor] 20 mg PO HS 10/21/23 11/06/23 clonazePAM [KlonoPIN] 2 mg PO BID PRN 10/21/23 11/06/23 Allergies Allergy/AdvReac Type Severity Reaction Status Date / Time bupropion HCl Allergy Rash/Hives Verified 06/18/24 02:51 [From Wellbutrin] droperidol Allergy Hallucinations/Increased Verified 06/18/24 02:51 Anxiety Review of Systems ROS Statement: Those systems with pertinent positive or pertinent negative responses have been documented in the HPI. ROS Other: All systems not noted in ROS Statement are negative. Constitutional: Denies: fever, chills, weakness Respiratory: Denies: cough, dyspnea Cardiovascular: Denies: chest pain, edema Musculoskeletal: Reports: as per HPI, myalgia Skin: Denies: rash Neurological: Denies: headache, weakness, numbness Psychiatric: Reports: anxiety Past Medical History Past Medical History: Hyperlipidemia Additional Past Medical History / Comment(s): restless leg syndrome. Complex regional pain syndrome to left lower extremity History of Any Multi-Drug Resistant Organisms: None Reported Past Surgical History: Orthopedic Surgery Additional Past Surgical History / Comment(s): FINGER AMPUTATION LEFT INDEX FINGER IN 1999, HILARIO PLACED AND REMOVED FROM LEFT LEG IN 2002 hardware removal from left ORIF lower extremity, distal tip of the finger slightly amputated after injury Past Anesthesia/Blood Transfusion Reactions: No Reported Reaction Past Psychological History: Anxiety, Depression Smoking Status: Never smoker Past Alcohol Use History: Occasional Past Drug Use History: None Reported - Past Family History Father Family Medical History: No Reported History Mother Family Medical History: No Reported History Brother(s) Family Medical History: No Reported History (Depression and anxiety) General Exam Limitations: no limitations General appearance: alert, in no apparent distress, anxious Head exam: Present: atraumatic, normocephalic Eye exam: Present: normal appearance. Absent: scleral icterus, conjunctival injection Respiratory exam: Present: normal lung sounds bilaterally. Absent: respiratory distress, wheezes, rales, rhonchi, stridor Cardiovascular Exam: Present: normal rhythm, tachycardia, normal heart sounds. Absent: systolic murmur, diastolic murmur, rubs, gallop GI/Abdominal exam: Present: soft. Absent: tenderness Extremities exam: Present: normal inspection, other (Inspection of the leg reveals no erythema, warmth, swelling or other findings suggestive of acute process.) Back exam: Present: normal inspection Neurological exam: Present: alert. Absent: motor sensory deficit Skin exam: Present: warm, dry, intact, normal color. Absent: rash Course Vital Signs 06/18/24 06/18/24 02:48 04:57 Temperature 97.9 F 97.7 F Pulse Rate 127 H 111 H Respiratory 18 18 Rate Blood Pressure 145/81 127/83 O2 Sat by Pulse 97 97 Oximetry Medical Decision Making - Medical Decision Making Was pt. sent in by a medical professional or institution (, PA, BIOCHEMISTRY SPECIALIST, urgent care, hospital, or custodial...) When possible be specific @ -[No] Did you speak to anyone other than the patient for history (EMS, parent, family, police, friend...)? What history was obtained from this source @ -[The patient's mother did contribute to history Did you review nursing and triage notes (agree or disagree)? Why? @ -[I reviewed and agree with nursing and triage notes] Were old charts reviewed (outside hosp., previous admission, EMS record, old EKG, old radiological studies, urgent care reports/EKG's, custodial records)? Report findings @ -[No old charts were reviewed] Differential Diagnosis (chest pain, altered mental status, abdominal pain women, abdominal pain men, vaginal bleeding, weakness, fever, dyspnea, syncope, headache, dizziness, GI bleed, back pain, seizure, CVA, palpatations, mental health, musculoskeletal)? @ -[Differential Musculoskeletal Muscular strain, contusion, ligament sprain, fracture, arthritis, septic arthritis, bursitis, cellulitis, muscle spasm, nerve compression, DVT, arterial occlusion, herpes zoster, electrolyte abnormality, tumor.... This is not meant to be in all inclusive list EKG interpreted by me (3pts min.). @ -[As above] X-rays interpreted by me (1pt min.). @ -[None done] CT interpreted by me (1pt min.). @ -[None done] U/S interpreted by me (1pt. min.). @ -[None done] What testing was considered but not performed or refused? (CT, X-rays, U/S, labs)? Why? @ -[None] What meds were considered but not given or refused? Why? @ -[None] Did you discuss the management of the patient with other professionals (keanu zafar i.e. , PA, BIOCHEMISTRY SPECIALIST, lab, RT, psych nurse, social work therapist, national account manager, teacher, business enterprise officer, lead case manager)? Give summary @ -[No] Was smoking cessation discussed for >3mins.? @ -[No] Was critical care preformed (if so, how long)? @ -[No] Were there social determinants of health that impacted care today? How? (Homelessness, low income, unemployed, alcoholism, drug addiction, transportatio n, low edu. Level, literacy, decrease access to med. care, detention, rehab)? @ -[No] Was there de-escalation of care discussed even if they declined (Discuss DNR or withdrawal of care, Hospice)? DNR status @ -[No] What co-morbidities impacted this encounter? (DM, HTN, Smoking, COPD, CAD, Cancer, CVA, ARF, Chemo, Hep., AIDS, mental health diagnosis, sleep apnea, morbid obesity)? @ -[None] Was patient admitted / discharged? Hospital course, mention meds given and route, prescriptions, significant lab abnormalities, going to OR and other pertinent info. @ -[Patient is 49-year-old man here with a flareup of his chronic leg pain. 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 @ -[No] Drug Therapy requiring intensive monitoring for toxicity (Heparin, Nitro, Insulin, Cardizem)? @ -[No] Were any procedures done? @ -[No] Diagnosis/symptom? @ -[Acute exacerbation of chronic left leg pain Acute, or Chronic, or Acute on Chronic? @ -[Acute on chronic Uncomplicated (without systemic symptoms) or Complicated (systemic symptoms)? @ -[Uncomplicated Side effects of treatment? @ -[No] Exacerbation, Progression, or Severe Exacerbation? @ -[No] Poses a threat to life or bodily function? How? (Chest pain, [place], [place], pneumonia, PE, COPD, DKA, ARF, appy, cholecystitis, CVA, Diverticulitis, Homicidal, Suicidal, threat to staff... and all critical care pts) @ -[No] All treatments are based on ideal body weight as in ED triage Disposition Clinical Impression: Left leg pain Disposition: HOME SELF-CARE Condition: Good Instructions (If sedation given, give patient instructions): Leg Pain (ED) Is patient prescribed a controlled substance at d/c from ED?: No Referrals: Jefry Castro DO [Primary Care Provider] - 1-2 days Renée Franco MD [Medical Doctor] - 1-2 days
[2024-06-18 05:00] VITALS: BP 127/83; PULSE 111; TEMP 97.7
== END 2024-06-18 04:57 | disposition home or self-care (01) ==
LOC: EC 02:46
DX: G89.29 Other chronic pain (principal); M79.605 Pain in left leg; Z88.8 Allergy status to other drugs, medicaments and biological substances
CPT/HCPCS: 99283; 96372 ×2; J2360; J1885

== ENCOUNTER 2024-06-28 23:18 | Emergency (ER) | payer MEDICARE ==
--- NOTE | 2024-06-28 23:56 | ED ---
Extremity Problem HPI - General Chief complaint: Extremity Problem,Nontraumatic Stated complaint: knee pain Time Seen by Provider: 06/28/24 23:56 Source: patient, family (mother), RN notes reviewed, old records reviewed Mode of arrival: ambulatory Limitations: no limitations - History of Present Illness Initial comments: 49-year-old male presented to the ER accompanied by his mother for evaluation of chronic left knee pain. Patient reports he is having a flare of his chronic left knee pain. He has tried [id number] medications including Tylenol without relief of symptoms. Patient's mother reports he has a nerve stimulator in place. He denies any new injuries or traumas. No paresthesias. Reports pain is similar to prior left knee pain flares. No other complaint - Related Data Home Medications Medication Instructions Recorded Confirmed Lurasidone HCl [Latuda] 120 mg PO HS 05/18/22 11/06/23 Venlafaxine HCl [Effexor XR] 75 mg PO DAILY 05/18/22 11/06/23 Venlafaxine HCl [Effexor XR] 150 mg PO DAILY 05/18/22 11/06/23 lisinopriL [Zestril] 10 mg PO DAILY 05/18/22 11/06/23 metFORMIN HCL ER [Glucophage XR] 500 mg PO DAILY 05/18/22 11/06/23 rOPINIRole HCL [Requip] 0.5 mg PO BID PRN 05/18/22 11/06/23 Cyclobenzaprine [Flexeril] 10 mg PO TID PRN 10/21/23 11/06/23 HYDROcodone/APAP 5-325MG [[place] 1 tab PO Q6H PRN 10/21/23 11/06/23 5-325] Simvastatin [Zocor] 20 mg PO HS 10/21/23 11/06/23 clonazePAM [KlonoPIN] 2 mg PO BID PRN 10/21/23 11/06/23 Allergies Allergy/AdvReac Type Severity Reaction Status Date / Time bupropion HCl Allergy Rash/Hives Verified 06/28/24 23:21 [From Wellbutrin] droperidol Allergy Hallucinations/Increased Verified 06/28/24 23:21 Anxiety Review of Systems ROS Statement: Those systems with pertinent positive or pertinent negative responses have been documented in the HPI. ROS Other: All systems not noted in ROS Statement are negative. Past Medical History Past Medical History: Hyperlipidemia Additional Past Medical History / Comment(s): restless leg syndrome. Complex regional pain syndrome to left lower extremity History of Any Multi-Drug Resistant Organisms: None Reported Past Surgical History: Orthopedic Surgery Additional Past Surgical History / Comment(s): FINGER AMPUTATION LEFT INDEX FINGER IN 1999, HILARIO PLACED AND REMOVED FROM LEFT LEG IN 2002 hardware removal from left ORIF lower extremity, distal tip of the finger slightly amputated after injury Past Anesthesia/Blood Transfusion Reactions: No Reported Reaction Past Psychological History: Anxiety, Depression Smoking Status: Never smoker Past Alcohol Use History: Occasional Past Drug Use History: None Reported - Past Family History Father Family Medical History: No Reported History Mother Family Medical History: No Reported History Brother(s) Family Medical History: No Reported History (Depression and anxiety) General Exam Limitations: no limitations General appearance: alert, in no apparent distress Respiratory exam: Present: normal lung sounds bilaterally. Absent: respiratory distress, wheezes, rales, rhonchi, stridor Cardiovascular Exam: Present: normal rhythm, tachycardia, normal heart sounds. Absent: systolic murmur, diastolic murmur, rubs, gallop, clicks Extremities exam: Present: normal inspection, full ROM (Full active range of motion of left knee hip and ankle), normal capillary refill (2+ left DP/PT pulses), other (No focal bony tenderness). Absent: tenderness, pedal edema, joint swelling, calf tenderness Neurological exam: Present: alert, oriented X3, CN II-XII intact Skin exam: Present: warm, dry, intact, normal color. Absent: rash Course Vital Signs 06/28/24 06/29/24 23:19 00:45 Temperature 98.2 F 98.1 F Pulse Rate 134 H 115 H Respiratory 18 19 Rate Blood Pressure 110/81 117/79 O2 Sat by Pulse 96 98 Oximetry Medical Decision Making - Medical Decision Making Was pt. sent in by a medical professional or institution (, PA, DRUM HANDLER, urgent care, hospital, or senior living...) When possible be specific @ -No Did you speak to anyone other than the patient for history (EMS, parent, family, police, friend...)? What history was obtained from this source @ -Patient's mother aiding in HPI and past medical history. Did you review nursing and triage notes (agree or disagree)? Why? @ -I reviewed and agree with nursing and triage notes Were old charts reviewed (outside hosp., previous admission, EMS record, old EKG, old radiological studies, urgent care reports/EKG's, senior living records)? Report findings @ -Prior medical records Differential Diagnosis (chest pain, altered mental status, abdominal pain women, abdominal pain men, vaginal bleeding, weakness, fever, dyspnea, syncope, headache, dizziness, GI bleed, back pain, seizure, CVA, palpatations, mental health, musculoskeletal)? @ -Differential Musculoskeletal: Muscular strain, contusion, ligament sprain, fracture, arthritis, septic arthritis, bursitis, cellulitis, muscle spasm, nerve compression, DVT, arterial occlusion, herpes zoster, electrolyte abnormality, tumor.... This is not meant to be in all inclusive list EKG interpreted by me (3pts min.). @ -None done X-rays interpreted by me (1pt min.). @ -None done CT interpreted by me (1pt min.). @ -None done U/S interpreted by me (1pt. min.). @ -None done What testing was considered but not performed or refused? (CT, X-rays, U/S, labs)? Why? @ -Imaging deferred as patient reports no new injuries or traumas. Pain similar to prior knee pain flares. Patient agreeable. What meds were considered but not given or refused? Why? @ -None Did you discuss the management of the patient with other professionals (professionals i.e. , PA, DRUM HANDLER, lab, RT, psych nurse, social service assistant, lawyer criminal, teacher, [employer] officer, case work aide)? Give summary @ -No Was smoking cessation discussed for >3mins.? @ -No Was critical care preformed (if so, how long)? @ -No Were there social determinants of health that impacted care today? How? (Homelessness, low income, unemployed, alcoholism, drug addiction, transportation, low edu. Level, literacy, decrease access to med. care, penitentiary, rehab)? @ -No Was there de-escalation of care discussed even if they declined (Discuss DNR or withdrawal of care, Hospice)? DNR status @ -No What co-morbidities impacted this encounter? (DM, HTN, Smoking, COPD, CAD, Cancer, CVA, ARF, Chemo, Hep., AIDS, mental health diagnosis, sleep apnea, morbid obesity)? @ -None Was patient admitted / discharged? Hospital course, mention meds given and route, prescriptions, significant lab abnormalities, going to OR and other pertinent info. @ -Discharge. 49-year-old male well-known to this emergency department for evaluation of chronic left knee pain. Patient reports pain is chronic. No new injuries. Patient is neurovascularly intact. Patient received symptomatic control and discharged in stable condition with close follow-up to outpatient specialist and PCP. Patient further expressed understand agree with care plan. Case discussed with ED attending, . Undiagnosed new problem with uncertain prognosis? @ -No Drug Therapy requiring intensive monitoring for toxicity (Heparin, Nitro, Insulin, Cardizem)? @ -No Were any procedures done? @ -No Diagnosis/symptom? @ -Knee pain Acute, or Chronic, or Acute on Chronic? @ -Chronic Uncomplicated (without systemic symptoms) or Complicated (systemic symptoms)? @ -Uncomplicated Side effects of treatment? @ -No Exacerbation, Progression, or Severe Exacerbation? @ -No Poses a threat to life or bodily function? How? (Chest pain, [place], [place], pneumonia, PE, COPD, DKA, ARF, appy, cholecystitis, CVA, Diverticulitis, Homicidal, Suicidal, threat to staff... and all critical care pts) @ -No Disposition Clinical Impression: Chronic pain of left knee Disposition: HOME SELF-CARE Condition: Stable Additional Instructions: Follow-up with pain management. Return to the ER for new or worsening concerns. Is patient prescribed a controlled substance at d/c from ED?: No Referrals: Jefry Castro DO [Primary Care Provider] - 1-2 days Time of Disposition: 23:59
[2024-06-29] MEDS: ORPHENADRINE 30 MG/ML 2 ML VIAL IM STA (00:29)
[2024-06-29] MEDS: KETOROLAC 15 MG/ML 1 ML VIAL IM STA (00:29)
[2024-06-29] MEDS: LIDOCAINE 4% PATCH TOPICAL ONE (00:29)
[2024-06-29 00:47] VITALS: BP 117/79; PULSE 115; RESP 19; TEMP 98.1
== END 2024-06-29 00:45 | disposition home or self-care (01) ==
LOC: EC 23:18
DX: G89.29 Other chronic pain (principal); M25.562 Pain in left knee; Z88.8 Allergy status to other drugs, medicaments and biological substances
CPT/HCPCS: 99283; 96372 ×2; J2360; J1885

== ENCOUNTER 2024-07-02 06:33 | Emergency (ER) | payer MEDICARE ==
[2024-07-02 06:43] VITALS: BP 156/83; TEMP 99
--- NOTE | 2024-07-02 07:05 | ED ---
General Adult HPI - General Chief complaint: Extremity Problem,Nontraumatic Stated complaint: leg pain Time Seen by Provider: 07/02/24 06:56 Source: patient, family, EMS, RN notes reviewed Mode of arrival: EMS Limitations: physical limitation - History of Present Illness Initial comments: 49-year-old male who is well-known to our emergency department presenting via EMS for complaints of chronic left leg pain. Denies falls or injuries. States the pain is radiating down his leg. He has not yet taking his morning medications. - Related Data Home Medications Medication Instructions Recorded Confirmed Lurasidone HCl [Latuda] 120 mg PO HS 05/18/22 11/06/23 Venlafaxine HCl [Effexor XR] 75 mg PO DAILY 05/18/22 11/06/23 Venlafaxine HCl [Effexor XR] 150 mg PO DAILY 05/18/22 11/06/23 lisinopriL [Zestril] 10 mg PO DAILY 05/18/22 11/06/23 metFORMIN HCL ER [Glucophage XR] 500 mg PO DAILY 05/18/22 11/06/23 rOPINIRole HCL [Requip] 0.5 mg PO BID PRN 05/18/22 11/06/23 Cyclobenzaprine [Flexeril] 10 mg PO TID PRN 10/21/23 11/06/23 HYDROcodone/APAP 5-325MG [[place] 1 tab PO Q6H PRN 10/21/23 11/06/23 5-325] Simvastatin [Zocor] 20 mg PO HS 10/21/23 11/06/23 clonazePAM [KlonoPIN] 2 mg PO BID PRN 10/21/23 11/06/23 Allergies Allergy/AdvReac Type Severity Reaction Status Date / Time bupropion HCl Allergy Rash/Hives Verified 07/02/24 06:41 [From Wellbutrin] droperidol Allergy Hallucinations/Increased Verified 07/02/24 06:41 Anxiety Review of Systems ROS Statement: Those systems with pertinent positive or pertinent negative responses have been documented in the HPI. ROS Other: All systems not noted in ROS Statement are negative. Past Medical History Past Medical History: Hyperlipidemia Additional Past Medical History / Comment(s): restless leg syndrome. Complex regional pain syndrome to left lower extremity History of Any Multi-Drug Resistant Organisms: None Reported Past Surgical History: Orthopedic Surgery Additional Past Surgical History / Comment(s): FINGER AMPUTATION LEFT INDEX FINGER IN 1999, HILARIO PLACED AND REMOVED FROM LEFT LEG IN 2002 hardware removal from left ORIF lower extremity, distal tip of the finger slightly amputated after injury Past Anesthesia/Blood Transfusion Reactions: No Reported Reaction Past Psychological History: Anxiety, Depression Smoking Status: Never smoker Past Alcohol Use History: Occasional Past Drug Use History: None Reported - Past Family History Father Family Medical History: No Reported History Mother Family Medical History: No Reported History Brother(s) Family Medical History: No Reported History (Depression and anxiety) General Exam Limitations: physical limitation General appearance: alert, in no apparent distress Neck exam: Present: normal inspection. Absent: tenderness, meningismus, lymphadenopathy Respiratory exam: Present: normal lung sounds bilaterally. Absent: respiratory distress, wheezes, rales, rhonchi, stridor Cardiovascular Exam: Present: regular rate, normal rhythm, normal heart sounds. Absent: systolic murmur, diastolic murmur, rubs, gallop, clicks GI/Abdominal exam: Present: soft, normal bowel sounds. Absent: distended, tenderness, guarding, rebound, rigid Left Upper Leg exam: Present: tenderness Knee exam: Present: tenderness Lower Leg exam: Present: tenderness Ankle exam: Present: tenderness Neurovascular tendon exam: Present: no vascular compromise Back exam: Present: normal inspection Neurological exam: Present: alert, oriented X3, CN II-XII intact Course Vital Signs 07/02/24 07/02/24 06:41 08:05 Temperature 99 F Pulse Rate 144 H 110 H Respiratory 20 18 Rate Blood Pressure 156/83 O2 Sat by Pulse 96 98 Oximetry Medical Decision Making - Medical Decision Making Was pt. sent in by a medical professional or institution (, PA, OPTIC FIBRE DRAWER, urgent care, hospital, or halfway...) When possible be specific @ -No Did you speak to anyone other than the patient for history (EMS, parent, family, police, friend...)? What history was obtained from this source @ -No Did you review nursing and triage notes (agree or disagree)? Why? @ -I reviewed and agree with nursing and triage notes Were old charts reviewed (outside hosp., previous admission, EMS record, old EKG, old radiological studies, urgent care reports/EKG's, halfway records)? Report findings @ -No old charts were reviewed Differential Diagnosis (chest pain, altered mental status, abdominal pain women, abdominal pain men, vaginal bleeding, weakness, fever, dyspnea, syncope, headache, dizziness, GI bleed, back pain, seizure, CVA, palpatations, mental health, musculoskeletal)? @ -Differential Musculoskeletal Muscular strain, contusion, ligament sprain, fracture, arthritis, septic arthritis, bursitis, cellulitis, muscle spasm, nerve compression, DVT, arterial occlusion, herpes zoster, electrolyte abnormality, tumor.... This is not meant to be in all inclusive list EKG interpreted by me (3pts min.). @ -None X-rays interpreted by me (1pt min.). @ -None done CT interpreted by me (1pt min.). @ -None done U/S interpreted by me (1pt. min.). @ -None done What testing was considered but not performed or refused? (CT, X-rays, U/S, labs)? Why? @ -None What meds were considered but not given or refused? Why? @ -None Did you discuss the management of the patient with other professionals (professionals i.e. , PA, OPTIC FIBRE DRAWER, lab, RT, psych nurse, health care social worker, photography coordinator, teacher, low altitude air defense officer, casework specialist)? Give summary @ -No Was smoking cessation discussed for >3mins.? @ -No Was critical care preformed (if so, how long)? @ -No Were there social determinants of health that impacted care today? How? (Homelessness, low income, unemployed, alcoholism, drug addiction, transportation, low edu. Level, literacy, decrease access to med. care, assisted, rehab)? @ -No Was there de-escalation of care discussed even if they declined (Discuss DNR or withdrawal of care, Hospice)? DNR status @ -No What co-morbidities impacted this encounter? (DM, HTN, Smoking, COPD, CAD, Cancer, CVA, ARF, Chemo, Hep., AIDS, mental health diagnosis, sleep apnea, morbid obesity)? @ -None Was patient admitted / discharged? Hospital course, mention meds given and route, prescriptions, significant lab abnormalities, going to OR and other pertinent info. @ -Discharged. 49-year-old male presenting to emergency department via EMS for chronic left leg pain. Patient's is provided with home medications and is stable for discharge. Discussed with Dr. Bishop Undiagnosed new problem with uncertain prognosis? @ -No Drug Therapy requiring intensive monitoring for toxicity (Heparin, Nitro, I nsulin, Cardizem)? @ -No Were any procedures done? @ -No Diagnosis/symptom? @ -chronic leg pain Acute, or Chronic, or Acute on Chronic? @ -chronic Uncomplicated (without systemic symptoms) or Complicated (systemic symptoms)? @ -uncomplicated Side effects of treatment? @ -No Exacerbation, Progression, or Severe Exacerbation? @ -No Poses a threat to life or bodily function? How? (Chest pain, [place], [place], pneumonia, PE, COPD, DKA, ARF, appy, cholecystitis, CVA, Diverticulitis, Homicidal, Suicidal, threat to staff... and all critical care pts) @ -No Disposition Clinical Impression: Chronic leg pain Disposition: HOME SELF-CARE Condition: Stable Instructions (If sedation given, give patient instructions): Arthralgia (ED), Leg Pain (ED) Additional Instructions: Please return to the Emergency Department if symptoms worsen or any other concerns. Is patient prescribed a controlled substance at d/c from ED?: No Referrals: Jefry Castro DO [Primary Care Provider] - 1-2 days Time of Disposition: 07:09
[2024-07-02] MEDS: GABAPENTIN 300 MG CAP PO STA (07:21)
[2024-07-02] MEDS: clonazePAM 0.5 MG TAB PO STA (07:22)
[2024-07-02 08:10] VITALS: PULSE 110; RESP 18
== END 2024-07-02 12:15 | disposition home or self-care (01) ==
LOC: EC 06:33
DX: G89.29 Other chronic pain (principal); M79.605 Pain in left leg; Z88.8 Allergy status to other drugs, medicaments and biological substances
CPT/HCPCS: 99283

== ENCOUNTER 2024-07-08 01:22 | Emergency (ER) | payer MEDICARE ==
[2024-07-08 01:26] VITALS: RESP 18; TEMP 97.6
--- NOTE | 2024-07-08 01:48 | ED ---
Extremity Problem HPI - General Chief complaint: Extremity Problem,Nontraumatic Stated complaint: L Leg pain Time Seen by Provider: 07/08/24 01:44 Source: patient, RN notes reviewed Mode of arrival: ambulatory Limitations: no limitations - History of Present Illness Initial comments: This is a 49-year-old male who presents to the emergency department for left leg pain. Patient has a history of complex regional pain syndrome and restless leg syndrome and is well-known to this emergency department for recurrent visits related to the same complaint. Denies any new injuries. MD Complaint: extremity pain - Related Data Home Medications Medication Instructions Recorded Confirmed Lurasidone HCl [Latuda] 120 mg PO HS 05/18/22 11/06/23 Venlafaxine HCl [Effexor XR] 75 mg PO DAILY 05/18/22 11/06/23 Venlafaxine HCl [Effexor XR] 150 mg PO DAILY 05/18/22 11/06/23 lisinopriL [Zestril] 10 mg PO DAILY 05/18/22 11/06/23 metFORMIN HCL ER [Glucophage XR] 500 mg PO DAILY 05/18/22 11/06/23 rOPINIRole HCL [Requip] 0.5 mg PO BID PRN 05/18/22 11/06/23 Cyclobenzaprine [Flexeril] 10 mg PO TID PRN 10/21/23 11/06/23 HYDROcodone/APAP 5-325MG [[place] 1 tab PO Q6H PRN 10/21/23 11/06/23 5-325] Simvastatin [Zocor] 20 mg PO HS 10/21/23 11/06/23 clonazePAM [KlonoPIN] 2 mg PO BID PRN 10/21/23 11/06/23 Allergies Allergy/AdvReac Type Severity Reaction Status Date / Time bupropion HCl Allergy Rash/Hives Verified 07/08/24 01:26 [From Wellbutrin] droperidol Allergy Hallucinations/Increased Verified 07/08/24 01:26 Anxiety Review of Systems ROS Statement: Those systems with pertinent positive or pertinent negative responses have been documented in the HPI. ROS Other: All systems not noted in ROS Statement are negative. Past Medical History Past Medical History: Hyperlipidemia Additional Past Medical History / Comment(s): restless leg syndrome. Complex regional pain syndrome to left lower extremity History of Any Multi-Drug Resistant Organisms: None Reported Past Surgical History: Orthopedic Surgery Additional Past Surgical History / Comment(s): FINGER AMPUTATION LEFT INDEX FINGER IN 1999, HILARIO PLACED AND REMOVED FROM LEFT LEG IN 2002 hardware removal from left ORIF lower extremity, distal tip of the finger slightly amputated after injury Past Anesthesia/Blood Transfusion Reactions: No Reported Reaction Past Psychological History: Anxiety, Depression Smoking Status: Never smoker Past Alcohol Use History: Occasional Past Drug Use History: None Reported - Past Family History Father Family Medical History: No Reported History Mother Family Medical History: No Reported History Brother(s) Family Medical History: No Reported History (Depression and anxiety) General Exam Limitations: no limitations General appearance: alert, in no apparent distress Head exam: Present: atraumatic, normocephalic, normal inspection Respiratory exam: Present: normal lung sounds bilaterally. Absent: respiratory distress, wheezes, rales, rhonchi, stridor Cardiovascular Exam: Present: regular rate, normal rhythm Neurological exam: Present: alert, oriented X3, CN II-XII intact Psychiatric exam: Present: normal affect, normal mood Skin exam: Present: warm, dry, intact, normal color. Absent: rash Course Vital Signs 07/08/24 07/08/24 01:23 02:04 Temperature 97.6 F Pulse Rate 120 H 106 H Respiratory 18 18 Rate Blood Pressure 137/88 130/82 O2 Sat by Pulse 97 100 Oximetry Medical Decision Making - Medical Decision Making This is a 49-year-old male who presents to the emergency department for left leg pain. Was pt. sent in by a medical professional or institution? @ -No Did you speak to anyone other than the patient for history? @ -No Did you review nursing and triage notes? @ -Yes, and I agree, it is accurate with regards to the patient's symptoms. Were old charts reviewed? @ -No Differential Diagnosis? @ -Differential Musculoskeletal Muscular strain, contusion, ligament sprain, fracture, arthritis, septic arthritis, bursitis, cellulitis, muscle spasm, nerve compression, DVT, arterial occlusion, herpes zoster, electrolyte abnormality, tumor.... This is not meant to be in all inclusive list EKG interpreted by me (3pts min.)? @ -Not obtained X-rays interpreted by me (1pt min.)? @ -Not obtained CT interpreted by me (1pt min.)? @ -Not obtained U/S interpreted by me (1pt. min.)? @ -Not obtained What testing was considered but not performed? (CT, X-rays, U/S, labs)? Why? @ -None What meds were considered but not given? Why? @ -None Did you discuss the management of the patient with other professionals? @ -No Did you reconcile home meds? @ -No Was smoking cessation discussed for >3mins.? @ -No Was critical care preformed (if so, how long)? @ -No Were there social determinants of health that impacted care today? How? (Homelessness, low income, unemployed, alcoholism, drug addiction, transportation, low edu. Level, literacy, decrease access to med. care, nursing home, rehab)? @ -No Was there de-escalation of care discussed even if they declined? (Discuss DNR or withdrawal of care, Hospice)? @ -No What co-morbidities impacted this encounter? (DM, HTN, Smoking, COPD, CAD, Cancer, CVA, Hep., AIDS, mental health diagnosis, sleep apnea, morbid obesity)? @ -Complex regional pain syndrome, RLS Was patient admitted / discharged? @ -Discharged. Patient presents for acute on chronic left leg pain. Toradol and Norflex administered for pain control and patient was discharged home in stable condition. Case discussed with ED attending Dr. Allan. Return precautions reviewed in depth, the patient is instructed to return to the emergency department with any new, worsening, or concerning symptoms. Patient verbalized understanding. Undiagnosed new problem with uncertain prognosis? @ -None Drug Therapy requiring intensive monitoring for toxicity (Heparin, Nitro, Insulin, Cardizem)? @ -None Were any procedures done? @ -None Diagnosis/symptom? @ -Left leg pain Acute, or Chronic, or Acute on Chronic? @ -Acute on chronic Uncomplicated (without systemic symptoms) or Complicated (systemic symptoms)? @ -Uncomplicated Side effects of treatment? @ -None Exacerbation, Progression, or Severe Exacerbation] @ -Exacerbation Poses a threat to life or bodily function? @ -No Disposition Clinical Impression: Chronic leg pain Disposition: HOME SELF-CARE Additional Instructions: Return to the emergency department with any new, worsening, or concerning symptoms. Follow up with your primary care provider in 1-2 days. Is patient prescribed a controlled substance at d/c from ED?: No Referrals: Jefry Castro DO [Primary Care Provider] - 1-2 days Time of Disposition: 01:48
[2024-07-08] MEDS: LORazepam 1 MG TAB PO STA (01:59)
[2024-07-08] MEDS: KETOROLAC 15 MG/ML 1 ML VIAL IM STA (01:59)
[2024-07-08] MEDS: ORPHENADRINE 30 MG/ML 2 ML VIAL IM STA (02:01)
[2024-07-08 02:05] VITALS: BP 130/82; PULSE 106
== END 2024-07-08 02:05 | disposition home or self-care (01) ==
LOC: EC 01:22
DX: G89.29 Other chronic pain (principal); M79.605 Pain in left leg; G25.81 Restless legs syndrome; Z88.8 Allergy status to other drugs, medicaments and biological substances
CPT/HCPCS: 99283; 96372 ×2; J2360; J1885

== ENCOUNTER 2024-07-10 02:55 | Emergency (ER) | payer MEDICARE ==
[2024-07-10] MEDS: LORazepam 1 MG TAB PO STA (03:37)
[2024-07-10] MEDS: ORPHENADRINE 30 MG/ML 2 ML VIAL IM STA (03:37)
--- NOTE | 2024-07-10 05:03 | ED ---
General Adult HPI - General Chief complaint: Recheck/Abnormal Lab/Rx Stated complaint: Leg Pain Time Seen by Provider: 07/10/24 03:15 Source: patient, EMS Mode of arrival: EMS Limitations: no limitations - History of Present Illness Initial comments: This patient is a 49-year-old man with history of chronic left leg pain following leg injury with surgery years ago. He does have implanted nerve stimulator but states not controlling symptoms. He has taken all of his home medications without much relief. Patient also having increasing anxiety in rel ation to the pain. Denies new symptoms. No loss of sensation or motor. Onset/Timin -: hour(s) Location: left, lower extremity Severity scale (1-10): 10 Quality: burning, aching Consistency: constant Improves with: none Worsens with: none Associated Symptoms: other (Anxiety) - Related Data Home Medications Medication Instructions Recorded Confirmed Lurasidone HCl [Latuda] 120 mg PO HS 05/18/22 11/06/23 Venlafaxine HCl [Effexor XR] 75 mg PO DAILY 05/18/22 11/06/23 Venlafaxine HCl [Effexor XR] 150 mg PO DAILY 05/18/22 11/06/23 lisinopriL [Zestril] 10 mg PO DAILY 05/18/22 11/06/23 metFORMIN HCL ER [Glucophage XR] 500 mg PO DAILY 05/18/22 11/06/23 rOPINIRole HCL [Requip] 0.5 mg PO BID PRN 05/18/22 11/06/23 Cyclobenzaprine [Flexeril] 10 mg PO TID PRN 10/21/23 11/06/23 HYDROcodone/APAP 5-325MG [[place] 1 tab PO Q6H PRN 10/21/23 11/06/23 5-325] Simvastatin [Zocor] 20 mg PO HS 10/21/23 11/06/23 clonazePAM [KlonoPIN] 2 mg PO BID PRN 10/21/23 11/06/23 Allergies Allergy/AdvReac Type Severity Reaction Status Date / Time bupropion HCl Allergy Rash/Hives Verified 08/01/24 21:05 [From Wellbutrin] droperidol Allergy Hallucinations/Increased Verified 08/01/24 21:05 Anxiety Review of Systems ROS Statement: Those systems with pertinent positive or pertinent negative responses have been documented in the HPI. ROS Other: All systems not noted in ROS Statement are negative. Constitutional: Denies: fever, chills, weakness Respiratory: Denies: cough, dyspnea Cardiovascular: Denies: chest pain, edema Gastrointestinal: Denies: abdominal pain, vomiting, diarrhea Musculoskeletal: Reports: as per HPI, myalgia. Denies: arthralgia Skin: Denies: rash Neurological: Denies: headache, weakness, numbness, paresthesias Psychiatric: Reports: anxiety Past Medical History Past Medical History: Hyperlipidemia Additional Past Medical History / Comment(s): restless leg syndrome. Complex regional pain syndrome to left lower extremity History of Any Multi-Drug Resistant Organisms: None Reported Past Surgical History: Orthopedic Surgery Additional Past Surgical History / Comment(s): FINGER AMPUTATION LEFT INDEX FINGER IN 1999, HILARIO PLACED AND REMOVED FROM LEFT LEG IN 2002 hardware removal from left ORIF lower extremity, distal tip of the finger slightly amputated after injury Past Anesthesia/Blood Transfusion Reactions: No Reported Reaction Past Psychological History: Anxiety, Depression Smoking Status: Never smoker Past Alcohol Use History: Occasional Past Drug Use History: None Reported - Past Family History Father Family Medical History: No Reported History Mother Family Medical History: No Reported History Brother(s) Family Medical History: No Reported History (Depression and anxiety) General Exam Limitations: no limitations General appearance: alert, in no apparent distress, anxious Head exam: Present: atraumatic, normocephalic Neck exam: Present: normal inspection Respiratory exam: Present: normal lung sounds bilaterally. Absent: respiratory distress, wheezes, rales, rhonchi, stridor, accessory muscle use Cardiovascular Exam: Present: normal rhythm, tachycardia, normal heart sounds. Absent: systolic murmur, diastolic murmur, rubs, gallop GI/Abdominal exam: Present: soft. Absent: tenderness Extremities exam: Present: normal inspection, full ROM, normal capillary refill. Absent: tenderness, pedal edema, calf tenderness Back exam: Absent: vertebral tenderness Neurological exam: Present: alert. Absent: motor sensory deficit Psychiatric exam: Present: anxious Skin exam: Present: warm, dry, intact, normal color. Absent: rash Course Vital Signs 07/10/24 07/10/24 03:02 05:23 Temperature 97.5 F L 98.1 F Pulse Rate 125 H 76 Respiratory 16 17 Rate Blood Pressure 159/81 126/72 O2 Sat by Pulse 95 94 L Oximetry Medical Decision Making - Medical Decision Making Was pt. sent in by a medical professional or institution (RINKU Serrano, BAND MANAGER, urgent care, hospital, or assisted...) When possible be specific @ -[No] Did you speak to anyone other than the patient for history (EMS, parent, family, police, friend...)? What history was obtained from this source @ -[No] Did you review nursing and triage notes (agree or disagree)? Why? @ -[I reviewed and agree with nursing and triage notes] Were old charts reviewed (outside hosp., previous admission, EMS record, old EKG, old radiological studies, urgent care reports/EKG's, assisted records)? Report findings @ -[No old charts were reviewed] Differential Diagnosis (chest pain, altered mental status, abdominal pain women, abdominal pain men, vaginal bleeding, weakness, fever, dyspnea, syncope, headache, dizziness, GI bleed, back pain, seizure, CVA, palpatations, mental health, musculoskeletal)? @ -[Differential Musculoskeletal Muscular strain, contusion, ligament sprain, fracture, arthritis, septic arthritis, bursitis, cellulitis, muscle spasm, nerve compression, DVT, arterial occlusion, herpes zoster, electrolyte abnormality, tumor.... This is not meant to be in all inclusive list EKG interpreted by me (3pts min.). @ -[As above] X-rays interpreted by me (1pt min.). @ -[None done] CT interpreted by me (1pt min.). @ -[None done] U/S interpreted by me (1pt. min.). @ -[None done] What testing was considered but not performed or refused? (CT, X-rays, U/S, labs)? Why? @ -[None] What meds were considered but not given or refused? Why? @ -[None] Did you discuss the management of the patient with other professionals (professionals i.e. RINKU Serrano, BAND MANAGER, lab, RT, psych nurse, community mental health social worker, road sign installer, teacher, disabilities services officer, medical case worker)? Give summary @ -[No] Was smoking cessation discussed for >3mins.? @ -[No] Was critical care preformed (if so, how long)? @ -[No] Were there social determinants of health that impacted care today? How? (Homelessness, low income, unemployed, alcoholism, drug addiction, transportation, low edu. Level, literacy, decrease access to med. care, skilled nursing, rehab)? @ -[No] Was there de-escalation of care discussed even if they declined (Discuss DNR or withdrawal of care, Hospice)? DNR status @ -[No] What co-morbidities impacted this encounter? (DM, HTN, Smoking, COPD, CAD, Cancer, CVA, ARF, Chemo, Hep., AIDS, mental health diagnosis, sleep apnea, morbid obesity)? @ -[None] Was patient admitted / discharged? Hospital course, mention meds given and route, prescriptions, significant lab abnormalities, going to OR and other pertinent info. @ -[Patient is 49-year-old man with history of chronic left leg pain and exacerbation of same tonight. Following medications he is starting to have relief, discussed follow-up and return parameters. Undiagnosed new problem with uncertain prognosis? @ -[No] Drug Therapy requiring intensive monitoring for toxicity (Heparin, Nitro, Insulin, Cardizem)? @ -[No] Were any procedures done? @ -[No] Diagnosis/symptom? @ -[Acute exacerbation of chronic leg pain Acute, or Chronic, or Acute on Chronic? @ -[Acute Uncomplicated (without systemic symptoms) or Complicated (systemic symptoms)? @ -[Uncomplicated Side effects of treatment? @ -[No] Exacerbation, Progression, or Severe Exacerbation? @ -[No] Poses a threat to life or bodily function? How? (Chest pain, [place], [place], pneumonia, PE, COPD, DKA, ARF, appy, cholecystitis, CVA, Diverticulitis, Homicidal, Suicidal, threat to staff... and all critical care pts) @ -[No] All treatments are based on ideal body weight as in ED triage Disposition Clinical Impression: Chronic leg pain Disposition: HOME SELF-CARE Condition: Good Instructions (If sedation given, give patient instructions): Leg Pain (ED) Is patient prescribed a controlled substance at d/c from ED?: No Referrals: Jefry Castro DO [Primary Care Provider] - 1-2 days
[2024-07-10 05:25] VITALS: BP 126/72; PULSE 76; RESP 17; TEMP 98.1
--- NOTE | 2024-07-24 02:20 | ED ---
General Adult HPI - General Chief complaint: Recheck/Abnormal Lab/Rx Stated complaint: Leg Pain Time Seen by Provider: 07/10/24 03:15 Source: patient, EMS Mode of arrival: EMS Limitations: no limitations - History of Present Illness Initial comments: Dictation was produced using [employer] dictation software. please excuse any grammatical, word or spelling errors. Chief Complaint: 49-year-old male presents via EMS for shortness of breath and anxiety History of Present Illness: Patient 49-year-old male well-known to the emergency department for multiple visitations for leg symptoms. Presents via EMS after he called for shortness of breath. Patient states he short of breath because he is anxious. He has history of chronic leg pain. EMS states that patient has altered mental status. The ROS documented in this emergency department record has been reviewed and confirmed by me. Those systems with pertinent positive or negative responses have been documented in the HPI. All other systems are other negative and/or noncontributory. - Related Data Home Medications Medication Instructions Recorded Confirmed Lurasidone HCl [Latuda] 120 mg PO HS 05/18/22 11/06/23 Venlafaxine HCl [Effexor XR] 75 mg PO DAILY 05/18/22 11/06/23 Venlafaxine HCl [Effexor XR] 150 mg PO DAILY 05/18/22 11/06/23 lisinopriL [Zestril] 10 mg PO DAILY 05/18/22 11/06/23 metFORMIN HCL ER [Glucophage XR] 500 mg PO DAILY 05/18/22 11/06/23 rOPINIRole HCL [Requip] 0.5 mg PO BID PRN 05/18/22 11/06/23 Cyclobenzaprine [Flexeril] 10 mg PO TID PRN 10/21/23 11/06/23 HYDROcodone/APAP 5-325MG [[place] 1 tab PO Q6H PRN 10/21/23 11/06/23 5-325] Simvastatin [Zocor] 20 mg PO HS 10/21/23 11/06/23 clonazePAM [KlonoPIN] 2 mg PO BID PRN 10/21/23 11/06/23 Allergies Allergy/AdvReac Type Severity Reaction Status Date / Time bupropion HCl Allergy Rash/Hives Verified 08/01/24 21:05 [From Wellbutrin] droperidol Allergy Hallucinations/Increased Verified 08/01/24 21:05 Anxiety Review of Systems ROS Statement: Those systems with pertinent positive or pertinent negative responses have been documented in the HPI. ROS Other: All systems not noted in ROS Statement are negative. Past Medical History Past Medical History: Hyperlipidemia Additional Past Medical History / Comment(s): restless leg syndrome. Complex regional pain syndrome to left lower extremity History of Any Multi-Drug Resistant Organisms: None Reported Past Surgical History: Orthopedic Surgery Additional Past Surgical History / Comment(s): FINGER AMPUTATION LEFT INDEX FINGER IN 1999, HILARIO PLACED AND REMOVED FROM LEFT LEG IN 2002 hardware removal from left ORIF lower extremity, distal tip of the finger slightly amputated after injury Past Anesthesia/Blood Transfusion Reactions: No Reported Reaction Past Psychological History: Anxiety, Depression Smoking Status: Never smoker Past Alcohol Use History: Occasional Past Drug Use History: None Reported - Past Family History Father Family Medical History: No Reported History Mother Family Medical History: No Reported History Brother(s) Family Medical History: No Reported History (Depression and anxiety) General Exam - General Exam Comments Initial Comments: PHYSICAL EXAM: General Impression: Alert and oriented x3, not in acute distress HEENT: Normocephalic atraumatic, extra-ocular movements intact, pupils equal and reactive to light bilaterally, mucous membranes moist. Cardiovascular: Heart regular rate and rhythm Chest: Able to complete full sentences, no retractions, no tachypnea Abdomen: abdomen soft, non-tender, non-distended, no organomegaly Musculoskeletal: Pulses present and equal in all extremities, no peripheral edema Motor: no focal deficits noted Neurological: CN II-XII grossly intact, no focal motor or sensory deficits noted Skin: Intact with no visualized rashes Psych: Normal affect and mood Limitations: no limitations Course Vital Signs 07/10/24 07/10/24 03:02 05:23 Temperature 97.5 F L 98.1 F Pulse Rate 125 H 76 Respiratory 16 17 Rate Blood Pressure 159/81 126/72 O2 Sat by Pulse 95 94 L Oximetry Disposition Clinical Impression: Chronic leg pain Disposition: HOME SELF-CARE Condition: Good Instructions (If sedation given, give patient instructions): Leg Pain (ED) Is patient prescribed a controlled substance at d/c from ED?: No Referrals: Jefry Castro DO [Primary Care Provider] - 1-2 days
== END 2024-07-10 05:24 | disposition home or self-care (01) ==
LOC: EC 02:55
DX: G89.29 Other chronic pain (principal); M79.605 Pain in left leg; Z88.8 Allergy status to other drugs, medicaments and biological substances
CPT/HCPCS: 99284; 96372; J2360

== ENCOUNTER 2024-07-24 02:07 | Emergency (ER) | payer MEDICARE ==
--- NOTE | 2024-07-24 02:22 | ED ---
General Adult HPI - General Chief complaint: Shortness of Breath Stated complaint: altered mental status Time Seen by Provider: 07/24/24 02:16 Source: patient, EMS Mode of arrival: EMS Limitations: no limitations - History of Present Illness Initial comments: Dictation was produced using [employer] dictation software. please excuse any grammatical, word or spelling errors. Chief Complaint: 49-year-old male presents to the ER for anxiety and shortness of breath History of Present Illness: Patient is a 49-year-old male disability has chronic left leg pain presents to the ER via EMS for shortness of breath. Patient states that he called EMS because he was short of breath states that he is feeling anxious. Complains of left leg pain that feels like his usual chronic leg pain. EMS states that patient is altered. The ROS documented in this emergency department record has been reviewed and confirmed by me. Those systems with pertinent positive or negative responses have been documented in the HPI. All other systems are other negative and/or noncontributory. - Related Data Home Medications Medication Instructions Recorded Confirmed Lurasidone HCl [Latuda] 120 mg PO HS 05/18/22 11/06/23 Venlafaxine HCl [Effexor XR] 75 mg PO DAILY 05/18/22 11/06/23 Venlafaxine HCl [Effexor XR] 150 mg PO DAILY 05/18/22 11/06/23 lisinopriL [Zestril] 10 mg PO DAILY 05/18/22 11/06/23 metFORMIN HCL ER [Glucophage XR] 500 mg PO DAILY 05/18/22 11/06/23 rOPINIRole HCL [Requip] 0.5 mg PO BID PRN 05/18/22 11/06/23 Cyclobenzaprine [Flexeril] 10 mg PO TID PRN 10/21/23 11/06/23 HYDROcodone/APAP 5-325MG [[place] 1 tab PO Q6H PRN 10/21/23 11/06/23 5-325] Simvastatin [Zocor] 20 mg PO HS 10/21/23 11/06/23 clonazePAM [KlonoPIN] 2 mg PO BID PRN 10/21/23 11/06/23 Allergies Allergy/AdvReac Type Severity Reaction Status Date / Time bupropion HCl Allergy Rash/Hives Verified 07/24/24 02:16 [From Wellbutrin] droperidol Allergy Hallucinations/Increased Verified 07/24/24 02:16 Anxiety Review of Systems ROS Statement: Those systems with pertinent positive or pertinent negative responses have been documented in the HPI. ROS Other: All systems not noted in ROS Statement are negative. Past Medical History Past Medical History: Hyperlipidemia Additional Past Medical History / Comment(s): restless leg syndrome. Complex regional pain syndrome to left lower extremity History of Any Multi-Drug Resistant Organisms: None Reported Past Surgical History: Orthopedic Surgery Additional Past Surgical History / Comment(s): FINGER AMPUTATION LEFT INDEX FINGER IN 1999, HILARIO PLACED AND REMOVED FROM LEFT LEG IN 2002 hardware removal from left ORIF lower extremity, distal tip of the finger slightly amputated after injury Past Anesthesia/Blood Transfusion Reactions: No Reported Reaction Past Psychological History: Anxiety, Depression Smoking Status: Never smoker Past Alcohol Use History: Occasional Past Drug Use History: None Reported - Past Family History Father Family Medical History: No Reported History Mother Family Medical History: No Reported History Brother(s) Family Medical History: No Reported History (Depression and anxiety) General Exam - General Exam Comments Initial Comments: PHYSICAL EXAM: General Impression: Alert and oriented x3, not in acute distress HEENT: Normocephalic atraumatic, extra-ocular movements intact, pupils equal and reactive to light bilaterally, mucous membranes moist. Cardiovascular: Heart regular rate and rhythm Chest: Able to complete full sentences, no retractions, no tachypnea Abdomen: abdomen soft, non-tender, non-distended, no organomegaly Musculoskeletal: Pulses present and equal in all extremities, no peripheral edema Motor: no focal deficits noted Neurological: CN II-XII grossly intact, no focal motor or sensory deficits noted Skin: Intact with no visualized rashes Psych: Normal affect and mood Limitations: no limitations Course Vital Signs 07/24/24 07/24/24 07/24/24 02:11 03:32 04:21 Temperature 96.5 F L Pulse Rate 131 H 123 H 100 Respiratory 17 16 Rate Blood Pressure 131/88 152/85 O2 Sat by Pulse 96 95 Oximetry Medical Decision Making - Medical Decision Making Was pt. sent in by a medical professional or institution (, PA, PATIENT SERVICES CLERK, urgent care, hospital, or [facility]...) When possible be specific @ -No Did you speak to anyone other than the patient for history (EMS, parent, family, police, friend...)? What history was obtained from this source @ -No Did you review nursing and triage notes (agree or disagree)? Why? @ -I reviewed and agree with nursing and triage notes Were old charts reviewed (outside hosp., previous admission, EMS record, old EKG, old radiological studies, urgent care reports/EKG's, [facility] records)? Report findings @ -No old charts were reviewed Differential Diagnosis (chest pain, altered mental status, abdominal pain women, abdominal pain men, vaginal bleeding, musculoskeletal, weakness, fever, dyspnea, syncope, headache, dizziness, GI bleed, back pain, seizure, CVA, palpatations, mental health)? @ -Differential Dyspnea: Coronary syndrome, arrhythmia, tamponade, asthma, COPD, pulmonary embolism, pneumonia, pneumothorax, pulmonary effusion, anaphylaxis, diabetic ketoacidosis, flailed chest, pulmonary contusion, diaphragmatic rupture, anemia, neuromusc ular, this is not meant to be an all-inclusive list. EKG interpreted by me (3pts min.). @ -None done X-rays interpreted by me (1pt min.). @ -Chest x-ray is nonacute CT interpreted by me (1pt min.). @ -None done U/S interpreted by me (1pt. min.). @ -None done What testing was considered but not performed or refused? (CT, X-rays, U/S, labs)? Why? @ -None What meds were considered but not given or refused? Why? @ -None Was smoking cessation discussed for >3mins.? @ -No Were there social determinants of health that impacted care today? How? (Homelessness, low income, unemployed, alcoholism, drug addiction, transportation, low edu. Level, literacy, decrease access to med. care, fdc, rehab)? @ -No Was there de-escalation of care discussed even if they declined (Discuss DNR or withdrawal of care, Hospice)? DNR status @ -No What co-morbidities impacted this encounter? (DM, HTN, Smoking, COPD, CAD, Cancer, CVA, ARF, Chemo, Hep., AIDS, mental health diagnosis, sleep apnea, morbid obesity)? @ -None Was patient admitted / discharged? Hospital course, mention meds given and route, prescriptions, significant lab abnormalities, going to OR and other pertinent info. @ -49-year-old male dyspnea. Patient well-known to the emergency department for multiple visitations for chronic leg pain. Patient reports history of anxiety and feels like he is anxious. Patient stable vital signs nonacute distress. Lung sounds are clear to auscultation bilaterally. Labs unremarkable. X-ray is nonacute. Patient feels significantly improved after some Ativan. Patient discharged likely experiencing some benzodiazepine withdrawal symptoms. Patient discharged no high risk features Did you discuss the management of the patient with other professionals (professionals i.e. , PA, PATIENT SERVICES CLERK, lab, RT, psych nurse, social services, surgical coder, teacher, supply requirements officer, case fitter)? Give summary @ -No Was critical care preformed (if so, how long)? @ -No Undiagnosed new problem with uncertain prognosis? @ -No Drug Therapy requiring intensive monitoring for toxicity (Heparin, Nitro, Insulin, Cardizem)? @ -No Were any procedures done? @ -No Diagnosis/symptom? Acute, or Chronic, or Acute on Chronic? Uncomplicated (without systemic symptoms) or Complicated (systemic symptoms)? @ -Dyspnea Side effects of treatment? @ -No Exacerbation, Progression, or Severe Exacerbation? @ -No Poses a threat to life or bodily function? How? (Chest pain, [place], [place], pneumonia, PE, COPD, DKA, ARF, appy, cholecystitis, CVA, Diverticulitis, Homicidal, Suicidal, threat to staff... and all critical care pts) @ -No - Lab Data Result diagrams: 07/24/24 02:40 07/24/24 02:40 Lab Results 07/24/24 07/24/24 07/24/24 Range/Units 02:40 02:40 02:40 WBC 9.61 (4.50-10.00) 10*3/uL RBC 4.81 (4.40-5.60) 10*6/uL Hgb 15.4 (13.0-17.0) g/dL Hct 42.6 (39.6-50.0) % MCV 88.6 (80.0-97.0) fL MCH 32.0 (27.0-32.0) pg MCHC 36.2 (32.0-37.0) g/dL Plt Count 273 (140-440) 10*3/uL MPV 10.6 (9.5-12.2) fL Immature Gran % (Auto) 0.8 % Neutrophils % 78.8 % Lymphocytes % 13.5 % Monocytes % 5.7 % Eosinophils % 0.7 % Basophils % 0.5 % Immature Gran # 0.08 H (0.00-0.04) 10*3/uL Neutrophils # 7.56 (1.80-7.70) 10*3/uL Lymphocytes # 1.30 (0.90-5.00) 10*3/uL Monocytes # 0.55 (0.20-1.00) 10*3/uL Eosinophils # 0.07 (0.04-0.35) 10*3/uL Basophils # 0.05 (0.00-0.10) 10*3/uL Sodium 141 (137-145) mmol/L Potassium 4.2 (3.5-5.1) mmol/L Chloride 104 (98-107) mmol/L Carbon Dioxide 22 (22-30) mmol/L Anion Gap 15 mmol/L BUN 24 H (9-20) mg/dL Creatinine 1.01 (0.66-1.25) mg/dL Est GFR (CKD-EPI)AfAm >90 (>60 ml/min/1.73 sqM) Est GFR (CKD-EPI)NonAf 87 (>60 ml/min/1.73 sqM) Glucose 179 H (74-99) mg/dL Calcium 10.0 (8.4-10.2) mg/dL Influenza Type A (PCR) Not Detected (Not Detectd) Influenza Type B (PCR) Not Detected (Not Detectd) RSV (PCR) Not Detected (Not Detectd) SARS-CoV-2 (PCR) Not Detected (Not Detectd) Disposition Clinical Impression: Anxiety reaction Disposition: HOME SELF-CARE Condition: Good Instructions (If sedation given, give patient instructions): Dyspnea (ED) Is patient prescribed a controlled substance at d/c from ED?: No Referrals: Jefry Castro DO [Primary Care Provider] - 1-2 days Time of Disposition: 04:32
[2024-07-24] MEDS: SODIUM CHLORIDE 0.9% 1,000 ML IV STA (02:50)
[2024-07-24] MEDS: LORazepam 1 MG/0.5 ML VIAL IV STA (02:51)
--- NOTE | 2024-07-24 03:13 | XR ---
EXAM: XR Chest, 2 Views CLINICAL HISTORY: ITS.REASON XR Reason: dyspnea TECHNIQUE: Frontal and lateral views of the chest. COMPARISON: Chest radiograph on 11/06/2023 FINDINGS: Hardware: None. Lungs/pleura: Normal. No focal consolidation. No pleural effusion or pneumothorax. Heart/mediastinum: Normal. No cardiomegaly. Soft tissues: Unremarkable. Bones: No acute fracture. Upper abdomen: Normal. IMPRESSION: No acute disease identified.
[2024-07-24 03:34] VITALS: RESP 16
[2024-07-24 03:42] LABS: Basophils # (A) 0.05 10*3/uL (0.00-0.10); Basophils % (A) 0.5 %; Eosinophils # (A) 0.07 10*3/uL (0.04-0.35); Eosinophils % (A) 0.7 %; HCT 42.6 % (39.6-50.0); HGB 15.4 g/dL (13.0-17.0); Lymphocytes % (A) 13.5 %; MCHC 36.2 g/dL (32.0-37.0); MCV 88.6 fL (80.0-97.0); Mean Platelet Volume 10.6 fL (9.5-12.2); Monocytes # (A) 0.55 10*3/uL (0.20-1.00); Monocytes % (A) 5.7 %; Neutrophils # (A) 7.56 10*3/uL (1.80-7.70); Neutrophils % (A) 78.8 %; Platelet Count 273 10*3/uL (140-440); RBC 4.81 10*6/uL (4.40-5.60); WBC 9.61 10*3/uL (4.50-10.00)
[2024-07-24 04:03] LABS: African American GFR (CKD) >90 (>60 ml/min/1.73 sqM); Anion Gap 15 mmol/L; Blood Urea Nitrogen 24 mg/dL (9-20); Carbon Dioxide 22 mmol/L (22-30); Chloride 104 mmol/L (98-107); Glucose 179 mg/dL (74-99); Non-African American GFR(CKD) 87 (>60 ml/min/1.73 sqM); Potassium 4.2 mmol/L (3.5-5.1); Sodium 141 mmol/L (137-145)
[2024-07-24 04:19] LABS: Influenza A Not Detected (Not Detectd); Influenza B Not Detected (Not Detectd); RSV Not Detected (Not Detectd)
[2024-07-24 04:40] VITALS: BP 116/69; PULSE 101; TEMP 97.8
== END 2024-07-24 04:40 | disposition home or self-care (01) ==
LOC: EC 02:07
DX: F41.1 Generalized anxiety disorder (principal); Z88.8 Allergy status to other drugs, medicaments and biological substances
CPT/HCPCS: 36415; 80048; 85025; 87636; 71046; 99285; 96374; 96361 ×2; J2060

== ENCOUNTER 2024-08-01 20:57 | Emergency (ER) | payer MEDICARE ==
--- NOTE | 2024-08-01 22:08 | ED ---
Extremity Problem HPI - General Chief complaint: Extremity Problem,Nontraumatic Stated complaint: L Leg Pain Time Seen by Provider: 08/01/24 21:57 Source: patient Mode of arrival: wheelchair Limitations: no limitations - History of Present Illness Initial comments: This patient is a 49-year-old man who presents for evaluation of left leg pain. The patient has chronic pain syndrome to the left leg following trauma that was sustained years ago with resulting orthopedic surgery. The patient does have a nerve stimulator implanted but states that it is not helping tonight. It had been adjusted last week. He follows with Dr. Franco. The patient did try his home medications, he has taken Neurontin and he has taken ibuprofen but continues to have pain. No recent injury. No fever or chills. No other changes related to the leg MD Complaint: extremity pain -: hour(s) Location: left, lower extremity History of Same: Yes -: Yes myalgia Radiation: none Severity scale (1-10): 10 Quality: burning, aching Consistency: constant Improves with: nothing Worsens with: nothing Associated Symptoms: denies other symptoms - Related Data Home Medications Medication Instructions Recorded Confirmed Lurasidone HCl [Latuda] 120 mg PO HS 05/18/22 11/06/23 Venlafaxine HCl [Effexor XR] 75 mg PO DAILY 05/18/22 11/06/23 Venlafaxine HCl [Effexor XR] 150 mg PO DAILY 05/18/22 11/06/23 lisinopriL [Zestril] 10 mg PO DAILY 05/18/22 11/06/23 metFORMIN HCL ER [Glucophage XR] 500 mg PO DAILY 05/18/22 11/06/23 rOPINIRole HCL [Requip] 0.5 mg PO BID PRN 05/18/22 11/06/23 Cyclobenzaprine [Flexeril] 10 mg PO TID PRN 10/21/23 11/06/23 HYDROcodone/APAP 5-325MG [[place] 1 tab PO Q6H PRN 10/21/23 11/06/23 5-325] Simvastatin [Zocor] 20 mg PO HS 10/21/23 11/06/23 clonazePAM [KlonoPIN] 2 mg PO BID PRN 10/21/23 11/06/23 Allergies Allergy/AdvReac Type Severity Reaction Status Date / Time bupropion HCl Allergy Rash/Hives Verified 08/01/24 21:05 [From Wellbutrin] droperidol Allergy Hallucinations/Increased Verified 08/01/24 21:05 Anxiety Review of Systems ROS Statement: Those systems with pertinent positive or pertinent negative responses have been documented in the HPI. ROS Other: All systems not noted in ROS Statement are negative. Constitutional: Denies: fever, chills, weakness Respiratory: Denies: cough, dyspnea Cardiovascular: Denies: chest pain, edema Gastrointestinal: Denies: abdominal pain, vomiting, diarrhea Musculoskeletal: Reports: as per HPI, myalgia Skin: Denies: rash, lesions Neurological: Denies: weakness, numbness Past Medical History Past Medical History: Hyperlipidemia Additional Past Medical History / Comment(s): restless leg syndrome. Complex regional pain syndrome to left lower extremity History of Any Multi-Drug Resistant Organisms: None Reported Past Surgical History: Orthopedic Surgery Additional Past Surgical History / Comment(s): FINGER AMPUTATION LEFT INDEX FINGER IN 1999, HILARIO PLACED AND REMOVED FROM LEFT LEG IN 2002 hardware removal f rom left ORIF lower extremity, distal tip of the finger slightly amputated after injury Past Anesthesia/Blood Transfusion Reactions: No Reported Reaction Past Psychological History: Anxiety, Depression Smoking Status: Never smoker Past Alcohol Use History: Occasional Past Drug Use History: None Reported - Past Family History Father Family Medical History: No Reported History Mother Family Medical History: No Reported History Brother(s) Family Medical History: No Reported History (Depression and anxiety) General Exam Limitations: no limitations General appearance: alert, in no apparent distress, anxious Respiratory exam: Present: normal lung sounds bilaterally. Absent: respiratory distress, wheezes, rales, rhonchi, stridor, accessory muscle use Cardiovascular Exam: Present: normal rhythm, tachycardia, normal heart sounds. Absent: systolic murmur, diastolic murmur, rubs, gallop GI/Abdominal exam: Present: soft. Absent: distended, tenderness Left Hip exam: Present: normal inspection, full ROM. Absent: tenderness, swelling Upper Leg exam: Present: full ROM. Absent: normal inspection (Patient has control for nerve stimulator on the left thigh), tenderness, swelling Knee exam: Present: normal inspection, full ROM. Absent: tenderness, swelling Lower Leg exam: Present: normal inspection, full ROM. Absent: tenderness, swelling Ankle exam: Present: normal inspection Foot/Toe exam: Present: normal inspection Neurovascular tendon exam: Present: no vascular compromise Neurological exam: Present: alert. Absent: motor sensory deficit Skin exam: Present: warm, dry, intact, normal color. Absent: rash Course Vital Signs 08/01/24 08/01/24 21:04 23:45 Temperature 97.9 F 98.2 F Pulse Rate 135 H 108 H Respiratory 18 22 Rate Blood Pressure 131/83 114/75 O2 Sat by Pulse 97 95 Oximetry Medical Decision Making - Medical Decision Making Was pt. sent in by a medical professional or institution (, PA, FITNESS PLAN COORDINATOR, urgent care, hospital, or fdc...) When possible be specific @ -[No] Did you speak to anyone other than the patient for history (EMS, parent, family, police, friend...)? What history was obtained from this source @ -[No] Did you review nursing and triage notes (agree or disagree)? Why? @ -[I reviewed and agree with nursing and triage notes] Were old charts reviewed (outside hosp., previous admission, EMS record, old EKG, old radiological studies, urgent care reports/EKG's, fdc records)? Report findings @ -[No old charts were reviewed] Differential Diagnosis (chest pain, altered mental status, abdominal pain women, abdominal pain men, vaginal bleeding, weakness, fever, dyspnea, syncope, headache, dizziness, GI bleed, back pain, seizure, CVA, palpatations, mental health, musculoskeletal)? @ -[Differential Musculoskeletal Muscular strain, contusion, ligament sprain, fracture, arthritis, septic arthritis, bursitis, cellulitis, muscle spasm, nerve compression, DVT, arterial occlusion, herpes zoster, electrolyte abnormality, tumor.... This is not meant to be in all inclusive list EKG interpreted by me (3pts min.). @ -[As above] X-rays interpreted by me (1pt min.). @ -[None done] CT interpreted by me (1pt min.). @ -[None done] U/S interpreted by me (1pt. min.). @ -[None done] What testing was considered but not performed or refused? (CT, X-rays, U/S, labs)? Why? @ -[None] What meds were considered but not given or refused? Why? @ -[None] Did you discuss the management of the patient with other professionals (professionals i.e. DrJunior, PA, FITNESS PLAN COORDINATOR, lab, RT, psych nurse, health social work professor, shroud line tier, teacher, information technology officer, returned case inspector)? Give summary @ -[No] Was smoking cessation discussed for >3mins.? @ -[No] Was critical care preformed (if so, how long)? @ -[No] Were there social determinants of health that impacted care today? How? (Homelessness, low income, unemployed, alcoholism, drug addiction, transportation, low edu. Level, literacy, decrease access to med. care, retirement, rehab)? @ -[No] Was there de-escalation of care discussed even if they declined (Discuss DNR or withdrawal of care, Hospice)? DNR status @ -[No] What co-morbidities impacted this encounter? (DM, HTN, Smoking, COPD, CAD, Cancer, CVA, ARF, Chemo, Hep., AIDS, mental health diagnosis, sleep apnea, morbid obesity)? @ -[History of previous fracture to the leg with chronic pain syndrome resulting Was patient admitted / discharged? Hospital course, mention meds given and route, prescriptions, significant lab abnormalities, going to OR and other pertinent info. @ -[Patient is 49-year-old man with chronic lower extremity pain who arrives with exacerbation of this condition. He did have improvement in condition with treatment and was stable for discharge. Undiagnosed new problem with uncertain prognosis? @ -[No] Drug Therapy requiring intensive monitoring for toxicity (Heparin, Nitro, Insulin, Cardizem)? @ -[No] Were any procedures done? @ -[No] Diagnosis/symptom? @ -[Acute on chronic lower extremity pain Acute, or Chronic, or Acute on Chronic? @ -[Acute on chronic Uncomplicated (without systemic symptoms) or Complicated (systemic symptoms)? @ -[Uncomplicated Side effects of treatment? @ -[No] Exacerbation, Progression, or Severe Exacerbation? @ -[No] Poses a threat to life or bodily function? How? (Chest pain, [place], [place], pneumonia, PE, COPD, DKA, ARF, appy, cholecystitis, CVA, Diverticulitis, Homicidal, Suicidal, threat to staff... and all critical care pts) @ -[No] All treatments are based on ideal body weight as in ED triage Disposition Clinical Impression: Chronic leg pain Disposition: HOME SELF-CARE Condition: Good Instructions (If sedation given, give patient instructions): Leg Pain (ED) Is patient prescribed a controlled substance at d/c from ED?: No Referrals: Jefry Castro DO [Primary Care Provider] - 1-2 days Renée Franco MD [Medical Doctor] - 1-2 days
[2024-08-01] MEDS: ORPHENADRINE 30 MG/ML 2 ML VIAL IM STA (22:46)
[2024-08-01] MEDS: LORazepam 1 MG/0.5 ML VIAL IM STA (22:46)
[2024-08-01] MEDS: KETOROLAC 15 MG/ML 1 ML VIAL IVP STA (23:43)
[2024-08-01 23:47] VITALS: BP 114/75; PULSE 108; RESP 22; TEMP 98.2
== END 2024-08-01 23:45 | disposition home or self-care (01) ==
LOC: EC 20:57
DX: M79.662 Pain in left lower leg (principal); G89.4 Chronic pain syndrome; Z88.8 Allergy status to other drugs, medicaments and biological substances
CPT/HCPCS: 99283; 96374; 96372; J2060; J2360; J1885

== ENCOUNTER 2024-09-09 02:02 | Emergency (ER) | payer MEDICARE ==
[2024-09-09 02:20] VITALS: TEMP 97.4
[2024-09-09 02:28] VITALS: BP 104/83; RESP 19
--- NOTE | 2024-09-09 02:34 | ED ---
Lower Extremity Injury HPI - General Chief Complaint: Extremity Injury, Lower Stated Complaint: Left leg pain Time Seen by Provider: 09/09/24 02:10 Source: patient Mode of arrival: wheelchair Limitations: no limitations - History of Present Illness Initial Comments: 49-year-old male well-known to our ER presenting with chief complaint of left leg pain. Patient has history of chronic left leg pain. Currently has a stimulator in place. No injury or trauma. No redness or swelling. No numbness or tingling. Follows with neurology for this chronic pain. He also admits to anxiety secondary to the pain. - Related Data Home Medications Medication Instructions Recorded Confirmed Lurasidone HCl [Latuda] 120 mg PO HS 05/18/22 11/06/23 Venlafaxine HCl [Effexor XR] 75 mg PO DAILY 05/18/22 11/06/23 Venlafaxine HCl [Effexor XR] 150 mg PO DAILY 05/18/22 11/06/23 lisinopriL [Zestril] 10 mg PO DAILY 05/18/22 11/06/23 metFORMIN HCL ER [Glucophage XR] 500 mg PO DAILY 05/18/22 11/06/23 rOPINIRole HCL [Requip] 0.5 mg PO BID PRN 05/18/22 11/06/23 Cyclobenzaprine [Flexeril] 10 mg PO TID PRN 10/21/23 11/06/23 HYDROcodone/APAP 5-325MG [[place] 1 tab PO Q6H PRN 10/21/23 11/06/23 5-325] Simvastatin [Zocor] 20 mg PO HS 10/21/23 11/06/23 clonazePAM [KlonoPIN] 2 mg PO BID PRN 10/21/23 11/06/23 Allergies Allergy/AdvReac Type Severity Reaction Status Date / Time bupropion HCl Allergy Rash/Hives Verified 09/09/24 02:20 [From Wellbutrin] droperidol Allergy Hallucinations/Increased Verified 09/09/24 02:20 Anxiety Review of Systems ROS Statement: Those systems with pertinent positive or pertinent negative responses have been documented in the HPI. ROS Other: All systems not noted in ROS Statement are negative. Past Medical History Past Medical History: Hyperlipidemia Additional Past Medical History / Comment(s): restless leg syndrome. Complex regional pain syndrome to left lower extremity History of Any Multi-Drug Resistant Organisms: None Reported Past Surgical History: Orthopedic Surgery Additional Past Surgical History / Comment(s): FINGER AMPUTATION LEFT INDEX FINGER IN 1999, HILARIO PLACED AND REMOVED FROM LEFT LEG IN 2002 hardware removal from left ORIF lower extremity, distal tip of the finger slightly amputated after injury Past Anesthesia/Blood Transfusion Reactions: No Reported Reaction Past Psychological History: Anxiety, Depression Smoking Status: Never smoker Past Alcohol Use History: Occasional Past Drug Use History: None Reported - Past Family History Father Family Medical History: No Reported History Mother Family Medical History: No Reported History Brother(s) Family Medical History: No Reported History (Depression and anxiety) General Exam Limitations: no limitations General appearance: alert, in no apparent distress Head exam: Present: atraumatic, normocephalic, normal inspection Eye exam: Present: normal appearance, EOMI Neck exam: Present: normal inspection. Absent: meningismus Respiratory exam: Absent: respiratory distress Cardiovascular Exam: Present: tachycardia Left Upper Leg exam: Present: normal inspection, full ROM, tenderness. Absent: swelling, deformity, erythema Neurological exam: Present: alert, oriented X3 Psychiatric exam: Present: normal affect, normal mood Skin exam: Present: warm, dry, normal color Course Vital Signs 09/09/24 09/09/24 02:14 02:27 Temperature 97.4 F L Pulse Rate 132 H 119 H Respiratory 18 19 Rate Blood Pressure 124/82 104/83 O2 Sat by Pulse 99 97 Oximetry Medical Decision Making - Medical Decision Making Was pt. sent in by a medical professional or institution (, PA, SHAKE SPLITTER, urgent care, hospital, or penitentiary...) When possible be specific @ -No Did you speak to anyone other than the patient for history (EMS, parent, family, police, friend...)? What history was obtained from this source @ -Mother Did you review nursing and triage notes (agree or disagree)? Why? @ -I reviewed and agree with nursing and triage notes Were old charts reviewed (outside hosp., previous admission, EMS record, old EKG, old radiological studies, urgent care reports/EKG's, penitentiary records)? Report findings @ -No old charts were reviewed Differential Diagnosis (chest pain, altered mental status, abdominal pain women, abdominal pain men, vaginal bleeding, weakness, fever, dyspnea, syncope, headache, dizziness, GI bleed, back pain, seizure, CVA, palpatations, mental health, musculoskeletal)? @ -Differential musculoskeletal EKG interpreted by me (3pts min.). @ -As above X-rays interpreted by me (1pt min.). @ -None done CT interpreted by me (1pt min.). @ -None done U/S interpreted by me (1pt. min.). @ -None done What testing was considered but not performed or refused? (CT, X-rays, U/S, labs)? Why? @ -None What meds were considered but not given or refused? Why? @ -None Did you discuss the management of the patient with other professionals (professionals i.e. , PA, SHAKE SPLITTER, lab, RT, psych nurse, medical social worker, ammunition and explosives handler, teacher, surface to air weapons officer, director of casework department)? Give summary @ -No Was smoking cessation discussed for >3mins.? @ -No Was critical care preformed (if so, how long)? @ -No Were there social determinants of health that impacted care today? How? (Homelessness, low income, unemployed, alcoholism, drug addiction, transportation, low edu. Level, literacy, decrease access to med. care, group home, rehab)? @ -No Was there de-escalation of care discussed even if they declined (Discuss DNR or withdrawal of care, Hospice)? DNR status @ -No What co-morbidities impacted this encounter? (DM, HTN, Smoking, COPD, CAD, Cancer, CVA, ARF, Chemo, Hep., AIDS, mental health diagnosis, sleep apnea, morbid obesity)? @ -None Was patient admitted / discharged? Hospital course, mention meds given and route, prescriptions, significant lab abnormalities, going to OR and other pertinent info. @ -49-year-old male with history of chronic left leg pain presenting with a flareup of his chronic pain. No injury or trauma. No red flag symptoms. No new features to this pain. Treated with pain and anxiety medication. Follow-up with PCP. Report back to ER with any new or worsening symptoms. Discussed return parameters and answered all questions. Patient conveyed verbal understan ding and agreed to the plan. I discussed this case in detail with my attending Dr. Choudhury Undiagnosed new problem with uncertain prognosis? @ -No Drug Therapy requiring intensive monitoring for toxicity (Heparin, Nitro, Insulin, Cardizem)? @ -No Were any procedures done? @ -No Diagnosis/symptom? @ -Leg pain Acute, or Chronic, or Acute on Chronic? @ -Acute on chronic Uncomplicated (without systemic symptoms) or Complicated (systemic symptoms)? @ -Uncomplicated Side effects of treatment? @ -No Exacerbation, Progression, or Severe Exacerbation? @ -No Poses a threat to life or bodily function? How? (Chest pain, [place], [place], pneumonia, PE, COPD, DKA, ARF, appy, cholecystitis, CVA, Diverticulitis, Homicidal, Suicidal, threat to staff... and all critical care pts) @ -Unlikely Disposition Clinical Impression: Left leg pain Disposition: HOME SELF-CARE Condition: Good Additional Instructions: Follow-up with your PCP and neurologist. Report back to ER with any new or worsening symptoms. Is patient prescribed a controlled substance at d/c from ED?: No Referrals: Jefry Castro DO [Primary Care Provider] - 1-2 days Time of Disposition: 02:34
[2024-09-09] MEDS: LORazepam 1 MG TAB PO STA (02:45)
[2024-09-09] MEDS: ORPHENADRINE 30 MG/ML 2 ML VIAL IM STA (02:46)
[2024-09-09 02:48] VITALS: PULSE 108
[2024-09-09] MEDS: KETOROLAC 15 MG/ML 1 ML VIAL IM STA (02:48)
== END 2024-09-09 02:58 | disposition home or self-care (01) ==
LOC: EC 02:02
DX: M79.605 Pain in left leg (principal); G89.29 Other chronic pain; Z88.8 Allergy status to other drugs, medicaments and biological substances
CPT/HCPCS: 99283; 96372; J2360; J1885

== ENCOUNTER 2024-09-11 02:27 | Emergency (ER) | payer MEDICARE ==
[2024-09-11 02:36] LABS: Glucose,Whole Blood 182 mg/dL (70-110)
[2024-09-11 02:53] LABS: Basophils # (A) 0.05 10*3/uL (0.00-0.10); Basophils % (A) 0.8 %; Eosinophils # (A) 0.10 10*3/uL (0.04-0.35); Eosinophils % (A) 1.6 %; HCT 40.0 % (39.6-50.0); HGB 14.6 g/dL (13.0-17.0); Lymphocytes # (A) 1.17 10*3/uL (0.90-5.00); Lymphocytes % (A) 18.9 %; MCH 32.2 pg (27.0-32.0); MCHC 36.5 g/dL (32.0-37.0); MCV 88.1 fL (80.0-97.0); Monocytes # (A) 0.45 10*3/uL (0.20-1.00); Monocytes % (A) 7.3 %; Neutrophils # (A) 4.40 10*3/uL (1.80-7.70); Neutrophils % (A) 71.1 %; Platelet Count 216 10*3/uL (140-440); RBC 4.54 10*6/uL (4.40-5.60); RDW 11.9 % (11.5-14.5); WBC 6.19 10*3/uL (4.50-10.00)
--- NOTE | 2024-09-11 02:54 | ED ---
General Adult HPI - General Chief complaint: Altered Mental Status Stated complaint: AMS Time Seen by Provider: 09/11/24 02:30 Source: EMS Mode of arrival: EMS - History of Present Illness Initial comments: Patient is a 49-year-old gentleman well-known to this emerged from a history of hyperlipidemia, chronic left lower extremity pain presenting today for altered mental status. History is limited by patient's altered mental status. Paramedics state they were called for difficulty breathing however on their arrival vital signs are within acceptable limits. Patient was aphasic. Patient is able to now give brief one word answers to questions, states "leg hurts". Denies injuries. - Related Data Home Medications Medication Instructions Recorded Confirmed Lurasidone HCl [Latuda] 120 mg PO HS 05/18/22 11/06/23 Venlafaxine HCl [Effexor XR] 75 mg PO DAILY 05/18/22 11/06/23 Venlafaxine HCl [Effexor XR] 150 mg PO DAILY 05/18/22 11/06/23 lisinopriL [Zestril] 10 mg PO DAILY 05/18/22 11/06/23 metFORMIN HCL ER [Glucophage XR] 500 mg PO DAILY 05/18/22 11/06/23 rOPINIRole HCL [Requip] 0.5 mg PO BID PRN 05/18/22 11/06/23 Cyclobenzaprine [Flexeril] 10 mg PO TID PRN 10/21/23 11/06/23 HYDROcodone/APAP 5-325MG [[place] 1 tab PO Q6H PRN 10/21/23 11/06/23 5-325] Simvastatin [Zocor] 20 mg PO HS 10/21/23 11/06/23 clonazePAM [KlonoPIN] 2 mg PO BID PRN 10/21/23 11/06/23 Allergies Allergy/AdvReac Type Severity Reaction Status Date / Time bupropion HCl Allergy Rash/Hives Verified 09/09/24 02:20 [From Wellbutrin] droperidol Allergy Hallucinations/Increased Verified 09/09/24 02:20 Anxiety Review of Systems ROS Statement: Those systems with pertinent positive or pertinent negative responses have been documented in the HPI. Limitations: ROS unobtainable due to patients medical condition Past Medical History Past Medical History: Hyperlipidemia Additional Past Medical History / Comment(s): restless leg syndrome. Complex regional pain syndrome to left lower extremity History of Any Multi-Drug Resistant Organisms: None Reported Past Surgical History: Orthopedic Surgery Additional Past Surgical History / Comment(s): FINGER AMPUTATION LEFT INDEX FINGER IN 1999, HILARIO PLACED AND REMOVED FROM LEFT LEG IN 2002 hardware removal from left ORIF lower extremity, distal tip of the finger slightly amputated after injury Past Anesthesia/Blood Transfusion Reactions: No Reported Reaction Past Psychological History: Anxiety, Depression Smoking Status: Never smoker Past Alcohol Use History: Occasional Past Drug Use History: None Reported - Past Family History Father Family Medical History: No Reported History Mother Family Medical History: No Reported History Brother(s) Family Medical History: No Reported History (Depression and anxiety) General Exam - General Exam Comments Initial Comments: PE: CONSTITUTIONAL: No apparent distress, well appearing SKIN: Warm, dry, no jaundice, hives or petechiae EYES: Pupils are equally round, extraocular movements intact without nystagmus, clear conjunctiva, non-icteric sclera HENT: Normocephalic, atraumatic, moist mucus membranes, oropharynx clear without exudates NECK: , Full range of motion, normal appearance PULMONARY: Clear to auscultation without wheezes, rhonchi, or rales, normal excursion, no accessory muscle use and no stridor CARDIOVASCULAR: Regular rate, rhythm, normal S1 and S2. No appreciated murmurs, rubs or gallops. 2+ pulses in DP pulses bilaterally no lower extremity edema GASTROINTESTINAL: Soft, active bowel sounds throughout, non-tender, non- distended, no palpable masses, no rebound or guarding. No hepatosplenomegaly GENITOURINARY: MUSCULOSKELETAL: Extremities have no gross deformity, no edema, redness, or swelling. No calf swelling NEUROLOGIC: [_a/o x 3, GCS 15. Moves all extremities x 4 without motor or sensory deficit. Mild aphasia, NIH 2, of note cranial nerves: II (visual porter without defects), III, IV and (extraocular movements are intact, pupils are equal with normal reaction to light), V (intact facial sensation and jaw opening), VII (no facial droop), IX and X (normal palate movement, midline uvula, normal voice), XII (midline tongue protrusion). Motor strength is 5/5 in all extremities. After lifting his LLE and holding it up against gravity, does shake LLE while continuing to hold it up without drift, Normal muscle tone. Sensation to light touch is intact bilaterally. Course Vital Signs 09/11/24 09/11/24 09/11/24 02:34 02:57 03:12 Temperature 98.0 F Pulse Rate 106 H 107 H 105 H Respiratory 18 17 17 Rate Blood Pressure 147/91 144/90 130/82 O2 Sat by Pulse 98 100 100 Oximetry 09/11/24 09/11/24 09/11/24 03:27 03:42 03:57 Temperature 98.0 F Pulse Rate 104 H 103 H 93 Respiratory 17 17 17 Rate Blood Pressure 128/86 130/80 126/83 O2 Sat by Pulse 100 100 100 Oximetry 09/11/24 09/11/24 09/11/24 04:12 04:27 04:57 Temperature 98.0 F Pulse Rate 104 H 109 H 80 Respiratory 17 17 17 Rate Blood Pressure 129/86 145/82 110/60 O2 Sat by Pulse 100 100 92 L Oximetry 09/11/24 05:27 Temperature 98 F Pulse Rate 92 Respiratory 17 Rate Blood Pressure 117/75 O2 Sat by Pulse 100 Oximetry EKG Findings - EKG Comments: EKG Findings:: Sinus tachycardia, rate 107 bpm, intervals within acceptable limits, normal axis, no significant elevations or depressions, no arrhythmia Medical Decision Making - Medical Decision Making Was pt. sent in by a medical professional or institution (RINKU Serrano, LIME FILTER OPERATOR, urgent care, hospital, or fci...) When possible be specific @ -No Did you speak to anyone other than the patient for history (EMS, parent, family, police, friend...)? What history was obtained from this source @Paramedics Did you review nursing and triage notes (agree or disagree)? Why? @ -I reviewed nursing and triage notes-agree with triage note Were old charts reviewed (outside hosp., previous admission, EMS record, old EKG, old radiological studies, urgent care reports/EKG's, fci records)? Report findings @ -Medical records reviewed-reviewed ED note from 09/09/2024-patient presented at that time for chronic left lower extremity pain, he has multiple prior visits to this ED for similar Differential Diagnosis (chest pain, altered mental status, abdominal pain women, abdominal pain men, vaginal bleeding, weakness, fever, dyspnea, syncope, headache, dizziness, GI bleed, back pain, seizure, CVA, palpatations, mental health, musculoskeletal)? Differential Altered Mental Status: Hypoglycemia, DKA, hypercapnia, ETOH, overdose, medication side effect, trauma, myxedema coma, HTN encephalopathy, infection, encephalitis, psychosis, intracranial hemorrhage, hepatic encephalopathy, meningitis, CVA, seizure, this is not meant to be an all-inclusive list Differential Musculoskeletal Muscular strain, contusion, ligament sprain, fracture, arthritis, septic arthrit is, bursitis, cellulitis, muscle spasm, nerve compression, DVT, arterial occlusion, herpes zoster, electrolyte abnormality, tumor.... This is not meant to be in all inclusive list EKG interpreted by me (3pts min.). @ -As above X-rays interpreted by me (1pt min.). Chest x-ray reviewed by myself I see no evidence of cardiomegaly or pleural effusions CT interpreted by me (1pt min.). @Reviewed CT brain I see no evidence of hemorrhage or mass effect, reviewed CTA see no evidence of large vessel occlusion or dissection, agree with radiologist interpretation U/S interpreted by me (1pt. min.). @ -None done What testing was considered but not performed or refused? (CT, X-rays, U/S, labs)? Why? @ -None What meds were considered but not given or refused? Why? Tenecteplase was considered however patient had a low NIH with rapidly improving symptoms and after further discussion with the patient I suspect symptoms are more likely secondary to pain/conversion reaction, imaging was negative, after discussion with stroke physician, he recommended against TN K Did you discuss the management of the patient with other professionals (professionals i.e. , PA, LIME FILTER OPERATOR, lab, RT, psych nurse, school social worker, flatwork finisher, teacher, compliance officer, case assembler)? Give summary @Case discussed with Dr. Schwartz, no tNK, no additional recs at this time Was smoking cessation discussed for >3mins.? @ -No Was critical care preformed (if so, how long)? @ -No Were there social determinants of health that impacted care today? How? (Homelessness, low income, unemployed, alcoholism, drug addiction, transportation, low edu. Level, literacy, decrease access to med. care, prison, rehab)? @ -No Was there de-escalation of care discussed even if they declined (Discuss DNR or withdrawal of care, Hospice)? @ -No What co-morbidities impacted this encounter? (DM, HTN, Smoking, COPD, CAD, Cancer, CVA, ARF, Chemo, Hep., AIDS, mental health diagnosis, sleep apnea, morbid obesity)? @ -HLD, chronic LLE pain Was patient admitted / discharged? Hospital course, mention meds given and route, prescriptions, significant lab abnormalities, going to OR and other pertinent info. @ -Discharged- Patient is a 49-year-old gentleman well-known to this emergency department typically presenting for chronic left lower extremity pain presenting today for altered mental status. History is limited by patient's altered mental status. Patient initially called the paramedics for reportedly shortness of breath however on their arrival patient was laying on the ground , he did have his head on a stack of pillows and did not appear to have fallen, and would not answer their questions. He was awake and otherwise alert. On arrival to the ER he was evaluated immediately by myself. He is moving all 4 extremities, able to hold all 4 extremities up against gravity without drift, though does shake his LLE, he is awake and alert. Extraocular movements are intact. He is initially aphasic, however when I asked him what is bothering him today he "states my leg" and indicated his LLE. I asked him his name, age and date of without an answer, however after I told the patient that I could better help him with his symptoms and pain if he was able to talk to me, he began answering questions and was oriented to self, , place and date. Pt had NIH 2 for mild aphasia so for this reason a code thrombolytic was called, loreto pfeiffer suspect pain vs medication side effect as etiology of symptoms today. Case was discussed with Dr. Hunter, who recommended no tNK, no additional recs. Labs and imaging reviewed. Grossly within normal limits. Abnormal values not concerning for acute pathology related to presenting complaint. On reassessment patient is speaking fluently. He states that earlier this evening he was having difficulty getting comfortable on his couch due to his chronic left lower extremity pain, PT began to feel anxious due to the amount of pain he was in and so called EMS. He states when he arrived here he felt like he could not talk 2/2 pain. He states this has happened in the past. He takes gabapentin for his pain currently. Denies recent falls or injuries. He does state that when he comes here he usually gets Dilaudid which helps his pain. I discussed with him that I do not feel its appropriate for his chronic pain, we will give him Toradol and Norflex. Pt agreeable with POC. Given reassuring labs and imaging, patient states this happened previously with prior pain exacerbations and retu rned to baseline, I do not feel patient requires admission to the hospital at this point. Will control patient's pain and anticipate discharge. On reassessment patient appears much or comfortable. I discussed with the patient plan for discharge and the importance following up with his chronic pain specialist for further recommendations on chronic pain. We discussed signs symptoms warranting return to the ER such as failure pain to improve over the next 48 hours, change in quality of his pain, fevers, severe headaches, changes in vision, focal numbness or weakness into the experiencing symptoms or have any further concerns for his wellbeing should return to the ER immediately. in my medical judgment there is currently no evidence of an immediate life-threatening or surgical condition. Discharge is therefore indicated at this time. Discharge treatment instructions, follow up instructions, and appropriate emergency department return precautions were discussed with the patient and/or medical decision maker. Patient and/or medical decision maker expressed understanding of and agreed with the treatment plan, follow up instructions, and emergency department return precaution. All patient's and/or medical decision maker's questions were answered. The patient was advised that a small risk still exists that a serious condition could develop and was therefore instructed to return to the ED for any changes in symptoms, persistent symptoms, inability to obtain proper follow-up or for any further concerns. Patient received verbal and written instructions for this condition. Undiagnosed new problem with uncertain prognosis? @ -No Drug Therapy requiring intensive monitoring for toxicity (Heparin, Nitro, Insulin, Cardizem)? @ -No Were any procedures done? @ -No Diagnosis/symptom? @Acute on chronic left lower extremity pain, pain reaction Acute, or Chronic, or Acute on Chronic? @ -Acute Uncomplicated (without systemic symptoms) or Complicated (systemic symptoms)? @Complicated Side effects of treatment? @ -No Exacerbation, Progression, or Severe Exacerbation? @ -No Poses a threat to life or bodily function? How? (Chest pain, [place], [place], pneumonia, PE, COPD, DKA, ARF, appy, cholecystitis, CVA, Diverticulitis, Homicidal, Suicidal, threat to staff... and all critical care pts) @ -No - Lab Data Result diagrams: 09/11/24 02:43 09/11/24 02:43 Lab Results 09/11/24 09/11/24 09/11/24 Range/Units 02:34 02:43 02:43 WBC 6.19 (4.50-10.00) 10*3/uL RBC 4.54 (4.40-5.60) 10*6/uL Hgb 14.6 (13.0-17.0) g/dL Hct 40.0 (39.6-50.0) % MCV 88.1 (80.0-97.0) fL MCH 32.2 H (27.0-32.0) pg MCHC 36.5 (32.0-37.0) g/dL Plt Count 216 (140-440) 10*3/uL MPV 10.4 (9.5-12.2) fL Immature Gran % (Auto) 0.3 % Neutrophils % 71.1 % Lymphocytes % 18.9 % Monocytes % 7.3 % Eosinophils % 1.6 % Basophils % 0.8 % Immature Gran # 0.02 (0.00-0.04) 10*3/uL Neutrophils # 4.40 (1.80-7.70) 10*3/uL Lymphocytes # 1.17 (0.90-5.00) 10*3/uL Monocytes # 0.45 (0.20-1.00) 10*3/uL Eosinophils # 0.10 (0.04-0.35) 10*3/uL Basophils # 0.05 (0.00-0.10) 10*3/uL PT 10.7 (10.0-12.5) sec INR 1.0 (<1.2) APTT 23.2 (22.0-30.0) sec Sodium (137-145) mmol/L Potassium (3.5-5.1) mmol/L Chloride (98-107) mmol/L Carbon Dioxide (22-30) mmol/L Anion Gap mmol/L BUN (9-20) mg/dL Creatinine (0.66-1.25) mg/dL Est GFR (CKD-EPI)AfAm (>60 ml/min/1.73 sqM) Est GFR (CKD-EPI)NonAf (>60 ml/min/1.73 sqM) Glucose (74-99) mg/dL POC Glucose (mg/dL) 182 H (70-110) mg/dL POC Glu Agency Appointments Supervisor ID Pedro Altamirano Calcium (8.4-10.2) mg/dL Total Bilirubin (0.2-1.3) mg/dL AST (17-59) U/L ALT (4-49) U/L Alkaline Phosphatase (38-126) U/L Creatine Kinase (55-170) U/L Troponin I (0.000-0.034) ng/mL Total Protein (6.3-8.2) g/dL Albumin (3.5-5.0) g/dL Urine Color Urine Appearance (Clear) Urine pH (5.0-8.0) Ur Specific [place] (1.001-1.035) Urine Protein (Negative) Urine Glucose (UA) (Negative) Urine Ketones (Negative) Urine Blood (Negative) Urine Nitrite (Negative) Urine Bilirubin (Negative) Urine Urobilinogen (<2.0) mg/dL Ur Leukocyte Esterase (Negative) Salicylates mg/dL Urine Opiates Screen (NotDetected) Ur Oxycodone Screen (NotDetected) Urine Methadone Screen (NotDetected) Acetaminophen ug/mL Ur Barbiturates Screen (NotDetected) U Tricyclic Antidepress (NotDetected) Ur Phencyclidine Scrn (NotDetected) Ur Amphetamines Screen (NotDetected) U Methamphetamines Scrn (NotDetected) U Benzodiazepines Scrn (NotDetected) Urine Cocaine Screen (NotDetected) U Marijuana (THC) Screen (NotDetected) 09/11/24 09/11/24 09/11/24 Range/Units 02:43 02:43 03:09 WBC (4.50-10.00) 10*3/uL RBC (4.40-5.60) 10*6/uL Hgb (13.0-17.0) g/dL Hct (39.6-50.0) % MCV (80.0-97.0) fL MCH (27.0-32.0) pg MCHC (32.0-37.0) g/dL Plt Count (140-440) 10*3/uL MPV (9.5-12.2) fL Immature Gran % (Auto) % Neutrophils % % Lymphocytes % % Monocytes % % Eosinophils % % Basophils % % Immature Gran # (0.00-0.04) 10*3/uL Neutrophils # (1.80-7.70) 10*3/uL Lymphocytes # (0.90-5.00) 10*3/uL Monocytes # (0.20-1.00) 10*3/uL Eosinophils # (0.04-0.35) 10*3/uL Basophils # (0.00-0.10) 10*3/uL PT (10.0-12.5) sec INR (<1.2) APTT (22.0-30.0) sec Sodium 138 (137-145) mmol/L Potassium 4.5 (3.5-5.1) mmol/L Chloride 104 (98-107) mmol/L Carbon Dioxide 24 (22-30) mmol/L Anion Gap 10 mmol/L BUN 16 (9-20) mg/dL Creatinine 1.19 (0.66-1.25) mg/dL Est GFR (CKD-EPI)AfAm 82 (>60 ml/min/1.73 sqM) Est GFR (CKD-EPI)NonAf 71 (>60 ml/min/1.73 sqM) Glucose 167 H (74-99) mg/dL POC Glucose (mg/dL) (70-110) mg/dL POC Glu Agency Appointments Supervisor ID Calcium 9.1 (8.4-10.2) mg/dL Total Bilirubin 0.4 (0.2-1.3) mg/dL AST 20 (17-59) U/L ALT 29 (4-49) U/L Alkaline Phosphatase 70 (38-126) U/L Creatine Kinase 62 (55-170) U/L Troponin I <0.012 (0.000-0.034) ng/mL Total Protein 6.6 (6.3-8.2) g/dL Albumin 4.3 (3.5-5.0) g/dL Urine Color Colorless Urine Appearance Clear (Clear) Urine pH 6.5 (5.0-8.0) Ur Specific [place] 1.006 (1.001-1.035) Urine Protein Negative (Negative) Urine Glucose (UA) Negative (Negative) Urine Ketones Negative (Negative) Urine Blood Negative (Negative) Urine Nitrite Negative (Negative) Urine Bilirubin Negative (Negative) Urine Urobilinogen 2.0 (<2.0) mg/dL Ur Leukocyte Esterase Negative (Negative) Salicylates <1.0 mg/dL Urine Opiates Screen Not Detected (NotDetected) Ur Oxycodone Screen Not Detected (NotDetected) Urine Methadone Screen Not Detected (NotDetected) Acetaminophen <10.0 ug/mL Ur Barbiturates Screen Not Detected (NotDetected) U Tricyclic Antidepress Not Detected (NotDetected) Ur Phencyclidine Scrn Not Detected (NotDetected) Ur Amphetamines Screen Not Detected (NotDetected) U Methamphetamines Scrn Not Detected (NotDetected) U Benzodiazepines Scrn Detected H (NotDetected) Urine Cocaine Screen Not Detected (NotDetected) U Marijuana (THC) Screen Not Detected (NotDetected) Disposition Clinical Impression: Chronic pain of left lower extremity Disposition: HOME SELF-CARE Condition: Stable Instructions (If sedation given, give patient instructions): Pain Management in Older Adults (DC), Conversion Disorder (ED) Additional Instructions: Every disease is a spectrum and a small chance still exists that a serious condition could develop, for this reason, please monitor yourself closely for new, changing or worsening symptoms, symptoms that persist beyond 48 hours, new or changes in location or quality of your pain different from typical chronic pain, redness or swelling of your affected extremity, confusion, changes in vision, numbness or weakness of extremity, facial droop, slurred speech, confusion fever, inability to tolerate/keep down fluids or your medications, inability to follow up with outpatient providers as instructed and should you experience these symptoms or should you have any further concerns for your wellbeing please return to the ED or call 911 immediately. Please follow-up with your pain specialist as soon as possible regarding today's visit. Please continue home pain medications as prescribed. PLEASE call your primary care physician as soon as possible to arrange / discuss plan for followup appointment. Appointment in the next 1-3 days is strongly encouraged if possible. PLEASE let us know here before you leave if there is anything further we can do to be of any assistance. Take care and feel Better! Is patient prescribed a controlled substance at d/c from ED?: No Referrals: Jefry Castro DO [Primary Care Provider] - 1-2 days
[2024-09-11 03:06] VITALS: RESP 17
[2024-09-11 03:06] LABS: INR 1.0 (<1.2); Partial Thromboplastin Time 23.2 sec (22.0-30.0); Prothrombin Time 10.7 sec (10.0-12.5)
[2024-09-11] MEDS: SODIUM CHLORIDE 0.9% 1,000 ML IV STA (03:09)
--- NOTE | 2024-09-11 03:14 | CT ---
EXAM: CT Head Without Intravenous Contrast CLINICAL HISTORY: ITS.REASON CT Reason: Neuro deficit, acute, stroke suspected TECHNIQUE: Axial computed tomography images of the head/brain without intravenous contrast. CTDI is 48.8 mGy and DLP is 1175 mGy-cm. This CT exam was performed using one or more of the following dose reduction techniques: automated exposure control, adjustment of the mA and/or kV according to patient size, and/or use of iterative reconstruction technique. COMPARISON: No relevant prior studies available. FINDINGS: Brain: Unremarkable. No hemorrhage. No significant white matter disease. No edema. Ventricles: No acute findings. No ventriculomegaly. Bones/joints: Unremarkable. No acute fracture. Soft tissues: Unremarkable. Sinuses: Unremarkable as visualized. No acute sinusitis. Mastoid air cells: Unremarkable as visualized. No mastoid effusion. IMPRESSION: No acute intracranial pathology.
--- NOTE | 2024-09-11 03:17 | CT ---
EXAM: CT Angiography Head With Intravenous Contrast CLINICAL HISTORY: ITS.REASON CT Reason: acute aphasia, stroke suspected TECHNIQUE: Axial computed tomographic angiography images of the head with intravenous contrast. CTDI is 13.2 mGy and DLP is 589.9 mGy-cm. This CT exam was performed using one or more of the following dose reduction techniques: automated exposure control, adjustment of the mA and/or kV according to patient size, and/or use of iterative reconstruction technique. MIP reconstructed images were created and reviewed. COMPARISON: No relevant prior studies available. FINDINGS: Right internal carotid artery: No acute findings. Intracranial segment is patent with no significant stenosis. No aneurysm. Right anterior cerebral artery: No occlusion or significant stenosis. No aneurysm. Right middle cerebral artery: No occlusion or significant stenosis. No aneurysm. Right posterior cerebral artery: No occlusion or significant stenosis. No aneurysm. Right vertebral artery: Unremarkable as visualized. Left internal carotid artery: No acute findings. Intracranial segment is patent with no significant stenosis. No aneurysm. Left anterior cerebral artery: No occlusion or significant stenosis. No aneurysm. Left middle cerebral artery: No occlusion or significant stenosis. No aneurysm. Left posterior cerebral artery: origin of the left posterior cerebral artery. Left vertebral artery: Unremarkable as visualized. Basilar artery: No occlusion or significant stenosis. No aneurysm. IMPRESSION: No acute findings in the arteries of the head/brain. EXAM: CT Angiography Neck With Intravenous Contrast CLINICAL HISTORY: ITS.REASON CT Reason: acute aphasia, stroke suspected TECHNIQUE: Routine carotid CT angiography protocol was performed with intravenous contrast. NASCET criteria using the distal ICAs for comparison were used for evaluation of stenoses. This CT exam was performed using one or more of the following dose reduction techniques: automated exposure control, adjustment of the mA and/or kV according to patient size, and/or use of iterative reconstruction technique. MIP reconstructed images were created and reviewed. COMPARISON: None. FINDINGS: VASCULATURE: Right common carotid artery: No significant stenosis. No dissection or occlusion. Right internal carotid artery: Extracranial segment is patent with no significant stenosis. No dissection or occlusion. Right external carotid artery: No occlusion. Right vertebral artery: No significant stenosis. No dissection or occlusion. Left common carotid artery: No significant stenosis. No dissection or occlusion. Left internal carotid artery: Extracranial segment is patent with no significant stenosis. No dissection or occlusion. Left external carotid artery: No occlusion. Left vertebral artery: No significant stenosis. No dissection or occlusion. NECK: Bones/joints: No acute findings. Soft tissues: Unremarkable. Lung apices: No acute disease. CAROTID STENOSIS REFERENCE USING NASCET CRITERIA: % ICA stenosis = (1 - narrowest ICA diameter/diameter of distal cervical ICA) x 100. Mild - <50% stenosis. Moderate - 50-69% stenosis. Severe - 70-94% stenosis. Near occlusion - 95-99% stenosis. Occluded - 100% stenosis. IMPRESSION: Negative CTA neck.
[2024-09-11 03:29] LABS: ALT 29 U/L (4-49); AST 20 U/L (17-59); Acetaminophen <10.0 ug/mL; African American GFR (CKD) 82 (>60 ml/min/1.73 sqM); Albumin 4.3 g/dL (3.5-5.0); Alkaline Phosphatase 70 U/L (38-126); Anion Gap 10 mmol/L; Blood Urea Nitrogen 16 mg/dL (9-20); Calcium 9.1 mg/dL (8.4-10.2); Carbon Dioxide 24 mmol/L (22-30); Chloride 104 mmol/L (98-107); Creatine Kinase 62 U/L (55-170); Glucose 167 mg/dL (74-99); Non-African American GFR(CKD) 71 (>60 ml/min/1.73 sqM); Potassium 4.5 mmol/L (3.5-5.1); Salicylate <1.0 mg/dL; Sodium 138 mmol/L (137-145); Total Protein 6.6 g/dL (6.3-8.2)
[2024-09-11 03:42] LABS: Bilirubin,Urine Negative (Negative); Blood,Urine Negative (Negative); Color,Urine Colorless; Glucose,Urine (UA) Negative (Negative); Ketones,Urine Negative (Negative); Leukocyte Esterase,Urine Negative (Negative); Nitrite,Urine Negative (Negative); PH, Urine 6.5 (5.0-8.0); Protein,Urine Negative (Negative); Specific Gravity,Urine 1.006 (1.001-1.035); Urobilinogen,Urine 2.0 mg/dL (<2.0)
[2024-09-11 03:56] LABS: Barbiturate Screen,Urine Not Detected (NotDetected); Benzodiazepines Screen,Urine Detected (NotDetected); Opiate Screen,Urine Not Detected (NotDetected); Oxycodone Screen, Urine Not Detected (NotDetected); Phencyclidine Screen,Urine Not Detected (NotDetected); Tricyclic Antidepressant,Urine Not Detected (NotDetected); Urn Cannabinoid Scrn Not Detected (NotDetected)
--- NOTE | 2024-09-11 04:10 | XR ---
EXAM: XR Chest, 1 View CLINICAL HISTORY: ITS.REASON XR Reason: altered mental status TECHNIQUE: Frontal view of the chest. COMPARISON: 07/24/2024 FINDINGS: Lungs: Low lung volumes accentuates interstitial markings. No consolidation. Pleural space: No acute findings. No pneumothorax. Heart: No cardiomegaly. Bones/joints: No acute osseous abnormality. IMPRESSION: No acute findings in the chest.
[2024-09-11] MEDS: KETOROLAC 15 MG/ML 1 ML VIAL IVP STA (04:29)
[2024-09-11] MEDS: ORPHENADRINE 30 MG/ML 2 ML VIAL IVP STA (04:31)
[2024-09-11 05:43] VITALS: BP 117/75; PULSE 92; TEMP 98
== END 2024-09-11 05:43 | disposition home or self-care (01) ==
LOC: EC 02:27
DX: M79.605 Pain in left leg (principal); G89.29 Other chronic pain; E78.5 Hyperlipidemia, unspecified; Z88.8 Allergy status to other drugs, medicaments and biological substances
CPT/HCPCS: 36415; 93005; 80053; 82550; 84484; 85025; 85610; 85730; 81003; 80306; 80143; 80179; 71045; 70496; 70450; 70498; 99285; 96374; 96375; 96361; J2360; J1885; Q9967